=== PATIENT | male | born 1960 | race African-American/Black ===

== ENCOUNTER 2020-01-18 13:18 | Outpatient (CLI) | payer OTHER, SELFPAY ==
--- NOTE | ~2020-01-18 | XR_ITS ---
EXAMINATION: XR chest 2V DATE: 01/18/2020 14:34 INDICATION: Back pain. TECHNIQUE: Frontal and lateral views of the chest were obtained. COMPARISON: Chest 2 views 06/24/2018 FINDINGS: The lungs are hyperexpanded, consistent with emphysema. No pleural effusion or pneumothorax . The heart size is normal. IMPRESSION: 1. Emphysema. Reviewed, dictated and finalized at location A. IMPRESSION: 1. Emphysema.
--- NOTE | ~2020-01-18 | XR_ITS ---
EXAMINATION: XR hip BI 2V w AP pelvis EXAM DATE: 01/18/2020 14:34 INDICATION: No known recent injury provided at this time. Pain of the hips. TECHNIQUE: Each hip imaged independently (separate right and also left hip) 'frog leg' and frontal p rojections for interpretation. Frontal projection pelvis. There is no prior study for comparison. FINDINGS: There is moderate symmetric bilateral hip primary osteoarthritis. No evidence of hip avascu lar necrosis. There are no acute hip or pelvic fractures or dislocations identified. There is no sub cutaneous gas. The soft tissue is unremarkable. There are no radiopaque foreign bodies. IMPRESSION: Moderate bilateral hip osteoarthritis. Reviewed, dictated and finalized at location A.
--- NOTE | ~2020-01-18 | XR_ITS ---
EXAMINATION: XR thoracic spine 3V EXAM DATE: 01/18/2020 14:33 INDICATION: Back pain. TECHNIQUE: Frontal and lateral projections of the thoracic spine as well as lateral swimmers projecti on of the upper thoracic spine for interpretation. Comparison is made to prior examination from 2018. FINDINGS: Mild to moderate lower thoracic disc disease with some moderate sized bridging endplate os teophytes. No endplate erosive change. The vertebral bodies are aligned in the AP dimension. Paraspin al soft tissue is unremarkable. IMPRESSION: 1. Mild to moderate lower thoracic spondylosis. Reviewed, dictated and finalized at location A.
--- NOTE | ~2020-01-18 | XR_ITS ---
EXAMINATION: XR lumbar spine 2-3V EXAM DATE: 01/18/2020 14:34 INDICATION: Low back pain and numbness. TECHNIQUE: Lumber spine frontal, lateral, lateral L5-S1 projections for interpretation. Comparison is made to prior examination from 06/24/2018. FINDINGS: There is moderate disc disease at L4-5 and L5-S1 with 3 mm retrolisthesis at these 2 level s. Mild disc disease at the other lumbar levels. Small bridging endplate osteophytes. There is mild t o moderate lumbar facet arthropathy. No endplate erosive change. Sacrum, sacroiliac joints, sacral ar nils lines are intact. IMPRESSION: 1. Moderate lower lumbar disc disease. 2. Mild to moderate facet arthropathy. Reviewed, dictated and finalized at location A.
--- NOTE | ~2020-01-18 | XR_ITS ---
EXAMINATION: XR_CERV2-3V_CR EXAM DATE: 01/18/2020 14:33 INDICATION: Neck pain. TECHNIQUE: Cervical frontal, lateral, open-mouth odontoid projections. There is no prior study for comparison. FINDINGS: There is moderate disc disease at C5-6 and 6-7, mild at the other cervical levels. Probabl y moderate uncovertebral joint arthropathy at C5-6 and C6-7. Moderate left-sided facet arthropathy at C4-5, otherwise probably mild to moderate cervical facet arthropathy overall. The vertebral bodies a re aligned in the AP dimension. Vertebral body and disc heights are well-maintained. The odontoid pro cess is intact. The lateral masses of C1 line up with C2. Prevertebral soft tissue and pre-dens spac e are within normal limits. Lung apices unremarkable. IMPRESSION: Moderate lower cervical spondylosis. Reviewed, dictated and finalized at location A.
== END 2020-01-18 13:19 ==
DX: M54.9 Dorsalgia, unspecified (principal); M54.5 Low back pain; M25.552 Pain in left hip; M25.551 Pain in right hip; R10.2 Pelvic and perineal pain; M16.0 Bilateral primary osteoarthritis of hip
CPT/HCPCS: 71046; 72040; 72072; 72100; 73521

== ENCOUNTER 2022-06-01 06:49 | Emergency (ER) | payer OTHER, SELFPAY ==
--- NOTE | ~2022-06-01 | XR_ITS ---
XR lumbar spine 2-3V 06/01/2022 08:18 Indication: Low back pain Procedure: 3 views lumbar spine Comparison: 01/18/2020 Findings: There is disc narrowing at all lumbar levels. Disc narrowing most severe at L4-5 and L5-S1. There are facet hypertrophic changes at L4-5 and L5-S1. No acute fracture or traumatic malalignment. No evidence for spondylolisthesis. There is atherosclerosis. Pedicles intact. Impression: 1: Stable moderate lumbar spondylosis most advanced at L4-5 and L5-S1. Reviewed, dictated and finalized at location B. RACT TECHNICIAN Impression: 1: Stable moderate lumbar spondylosis most advanced at L4-5 and L5-S1.
[2022-06-01 06:55] VITALS: BP 142/99; PULSE 92; RESP 17; TEMP 36.3; O2SAT 95
--- NOTE | 2022-06-01 08:08 | ED.LOWEXIN ---
HPI - Extremity Injury (Lower) General Chief Complaint: Extremity Injury, Lower Stated Complaint: leg pain Time Seen by Provider: 06/01/22 08:03 History of Present Illness HPI Narrative: Patient is a 61-year-old male who presents ER with low back pain. 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 He did not think much of it went home and pain mildly increased. When he woke up this morning he had pain that was worse with going from sitting to standing. It was on both sides of his low back in the buttock region and would radiate down the back of his legs. No numbness or tingling. No difficulty with urination/defecation. Related Data Allergies Allergy/AdvReac Type Severity Reaction Status Date / Time No Known Allergies Allergy Mild Unverified 05/29/11 10:49 Review of Systems Constitutional: Constitutional: Denies chills and Denies fever(s) Musculoskeletal: Musculoskeletal: Reports back pain, Denies arthralgias and Denies joint swelling Neurologic: Denies focal weakness and Denies numbness PMFSH Past Medical History Medical History (Updated 06/01/22 @ 08:38 by Jose Fitzgerald MD) Hypercholesterolemia Hypertension Surgical History Surgical History (Updated 06/01/22 @ 08:36 by Jose Fitzgerald MD) No pertinent past surgical history Exam Narrative: GENERAL: Well-appearing, well-nourished, and in no acute distress. HEAD: Normocephalic, atraumatic. Back: No midline tenderness to T/L-spine. No reproducible paraspinal muscular tenderness. There is discomfort in the SI region bilaterally over the buttock. EXTREMITIES: Normal range of motion. No edema. Able to go from sitting to standing with only mild discomfort and no assistance. SKIN: Warm, dry, no rash. NEURO: Alert and oriented x3. PSYCH: Normal mood and affect. Course Course Emergency Course: Discussed diagnosis and treatment plan. Discussed x-ray results. Patient verbalized understanding. Discharge home. Vital Signs Vital signs: Vital Signs Temperature 97.3 F L 06/01/22 06:55 Pulse Rate 92 06/01/22 06:55 Respiratory Rate 17 06/01/22 06:55 Blood Pressure 142/99 H 02/24/23 06:55 Pulse Oximetry 95 02/24/23 06:55 Temperature 97.3 F L 06/01/22 06:55 Pulse Rate 92 06/01/22 06:55 Respiratory Rate 17 06/01/22 06:55 Blood Pressure 142/99 H 06/01/22 06:55 Pulse Oximetry 95 06/01/22 06:55 MDM - Extremity Injury (Lower) Imaging Data Radiologist's impression: ITS Impressions Lumbar Spine X-Ray 06/01/22 08:21 Impression: 1: Stable moderate lumbar spondylosis most advanced at L4-5 and L5-S1. Discharge Plan Discharge Clinical Impression: Bilateral sciatica Patient Disposition: Home, Self-Care Condition: Stable Instructions: Sciatica (ED) Additional Instructions: Return to the ER if you have increased pain in your back, you develop lower extremity weakness/numbness/paralysis, you have numbness or tingling in your private parts, or you are unable to control your ability to urinate/stool. Prescriptions: New cyclobenzaprine 10 mg tablet 10 mg PO TID PRN (Reason: muscle spasm) Qty: 20 0RF naproxen 500 mg tablet 500 mg PO BID Qty: 14 0RF Follow-up/Referrals: UNKNOWN,DOCTOR [Non-Staff] - 1 Week Stand Alone Forms: Work/School Release IP
[2022-06-01 09:01] VITALS: BP 143/104; PULSE 87; RESP 16; O2SAT 96
== END 2022-06-01 09:02 | disposition home or self-care (01) ==
PROVIDERS: Emergency Provider Emergency Medicine; PCP Internal Medicine
DX: M54.42 Lumbago with sciatica, left side (principal); M54.41 Lumbago with sciatica, right side; E78.00 Pure hypercholesterolemia, unspecified; I10 Essential (primary) hypertension; M47.816 Spondylosis without myelopathy or radiculopathy, lumbar region
CPT/HCPCS: 72100; 99283

== ENCOUNTER 2022-06-03 09:34 | Emergency (ER) | payer OTHER, SELFPAY ==
--- NOTE | ~2022-06-03 | CT_ITS ---
EXAMINATION: CT lumbar spine wo con DATE: 06/03/2022 14:44 INDICATION: lower back pain, feet numbness . TECHNIQUE: Computed tomography (CT) of the lumbar spine was performed without intravenous contrast. A utomated exposure control and iterative reconstruction technique were employed. The dose-length produ ct was 799.06 mGy-cm. COMPARISON: X-ray L-spine 06/01/2022 and 01/18/2020. FINDINGS: Left adrenal adenoma. Atherosclerotic calcifications. 5 nonrib-bearing lumbar-type vertebra l bodies. Pedicles intact. Minimal 2 mm retrolistheses at L4-L5 and L5-S1, remaining vertebral bodies are aligned. Stable mild anterior wedge deformity at T12-L3. Multilevel disc space narrowing and mar ginal osteophytosis with large bridging anterior osteophytes in the lower lumbar spine and vacuum dis c phenomenon at L4-5 and L5-S1. No large focal protrusion or extrusion detected. Severe left neural f oraminal narrowing at L5-S1. No severe central canal stenosis. Multilevel moderate facet sclerosis an d hypertrophy. IMPRESSION: No acute fracture or traumatic malalignment in the lumbar spine. Severe left neural foraminal narrowi ng at L5-S1. Multilevel degenerative disc disease, severe at L4-L5 and L5-S1. Multilevel facet hypert rophy. Reviewed, dictated and finalized at location K. PART ROUNDER IMPRESSION: No acute fracture or traumatic malalignment in the lumbar spine. Severe left ne ural foraminal narrowing at L5-S1. Multilevel degenerative disc disease, severe at L4-L5 and L5-S1. Multilevel facet hypertrophy.
[2022-06-03 09:37] VITALS: BP 147/94; PULSE 96; RESP 16; TEMP 36.6; O2SAT 96
[2022-06-03 12:42] VITALS: BP 132/80; PULSE 89; TEMP 37; O2SAT 97
[2022-06-03 13:17] VITALS: BP 159/96; PULSE 92; RESP 18; O2SAT 98
[2022-06-03] MEDS: methylPREDNISolone SOD SUCC 125 MG VIAL IV PUSH (13:41)
[2022-06-03] MEDS: KETOROLAC 30 MG/ML VIAL (*BKC) IV PUSH (13:41)
[2022-06-03] MEDS: HYDROmorphone HCL INJ (*CRX) 1 MG/ML SYR 0.5 MG IV PUSH ×2 (13:42→16:42)
[2022-06-03 13:53] LABS: Basophils Absolute Auto 0.1 K/mm3 (0.0-0.1); Basophils Percent Auto 0.8 % (0.2-1.2); Eosinophils Absolute Auto 0.1 K/mm3 (0-0.3); Eosinophils Percent Auto 0.9 % (0-4.4); Hematocrit 45.9 % (42.0-52.0); Hemoglobin 16.2 g/dL (14.0-18.0); Immature Granulocyte Absolute 0.01 K/mm3 (0.00-0.031); Immature Granulocyte Percent A 0.2 % (0-0.5); Lymphocytes Absolute Auto 1.85 K/mm3 (0.9-3.2); Lymphocytes Percent Auto 28.1 % (18.3-44.2); Mean Corpuscular HGB Conc 35.3 g/dl (32-36); Mean Corpuscular Hemoglobin 30.9 pg (26-34); Mean Corpuscular Volume 87.4 fl (80-100); Monocytes Absolute Auto 0.7 K/mm3 (0.1-0.6); Monocytes Percent Auto 10.3 % (2.6-8.5); Neutrophils Absolute Auto 3.9 K/mm3 (1.3-6.7); Neutrophils Percent Auto 59.7 % (45.5-73.1); Platelet Count Result 259 k/mm3 (150-375); Red Blood Count 5.25 M/mm3 (4.6-6.20); Red Cell Distribution Width 13.2 % (11.5-14.5); White Blood Count 6.6 K/mm3 (4.5-10.0)
[2022-06-03 13:58] LABS: Appearance Urine Clear (Clear); Bilirubin Urine Negative (Negative); Blood Urine Negative (Negative); Color Urine Yellow (Yellow); Glucose Urine UA Negative (Negative); Ketones Urine Trace mg/dL (Negative); Leukocyte Esterase Ur Negative LEU/UL (Negative); Nitrate Urine Negative (Negative); Protein Urine Negative (Negative); Specific Grav Ur 1.027 (1.001-1.035); pH Urine 5.5 (5.0-9.0)
--- NOTE | 2022-06-03 14:05 | ED.BACK ---
HPI - Back Pain/Injury General Chief Complaint: Extremity Problem,Nontraumatic Stated Complaint: back and leg pain - no fall Time Seen by Provider: 06/03/22 13:12 Source: patient, RN notes reviewed and old records reviewed Mode of arrival: wheelchair Limitations: no limitations History of Present Illness HPI Narrative: This is a 61 year old male who presents for evaluation of lower back pain. He developed back pain 10 days ago . He reports constant pain that radiates down both legs. He reports his pain is worsening, and he has numbness to top of his feet. He has no pain with sitting but he has pain with standing. HE reports he is unable to walk due to pain. He reports that he is having some difficulty urinating. He denies saddle anesthesia Related Data Allergies Allergy/AdvReac Type Severity Reaction Status Date / Time No Known Allergies Allergy Mild Verified 06/03/22 10:24 Review of Systems Constitutional: Constitutional: Denies weakness Cardiovascular: Cardiovascular: Denies syncope, Denies rapid heart rate, Denies irregular heart rhythm, Denies leg edema and Denies dyspnea Respiratory: Respiratory: Denies chest congestion, Denies hemoptysis, Denies excessive phlegm production and Denies dyspnea Gastrointestinal: Gastrointestinal: Denies abdominal pain, Denies hematochezia, Denies diarrhea and Denies vomiting Genitourinary: Genitourinary: Denies hematuria, Reports oliguria, Denies dysuria, Denies penile discharge and Denies testicular pain Musculoskeletal: Musculoskeletal: Reports back pain, Denies joint swelling, Denies loss of height and Denies muscle weakness Neurologic: Denies syncope, Denies focal weakness, Reports numbness and Reports weakness PMFSH Past Medical History Medical History (Updated 06/03/22 @ 17:22 by Katelyn Medrano MD) Hypercholesterolemia Hypertension Surgical History Surgical History (Updated 06/01/22 @ 08:36 by Jose Fitzgerald MD) No pertinent past surgical history Social History Social History (Updated 06/03/22 @ 21:36 by Katelyn Medrano MD) Smoking packs per day: 0.5 Smoking cigarettes per day: 10.0 Smoking status: Current every day smoker Exam Const: General: no acute distress and alert Nutritional Appearance: well nourished Orientation/consciousness: patient oriented x3 HENMT: Head: normal to inspection Throat: posterior oropharynx normal Eyes: EOM: EOMs intact bilaterally Neck: Neck: normal visual inspection Chest: Chest palpation & inspection: normal inspection of the chest Resp: Effort & Inspection: normal respiratory effort Auscultation: clear to auscultation bilaterally Cardio: Rate: regular rate Rhythm: regular rhythm Heart sounds: no murmurs GI: GI Palp: Yes Soft to palpation, No Tenderness to palpation present (GI), No Guarding due to palpation present (GI) and No Rigid due to palpation Auscultation: normal bowel sounds Rectal Exam: normal sphincter tone Back/Spine/Pelvis: Back: no CVA tenderness Thoracic/Lumbar Spine: No paraspinal muscle tenderness, No lumbar spinal tenderness and No straight leg raise positive Skin: General skin exam: normal color Rashes: no rashes Neuro: General: patient oriented x3, moves all extremities, no meningeal signs, no focal motor deficits and CN's II-XI intact bilaterally Cranial nerves: Yes CN's II-XII intact bilaterally Speech: normal speech Motor exam (neuro): Other motor observations present (strength 4/5 on left leg) Sensory Exam: normal sensation Extrem: General: normal to inspection Psych: Mental Status: mental status grossly normal Affect: normal affect Attitude: cooperative Course Reevaluation(s) Reevaluation #1: Patient states he is still having patient. I discussed that NSGY recommended that he get MRI today. We do not have MRI available at this time so He will need to transfer. He is agreeable to transfer . Date: 06/03/22 Time: 17:00 Consultations Consultation #1: I spoke with
[2022-06-03 14:06] LABS: CRP 0.6 mg/dL (<1.0)
[2022-06-03 14:28] LABS: Bacteria Urine None Seen /hpf; Non Pathogenic Casts 0-2; RBC Urine 0-2 /hpf (0-2); Squamous Epithelial Cell Urine None seen /hpf (Few); WBC Urine 0-5 /hpf
[2022-06-03 14:29] LABS: Alanine Aminotransferase 28 U/L (6-50); Albumin Level 4.8 g/dL (3.5-5.1); Alkaline Phosphatase 61 U/L (38-126); Anion Gap 7 mmol/L (8-16); Aspartate Amino Transferase 32 U/L (17-59); Bilirubin,Total 0.5 mg/dL (0.2-1.3); Blood Urea Nitrogen 14 mg/dL (9-20); Calcium 9.2 mg/dL (8.4-10.2); Carbon Dioxide 28 mmol/L (22-30); Chloride 101 mmol/L (98-107); Estimated CRCL calculation 90 ml/min; Estimated Glomerular Filt Rate > 60; Glucose 107 mg/dL (65-110); Potassium 3.8 mmol/L (3.4-5.0); Sodium 136 mmol/L (137-145)
[2022-06-03 14:30] LABS: Add Urine Microscopic? YES
[2022-06-03 15:11] VITALS: BP 156/95; PULSE 82; RESP 18; O2SAT 96
[2022-06-03 17:30] VITALS: BP 154/92; PULSE 86; RESP 18; O2SAT 98
== END 2022-06-03 18:39 | disposition short-term general hospital (02) ==
PROVIDERS: Emergency Provider General Practice; PCP Internal Medicine
DX: M51.16 Intervertebral disc disorders with radiculopathy, lumbar region (principal); M51.17 Intervertebral disc disorders with radiculopathy, lumbosacral region; E78.00 Pure hypercholesterolemia, unspecified; I10 Essential (primary) hypertension; F17.210 Nicotine dependence, cigarettes, uncomplicated
CPT/HCPCS: 36415; 72131; 80053; 81001; 85025; 86140; 96374; 96375; 96376; 99285; J1170; J1885; J2930

== ENCOUNTER 2022-10-05 09:36 | Outpatient (CLI) | payer OTHER, SELFPAY ==
--- NOTE | ~2022-10-05 | XR_ITS ---
EXAMINATION: XR lg joint inject/asp w image DATE: 10/05/2022 11:15 INDICATION: Right shoulder pain and limited range of motion TECHNIQUE: A time-out was performed to verify the patient's name, date of , and procedure to b e performed. The procedure including the risks, benefits, and alternatives was discussed with the pat ient. Risks discussed included bleeding and infection. The patient understood the risks and agreed to proceed. The skin overlying the rotator cuff interval of the right glenohumeral joint was prepped a nd draped in usual sterile fashion. Anesthetic was administered with 1% lidocaine subcutaneously. A 22 G needle was advanced under fluoroscopic guidance into the joint. Injection of 1 mL of Omnipaque 240 confirmed intra-articular position of the needle. Subsequently, injectate consisting of 4 mL of a 3:1 mixture of 1% lidocaine: 80 mg/mL Depo-Medrol for a total dose of 80 mg Depo-Medrol was instil led. Washout of contrast was seen confirming intra-articular administration. The needle was removed a nd the entry site was cleaned and dressed. There were no immediate complications. Fluoroscopy exposu re time was 0.1 minutes. The total number of images was 1. FINDINGS: Real-time fluoroscopy demonstrates the needle in the right glenohumeral joint. Patient's pa in prior to procedure:11/15. Patient's pain following the procedure: 07/16. IMPRESSION: 1. Successful right glenohumeral joint injection of local anesthetic and steroid with decrease in the patient's presenting pain. Reviewed, dictated and finalized at location A. IMPRESSION: 1. Successful right glenohumeral joint injection of local anesthetic and steroi d with decrease in the patient's presenting pain.
--- NOTE | ~2022-10-05 | MR_ITS ---
MRI of the left shoulder Technique: Axial proton-density fat-sat images, coronal proton density fat-sat and T2 fat-sat images, and sagittal T1-weighted and T2 fat-sat images were acquired. Clinical History: Pain Findings: There is advanced AC joint degenerative change, large subcarinal spur present. Coracoclavic ular, coracoacromial, and coracohumeral ligaments are intact. Supraspinatus and infraspinatus tendons are intact, without partial or full-thickness tear. Subscapul lissette tendon is intact. Tendon of the long head of the biceps is intact. No definite labral tear identified. No degenerative change or effusion of the glenohumeral joint. Inferior glenohumeral ligament is intac t. No fluid distention of the subacromial/subdeltoid bursa. No muscle atrophy or edema. Impression: Advanced degenerative change of the AC joint. No other significant findings. Reviewed, dictated and finalized at [facility]. Impression: Advanced degenerative change of the AC joint. No other significant findings.
== END 2022-10-05 09:37 | disposition home or self-care (01) ==
PROVIDERS: PCP Internal Medicine; Visit Provider Orthopaedic Surgery
DX: M25.512 Pain in left shoulder (principal)
CPT/HCPCS: 20610; 73221; 77002; J1040; Q9966

== ENCOUNTER 2023-01-22 13:33 | Emergency (ER) | payer OTHER, SELFPAY ==
--- NOTE | ~2023-01-22 | XR_ITS ---
XR chest 2V DATE: 01/22/2023 14:15 INDICATION: Cough TECHNIQUE: PA and lateral views COMPARISON: 01/18/2020 2 view chest FINDINGS: Lungs are hyperinflated suggesting obstructive airways disease. There is mild discoid atele ctasis or scarring in the right lower lobe. No pulmonary infiltrate or consolidation is detected. Heart size is within normal range. The central pulmonary arteries appear prominent with relative tape ring peripherally, suggesting possible pulmonary hypertension. There is thoracic aortic ectasia and u nfolding. No hilar or mediastinal enlargement is detected. No pleural effusion or pulmonary vascular congestion or pneumothorax. There is degenerative spurring of the thoracic spine. Pedicle screws and rods are noted in the lumbar spine. IMPRESSION: COPD and possible pulmonary hypertension Reviewed, dictated and finalized at location A.
[2023-01-22 13:35] VITALS: BP 156/87; PULSE 87; RESP 18; TEMP 36.3; O2SAT 97
--- NOTE | 2023-01-22 13:42 | ED.GENADULT ---
HPI - General Adult General Chief complaint: Upper Respiratory Infection Stated complaint: flu like sx x 2 days Time Seen by Provider: 01/22/23 14:24 History of Present Illness HPI narrative: Reji Freire is a 62 y/o male with PMHx of COPD/ HTN/ HLD who presents with 2-3 days of increased cough intermittently productive, reports feeling overall unwell, no known fevers/chills/nausea/vomiting/ abdominal pain Related Data Allergies Allergy/AdvReac Type Severity Reaction Status Date / Time No Known Allergies Allergy Mild Verified 01/22/23 13:33 Review of Systems Review of Systems: CONSTITUTIONAL: Denies fever, chills, or sweats. EYES: Denies visual changes, redness, or discharge. ENT: Denies rhinorrhea, congestion, sore throat, or otalgia. CARDIOVASCULAR: Denies chest pain, palpitations, or edema. RESPIRATORY: Reports cough for 2-3 days denies dyspnea. GASTROINTESTINAL: Denies abdominal pain, nausea, vomiting, or diarrhea. GENITOURINARY: Denies dysuria or hematuria. SKIN: Denies rash or itching. MUSCULOSKELETAL: Denies back pain, joint pain, or myalgia. NEUROLOGIC: Denies headache, numbness, dizziness, or weakness. PSYCHIATRIC: Denies anxiety or depression. PMFSH Past Medical History Medical History (Updated 01/22/23 @ 15:08 by Daphne Magallon APRN) Hypercholesterolemia Hypertension Surgical History Surgical History (Updated 06/01/22 @ 08:36 by Jose Fitzgerald MD) No pertinent past surgical history Social History Social History (Updated 06/03/22 @ 21:36 by Katelyn Medrano MD) Smoking packs per day: 0.5 Smoking cigarettes per day: 10.0 Smoking status: Current every day smoker Exam Narrative: GENERAL: Well-appearing, well-nourished, and in no acute distress. HEAD: Normocephalic, atraumatic. EYES: PERRLA and EOMI. ENT: Nares clear, no rhinorrhea or epistaxis. Mucous membranes moist. Oropharynx without tonsillar hypertrophy exudate or other lesions. Bilateral TMs pearly rivers nonbulging NECK: Supple. No adenopathy or masses. No carotid bruits or JVD CHEST: Clear to auscultation. No respiratory distress. No wheezes rales or rhonchi HEART: Regular rate and rhythm. No murmur heard. Normal peripheral pulses. ABDOMEN: Soft, nontender, nondistended, normal active bowel sounds. EXTREMITIES: Normal range of motion. No edema. SKIN: Warm, dry, no rash. NEURO: No focal deficits. Alert and oriented x3. PSYCH: Normal mood and affect. Course Vital Signs Vital signs: Vital Signs Temperature 36.3 C L 01/22/23 13:35 Pulse Rate 87 01/22/23 13:35 Respiratory Rate 18 01/22/23 13:35 Blood Pressure 156/87 H 01/22/23 13:35 Pulse Oximetry 97 01/22/23 13:35 Oxygen Delivery Room Air 01/22/23 13:35 Temperature 36.3 C L 01/22/23 13:35 Pulse Rate 89 01/22/23 13:55 Respiratory Rate 18 01/22/23 13:55 Blood Pressure 156/87 H 01/22/23 13:35 Pulse Oximetry 97 01/22/23 13:35 Oxygen Delivery Room Air 01/22/23 14:00 Medical Decision Making [facility] Narrative Medical decision making narrative: Patient presents with PMhx of COPD with increased cough off and on productive feeling generalized unwell that started 2- 3 days ago. He states he has been taking OTC cold medications with some relief Denies any Shortness of breath/ denies chest pain/ no peripheral edema noted. Lung sounds diminished throughout with slight wheeze in the base of the right Labs are stable X ray is negative for pneumonia Patient re-evaluated and states he feels better after the breathing treatment Plan to d/c home with a dose of azithromycin and steroid taper Encouraged pt to continue the OTC cold medications as tolerated , stay hydrated, get plenty rest Close follow up with PCP in 1 week. Strict return precautions provided. Patient denies any further questions or concerns. Differential Diagnosis Differential Diagnosis: URI/ Anemia/ pneumonia/ Bronchitis/ COPD exacerbation. Medical Records Medi
[2023-01-22 13:55] VITALS: PULSE 89; RESP 18
[2023-01-22] MEDS: IPRATROPIUM BR 0.02% INH SOLN 0.5 MG/2.5 ML VIAL INHALATION (13:55)
[2023-01-22] MEDS: ALBUTEROL SULFATE NEB 2.5 MG/3 ML INH INHALATION (13:55)
[2023-01-22] MEDS: predniSONE 20 MG TABLET 60 MG PO (14:00)
[2023-01-22 14:16] LABS: Basophils Absolute Auto 0.1 K/mm3 (0.0-0.1); Basophils Percent Auto 0.9 % (0.2-1.2); Eosinophils Absolute Auto 0.2 K/mm3 (0-0.3); Eosinophils Percent Auto 3.3 % (0-4.4); Hemoglobin 16.2 g/dL (14.0-18.0); Immature Granulocyte Absolute 0.01 K/mm3 (0.00-0.031); Immature Granulocyte Percent A 0.2 % (0-0.5); Lymphocytes Absolute Auto 1.86 K/mm3 (0.9-3.2); Lymphocytes Percent Auto 34.3 % (18.3-44.2); Mean Corpuscular HGB Conc 35.2 g/dl (32-36); Mean Corpuscular Hemoglobin 31.2 pg (26-34); Mean Corpuscular Volume 88.5 fl (80-100); Mean Platelet Volume 10.2 fl (7.4-10.4); Monocytes Absolute Auto 0.6 K/mm3 (0.1-0.6); Monocytes Percent Auto 10.9 % (2.6-8.5); Neutrophils Absolute Auto 2.7 K/mm3 (1.3-6.7); Neutrophils Percent Auto 50.4 % (45.5-73.1); Platelet Count Result 227 k/mm3 (150-375); Red Cell Distribution Width 12.4 % (11.5-14.5); White Blood Count 5.4 K/mm3 (4.5-10.0)
[2023-01-22 14:30] LABS: Alanine Aminotransferase 25 U/L (6-50); Albumin Level 4.5 g/dL (3.5-5.1); Alkaline Phosphatase 62 U/L (38-126); Anion Gap 8 mmol/L (8-16); Aspartate Amino Transferase 29 U/L (17-59); Bilirubin,Total 0.6 mg/dL (0.2-1.3); Blood Urea Nitrogen 12 mg/dL (9-20); Calcium 8.8 mg/dL (8.4-10.2); Carbon Dioxide 25 mmol/L (22-30); Chloride 104 mmol/L (98-107); Estimated Glomerular Filt Rate > 60; Glucose 134 mg/dL (65-110); Potassium 3.8 mmol/L (3.4-5.0); Sodium 137 mmol/L (137-145)
[2023-01-22 14:56] LABS: Influenza A QL RT-PCR Negative (Negative); Influenza B QL RT-PCR Negative (Negative); RSV RNA, RT-PCR Negative (Negative); SARS-CoV-2 RNA PCR Negative (Negative)
[2023-01-22] MEDS: AZITHROMYCIN 250 MG TABLET 500 MG PO (15:08)
== END 2023-01-22 15:13 | disposition home or self-care (01) ==
PROVIDERS: Emergency Provider Nurse Practitioner Family; PCP Internal Medicine
DX: J06.9 Acute upper respiratory infection, unspecified (principal); Z20.822 Contact with and (suspected) exposure to COVID-19; J44.9 Chronic obstructive pulmonary disease, unspecified; I10 Essential (primary) hypertension; E78.00 Pure hypercholesterolemia, unspecified; F17.210 Nicotine dependence, cigarettes, uncomplicated; R91.8 Other nonspecific abnormal finding of lung field
CPT/HCPCS: 36415; 71046; 80053; 85025; 87637; 94640; 99283; A9270; J7512

== ENCOUNTER 2023-03-25 05:29 | Emergency (ER) | payer OTHER, SELFPAY ==
--- NOTE | ~2023-03-25 | CT_ITS ---
CT of the Abdomen and Pelvis: Indication: Abdominal Technique: 2.5 mm axial scans were obtained through the abdomen and pelvis following intravenous adm inistration of 100 cc of Omnipaque 350. Dose reduction technique was used on this scan by utilizing a utomated exposure control and iterative reconstruction technique. The dose-length product (DLP) was 4 05.43 mGy-cm. Findings: Scans through the lung bases are unremarkable. The liver, spleen, pancreas, gallbladder, right adrenal and, and kidneys are within normal limits. Pr obable 1.2 cm left adrenal nodule, indeterminate. No evidence of aortic aneurysm. No lymphadenopathy . There is mixed wall thickening of the ascending colon and cecum with mild pericolonic inflammatory st randing. No abscess or free air. No bowel obstruction. Images through the pelvis were performed. Urinary bladder unremarkable. Prostate gland and seminal ve sicles are unremarkable. Impression: Presumed infectious/inflammatory colitis of the cecum and ascending colon with pericolonic inflammato ry change. No abscess or free air. No bowel obstruction. Indeterminate 1.2 cm left adrenal nodule. Consider follow-up MR to assess for adenoma. Reviewed, dictated and finalized at [facility]. [employer] Impression: Presumed infectious/inflammatory colitis of the cecum and ascending colon with pericolonic inflammatory change. No abscess or free air. No bowel obstruction. Indeterminate 1.2 cm left adrenal nodule. Consider follow-up MR to assess for a denoma.
[2023-03-25 05:29] VITALS: BP 150/99; PULSE 98; RESP 20; TEMP 36.4; O2SAT 95
--- NOTE | 2023-03-25 07:10 | PC.NURSE ---
Report given to JOE Cat at this time.
[2023-03-25 07:11] VITALS: BP 157/95; PULSE 87; RESP 18; TEMP 36.6; O2SAT 97
[2023-03-25] MEDS: ONDANSETRON INJ 4 MG/2 ML VIAL IV PUSH (07:22)
[2023-03-25 07:24] LABS: Basophils Absolute Auto 0.1 K/mm3 (0.0-0.1); Basophils Percent Auto 0.7 % (0.2-1.2); Eosinophils Absolute Auto 0.1 K/mm3 (0-0.3); Eosinophils Percent Auto 0.9 % (0-4.4); Hemoglobin 16.5 g/dL (14.0-18.0); Immature Granulocyte Absolute 0.02 K/mm3 (0.00-0.031); Immature Granulocyte Percent A 0.2 % (0-0.5); Lymphocytes Absolute Auto 2.38 K/mm3 (0.9-3.2); Lymphocytes Percent Auto 27.2 % (18.3-44.2); Mean Corpuscular HGB Conc 35.9 g/dl (32-36); Mean Corpuscular Hemoglobin 30.7 pg (26-34); Mean Corpuscular Volume 85.5 fl (80-100); Mean Platelet Volume 11.1 fl (7.4-10.4); Monocytes Absolute Auto 1.1 K/mm3 (0.1-0.6); Monocytes Percent Auto 12.4 % (2.6-8.5); Neutrophils Absolute Auto 5.1 K/mm3 (1.3-6.7); Neutrophils Percent Auto 58.6 % (45.5-73.1); Platelet Count Result 245 k/mm3 (150-375); Red Blood Count 5.38 M/mm3 (4.6-6.20); Red Cell Distribution Width 13.2 % (11.5-14.5); White Blood Count 8.7 K/mm3 (4.5-10.0)
[2023-03-25 07:25] LABS: Appearance Urine Clear (Clear); Bilirubin Urine Negative (Negative); Blood Urine Negative (Negative); Color Urine Yellow (Yellow); Glucose Urine UA Negative (Negative); Ketones Urine Negative (Negative); Leukocyte Esterase Ur Negative LEU/UL (Negative); Nitrate Urine Negative (Negative); Protein Urine Negative (Negative); Specific Grav Ur 1.007 (1.001-1.035); Urobilinogen Urine 0.2 mg/dL (<2.0); pH Urine 6.5 (5.0-9.0)
[2023-03-25 07:33] LABS: Add Urine Microscopic? NO; Alanine Aminotransferase 22 U/L (6-50); Albumin Level 4.6 g/dL (3.5-5.1); Alkaline Phosphatase 70 U/L (38-126); Anion Gap 10 mmol/L (8-16); Aspartate Amino Transferase 29 U/L (17-59); Bilirubin,Total 0.9 mg/dL (0.2-1.3); Blood Urea Nitrogen 10 mg/dL (9-20); Calcium 9.6 mg/dL (8.4-10.2); Carbon Dioxide 25 mmol/L (22-30); Chloride 100 mmol/L (98-107); Estimated CRCL calculation 80 ml/min; Estimated Glomerular Filt Rate > 60; Glucose 166 mg/dL (65-110); Lipase 71 U/L (23-300); Potassium 3.7 mmol/L (3.4-5.0); Sodium 135 mmol/L (137-145)
--- NOTE | 2023-03-25 08:26 | ED.ABDPAIN ---
HPI - Abdominal Pain General Chief Complaint: Abdominal Pain Stated Complaint: abd pain Time Seen by Provider: 03/25/23 06:58 History of Present Illness HPI narrative: patient is a 62-year-old male who presents ER with abdominal pain. Going on since yesterday. Sharp and cramping. Lower and right-sided. No diarrhea. No urinary frequency or urgency or dysuria. It is associated with dry heaving. No known sick contacts. He does still have an appendix. No history of kidney stone. Has not had similar pain. Related Data Allergies Allergy/AdvReac Type Severity Reaction Status Date / Time No Known Allergies Allergy Mild Verified 03/25/23 05:45 Review of Systems Review of Systems: All systems reviewed & are unremarkable except as noted in HPI and below Constitutional: Constitutional: Reports no additional constitutional complaints ENT: Reports system reviewed and no additional complaints, except as documented Cardiovascular: Cardiovascular: Reports no additional cardiovascular complaints Respiratory: Respiratory: Reports no additional respiratory complaints Gastrointestinal: Gastrointestinal: Reports abdominal pain, Denies diarrhea, Reports nausea and Denies vomiting Genitourinary: Genitourinary: Reports no additional male genitourinary complaints [facility] Past Medical History Medical History (Updated 03/25/23 @ 08:56 by Jose Fitzgerald MD) Hypercholesterolemia Hypertension Surgical History Surgical History (Updated 06/01/22 @ 08:36 by Jose Fitzgerald MD) No pertinent past surgical history Social History Social History (Updated 06/03/22 @ 21:36 by Katelyn Medrano MD) Smoking packs per day: 0.5 Smoking cigarettes per day: 10.0 Smoking status: Current every day smoker Exam Narrative: GENERAL: Well-appearing, well-nourished, and in no acute distress. HEAD: Normocephalic, atraumatic. ENT: Mucous membranes moist. CHEST: Clear to auscultation. No respiratory distress. HEART: Regular rate and rhythm. Normal peripheral pulses. ABDOMEN: Soft, mild tenderness the right lower quadrant without guarding, nondistended. EXTREMITIES: Normal range of motion. No edema. SKIN: Warm, dry, no rash. NEURO: Alert and oriented x3. PSYCH: Normal mood and affect. Course Course Emergency Course: Patient resting comfortably. Educated on diagnosis and treatment plan. Discharged home. Vital Signs Vital signs: Vital Signs Temperature 97.5 F L 03/25/23 05:29 Pulse Rate 98 03/25/23 05:29 Respiratory Rate 20 03/25/23 05:29 Blood Pressure 150/99 H 03/25/23 05:29 Pulse Oximetry 95 03/25/23 05:29 Oxygen Delivery Room Air 03/25/23 05:29 Temperature 97.9 F 03/25/23 07:11 Pulse Rate 78 03/25/23 09:17 Respiratory Rate 16 03/25/23 09:17 Blood Pressure 148/89 H 03/25/23 09:17 Pulse Oximetry 98 03/25/23 09:17 Oxygen Delivery Room Air 03/25/23 05:29 MDM - Abdominal Pain Lab Data 03/25/23 07:14 03/25/23 07:14 Labs: Lab Results 03/25/23 Range/Units 07:14 WBC 8.7 (4.5-10.0) K/mm3 RBC 5.38 (4.6-6.20) M/mm3 Hgb 16.5 (14.0-18.0) g/dL Hct 46.0 (42.0-52.0) % MCV 85.5 (80-100) fl MCH 30.7 (26-34) pg MCHC 35.9 (32-36) g/dl RDW 13.2 (11.5-14.5) % Plt Count 245 (150-375) k/mm3 MPV 11.1 H (7.4-10.4) fl Immature Gran % (Auto) 0.2 (0-0.5) % Neut % (Auto) 58.6 (45.5-73.1) % Lymph % (Auto) 27.2 (18.3-44.2) % Mccone % (Auto) 12.4 H (2.6-8.5) % Eos % (Auto) 0.9 (0-4.4) % Baso % (Auto) 0.7 (0.2-1.2) % Lymph # (Auto) 2.38 (0.9-3.2) K/mm3 Mccone # (Auto) 1.1 H (0.1-0.6) K/mm3 Eos # (Auto) 0.1 (0-0.3) K/mm3 Baso # (Auto) 0.1 (0.0-0.1) K/mm3 Abs Immat Gran (auto) 0.02 (0.00-0.031) K/mm3 Absolute Neuts (auto) 5.1 (1.3-6.7) K/mm3 Absolute Nucleated RBC 0.0 (0.0-0.012) K/mm3 Nucleated RBC % 0.0 (0.0-0.2) % Sodium 135 L (137-145) mmol/L Potassium 3.7 (3.4-5.0) mmol/L
[2023-03-25 09:17] VITALS: BP 148/89; PULSE 78; RESP 16; O2SAT 98
== END 2023-03-25 09:17 | disposition home or self-care (01) ==
PROVIDERS: Emergency Provider Emergency Medicine; PCP Internal Medicine
DX: K52.9 Noninfective gastroenteritis and colitis, unspecified (principal); E78.00 Pure hypercholesterolemia, unspecified; I10 Essential (primary) hypertension; F17.210 Nicotine dependence, cigarettes, uncomplicated
CPT/HCPCS: 36415; 74177; 80053; 81003; 83690; 85025; 96374; 99284; J2405; Q9967

== ENCOUNTER 2023-05-10 07:50 | Emergency (ER) | payer OTHER, SELFPAY ==
--- NOTE | ~2023-05-10 | XR_ITS ---
XR chest 2V DATE: 05/10/2023 08:22 INDICATION: Cough, shortness of breath, fever TECHNIQUE: PA and lateral views COMPARISON: 01/22/2023 PA and lateral chest FINDINGS: Normal heart size. Mild aortic unfolding. No hilar or mediastinal enlargement. Moderate bilateral hyperinflation. No pulmonary infiltrate or consolidation, pleural effusion or pulm onary vascular congestion or pneumothorax is detected. Degenerative spurring of the thoracic spine. Pedicle screws and rods are noted in the lumbar area beginning superiorly at L1. IMPRESSION: Moderate hyperinflation; no active cardiopulmonary disease Reviewed, dictated and finalized at location [facility] [employer]
[2023-05-10 07:51] VITALS: BP 169/94; PULSE 110; RESP 24; TEMP 37.8; O2SAT 96
[2023-05-10 08:14] VITALS: O2SAT 100
[2023-05-10 08:51] LABS: Influenza A QL RT-PCR Positive (Negative); Influenza B QL RT-PCR Negative (Negative); RSV RNA, RT-PCR Negative (Negative); SARS-CoV-2 RNA PCR Negative (Negative)
--- NOTE | 2023-05-10 09:50 | ED.URI ---
HPI - URI/Sore Throat General Chief Complaint: Upper Respiratory Infection Stated Complaint: flu like symptoms Time Seen by Provider: 05/10/23 09:04 Source: patient Mode of arrival: ambulatory Limitations: no limitations History of Present Illness HPI Narrative: Patient is a 62-year-old male who presents the ED with report of URI symptoms. Patient reports he began feeling ill on Saturday afternoon after speaking to a co-worker who was sick with similar symptoms. He complains of cough, sore throat, fevers, chills, sweats, myalgias, headache, fatigue, weakness. He has been taking [place] Plus and drinking tea with honey for his symptoms. denies chest pain, shortness breath. Denies nausea, vomiting abdominal pain. Patient did not receive his flu shot this year. Related Data Allergies Allergy/AdvReac Type Severity Reaction Status Date / Time No Known Allergies Allergy Mild Verified 05/10/23 07:53 Review of Systems Review of Systems: CONSTITUTIONAL: See HPI. ENT: See HPI. CARDIOVASCULAR: Denies chest pain, palpitations, or edema. RESPIRATORY: See HPI. GASTROINTESTINAL: Denies abdominal pain, nausea, vomiting. MUSCULOSKELETAL: Reports myalgia. NEUROLOGIC: see HPI. All systems reviewed & are unremarkable except as noted in HPI and below PMFSH Past Medical History Medical History Hypercholesterolemia Hypertension Surgical History Surgical History No pertinent past surgical history Social History Social History Smoking packs per day: 0.5 Smoking cigarettes per day: 10.0 Smoking status: Current every day smoker Exam Narrative: GENERAL: Mildly ill appearing, well-nourished, non-toxic, in no acute distress. HEAD: Normocephalic, atraumatic. RESPIRATORY: Airway patent, respirations nonlabored. Clear to auscultation bilaterally, no rales, rhonchi, wheezing. focal lung sounds. Frequent coughing on exam. CARDIOVASCULAR: borderline tachycardic with regular rhythm without murmurs, rubs, or gallops. MUSCULOSKELETAL: Moves all extremities. No gross deformities. SKIN: Warm, dry, normal color. NEURO: A&O X3. Speech clear. Cranial nerves II-XII grossly intact. Steady gait. No ataxic movements. No focal deficits. PSYCHIATRIC: Appropriate mood and affect. Normal interaction. Course Vital Signs Vital signs: Vital Signs Temperature 100.0 F H 05/10/23 07:51 Pulse Rate 110 H 05/10/23 07:51 Respiratory Rate 24 H 05/10/23 07:51 Blood Pressure 169/94 H 05/10/23 07:51 Pulse Oximetry 96 05/10/23 07:51 Oxygen Delivery Room Air 05/10/23 07:51 Temperature 100.0 F H 05/10/23 07:51 Pulse Rate 110 H 05/10/23 07:51 Respiratory Rate 24 H 05/10/23 07:51 Blood Pressure 169/94 H 05/10/23 07:51 Pulse Oximetry 100 05/10/23 08:14 Oxygen Delivery Room Air 05/10/23 08:14 MDM - URI/Sore Throat MDM Narrative Medical decision making narrative: Patient presented to ED with 1.5 day history of URI symptoms. patient tachycardic, tachypneic, febrile upon arrival. Oxygen stable on room air. Influenza A positive in the ED. This does fit with patient's clinical picture. Chest x-ray clear. Patient denying shortness of breath, chest pain, nausea, vomiting to suggest need for further labs or imaging at this time. Will give patient fluids in the ED, start on Tamiflu given sx's onset < 48 hours ago. Discussed supportive therapy, strict return precautions. Advised follow-up with PCP upon resolution of symptoms. Patient and agree with plan. Discharged in stable condition. VSS improved and stable at time of d/c. Medical Records Attestation: I reviewed the patient's medical records. Lab Data Attestation: I reviewed the patient's lab results. Labs: Lab Results 05/10/23 Range/Units 08:06
[2023-05-10] MEDS: IBUPROFEN 600 MG TABLET PO (09:53)
[2023-05-10] MEDS: OSELTAMIVIR PHOSPHATE 75 MG CAPSULE PO (09:53)
[2023-05-10] MEDS: SODIUM CHLORIDE 0.9% IV 1,000 ML 999 ML IV CONT (09:54)
== END 2023-05-10 10:57 | disposition home or self-care (01) ==
PROVIDERS: Emergency Medicine; Emergency Provider Physician Assistant; PCP Internal Medicine
DX: J10.1 Influenza due to other identified influenza virus with other respiratory manifestations (principal); Z20.822 Contact with and (suspected) exposure to COVID-19; E78.00 Pure hypercholesterolemia, unspecified; I10 Essential (primary) hypertension; F17.210 Nicotine dependence, cigarettes, uncomplicated
CPT/HCPCS: 71046; 87637; 96360; 99283; A9270; J7030

== ENCOUNTER 2023-08-26 06:53 | Emergency (ER) | payer OTHER, SELFPAY ==
--- NOTE | ~2023-08-26 | XR_ITS ---
Portable chest x-ray Comparison: 05/10/2023 Clinical History: Cough Findings: Lungs are clear, without focal consolidation or pleural effusion. Cardiomediastinal silho uette is stable. Bones and soft tissues are unremarkable. Impression: Normal chest. Reviewed, dictated and finalized at [facility]. Impression: Normal chest.
[2023-08-26 06:58] VITALS: BP 158/102; PULSE 90; RESP 19; TEMP 36.9; O2SAT 94
[2023-08-26 07:58] LABS: Influenza A QL RT-PCR Negative (Negative); Influenza B QL RT-PCR Negative (Negative); RSV RNA, RT-PCR Negative (Negative); SARS-CoV-2 RNA PCR Negative (Negative)
[2023-08-26 08:10] VITALS: PULSE 82; RESP 18
[2023-08-26] MEDS: ALBUTEROL SULFATE NEB 2.5 MG/3 ML INH 15 MG INHALATION (08:10)
[2023-08-26] MEDS: IPRATROPIUM BR 0.02% INH SOLN 0.5 MG/2.5 ML VIAL 1 MG INHALATION (08:10)
[2023-08-26] MEDS: predniSONE 20 MG TABLET 40 MG PO (08:49)
[2023-08-26] MEDS: AZITHROMYCIN 250 MG TABLET 500 MG PO (08:49)
[2023-08-26 08:52] VITALS: BP 163/105; PULSE 80; PULSE 86; RESP 16; RESP 18; O2SAT 100
[2023-08-26 08:59] VITALS: BP 144/102; PULSE 101; RESP 21; O2SAT 100
--- NOTE | 2023-08-26 11:04 | ED.URI ---
HPI - URI/Sore Throat General Chief Complaint: Upper Respiratory Infection Stated Complaint: coughing and spitting up x 4 days Time Seen by Provider: 08/26/23 07:00 History of Present Illness HPI Narrative: patient has been having a cough on and off for the last 2 weeks, with some sputum. He stopped smoking about 5 days ago. No chest pain. Related Data Allergies Allergy/AdvReac Type Severity Reaction Status Date / Time No Known Allergies Allergy Mild Verified 05/10/23 07:53 Review of Systems Review of Systems: All systems reviewed & are unremarkable except as noted in HPI and below [facility] Past Medical History Medical History Hypercholesterolemia Hypertension Surgical History Surgical History No pertinent past surgical history Social History Social History Smoking packs per day: 0.5 Smoking cigarettes per day: 10.0 Smoking status: Current every day smoker Exam Narrative: EXAMINATION OF ORGAN SYSTEMS/BODY AREAS: Constitutional: Vital signs per nursing GENERAL:[No acute distress, non-toxic appearing.] HEAD: Normal with no signs of head trauma. EYES: EOMI, conjunctiva normal ENT: Hearing grossly intact LUNGS: Nonlabored breathing. Wheezing bilaterally HEART: [Regular rate and rhythm] ABD: Soft, nontender palpation EXT: Normal range of motion SKIN: [No rashes or lesions.] NEURO: [Alert and oriented x 3. No gross focal sensory or strength deficits.] PSYCH: Normal affect Course Vital Signs Vital signs: Vital Signs Temperature 98.4 F 08/26/23 06:58 Pulse Rate 90 08/26/23 06:58 Respiratory Rate 19 08/26/23 06:58 Blood Pressure 158/102 H 08/26/23 06:58 Pulse Oximetry 94 08/26/23 06:58 Oxygen Delivery Room Air 08/26/23 06:58 Temperature 98.4 F 08/26/23 06:58 Pulse Rate 101 H 08/26/23 08:59 Respiratory Rate 21 H 08/26/23 08:59 Blood Pressure 144/102 H 08/26/23 08:59 Pulse Oximetry 100 08/26/23 08:59 Oxygen Delivery Room Air 08/26/23 08:29 MDM - URI/Sore Throat MDM Narrative Medical decision making narrative: ED COURSE AND MEDICAL DECISION MAKIN-year-old male with cough and wheezing likely due to COPD exacerbation or acute bronchitis based on history and exam. Patient is hemodynamically stable. Nebulizer treatments are started and steroids given orally. Chest x-ray on my independent interpretation no obvious consolidations or pneumothorax Patient monitored in the ED for a couple of hours and on reevaluation is feeling significantly better. No respiratory distress or accessory muscle use. Good air movement bilateral lungs. Prescriptions for [albuterol and steroid course] provided. Patient is given strict return precautions and patient is discharged in stable/improved condition. Lab Data Labs: Lab Results 08/26/23 Range/Units 07:11 Influenza A (RT-PCR) Negative (Negative) Influenza B (RT-PCR) Negative (Negative) RSV (RT-PCR) Negative (Negative) SARS-CoV-2 RNA (RT-PCR) Negative (Negative) Discharge Plan Discharge Clinical Impression: Acute bronchitis Patient Disposition: Home, Self-Care Condition: Stable Instructions: Antibiotic Form, Acute Bronchitis (ED) Additional Instructions: Please follow up with your PCP; use the meds as prescribed and come back if you feel worse. Prescriptions: New prednisone 20 mg tablet 40 mg PO DAILY 4 Days Qty: 8 0RF albuterol sulfate 90 mcg/actuation HFA aerosol inhaler 2 puff inhalation QID PRN (Reason: shortness of breath or wheezing) Qty: 8.5 0RF azithromycin 250 mg tablet 250 mg PO DAILY 4 Days Qty: 4 0RF Rx Instructions: start on day 2 of therapy No Action azithromycin 250 mg tablet 250 mg PO DAILY 4 Days Qty: 4 0RF Rx Instructions: Sta
== END 2023-08-26 09:01 | disposition home or self-care (01) ==
PROVIDERS: Emergency Provider Emergency Medicine; PCP Internal Medicine
DX: J20.9 Acute bronchitis, unspecified (principal); Z20.822 Contact with and (suspected) exposure to COVID-19; E78.00 Pure hypercholesterolemia, unspecified; I10 Essential (primary) hypertension; F17.210 Nicotine dependence, cigarettes, uncomplicated
CPT/HCPCS: 71045; 87637; 94640; 99283; A9270; J7512

== ENCOUNTER 2023-11-12 10:04 | Emergency (ER) | payer OTHER, SELFPAY ==
[2023-11-12 10:18] VITALS: BP 140/90; PULSE 105; RESP 16; TEMP 36.4; O2SAT 97
[2023-11-12] MEDS: dexAMETHasone SOD PHOS INJ 10 MG/ML 1 ML VIAL IM (12:27)
[2023-11-12] MEDS: HYDROcodone/acetaminophen (*CRX) 5-325 MG TABLET 1 TAB PO (12:27)
[2023-11-12] MEDS: diazePAM (*CRX) 5 MG TABLET PO (12:27)
[2023-11-12] MEDS: KETOROLAC 30 MG/ML VIAL (*BKC) IM (12:27)
--- NOTE | 2023-11-12 12:45 | ED.GENADULT ---
HPI - General Adult General Chief complaint: Extremity Injury, Lower Stated complaint: sciatica Time Seen by Provider: 11/12/23 11:45 History of Present Illness HPI narrative: Reji Freire is a 62 y/o male who presents today with reports of starting to have pain like previous sciatica to his right buttock radiating down the anterior right leg. He denies any falls/ trauma/ injury No spinal pain No loss of bowel or bladder No numbness /tingling Denies urinary changes / dysuria No abdominal pain / no fevers/ chills Pain started yesterday evening he has tried Ibuprofen without relief at home Sitting up resting makes his pain better Ambulating makes his pain worse. Related Data Allergies Allergy/AdvReac Type Severity Reaction Status Date / Time No Known Allergies Allergy Mild Verified 11/12/23 11:26 Review of Systems Review of Systems: All systems reviewed & are unremarkable except as noted in HPI and below PMFSH Past Medical History Medical History Hypercholesterolemia Hypertension Surgical History Surgical History No pertinent past surgical history Social History Social History Smoking packs per day: 0.5 Smoking cigarettes per day: 10.0 Smoking status: Current every day smoker Exam Narrative: GENERAL: Well-appearing, well-nourished, and in no acute distress. HEAD: Normocephalic, atraumatic. EYES: PERRLA and EOMI. ENT: Nares clear, no rhinorrhea or epistaxis. Mucous membranes moist. Oropharynx without tonsillar hypertrophy exudate or other lesions. NECK: Supple. No adenopathy or masses. No carotid bruits or JVD CHEST: Clear to auscultation. No respiratory distress. No wheezes rales or rhonchi HEART: Regular rate and rhythm. No murmur heard. Normal peripheral pulses. ABDOMEN: Soft, nontender, nondistended, normal active bowel sounds. EXTREMITIES: Normal range of motion. No edema. SKIN: Warm, dry, no rash. NEURO: No focal deficits. Alert and oriented x3. PSYCH: Normal mood and affect. Course Vital Signs Vital signs: Vital Signs Temperature 36.4 C 11/12/23 10:18 Pulse Rate 105 H 11/12/23 10:18 Respiratory Rate 16 11/12/23 10:18 Blood Pressure 140/90 11/12/23 10:18 Pulse Oximetry 97 11/12/23 10:18 Oxygen Delivery Room Air 11/12/23 10:18 Temperature 36.4 C 11/12/23 10:18 Pulse Rate 105 H 11/12/23 10:18 Respiratory Rate 16 11/12/23 10:18 Blood Pressure 140/90 11/12/23 10:18 Pulse Oximetry 97 11/12/23 10:18 Oxygen Delivery Room Air 11/12/23 10:18 Medical Decision Making MDM Narrative Medical decision making narrative: 62 y/o male with reported sciatica pain to right buttock radiating down the front of his right leg No cervical / thoracic/ lumbar spinal tenderness with palpation No abdominal pain No saddle paraesthesia, No loss of bowel or bladder Denies any urinary changes no fevers/ no chills Concern for : sciatica / muscle spasm / Muscle strain Plan to check UA / and treat his pain while here to ensure he improves prior to d/c UA - unremarkable Re-evaluatd and he states he is feeling much better - pain is improved and able to ambulate much easier He is comfortable with d/c plan Strict return precautions provided Medical Records Medical records reviewed: Yes I reviewed the external patient's medical records. Vital Signs Vital Signs: Vital Signs Temperature 36.4 C 11/12/23 10:18 Pulse Rate 105 H 11/12/23 10:18 Respiratory Rate 16 11/12/23 10:18 Blood Pressure 140/90 11/12/23 10:18 Pulse Oximetry 97 11/12/23 10:18 Oxygen Delivery Room Air 11/12/23 10:18 Temperature 36.4 C 11/12/23 10:18 Pulse Rate 105 H 11/12/23 10:18 Respiratory Rate 16 11/12/23 10:18 Blood Pressure 140/90 11/12/23 10:18 Pulse Oximetry 97 11/12/23 10:
[2023-11-12 13:49] LABS: Add Urine Microscopic? NO; Appearance Urine Clear (Clear); Bilirubin Urine Negative (Negative); Blood Urine Negative (Negative); Color Urine Yellow (Yellow); Glucose Urine UA Negative (Negative); Ketones Urine Trace mg/dL (Negative); Leukocyte Esterase Ur Negative LEU/UL (Negative); Nitrate Urine Negative (Negative); Protein Urine Negative (Negative); pH Urine 6.5 (5.0-9.0)
[2023-11-12 14:46] VITALS: BP 135/85; PULSE 100; RESP 18; O2SAT 98
== END 2023-11-12 14:47 | disposition home or self-care (01) ==
PROVIDERS: Emergency Provider Nurse Practitioner Family; PCP Internal Medicine
DX: M54.31 Sciatica, right side (principal); I10 Essential (primary) hypertension; F17.210 Nicotine dependence, cigarettes, uncomplicated
CPT/HCPCS: 81003; 96372; 99284; A9270; J1100; J1885

== ENCOUNTER 2023-11-30 10:09 | Emergency (ER) | payer OTHER, SELFPAY ==
[2023-11-30 11:32] VITALS: BP 147/90; PULSE 88; RESP 14; TEMP 36.7; O2SAT 99
--- NOTE | 2023-11-30 12:14 | ED.SKABFB ---
HPI - Skin/Abscess/Foreign Bdy General Chief complaint: Skin/Abscess/Foreign Body Stated complaint: rash Time Seen by Provider: 11/30/23 11:36 History of Present Illness HPI narrative: Patient is a 62-year-old male who presents ER with rash. It is been developing over his arms and legs over last 2 days. Intensely itchy. Occasionally red. That will show up and then go away. Originally thought he had bedbugs and threw away all the bedding and then put his mattress and pillows and plastic bags. No fevers or chills or sweats. No new medications. He has not been exposed to poison lew or other plants. No new laundry detergents or fabric softeners. No one else with similar rash around him. No alleviating factors. Related Data Allergies Allergy/AdvReac Type Severity Reaction Status Date / Time No Known Allergies Allergy Mild Verified 11/12/23 11:26 Review of Systems Constitutional: Constitutional: Reports no additional constitutional complaints ENT: Reports system reviewed and no additional complaints, except as documented Cardiovascular: Cardiovascular: Reports no additional cardiovascular complaints Integumentary/Breasts: Skin/Breast: Reports pruritus, Denies erythema, Reports rash and Denies skin ulcer Allergic/Immunologic: Allergic/Immunologic: Denies lip swelling, Denies throat swelling and Denies tongue swelling PMFSH Past Medical History Medical History Hypercholesterolemia Hypertension Surgical History Surgical History No pertinent past surgical history Social History Social History Smoking packs per day: 0.5 Smoking cigarettes per day: 10.0 Smoking status: Current every day smoker Exam Narrative: GENERAL: Well-appearing, well-nourished, and in no acute distress. HEAD: Normocephalic, atraumatic. ENT: Mucous membranes moist. CHEST: Clear to auscultation. No respiratory distress. HEART: Regular rate and rhythm. Normal peripheral pulses. EXTREMITIES: Normal range of motion. No edema. SKIN: Warm, dry . Small areas of urticaria no larger than 1.5 cm in diameter to multiple areas of the arms bilaterally. Patient is itching his foot that I do not see any rash there. No bite fox. NEURO: Alert and oriented x3. PSYCH: Normal mood and affect. Course Course Emergency Course: Patient be started on prednisone. Unsure of the etiology of his rash. Discussed he can use [id number] topical cortisone or oral Benadryl to help with itching in addition to the prednisone that will be prescribed. Vital Signs Vital signs: Vital Signs Temperature 98.1 F 11/30/23 11:32 Pulse Rate 88 11/30/23 11:32 Respiratory Rate 14 11/30/23 11:32 Blood Pressure 147/90 H 11/30/23 11:32 Pulse Oximetry 99 11/30/23 11:32 Temperature 98.1 F 11/30/23 11:32 Pulse Rate 88 11/30/23 11:32 Respiratory Rate 14 11/30/23 11:32 Blood Pressure 147/90 H 11/30/23 11:32 Pulse Oximetry 99 11/30/23 11:32 Discharge Plan Discharge Clinical Impression: Urticaria Patient Disposition: Home, Self-Care Condition: Stable Instructions: Urticaria (ED) Additional Instructions: return ER if you have swelling of your lips or tongue, you found breathe, you cannot keep down food/water/ medication, you have additional concerns. Prescriptions: New prednisone 50 mg tablet 50 mg PO DAILY Qty: 7 0RF No Action azithromycin 250 mg tablet 250 mg PO DAILY 4 Days Qty: 4 0RF Rx Instructions: Start 01/23 prednisone 50 mg tablet 50 mg PO DAILY Qty: 5 0RF dicyclomine 20 mg tablet 20 mg PO QID Qty: 20 0RF ondansetron 4 mg tablet,disintegrating 4 mg PO Q6H PRN (Reason: nausea and vomiting) Qty: 10 0RF amoxicillin-pot clavulanate 875-125 mg tablet 1 tablet PO Q12H Qty: 14 0RF prednisone 20 mg
== END 2023-11-30 12:48 | disposition home or self-care (01) ==
PROVIDERS: Emergency Provider Emergency Medicine; PCP Internal Medicine
DX: L50.9 Urticaria, unspecified (principal); I10 Essential (primary) hypertension; E78.00 Pure hypercholesterolemia, unspecified; F17.210 Nicotine dependence, cigarettes, uncomplicated
CPT/HCPCS: 99283

== ENCOUNTER 2023-12-10 08:37 | Emergency (ER) | payer OTHER, SELFPAY ==
[2023-12-10 08:45] VITALS: BP 138/83; PULSE 112; RESP 20; TEMP 36.6; O2SAT 97
[2023-12-10 08:56] VITALS: O2SAT 98
--- NOTE | 2023-12-10 08:57 | PC.NURSE ---
COVID/Flu swab collected and sent to lab
--- NOTE | 2023-12-10 08:58 | PC.NURSE ---
Pt presents with hives to x4 extremities & trunk. Reports started 1 week ago. Pt states he started taking supplements couple weeks ago
--- NOTE | 2023-12-10 09:08 | ED.URI ---
HPI - URI/Sore Throat General Chief Complaint: Upper Respiratory Infection Stated Complaint: URI and skin rash Time Seen by Provider: 12/10/23 08:42 History of Present Illness HPI Narrative: Patient presents with 1 day of URI symptoms with cough, runny nose, he has also noticed an itchy rash for the last week, has already seen his primary care doctor for this who put him on prednisone and Benadryl however it will still come and go. He does not think there are any new medications that he has been taking other than some supplements which he has stopped, no new detergents or soaps. Related Data Allergies Allergy/AdvReac Type Severity Reaction Status Date / Time No Known Allergies Allergy Mild Verified 12/10/23 08:38 Review of Systems Review of Systems: All systems reviewed & are unremarkable except as noted in HPI and below PMFSH Past Medical History Medical History Hypercholesterolemia Hypertension Surgical History Surgical History No pertinent past surgical history Social History Social History Smoking packs per day: 0.5 Smoking cigarettes per day: 10.0 Smoking status: Current every day smoker Exam Narrative: EXAMINATION OF ORGAN SYSTEMS/BODY AREAS: Constitutional: Vital signs per nursing GENERAL:[No acute distress, non-toxic appearing.] HEAD: Normal with no signs of head trauma. EYES: EOMI, conjunctiva normal ENT: clear normal voice LUNGS: Nonlabored breathing. Clear to auscultation bilaterally HEART: Slightly tachycardic ABD: [Soft], [nontender to palpation] EXT: Normal range of motion SKIN: urticaria in multiple areas including right abdominal wall, bilateral arms NEURO: [Alert and oriented x 3. No gross focal sensory or strength deficits.] PSYCH: Normal affect Course Vital Signs Vital signs: Vital Signs Temperature 97.9 F 12/10/23 08:45 Pulse Rate 112 H 12/10/23 08:45 Respiratory Rate 20 12/10/23 08:45 Blood Pressure 138/83 12/10/23 08:45 Pulse Oximetry 97 12/10/23 08:45 Oxygen Delivery Room Air 12/10/23 08:45 Temperature 97.9 F 12/10/23 08:45 Pulse Rate 112 H 12/10/23 08:45 Respiratory Rate 20 12/10/23 08:45 Blood Pressure 138/83 12/10/23 08:45 Pulse Oximetry 98 12/10/23 08:56 Oxygen Delivery Room Air 12/10/23 08:56 MDM - URI/Sore Throat MDM Narrative Medical decision making narrative: 52-year-old male presenting with URI symptoms, he is very well-appearing here no distress, no shortness of breath or chest pain, he does have urticaria on exam, initially was slightly tachycardic but on re-evaluation now has normal heart rate 95, 98% O2 on room air. did also consider possible PE however he has no chest pain, shortness of breath, or DVT symptoms so this seems much less likely. swabs sent negative for COVID, flu, RSV. He is given Claritin and hydrocortisone cream, I have asked him to try to identify what triggered him, and follow-up with his primary care doctor. Return precautions provided. Lab Data Labs: Lab Results 12/10/23 Range/Units 08:53 Influenza A (RT-PCR) Negative (Negative) Influenza B (RT-PCR) Negative (Negative) RSV (RT-PCR) Negative (Negative) SARS-CoV-2 RNA (RT-PCR) Negative (Negative) Discharge Plan Discharge Clinical Impression: Upper respiratory infection, Urticaria Patient Disposition: Home, Self-Care Condition: Stable Instructions: Antibiotic Form, Urticaria (ED), Cold Symptoms (ED) Additional Instructions: Please follow-up with primary care doctor, you can always come back to the emergency room for any further issues. Prescriptions: New loratadine 10 mg tablet 10 mg PO DAILY Qty: 30 0RF hydrocortisone 1 % cream 1 applic topical TID PRN (Reason: itching) Qty: 28.4 0RF No Action azithrom
[2023-12-10] MEDS: HYDROCORTISONE 1% 30 GM CREAM 1 APPLIC TOPICAL (09:31)
[2023-12-10] MEDS: LORATADINE 10 MG TABLET PO (09:31)
[2023-12-10 09:35] LABS: Influenza A QL RT-PCR Negative (Negative); Influenza B QL RT-PCR Negative (Negative); RSV RNA, RT-PCR Negative (Negative); SARS-CoV-2 RNA PCR Negative (Negative)
[2023-12-10 09:56] VITALS: BP 129/90; PULSE 88; RESP 20; TEMP 36.8; O2SAT 96
== END 2023-12-10 09:58 | disposition home or self-care (01) ==
PROVIDERS: Emergency Provider Emergency Medicine; PCP Internal Medicine
DX: J06.9 Acute upper respiratory infection, unspecified (principal); L50.9 Urticaria, unspecified; I10 Essential (primary) hypertension; E78.00 Pure hypercholesterolemia, unspecified; F17.210 Nicotine dependence, cigarettes, uncomplicated; Z20.822 Contact with and (suspected) exposure to COVID-19
CPT/HCPCS: 87637; 95863; 99283; A9270

== ENCOUNTER 2024-06-11 10:16 | Outpatient (CLI) | payer MEDICARE, MEDICAID, SELFPAY ==
--- OUTSIDE RECORDS SUMMARY | 2024-06-11 11:43 | XMS_ITS | Data Portability ---
Author Organization [place] [facility] [employer], Main Office Address [address] [place] [address] Care Team Providers Care Risk Control Specialist Name Role Phone ZARIA RUBIO Primary Care Provider [phone] ZARIA RUBIO Referring Provider Assessment Encounter Date Assessment Date Assessment LastModified by Organization Details LastModified Time 09/07/2022 09/07/2022 Impression: Radiographically patient has minimal degenerative change in the right shoulder mild glenohumeral joint degenerative change manifested by spurring around the glenoid in the left shoulder. Clinically patient has pronounced loss of range of motion right shoulder. He has an adhesive capsulitis like clinical presentation on the right shoulder. This may be his primary diagnosis but it is possible that he has component of degenerative arthritis more significant in the x-rays suggest which could cause an acute inflammatory response and stiffness. He has no rotator cuff deficiency on strength testing. I have offered him a cortisone shot in the right shoulder under fluoroscopic guidance to trying quite down inflammation and address the severe pain at ends of range of motion and I would recommend we follow this up with a course of physical therapy frozen shoulder protocol. He may benefit from anti-inflammatory medication. I would recommend that he call his spine surgeon Dr. Saucedo and specifically ask worry whether he is allowed to take NSAIDs for example Naprosyn. He is at higher risk for having poor bone healing with his back fusion because of his chronic smoking and he continues to smoke and Dr. Saucedo may not want him to take nonsteroidal anti-inflammatory medications because of potential adverse effects on the bone fusion and I would recommend that he be cleared by Dr. Saucedo 1st. This would also apply the ibuprofen that he takes on a daily basis. With respect to his left shoulder, his presentation is unusual. From his oral description of his symptoms it seemed that he had acute radicular episodes but clinically, reproduction of these episodes seems to be related to contraction of the subscapularis and may be indicative of subscapularis tendinopathy or tearing for possibly subtle subluxation of the glenohumeral joint with entrapment of degenerated labrum. His marginal osteophyte around the glenoid is likely associated with significant labral degeneration as well. Instability is another consideration but I could not reproduce symptoms of instability today. I recommended obtaining an MRI scan of his left shoulder to understand the diagnosis better. It is possible that he has much more significant glenohumeral arthritis with perhaps significant subchondral bone marrow edema that is being loaded when he does these certain maneuvers causing his aching pain and numbness . His neurologic examination was unremarkable and cervical spine provocative maneuvers failed to reproduce his symptoms are cause any radicular pain or dysesthesias today. I have prescribed a Medrol Dosepak form today which will hopefully give him some anti-inflammatory effect and he will find out about whether he can start nonsteroidal anti-inflammatory medication again. I will see him back after the MRI scan of the left shoulder. 45 minutes were spent total care this patient more than half the time spent in [id number] care. Not available 09/07/2022 11:42:55 11/02/2022 11/02/2022 Low-fat diet regular walking blood work will be ordered avoidance of tobacco follow-up 4 months [email or web address] Not available 11/03/2022 12:54:27 11/16/2022 11/16/2022 Impression: Patient has an unusual constellation of complaints relative to his left shoulder. 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 Literature suggest various etiologies including vascular compression of the circumflex artery a rounds with the axillary nerve in this location or compression of the nerve from fibrous bands. Diagnosis is difficult. My reading suggests that the usual provocative maneuver is abduction elevation external rotation and his provocative maneuvers the exact opposite. I could see how full internal rotation beyond the back would apply some tension to the axillary nerve however.. Angiogram compression of the artery in the provocative position might suggest confirmation of this diagnosis but has a false-positive rate up to 80%.. The classic finding On diagnostic studies would be a lesion seen on MRI scan, a mass occupying lesion adjacent to the quadrilateral space and I do not see that on MRI. In more chronic cases, atrophy of the teres minor with or without fatty infiltration would be suggestive and he does not have that either. His teres minor looks perfect. His muscularity is surprisingly robust on the MRI scan. Again his rotator cuff looks perfect there is no effusion the joint no ganglion cyst noted. his MRI is very normal except the AC joint arthritis which is an incidental finding. Initial treatment would be course of physical therapy for stretching exercises. The only time he notices this problem with his left shoulder is when he is reaching behind his back to thread his belt through the belt loops on his pants. We will try physical therapy and also a course of naproxen 500 mg twice daily scheduled. I have given instruction she described the possible side effects of anti-inflammatory medication use. He has no history of peptic ulcer disease liver or kidney problems. Risk of side effects were reviewed. 40 minutes were spent in total care this patient with more than half the time spent in [id number] care. Not available 11/18/2022 17:31:49 12/14/2022 12/14/2022 patient returns. He has been taking the Naprosyn 500 mg twice daily. He has been going to physical therapy and doing the stretching exercises at home. He feels that the physical therapy just makes his right shoulder more shortness so were. He has been doing therapy in left shoulder as well. Since the last visit 1 month ago, he had 1 episode where the entire left arm went numb when he bent over to pickling grader a screw including all 5 fingertips felt numb. That was at work. Last week he was simply leaning leaning to the left with his head resting on his left hand and his left elbow supported and he felt a sudden spasm of twitching in his left biceps that was extremely intense. He notes that the twitching left his biceps sore and it is still a little bit sore 1 week later. Today he demonstrated how he simply bent over to pickling grader a screw reaching to the floor with his left hand and in demonstrating this he felt numbness and tingling in all 5 digits radiating from his shoulder. I asked him about his neck and he states that yesterday he was sitting leaning forward looking down in his neck did start to hurt. He has not noticed neck pain for a long time however. He has a history of some severe neck pain in the past. I have changed x-rays of his cervical spine today which demonstrate moderately severe degenerative disc disease at C5-6 7 and disc space decrease at C3-4. There is a posterior osteophyte at the disc level at C6-7 likely encroaches into the cervical spinal canal. Impression: I am suspicious that the patient may have severe cervical spinal stenosis causing symptoms into the left upper extremity. 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 The anterior deltoid C5 typically. Biceps muscle is C5 and C6. His most recent episode of severe twitching and spasm was in his left biceps from simply leaning over forward and reaching to the ground pickling grader screw. Today he notes tingling in all 5 digits of his left hand when he bends over to simulate picking a screw up off the floor. [place] tingling in all 5 fingers of his left hand with this maneuver. This makes me more suspicious that he has high-grade cervical spinal stenosis and I would recommend obtaining an MRI scan of his cervical spine for further evaluation. Differential diagnosis would also include a brachial plexus lesion. With his significant cervical spine degenerative changes I would recommend evaluating the cervical spine 1st with MRI scan and see if there is pathology that would correlate with his symptoms. I will see him back after the test. 30 minutes were spent in total care this patient more than half the time spent in [id number] care. Not available 12/15/2022 21:48:29 02/21/2023 02/21/2023 Will continue current therapy will follow-up in 4 Not available 02/25/2023 22:15:26 Plan of Treatment Reminders Order Date Submit Date Provider Last Modified By Organization Details Last Modified Time Details Appointments None recorded. Lab CBC w/ auto diff 2022 023 [facility] (Lab), [address] [place], [address], 15:06:11 CMP, serum or plasma 2022 023 [facility] (Lab), [address] [place], [address], 3 15:29:20 lipid panel, serum 2022 023 [facility] (Lab), [address] [place], [address], 3 15:29:23 Referral None recorded. Procedures None recorded. Surgeries None recorded. Imaging XR, cervical spine, 2 or 3 view 2022 023 [email or web address] [facility] [place], [address], [place], [address], 3 11:17:31 MRI, cervical spine, w/o contrast 2022 023 [email or web address] Not available 3 15:08:20 XR, shoulder 2022 023 [facility] [place], [address], [place], [address], 3 13:58:11 Medication Orders Naprosyn 500 mg tablet 2022 023 [id number], [address], [place], [id number], 3 08:21:45 Medrol (Geo) 4 mg tablets in a dose pack 2022 023 [email or web address] 45 [id number], [address], [place], [id number], 3 12:18:19 Patient TargetsNo targets recorded. Patient InstructionsNo instructions recorded. Reason for Referral None Reported. Results Created Date Observation Date Name Description Value Unit Range Abnormal Flag Note LastModifiedBy Organization Detail LastModifiedTime 11/03/19 23 11/02/2022 CBC/C OMPLE TE BLD COUNT W/DIF F white blood cells 5.4 x10'3 /uL 4.2-10 .8 Not Available [facility] (Lab) [address] [place], [address], 11/02/2022 15:06:11 11/03/19 23 11/02/2022 CBC/C OMPLE TE BLD COUNT W/DIF F red blood cells 5.10 x10'6 /uL 4.10-5 .80 Not Available [facility] (Lab) [address] [place], [address], 11/02/2022 15:06:11 11/03/19 23 11/02/2022 CBC/C OMPLE TE BLD COUNT W/DIF F hemoglobin 15.3 g/dL 13.2-1 7.0 Not Available [facility] (Lab) [address] [place], [address], 11/02/2022 15:06:11 11/03/19 23 11/02/2022 CBC/C OMPLE TE BLD COUNT W/DIF F hematocrit 43.7 % 39.3-5 0.0 Not Available [facility] (Lab) [address] [place], [address], 11/02/2022 15:06:11 11/03/19 23 11/02/2022 CBC/C OMPLE TE BLD COUNT W/DIF F mean red cell volume 85.7 fL 80.0-9 7.0 Not Available [facility] (Lab) [address] [place], [address], 11/02/2022 15:06:11 11/03/19 23 11/02/2022 CBC/C OMPLE TE BLD COUNT W/DIF F mean red cell hemoglobin 30.0 pg 27.0-3 3.0 Not Available [facility] (Lab) [address] [place], [address], 11/02/2022 15:06:11 11/03/19 23 11/02/2022 CBC/C OMPLE TE BLD COUNT W/DIF F mean RBC HGB concentratio n 35.0 g/dL 31.0-3 6.0 Not Available [facility] (Lab) [address] [place], [address], 11/02/2022 15:06:11 11/03/19 23 11/02/2022 CBC/C OMPLE TE BLD COUNT W/DIF F red cell distribution width 13.9 % 11.8-1 5.5 Not Available [facility] (Lab) [address] [place], [address], 11/02/2022 15:06:11 11/03/19 23 11/02/2022 CBC/C OMPLE TE BLD COUNT W/DIF F platelets 248 x10'3 /uL 150-40 0 Not Available [facility] (Lab) [address] [place], [address], 11/02/2022 15:06:11 11/03/19 23 11/02/2022 CBC/C OMPLE TE BLD COUNT W/DIF F mean platelet volume 10.9 fL 9.0-12 .4 Not Available [facility] (Lab) [address] [place], [address], 11/02/2022 15:06:11 11/03/19 23 11/02/2022 CBC/C OMPLE TE BLD COUNT W/DIF F neutrophils 46.2 % 39.0-7 2.0 Not Available [facility] (Lab) [address] [place], [address], 11/02/2022 15:06:11 11/03/19 23 11/02/2022 CBC/C OMPLE TE BLD COUNT W/DIF F lymphocytes 39.4 % 16.0-4 7.0 Not Available [facility] (Lab) [address] [place], [address], 11/02/2022 15:06:11 11/03/19 23 11/02/2022 CBC/C OMPLE TE BLD COUNT W/DIF F monocytes 12.0 % 5.0-12 .0 Not Available [facility] (Lab) [address] [place], [address], 11/02/2022 15:06:11 11/03/19 23 11/02/2022 CBC/C OMPLE TE BLD COUNT W/DIF F eosinophils 1.3 % 1.0-7. 0 Not Available [facility] (Lab) [address] [place], [address], 11/02/2022 15:06:11 11/03/19 23 11/02/2022 CBC/C OMPLE TE BLD COUNT W/DIF F basophils 0.7 % 0.0-2. 0 Not Available [facility] (Lab) [address] [place], [address], 11/02/2022 15:06:11 11/03/19 23 11/02/2022 CBC/C OMPLE TE BLD COUNT W/DIF F immature granulocytes 0.4 % 0.00-0 .50 Not Available [facility] (Lab) [address] [place], [address], 11/02/2022 15:06:11 11/03/19 23 11/02/2022 CBC/C OMPLE TE BLD COUNT W/DIF F neutrophils, absolute count 2.50 x10'3 /uL 1.5-8. 0 Not Available [facility] (Lab) [address] [place], [address], 11/02/2022 15:06:11 11/03/19 23 11/02/2022 CBC/C OMPLE TE BLD COUNT W/DIF F lymphocytes, absolute count 2.13 x10'3 /uL 1.07-3 .43 Not Available [facility] (Lab) [address] [place], [address], 11/02/2022 15:06:11 11/03/19 23 11/02/2022 CBC/C OMPLE TE BLD COUNT W/DIF F monocytes, absolute count 0.65 x10'3 /uL 0.29-0 .99 Not Available [facility] (Lab) [address] [place], [address], 11/02/2022 15:06:11 11/03/19 23 11/02/2022 CBC/C OMPLE TE BLD COUNT W/DIF F eosinophils, absolute count 0.07 x10'3 /uL 0.02-0 .53 Not Available [facility] (Lab) [address] [place], [address], 11/02/2022 15:06:11 11/03/19 23 11/02/2022 CBC/C OMPLE TE BLD COUNT W/DIF F basophils, absolute count 0.04 x10'3 /uL 0.01-0 .08 Not Available [facility] (Lab) [address] [place], [address], 11/02/2022 15:06:11 11/03/19 23 11/02/2022 CBC/C OMPLE TE BLD COUNT W/DIF F immature granulocytes ,absolute 0.02 x10'3 /uL 0.00-0 .05 Not Available [facility] (Lab) [address] [place], [address], 11/02/2022 15:06:11 11/03/19 23 11/02/2022 CBC/C OMPLE TE BLD COUNT W/DIF F nucleated red blood cells 0.0 % -0 Not Available [facility] (Lab) [address] [place], [address], 11/02/2022 15:06:11 11/03/19 23 11/02/2022 CBC/C OMPLE TE BLD COUNT W/DIF F NRBC# 0.00 x10'3 /uL Not Available [facility] (Lab) [address] [place], [address], 11/02/2022 15:06:11 11/03/19 23 11/02/2022 COMPR EHENS BRYAN METAB OLIC PANEL sodium 138 mmol/ L 137-14 5 Not Available [facility] (Lab) [address] [place], [address], 11/02/2022 15:29:20 11/03/19 23 11/02/2022 COMPR EHENS BRYAN METAB OLIC PANEL potassium 4.7 mmol/ L 3.5-5. 1 Not Available [facility] (Lab) [address] [place], [address], 11/02/2022 15:29:20 11/03/19 23 11/02/2022 COMPR EHENS BRYAN METAB OLIC PANEL chloride 101 mmol/ L 98-107 Not Available [facility] (Lab) [address] [place], [address], 11/02/2022 15:29:20 11/03/19 23 11/02/2022 COMPR EHENS BRYAN METAB OLIC PANEL carbon dioxide 26 mmol/ L 22-30 Not Available [facility] (Lab) [address] [place], [address], 11/02/2022 15:29:20 11/03/19 23 11/02/2022 COMPR EHENS BRYAN METAB OLIC PANEL anion gap 15.7 mmol/ L 14-22 Not Available [facility] (Lab) [address] [place], [address], 11/02/2022 15:29:20 11/03/19 23 11/02/2022 COMPR EHENS BRYAN METAB OLIC PANEL glucose 89 mg/dL 70-99 Not Available [facility] (Lab) [address] [place], [address], 11/02/2022 15:29:20 11/03/19 23 11/02/2022 COMPR EHENS BRYAN METAB OLIC PANEL BUN 10 mg/dL 8-19 Not Available [facility] (Lab) [address] [place], [address], 11/02/2022 15:29:20 11/03/19 23 11/02/2022 COMPR EHENS BRYAN METAB OLIC PANEL creatinine 0.84 mg/dL 0.66-1 .25 Not Available [facility] (Lab) [address], [place], [address], 11/02/2022 15:29:20 11/03/19 23 11/02/2022 COMPR EHENS BRYAN METAB OLIC PANEL GFR >60 Refer ence Range : [place] ge GFR Healt hy Adult : >60 mL/mi n/1.7 3 m2 Chron ic Kidne y Disea se: 15-60 mL/mi n/1.7 3 m2 Kidne y Failu re: <15/m L/min /1.73 m2 www.n iddk. nih.g ov The MDRD study equat ion has not been valid ated in child emily <18 years of age; pregn ant women ; the elder ly >85 years of age; or in some racia l or ethni c subgr oups, such as [facility] nics. Outsi de the valid ated brandan eters , estim ated GFR is less accur ate, requi ring clini tiana judgm ent on a case- by-ca se basis . Clini tiana inter preta tion for other races and ages must be made by the clini mike. The MDRD study equat ion has not been valid ated for the evalu ation of serum creat inine relat ed to nutri leno l statu s or medic ation usage . For perso ns <18 years of age, a pedia tric GFR calcu lator is avail able on the F websi te: https ://deonte w.sinai alvaresy.o rg/pr ofess ional s/kdo qi/gf r_cal culat or Not Available [facility] (Lab) [address] [place], [address], 11/02/2022 15:29:20 11/03/19 23 11/02/2022 COMPR EHENS BRYAN METAB OLIC PANEL alkaline phosphatase 60 U/L 38-126 Not Available [facility] (Lab) [address] [facility] [place], [address], 11/02/2022 15:29:20 11/03/19 23 11/02/2022 COMPR EHENS BRYAN METAB OLIC PANEL alanine aminotransfe rase 27 U/L 0-50 Not Available [facility] (Lab) [address] [place], [address], 11/02/2022 15:29:20 11/03/19 23 11/02/2022 COMPR EHENS BRYAN METAB OLIC PANEL aspartate aminotransfe rase 37 U/L 15-46 Not Available [facility] (Lab) [address] [place], [address], 11/02/2022 15:29:20 11/03/19 23 11/02/2022 COMPR EHENS BRYAN METAB OLIC PANEL bilirubin, total 0.70 mg/dL 0.20-1 .30 Not Available [facility] (Lab) [address] [place], [address], 11/02/2022 15:29:20 11/03/19 23 11/02/2022 COMPR EHENS BRYAN METAB OLIC PANEL calcium 9.6 mg/dL 8.4-10 .2 Not Available [facility] (Lab) [address] [place], [address], 11/02/2022 15:29:20 11/03/19 23 11/02/2022 COMPR EHENS BRYAN METAB OLIC PANEL total protein 7.7 g/dL 6.3-8. 2 Not Available [facility] (Lab) [address] [place], [address], 11/02/2022 15:29:20 11/03/19 23 11/02/2022 COMPR EHENS BRYAN METAB OLIC PANEL albumin 4.8 g/dL 3.0-4. 4 high Not Available [facility] (Lab) [address] [place], [address], 11/02/2022 15:29:20 11/03/19 23 11/02/2022 COMPR EHENS BRYAN METAB OLIC PANEL globulin 2.9 g/dL 2.6-4. 2 Not Available [facility] (Lab) [address] [place], [address], 11/02/2022 15:29:20 11/03/19 23 11/02/2022 COMPR EHENS BRYAN METAB OLIC PANEL A/G ratio 1.7 ratio 1.0-2. 0 Not Available [facility] (Lab) [address] [place], [address], 11/02/2022 15:29:20 11/03/19 23 11/02/2022 LIPID PANEL cholesterol 238 mg/dL 140-19 9 high NIH RENETTA NSUS RECOM MENDA TION FOR ADA STERO L: ADULT CHILD LOW RISK: <200 <170 BORDE RLINE : <200- 239 ----- HIGH RISK: >240 >200 Not Available [facility] (Lab) [address] [place], [address], 11/02/2022 15:29:23 11/03/19 23 11/02/2022 LIPID PANEL triglyceride s 269 mg/dL 0-150 high NIH RENETTA NSUS REPOR T RECOM MENDA TION FOR TRIGL YCERI RAMY: ADULT CHILD LOW RISK: <150 ----- BODER LINE: 150-1 99 ----- HIGH RISK: >200 ----- Not Available [facility] (Lab) [address] [place], [address], 11/02/2022 15:29:23 11/03/19 23 11/02/2022 LIPID PANEL HDL cholesterol 70 mg/dL 40- Not Available [facility] (Lab) [address] [place], [address], 11/02/2022 15:29:23 11/03/19 23 11/02/2022 LIPID PANEL LDL cholesterol, calculated 114 mg/dL 0-130 NIH RENETTA NSUS REPOR T RECOM MENDA TIONS FOR LDL: ADULT CHILD LOW RISK <130 <110 (OPTI MAL LDL) <100 ----- BORDE RLINE : 130-1 59 ----- HIGH RISK: >160 >130 A TRIGL YCERI DE RESUL T >400 INVAL IDATE S THE CALCU LATIO N FOR LDL FRACT IONAT ION - THE LDL RESUL T WILL NOT BE REPOR TAISHA. Not Available [facility] (Lab) [address] [place], [address], 11/02/2022 15:29:23 09/08/19 23 XR, shoul jorge No observ ation record ed. [facility] [place] [address], [place], [address], 09/07/2022 11:37:42 10/06/19 23 10/05/2022 MRI, shoul jorge, w/o contr ast No observ ation record ed. [email or web address] [place] [address] [address], [place], [address], 10/08/2022 09:05:18 10/06/19 23 10/05/2022 MRI, shoul jorge, w/o contr ast No observ ation record ed. [email or web address] [address], [place], [address], 11/07/2022 10:23:44 10/06/19 23 10/05/2022 joint aspir ation (PROC ) No observ ation record ed. [email or web address] [place] [address] [address], [place], [address], 10/08/2022 09:01:03 10/06/19 23 10/05/2022 XR, lower extre mity No observ ation record ed. [email or web address], [place], [address], 11/07/2022 10:25:37 12/15/19 XR, cervi tiana spine , 2 or 3 view No observ ation record ed. [email or web address] [facility] [place] [address], [place], [address], 12/14/2022 10:11:50 01/23/20 23 01/22/2023 XR, chest , 2 view No observ ation record ed. [email or web address], [place], [address], 02/27/2023 13:11:10 03/25/20 23 03/25/2023 CT, abdom en + pelvi s, w/ contr ast No observ ation record ed. [email or web address] [address], [place], [address], 04/12/2023 21:52:12 05/10/19 24 05/10/2023 XR, chest No observ ation record ed. [email or web address] [place] [address] [address], [place], [address], 05/28/2023 12:29:57 Result Notes None recorded. Problems Name Problem SNOMED Code Status Onset Date Resolution Date Notes Provider Name and Address Organization Details Recorded Time Chronic obstructiv e pulmonary disease 95201669 Active 2020 [facility] 3 08:37[facility]05 CT of chest abnormal 6899090057417 9102 Active 2021 Not Available [facility] 3 08:37:05 MRI scan abnormal 218085091 Active 2021 Not Available [facility] 3 08:37:05 Spasm of back muscles 574279531 Active 2020 Not Available [facility] 3 08:37:05 Hypertensi ve disorder 78021773 Active 2020 Not Available [facility] 3 08:37:05 Screening for malignant neoplasm of prostate Active 2021 Not Available [facility] 3 08:37:05 Pain of right knee joint 7770794071998 00 Active 2021 Not Available [facility] 3 08:37:05 Pain of left knee joint 3142746668977 07 Active 2021 Not Available [facility] 3 08:37:05 Cough 07726970 Active 2021 Not Available [facility] 3 08:37:05 Hyperlipid emia 14623595 Active 2020 Not Available [facility] 3 08:37:05 Varicose veins of lower extremity 83835502 Active 2021 Not Available [facility] 3 08:37:05 Smoker 63381384 Active 2020 Not Available [facility] 3 08:37:05 Neck pain 42526902 Active 2021 Not Available [facility] 3 08:37:05 Pain of right shoulder joint 7115726444319 9100 Active 2022 Not Available [facility] 3 08:37:05 Pain of left shoulder joint 8861591466801 9109 Active 2022 ESTHER Rodriguez, [employer] 3 10:34:01 Cervical radiculopa thy 67450595 Active 2022 CAROL Bartholomew, [facility] 3 10:59:31 Notes:Some problems listed i n Documents: #[id number], #[id number] could not be added to this patient's chart. Please review these documents and add these problems to the patient's chart manually as needed. Problem Notes None recorded. Procedures Surgical History Date Name Laterality Status Provider Name and Address Organization Details Recorded Time 3 Transitional_ Care_Manageme nt completed ESTHER Funk [employer] 07/03/2022 11:59:56 Back completed ESTHER Funk [facility] - [facility] 07/03/2022 12:03:45 excision of ganglion cyst completed Not Available [facility] 06/06/2022 02:41:01 tonsilectomy/ adenoids completed Not Available [facility] 06/06/2022 02:41:01 release of trigger finger completed Not Available [facility] 06/06/2022 02:41:01 Hernia Repair completed Not Available [facility] 06/06/2022 02:41:01 Imaging Results Imaging Date Name Status LastModified by [facility] Details LastModified Time 09/07/2022 XR, shoulder completed [facility] [place] [address], [place], [address], 09/07/2022 11:37:42 10/05/2022 MRI, shoulder, w/o contrast completed [address] [place] [address], [address], 10/08/2022 09:05:18 10/05/2022 MRI, shoulder, w/o contrast completed [address], [address], 11/07/2022 10:23:44 10/05/2022 joint aspiration (PROC) completed [address], [address], 10/08/2022 09:01:03 10/05/2022 XR, lower extremity completed [address], [address], 11/07/2022 10:25:37 12/14/2022 XR, cervical spine, 2 or 3 view completed [email or web address] [facility] [place] [address] [facility] [address], [place], [address], 12/14/2022 10:11:50 01/22/2023 XR, chest, 2 view completed [email or web address] [place] [address], [place], [address], 02/27/2023 13:11:10 03/25/2023 CT, abdomen + pelvis, w/ contrast completed [address], [place], [address], 04/12/2023 21:52:12 05/10/2023 XR, chest completed [email or web address] [place] [address], [place], [address], 05/28/2023 12:29:57 Procedure Notes None recorded. Medical Equipment None Reported. Allergies No known drug allergies Medications Name Sig Start Date Stop Date Status Note LastModified by Organization Details LastModified Time cyclobenzap rine 10 mg tablet TAKE 1 TABLET BY MOUTH THREE TIMES DAILY NEEDED FOR MUSCLE SPASMS 09/07 completed Not Available Not Available Not Available atorvastati n 40 mg tablet TAKE 1 TABLET BY MOUTH EVERY DAY 2023 active Not Available Not Available Not Avai lable acetaminoph en 325 mg tablet TAKE 2 TABLETS BY MOUTH EVERY 6 HOURS NEEDED 05/22 completed Not Available Not Available Not Available clindamycin HCl 300 mg capsule TAKE 1 CAPSULE BY MOUTH EVERY 6 HOURS FOR 10 DAYS 09/21 completed Not Available Not Available Not Available azithromyci n 250 mg tablet TAKE 1 TABLET BY MOUTH DAILY FOR 4 DAYS. START 01/23 completed Not Available Not Available Not Available Vitamin B-1 50 mg tablet TK 2 TS PO QD active Not Available Not Available No t Available ibuprofen 800 mg tablet TAKE 1 TABLET BY MOUTH EVERY 6 HOURS NEEDED 04/16 completed Not Available Not Available Not Available metoprolol succinate ER 50 mg tablet,exte nded release 24 hr TAKE 1 TABLET BY MOUTH DAILY active Not Available Not Available No t Available hydrocodone 5 mg-acetamin ophen 325 mg tablet TAKE 1 TABLET BY MOUTH EVERY 6 HOURS NEEDED 11/02 completed Not Available Not Available Not Available meloxicam 15 mg tablet TAKE 1 TABLET BY MOUTH EVERY DAY 06/02 /2023 completed Not Available Not Available Not Available lovastatin 40 mg tablet TAKE 1 TABLET BY MOUTH EVERY DAY active Not Available Not Available No t Available metronidazo le 500 mg tablet TAKE 4 TABLETS BY MOUTH IMMEDIATE LY 04/16 completed Not Available Not Available Not Available ciprofloxac in 500 mg tablet Take 1 tablet every 12 hours by oral route for 10 days. 09/15 completed Not Available Not Available Not Available tramadol 50 mg tablet Take 1 tablet 3 times a day by oral route as needed. active Not Available Not Available No t Available amoxicillin 875 mg tablet TAKE 1 TABLET BY MOUTH EVERY 12 HOURS 12/19 completed Not Available Not Available Not Available dicyclomine 20 mg tablet TAKE 1 TABLET BY MOUTH FOUR TIMES DAILY active Not Available Not Available No t Available baclofen 10 mg tablet TAKE 1 TABLET BY MOUTH TWICE A DAY NEEDED FOR BACK PAIN active Not Available Not Available No t Available nortriptyli ne 10 mg capsule active Not Available Not Available Not Available prednisone 50 mg tablet TAKE 1 TABLET BY MOUTH DAILY 02/21 completed Not Available Not Available Not Available lovastatin 20 mg tablet TAKE 1 TABLET BY MOUTH EVERY DAY IN THE EVENING active Not Available Not Available No t Available methylpredn isolone 4 mg tablets in a dose pack FOLLOW PACKAGE DIRECTION S 11/02 completed Not Available Not Available Not Available albuterol sulfate HFA 90 mcg/actuati on aerosol inhaler INHALE 2 PUFFS BY MOUTH EVERY 4 HOURS NEEDED active Not Available Not Available No t Available ondansetron 4 mg disintegrat ing tablet DISSOLVE 1 TABLET ON THE TONGUE EVERY 6 HOURS NEEDED FOR NAUSEA OR VOMITING active Not Available Not Available No t Available naproxen 500 mg tablet TAKE 1 TABLET BY MOUTH TWICE DAILY WITH FOOD active Not Available Not Available No t Available amoxicillin 875 mg-potassiu m clavulanate 125 mg tablet TAKE 1 TABLET BY MOUTH EVERY 12 HOURS active Not Available Not Available No t Available Spiriva Respimat 2.5 mcg/actuati on solution for inhalation INHALE 2 PUFFS BY MOUTH ONCE DAILY active Not Available Not Available No t Available Vitals Date Recorded Body height Provider Name an d Address Organization Details Last Updated DateTime 09/07/2022 175.26 cm ESTHER Rodriguez - [facility] [employer] [facility] 09/07/2022 09:47:27 Date Recorded Body height Body mass index (BMI) Body weight Body temperature Heart rate Systolic blood pressure Diastolic blood pressure Provider Name and Address Organization Details Last Updated DateTime 3 175.26 cm 29.4 kg/m2 66852.8 8 g 97.4 [degF] 102 /min 118 mm[Hg] 80 mm[Hg] ArleneESTHER Lynch Smappo [facility] [employer] [facility] 3 12:20:04 Date Recorded Body height Body mass index (BMI) Body weight Provider Name and Address Organization Details Last Updated DateTime 11/16/2022 177.8 cm 28.3 kg/m2 29363.7 g Geovanna Hutson [facility] [employer] [facility] [employer] [facility] 11/16/2022 11:09:33 Date Recorded Body height Provider Name an d Address Organization Details Last Updated DateTime 12/14/2022 177.8 cm Geovanna Hutson [facility] [employer] [facility] [employer] [facility] 12/14/2022 09:45:06 Date Recorded Body height Body mass index (BMI) Body weight Body temperature Heart rate Systolic blood pressure Diastolic blood pressure Provider Name and Address Organization Details Last Updated DateTime 3 177.8 cm 28 kg/m2 82668.5 1 g 99.1 [degF] 92 /min 136 mm[Hg] 90 mm[Hg] Arlene Rahman Laura S[facility] [employer] [facility] 3 15:46:41 Social History Question Answer Notes LastModified by Organization Details LastModified Time Tobacco Smoking Status Current Every Day Smoker Not Available [facility] 06/06/2022 02:29:51 Do You Have An Advance Directive? No MIGRATION.0301 [id number] Information not available 06/06/2022 What Is Your Level Of Alcohol Consumption? Occasional MIGRATION.0301 [id number] Information not available 06/06/2022 Do You Wear A Helmet When Biking? No MIGRATION.0301 [id number] Information not available 06/06/2022 What Is Your Level Of Caffeine Consumption? Occasional MIGRATION.0301 [id number] Information not available 06/06/2022 How Much Tobacco Do You Chew? None MIGRATION.0301 [id number] Information not available 06/06/2022 In The 14 Days Before Symptom Onset, Have You Had Close Contact With A Laboratory-confi rmed COVID-19 While That Case Was Ill? No MIGRATION.0301 351239 Information not available 06/06/2022 In The 14 Days Before Symptom Onset, Have You Had Close Contact With A Person Who Is Under Investigation For COVID-19 While That Person Was Ill? No MIGRATION.0301 [id number] Information not available 06/06/2022 What Type Of Diet Are You Following? REGULAR MIGRATION.0301 [id number] Information not available 06/06/2022 Which Illicit Or Recreational Drugs Have You Used? None MIGRATION.0301 657903 Information not available 06/06/2022 Do You Or Have You Ever Used E-cigarettes Or Vape? Never Used Electronic Cigarettes MIGRATION.030 230641 Information not available 06/06/2022 What Is The Highest Grade Or Level Of School You Have Completed Or The Highest Degree You Have Received? [id number] MIGRATION.0301 [id number] Information not available 06/06/2022 What Is Your Occupation? Unemployed MIGRATION.030 411169 Information not available 06/06/2022 Have There Been Any Changes To Your Family Or Social Situation? No MIGRATION.0301 312242 Information not available 06/06/2022 Are There Any Guns Present In Your Home? No MIGRATION.0301 [id number] Information not available 06/06/2022 Do You Use Insect Repellent Routinely? No MIGRATION.0301 167978 Information not available 06/06/2022 Where Do You Live? [place]LevelHouse MIGRATION.0301 656397 Information not available 06/06/2022 Do You Have A Medical Power Of Director Of Dementia Operations? No MIGRATION.0301 616807 Information not available 06/06/2022 What Was The Date Of Your Most Recent Tobacco Screening? 02/21/2023 [email or web address] Information not available 02/21/2023 Do You Have Any Pets? No MIGRATION.0301 039063 Information not available 06/06/2022 What Is Your Relationship Status? MIGRATION.0301 163765 Information not available 06/06/2022 Do You Use Your Seat Belt Or Car Seat Routinely? Yes MIGRATION.0301 [id number] Information not available 06/06/2022 Do You Have Smoke And Carbon Monoxide Detectors In Your Home? Yes MIGRATION.0301 918393 Information not available 06/06/2022 At What Age Did You Start Smoking Tobacco? 12 MIGRATION.0301 962364 Information not available 06/06/2022 Are You Passively Exposed To Smoke? No MIGRATION.0301 485146 Information not available 06/06/2022 Do You Or Have You Ever Used Smokeless Tobacco? Never Used Smokeless Tobacco MIGRATION.0301 247687 Information not available 06/06/2022 Are There Any Smokers In Your House? No MIGRATION.0301 903871 Information not available 06/06/2022 How Much Tobacco Do You Smoke? 1 PPW 1 Every Other Day [email or web address] Information not available 02/21/2023 Do You Feel Stressed (tense, Restless, Nervous, Or Anxious, Or Unable To Sleep At Night)? [id number] MIGRATION.0301 180998 Information not available 06/06/2022 Do You Use Any Illicit Or Recreational Drugs? No MIGRATION.0301 393184 Information not available 06/06/2022 Do You Use Sunscreen Routinely? No MIGRATION.0301 190740 Information not available 06/06/2022 Have You Recently Traveled Abroad? No MIGRATION.0301 851539 Information not available 06/06/2022 Do You Have Any Dietary Restrictions? No MIGRATION.0301 646377 Information not available 06/06/2022 Do You Or Have You Ever Used Any Other Forms Of Tobacco Or Nicotine? No MIGRATION.0301 874862 Information not available 06/06/2022 Sex: Unknown Functional Status Question Answer Note LastModified by Organizat ion Details LastModified Time What is your exercise level? Occasional [id number] Information not available 06/06/2022 Mental Status None recorded. Family History Relationship Description Onset Age of this Age Resolved Age Notes LastModified by Organization Details LastModified Time Brother Family history of malignant neoplasm MIGRATION.648 [id number] Not available 06/06/2022 02:41:03 Brother Myocardial infarction MIGRATION.248 [id number] Not available 06/06/2022 02:41:03 Brother Cirrhosis of liver 64 MIGRATION.055 [id number] Not available 06/06/2022 02:41:03 Mother Hypertensive disorder MIGRATION.423 [id number] Not available 06/06/2022 02:41:03 Mother Diabetes mellitus MIGRATION.829 [id number] Not available 06/06/2022 02:41:03 Mother Glaucoma MIGRATION.586 [id number] Not available 06/06/2022 02:41:03 Mother Kidney disease on dialys is MIGRATION.161 [id number] Not available 06/06/2022 02:41:03 Medical History Condition Response NERVE DISEASE N BLINDNESS N RHEUMATIC FEVER N KIDNEY STONES N BLADDER PROBLEMS N MRSA N OTHER # 1 N POLIO N LUNG DISEASE/DISORDER N HISTORY OF DRUG ABUSE Y RADIATION / CHEMOTHERAPY N COPD Y Other # 2 N BLOOD DISEASES N SURGERY N EAR OR HEARING PROBLEMS N MUMPS N SHINGLES N DEPRESSION (INCLUDING POST ) N BOWEL PROBLEMS N STROKE/TIA N ULCERS N BENIGN PROSTATIC HYPERPLASIA N MEASLES N HYPOTENSION N MYOCARDIAL INFARCTION N OBESITY N GERD/NAUSEA N ANEURYSM N URINARY/BLADDER/KIDNEY PROBLEMS N INPATIENT PSYCH CARE N CORONARY ARTERY DISEASE (CAD) N ADDICTION CONCERNS N Impotence N ENDOMETRIOSIS N USE OF BLOOD THINNERS N SKIN PROBLEMS N GASTROINTESTINAL DISORDER N PERIPHERAL VASCULAR DISEASE N MUSCLE,JOINT OR BONE PROBLEMS N GASTROINTESTINAL BLEEDING N BLOOD CLOTS N ASTHMA N CATARACTS N ERECTILE DYSFUNCTION N VARICOSITIES N GI PROBLEMS N Low Testosterone N INFERTILITY N AIDS/HIV N CHEMOTHERAPY / RADIATION N LIVER DISEASE N MALE HYPOGONADISM N HYPERTENSION Y Deficiency N TOURETTE'S N ANXIETY DISORDER N BLOOD TRANSFUSION N ANEMIA/BLOOD DISORDER N CHRONIC EAR INFECTIONS N BRONCHITIS N TUBERCULOSIS N GLAUCOMA N FOOT PROBLEM N DIVERTICULITIS N SLEEP APNEA N CHICKENPOX N INFECTIOUS DISEASE N PROSTATE N HEART ARRHYTHMIA N INSOMNIA N HIGH CHOLESTEROL / HYPERLIPIDEMIA Y HYPERTHYROIDISM N EYE PROBLEMS N NEUROLOGICAL PROBLEMS N EDEMA N CHRONIC PAIN SYNDROME N HYPOTHYROIDISM N CONSTIPATION N CAROTID BLOCKAGE N BACK / NECK PROBLEMS Y HAVE YOU BEEN HOSPITALIZED OR SEEN IN [facility] ER IN THE PAST YEAR ? N ATHEROSCLEROSIS N BREAST PROBLEMS N DIALYSIS N ECZEMA N OSTEOPOROSIS N ARTHRITIS N APPENDICITIS N DIABETES, TYPE N BAD TEETH N ENT N HEARTBURN / REFLUX N AUTISM SPECTRUM DISORDER (ASD) N HEPATITIS / LIVER DISEASE N PULMONARY DISEASE N GOUT N SLEEP DISORDER N ALZHEIMER'S DISEASE N Brain Problems N HERPES N DEMENTIA N SEIZURES/EPILEPSY N HEADACHES/MIGRAINES N VASCULAR DISEASE N PACEMAKER N Blood Disorder N DIZZINESS N KIDNEY DISEASE N HEART DISEASE/HEART PROBLEMS N MULTIPLE SCLEROSIS N CARDIAC ARRHYTHMIA N CANCER: SPECIFY N ANESTHESIA COMPLICATIONS N Gall Stones N ATRIAL FIBRILLATION N PULMONARY EMBOLISM N AUTOIMMUNE DISEASE N Past Encounters Encounter ID Performer Location Encounter Start Date Encounter Closed Date Diagnosis/Indication Diagnosis SNOMED-CT Code Diagnosis ICD10 Code Diagnosis Note [id number] [facility] [place] [address] [facility], [place] [address] [place] [address] 07/01/2020 00:00:00 07/01/2020 16:19:34 [id number] [facility] [address] [facility] 15 [place] [address] 09/26/2020 00:00:00 09/26/2020 21:24:40 [id number] [facility] [address] [address] 01/23/2021 00:00:00 01/23/2021 23:12:10 [id number] [facility] [address] [place], [place] [address]., [facility] 15 [place] [address] 05/22/2021 00:00:00 06/04/2021 10:38:44 [id number] [facility] [address] [facility] 15 [place] [address] 09/15/2021 00:00:00 10/17/2021 20:42:40 [id number] [facility] [place] [address] [place] [address] 09/21/2021 00:00:00 09/21/2021 16:07:38 [id number] [facility] [address] [place], [place] [address]., [address] [address] 12/21/2021 00:00:00 01/28/2022 21:04:56 [id number] [facility] [place] [address] , [place] [address] 03/22/2022 00:00:00 03/22/2022 23:09:40 [id number] [facility] [place] [address] [place] [address] 04/16/2022 00:00:00 04/16/2022 17:35:28 [id number] [facility] [address] [place], [place] [address] [address] [address] 05/21/2022 00:00:00 05/27/2022 17:40:27 [id number] Zaria Rubio MD [facility] Internal Med [facility] [address] [facility] [place] [address] 07/03/2022 11:20:47 07/03/2022 12:25:50 Transition of care 9041453106 105 Z75.8 Hyperlipidemia 64173552 E78.5 Chronic ob structive pulmonary disease 58801537 J44.9 Hypertensive disorder 38 941684 I10 [id number] Anderson Pickett MD [facility] [place] [address] [place] [address] 09/07/2022 09:36:57 09/07/2022 11:48:40 Pain of right shoulder joint 0230456134 0801455 M25.511 M25.512 [id number] Zaria Rubio MD [facility] Internal Med [place] [address] [facility] 15 [place] [address] 11/02/2022 11:29:26 11/02/2022 13:02:32 Hypertensive disorder 25817205 I10 Chronic ob structive pulmonary disease 91904305 J44.9 Hyperlipidemia 60689108 E78.5 [id number] Anderson Pickett MD [facility] [place] [address] [place] [address] 11/16/2022 10:17:38 11/19/2022 10:20:11 Pain of left shoulder joint 3087611092 3937272 M25.125 [id number] Anderson Pickett MD [facility] [place] [address] [place] [address] 12/14/2022 09:43:31 12/17/2022 11:17:30 Pain of left shoulder joint 5658473335 8123652 M25.512 Cervical radiculopathy 87211793 M54.12 [id number] Zaria Rubio MD [facility] Internal Med [place] [address] [facility] [address] [place] [address] 02/21/2023 15:17:37 02/21/2023 16:43:40 Chronic obstructive pulmonary disease 18488819 J44.9 Hyperlipidemia 72785421 E78.5 Hypertensive disorder 38 757871 I10 Health Concerns Section Related Observation LastModified by Organization Detai ls LastModified Time None Recorded Concern Status LastModified by Organization Details LastModified Time None Recorded Advance Directives Directive N: Payers Encounter Date Sequence Insurance Name Policy Number Policy Barraza Covered Member ID Barraza Member ID Guarantor Name 09/07/2022 1 [facility] ON OR AFTER 10/06/20 (MEDICAID REPLACEMENT - HMO) Reji Freire [id number] Reji Freire 11/02/2022 1 [facility] ON OR AFTER 10/06/20 (MEDICAID REPLACEMENT - HMO) Reji Freire [id number] Reji Freire 11/16/2022 1 [facility] ON OR AFTER 10/06/20 (MEDICAID REPLACEMENT - HMO) Reji Freire [id number] Reji Freire 12/14/2022 1 [facility] ON OR AFTER 10/06/20 (MEDICAID REPLACEMENT - HMO) Reji Freire [id number] Reji Freire 02/21/2023 1 [facility] ON OR AFTER 10/06/20 (MEDICAID REPLACEMENT - HMO) Reji Freire [id number] Reji Freire Notes Date Note Type Note Provider Name and Address Organization Details Recorded Time 09/07/2022 text/html patient is a 61-year-old gentleman referred by Dr. Rubio for evaluation of both shoulders. He started having symptoms spontaneously approximately 4 months ago or 5 months ago. There is no specific event. His symptoms are quite different between the 2 shoulders. On the right side he complains of pain lateral deltoid area with any reaching such as reaching overhead or putting on his shirt or raising his arm. He has no numbness or tingling in the right. His left shoulder he complains that if he moves a certain way such as while timing issues he gets a severe numbness tingling twitching weakness feeling such that he loses control of his left arm. He will have to stop tiny issues and he sits up and shakes ER minute seems to go away. I had him do this and a elen issues when he reaches his left arm lateral to the left knee to reach down he had this feeling and he he shakes his arm and after about 10 or 15 seconds the severe pain goes away. On further interrogation it did not really notice any tingling but a severe discomfort that he has a difficult time describing. He specifically denied any numbness or tingling in his fingers or hand. The feeling of numbness was the most prevalent word that he used to describe the discomfort and it was diffuse around the left shoulder and intense discomfort. Patient underwent back surgery in June by Dr. Saucedo at [facility]. He showed me a photograph of his fresh incision which is a 6 in posterior midline incision knee showed be another photograph his x-ray which demonstrated posterior rods and pedicle screws spanning what I believe is L1-2 disc space. That was from a work comp injury. Patient had a cervical spine MRI scan on April 10, 2022 which showed rather severe degenerative disc disease at C5-6 and C6-7 with mild retrolisthesis at C6-7 and severe bilateral neuroforaminal stenosis at C6-7. Spinal canal measured 9 mm without mass effect on the cervical cord at C6-7. At C5-6 spinal canal measured 9.5 mm and there is very slight indentation of the anterior spinal cord margin to the right of midline at that level and moderate to severe bilateral neuroforaminal stenosis at that level. Moderate to severe neural foraminal stenosis at C4-5 with bilateral facet and left uncinate process hypertrophy moderate bilateral neural foraminal stenosis at C3-4. No evidence of myelopathy. Patient does smoke cigarettes 1/2 pack of cigarettes per day and has smoked for 40 years. He had taken naproxen and more recently meloxicam in the past he. He was not sure when he stopped these but he thinks it is reasonable to assume he stop these around the time of his back surgery and has not resumed them. Most recently is used Ultram for pain. He does take [id number]-hqu-oqmttxr ibuprofen sometimes several times a day but he takes it on an as-needed basis. Anderson Pickett MD [address], [place], [address], [facility] [employer] 09/07/2022 11:43:10 11/02/2022 text/html Being seen for C OPD hyperlipidemia hypertension hypertension no headache. Hyperlipidemia he could do better with regards to his diet. Breathing has been fine Zaria Rubio MD [address], [place], [address], [employer] 11/03/2022 12:55:34 11/16/2022 text/html patient returns after MRI scan of his left shoulder. This was done on 10/05/2022. We last saw him on September 07. Also on 10/05/2022 he had fluoroscopic guided cortisone injection into the right shoulder for frozen shoulder and he is going to physical therapy to regain range of motion. The MRI scan of his left shoulder is reviewed. It showed hypertrophic enlargement of the acromioclavicular joint and was otherwise within normal limits. MRI was reviewed with patient. Is she complaint is that when he reaches around behind his back his whole arm gets numb feels paralyzed and then he genitals is arm in a relaxed same position and the sensation goes away. He feels twitching in the anterior shoulder with this. He states that he can not find the words to describe how it feels. He does not feel a pins and needles tingling sensation. He feels a little bit of pain with this but is very minimal 1 to 2/10 he states. Anderson Pickett MD [address], [place], [address], [employer] 11/18/2022 17:32:26 02/21/2023 text/html COPD doing fine dyslipidemia your atorvastatin try to watch red meat hypertension doing fine Zaria Rubio MD [address], [place], [address], [employer] 02/25/2023 22:15:46
--- OUTSIDE RECORDS SUMMARY | 2024-06-11 11:43 | XMS_ITS | Referral Summary ---
Author Organization [facility] Address [address] [place] [address] Care Team Providers Care Android Ui Developer Name Role Phone Phuc Rubio MD Primary Care Provider [phone] [facility],non-owned Affiliates and Associated Physician Practices is amultiple site organization consisting of ambulatory clinics and hospital sitesin [place], [place], [place] and [place]. This disclosure is being madepursuant to the Care Everywhere program and may not contain all information available regarding this patient. Last updated 17.[facility] Allergies No known active allergies Medications * Be aware that medications may not be up to date on this document. Alwaysverify current medications with the patient. Medication Sig Dispensed Refills Start Date End Date Status traMADol (Ultram) 50 MG tablet 03/22/2022 Active metoprolol succinate XL 24hr (Toprol XL) 50 MG tablet Take 1 (one) tablet by mouth once daily Active Meloxicam 15 MG TBDP Acti ve albuterol HFA (Proventil; Ventolin; Proair) 108 (90 Base) MCG/ACT inhaler Inhale 2 (two) puffs by mouth every 6 hours as needed Active HYDROcodone-acetamino phen (Pipestem) 5-325 MG tabletIndications:Lum bar spondylosis,Spinal cord mass (HCC) Take 1 (one) tablet by mouth every 6 hours as needed 56 tablet 06/10/2022 Active cyclobenzaprine (Flexeril) 10 MG tablet Take 1 (one) tablet by mouth 3 times daily as needed for Muscle Spasms 42 tablet 06/10/2022 Active lovastatin (Mevacor) 40 MG tablet Take 1 (one) tablet by mouth once daily 05/21/2022 Active naproxen (Naprosyn) 500 MG tablet Take 1 (one) tablet by mouth 2 times daily 06/01/2022 Active HYDROcodone-acetamino phen (Pipestem) 5-325 MG tabletIndications:S/P lumbar spinal fusion Take 1 (one) tablet by mouth every 8 hours as needed for Pain 45 tablet 09/05/2022 Active Active Problems Problem Noted Date Diagnosed Date Mass of spine 06/04/2022 Acute midline low back pain with bilateral sciat ica 06/04/2022 Numbness and tingling in left arm 06/04/2022 Chronic obstructive pulmonary disease, unspecifi ed 01/03/2022 Chronic venous hypertension (idiopathic) with inflammation of unspecified lower extremity 01/03/2022 Hypertension 01/03/2022 Personal history of nicotine dependence 01/04/20 22 Cervical spondylosis without myelopathy 08/06/19 19 Cigarette smoker 08/05/2018 Lumbar spondylosis 08/05/2018 Social History Tobacco Use Types Packs/Day Years Used Date Smoking Tobacco: Every Day Cigarettes Smokeless Tobacco: Never Tobacco Cessation:Ready to Q uit: No; Counseling Given: No Alcohol Use Standard Drinks/Week Comments Yes 2 (1 standard drink = 0.6 oz pur e alcohol) AUDIT-C Answer Date Recorded Q1: How often do you have a drink containing alc ohol? 2-4 times a month 06/05/2022 Q2: How many drinks containi ng alcohol do you have on a typical day when you are drinking? 3 or 4 06/05/2022 Q3: How often do you have si x or more drinks on one occasion? Less than monthly 06/05/2022 Overall Financial Resource Strain (CARDIA) Answe r Date Recorded How hard is it for you to pa y for the very basics like food, housing, medical care, and heating? Not hard at all 06/04/2022 [facility] - Occupational Stress Questionnaire Answer Date Recorded Do you feel stress - tense, restless, nervous, or anxious, or unable to sleep at night because your mind is troubled all the time - these days? Not at all 06/04/2022 Hunger Vital Sign Answer Date Recorded Within the past 12 months, y ou worried that your food would run out before you got the money to buy more. Never true 06/04/19 23 Within the past 12 months, t he food you bought just didn't last and you didn't have money to get more. Never true 06/04/2022 PRAPARE - Transportation Answer Date Re corded In the past 12 months, has l ack of transportation kept you from medical appointments or from getting medications? No 05/10 In the past 12 months, has l ack of transportation kept you from meetings, work, or from getting things needed for daily living? No 06/04/2022 Housing Stability Vital Sign Answer Petey e Recorded In the last 12 months, was t here a time when you were not able to pay the mortgage or rent on time? No 06/04/2022 In the last 12 months, how many places have you lived? 1 06/04/2022 In the last 12 months, was t here a time when you did not have a steady place to sleep or slept in a jail (including now)? No 06/04/2022 Sex and Gender Information Value Date Recorded Sex Assigned at Not on file Gender Identity Not on file Sexual Orientation Not on file Last Filed Vital Signs Vital Sign Reading Time Taken Comments Blood Pressure 128/84 04/10/2023 9:42 AM [facility]AL [facility] Pulse 109 04/10/2023 9:42 AM [facility] Temperature 36.8 C (98.3 F) 04/10/2023 9:42 AM [facility] Respiratory Rate 18 04/10/2023 9:42 AM [facility] Oxygen Saturation 96% 04/10/2023 9:42 AM [facility] Inhaled Oxygen Concentration - - Weight 87 kg (191 lb 12.8 oz) 04/10/2023 9:42 AM [facility]AL DR[facility] Height 182.9 cm (6') 04/10/2023 9:42 AM [facility] Body Mass Index 26.01 04/10/2023 9:42 AM [facility] DR[facility] Functional Status Functional Status Response Date of Assess ment Is person deaf or have serious hearing difficult y? No 06/04/2022 Is person blind or have serious difficulty seein g? No 06/04/2022 Does person have serious dif ficulty walking/climbing stairs? No 06/04/2022 Does person have difficulty dressing/bathing? No 06/04/2022 Does person have difficulty doing errands alone? No 06/04/2022 Cognitive Status Response Date of Assessm ent Does person have difficulty concentrating/remembering/making decisions? No 06/04/2022 Plan of Treatment Not on file Medical Devices Implanted Type Area Medical Biller Coder Device Identifier Shelf Expiration Date Model / Serial / Lot Screw Set Ti Spnl Brk Off Cd Hzn Nonster Implanted:Qty: 4 on 06/07/2022 by Emmett Lozano MD at [facility] [employer] [id number] / / Screw 5.5mm 45mm Ma Spne Solera Cd Hzn Implanted:Qty: 4 on 06/07/2022 by Emmett Lozano MD at [facility] [employer] [id number] / / Cong Bone Void 10ml Dbm Grftn Algrf Ptty - [id number] Implanted:Qty: 1 on 06/07/2022 by Emmett Lozano MD at [facility] [employer] [id number] / [id number] / Donovan Spnl 45mm 5.5mm Cd Hzn Crv [place]o Implanted:Qty: 2 on 06/07/2022 by Emmett Lozano MD at [facility] [employer] [id number] / / Procedures Procedure Name Priority Date/Time Associated Diagnosis Comments BASIC METABOLIC PANEL (CALCIUM TOTAL) AM Draw 06/13/2022 12:31 AM [facility] from Last 3 Months or Most Recently Relevant to Health Maintenance Results * (ABNORMAL) BASIC METABOLIC PANEL (CALCIUM TOTAL) (06/13/2022 12:31 AM [facility]ERAL DRIVER) BUN 15 7 - 26 mg/dL 06/13/2022 2:47 AM [facility] Creatinine 0.89 0.71 - 1.16 mg/dL 06/13/2022 2:47 AM [facility] Sodium 137 136 - 145 mmol/L 06/13/2022 2:47 AM [facility] Potassium 3.7 3.5 - 4.5 mmol/L 06/13/2022 2:47 AM [facility] Chloride 96(L) 98 - 107 mmol/L 06/13/2022 2:47 AM [facility] CO2 29 22 - 29 mmol/L 06/13/2022 2:[address] [facility] Glucose 100 70 - 115 mg/dL 06/13/2022 2:[address] [facility] Calcium 9.5 8.4 - 10.2 mg/dL 06/13/2022 2:[address] [facility] Anion Gap 16 8 - 18 06/13/2022 2:[address] [facility] BUN/Creatinine Ratio 17 7 - 23 06/13/2022 2:[address] [facility] Osmolality Calculated 285 270 - 300 mOsm/kg 06/13/2022 2:[address] [facility] eGFR by CKD-EPI >90 >=90 mL/min/1.7 3 m2 06/13/2022 2:[address] [facility] Blood BLOOD SPECIMEN / Unknown Lab Venipuncture / Unknown 06/13/2022 12:31 AM [facility] 06/13/2022 2:18 AM [facility] Emmett Lozano MD LAB - CHEMISTRY SITA DOOLEY [facility] Organization Address City/State/ZIP Co de Phone Number [facility] [address] [place] [address], [facility] [phone] from Last 3 Months or Most Recently Relevant to Health Maintenance Advance Directives * Full Code (Latest Code Status on File) Date Activated Date Inactivated Comments 06/04/2022 8:50 AM 06/18/2022 3:14 PM Care Teams Android Ui Developer Relationship Specialty Start Date End Date Phuc Rubio MD PCP - General Internal Medicine 04/10/23
--- OUTSIDE RECORDS SUMMARY | 2024-06-11 11:43 | XMS_ITS | Patient Health Summary ---
Author Organization [facility] Address [address] [place] [address] Care Team Providers Care [employer] Sales Representative Name Role Phone Phuc Rubio MD Primary Care Provider [phone] Note from [facility],non-owned Affiliates and Associated Physician Practices is amultiple site organization consisting of ambulatory clinics and hospital sitesin [place], [place] and [place]. This disclosure is being madepursuant to the Care Everywhere program and may not contain all information available regarding this patient. Last updated 17.[facility] Allergies No known active allergies Medications * Be aware that medications may not be up to date on this document. Alwaysverify current medications with the patient. * traMADol (Ultram) 50 MG tablet(Started 03/22/2022) * metoprolol succinate XL 24hr (Toprol XL) 50 MG tablet Take 1 (one) tablet by mouth once daily * Meloxicam 15 MG TBDP * albuterol HFA (Proventil; Ventolin; Proair) 108 (90 Base) MCG/ACT inhaler Inhale 2 (two) puffs by mouth every 6 hours as needed * HYDROcodone-acetaminophen (Cloudcroft) 5-325 MG tablet(Started 06/10/2022) Take 1 (one) tablet by mouth every 6 hours as needed * cyclobenzaprine (Flexeril) 10 MG tablet(Started 06/10/2022) Take 1 (one) tablet by mouth 3 times daily as needed for Muscle Spasms * lovastatin (Mevacor) 40 MG tablet(Started 05/21/2022) Take 1 (one) tablet by mouth once daily * naproxen (Naprosyn) 500 MG tablet(Started 06/01/2022) Take 1 (one) tablet by mouth 2 times daily * HYDROcodone-acetaminophen (Cloudcroft) 5-325 MG tablet(Started 09/05/2022) Take 1 (one) tablet by mouth every 8 hours as needed for Pain Active Problems Problem Noted Date Diagnosed Date [...] and heating? Not hard at all 06/04/2022 [facility] [place] [facility] - Occupational Stress [...] place to sleep or slept in a senior living (including now)? No 06/04/2022 Sex and Gender Information Value Date Recorded Sex Assigned at Not on file Gender Identity Not on file Sexual Orientation Not on file Last Filed Vital Signs Vital Sign Reading Time Taken Comments Blood Pressure 128/84 04/10/2023 9:42 AM MEDICARE CONTACT SPECIALIST Pulse 109 04/10/2023 9:42 AM MEDICARE CONTACT SPECIALIST Temperature 36.8 C (98.3 F) 04/10/2023 9:42 AM MEDICARE CONTACT SPECIALIST Respiratory Rate 18 04/10/2023 9:42 AM MEDICARE CONTACT SPECIALIST Oxygen Saturation 96% 04/10/2023 9:42 AM MEDICARE CONTACT SPECIALIST Inhaled Oxygen Concentration - - Weight 87 kg (191 lb 12.8 oz) 04/10/2023 9:42 AM MEDICARE CONTACT SPECIALIST Height 182.9 cm (6') 04/10/2023 9:42 AM MEDICARE CONTACT SPECIALIST Body Mass Index 26.01 04/10/2023 9:42 AM MEDICARE CONTACT SPECIALIST Medical Devices Implanted Type Area Form Setter Device Identifier Shelf Expiration Date Model / Serial / Lot Screw Set Ti Spnl Brk Off Cd Hzn Nonster Implanted:Qty: 4 on 06/07/2022 by Emmett Lozano MD at [facility] [employer] [id number] / / Screw 5.5mm 45mm Ma Spne Solera Cd Hzn Implanted:Qty: 4 on 06/07/2022 by Emmett Lozano MD at [facility] [employer] [id number] / / Cong Bone Void 10ml Dbm Grftn Algrf Ptty - [id number] Implanted:Qty: 1 on 06/07/2022 by Emmett Lozano MD at [facility] [employer] [id number] / [id number] / Donovan Spnl 45mm 5.5mm Cd Hzn Crv [place] Implanted:Qty: 2 on 06/07/2022 by Emmett Lozano MD at [facility] [employer] [id number] / / Procedures * XR CERVICAL SPINE 4 OR 5VW(Performed 04/10/2023) Performed for Neck pain * MRI CERVICAL SPINE WO CONTRAST(Performed 02/13/2023) Performed for Cervical myelopathy (HCC) * XR CERVICAL SPINE 4 OR 5VW(Performed 01/09/2023) Performed for Cervical myelopathy (HCC) * XR LUMBAR SPINE 4VW OR MORE(Performed 01/09/2023) Performed for S/P lumbar fusion * XR SKULL TO ANKLE STEVEN(Performed 01/09/2023) Performed for S/P lumbar fusion * XR LUMBAR SPINE 2 OR 3VW(Performed 09/05/2022) Performed for S/P lumbar spinal fusion * CARDIAC EKG ORDER(Performed 06/27/2022) * PTT [facility](Performed 06/18/2022) * PTT [facility](Performed 06/17/2022) * PTT [facility](Performed 06/16/2022) * PTT [facility](Performed 06/15/2022) * PTT [facility](Performed 06/14/2022) * PTT [facility](Performed 06/13/2022) * BASIC METABOLIC PANEL (CALCIUM TOTAL)(Performed 06/13/2022) * CBC W AUTO DIFFERENTIAL(Performed 06/13/2022) * PTT [facility](Performed 06/12/2022) * BASIC METABOLIC PANEL (CALCIUM TOTAL)(Performed 06/12/2022) * CBC W AUTO DIFFERENTIAL(Performed 06/12/2022) * DIFFERENTIAL MANUAL(Performed 06/11/2022) * PTT [facility](Performed 06/11/2022) * BASIC METABOLIC PANEL (CALCIUM TOTAL)(Performed 06/11/2022) * CBC W AUTO DIFFERENTIAL(Performed 06/11/2022) * DIFFERENTIAL MANUAL(Performed 06/10/2022) * PTT [facility](Performed 06/10/2022) * BASIC METABOLIC PANEL (CALCIUM TOTAL)(Performed 06/10/2022) * CBC W AUTO DIFFERENTIAL(Performed 06/10/2022) * DIFFERENTIAL MANUAL(Performed 06/09/2022) * PTT [facility](Performed 06/09/2022) * BASIC METABOLIC PANEL (CALCIUM TOTAL)(Performed 06/09/2022) * CBC W AUTO DIFFERENTIAL(Performed 06/09/2022) * XR ABDOMEN KUB PORTABLE(Performed 06/08/2022) Performed for Lumbar spondylosis * XR LUMBAR SPINE 2 OR 3VW(Performed 06/08/2022) Performed for Lumbar spondylosis, Spinal cord mass (HCC) * PREPARE RBC LEUKOREDUCED UNIT(Performed 06/08/2022) Performed for Mass of spine * PTT [facility](Performed 06/08/2022) * BASIC METABOLIC PANEL (CALCIUM TOTAL)(Performed 06/08/2022) * CBC W AUTO DIFFERENTIAL(Performed 06/08/2022) * FL OARM SURGERY(Performed 06/07/2022) Performed for Lumbar spondylosis * FL JERO SURGERY(Performed 06/07/2022) Performed for Lumbar spondylosis * PATHOLOGY TISSUE(Performed 06/07/2022) Performed for Spinal cord mass (HCC) * ENDOTRACHEAL TUBE NOTE(Performed 06/07/2022) * ARTERIAL LINE NOTE(Performed 06/07/2022) * FUSION TRANSFORAMINAL LUMBAR INTERBODY (TLIF)(Performed 06/07/2022) Performed for Spinal cord mass (HCC) * PTT [facility](Performed 06/07/2022) * BASIC METABOLIC PANEL (CALCIUM TOTAL)(Performed 06/07/2022) * CBC W AUTO DIFFERENTIAL(Performed 06/07/2022) * EKG 12-LEAD(Performed 06/05/2022) Performed for Mass of spine * XR CHEST 1VW PORTABLE(Performed 06/05/2022) Performed for Mass of spine * BLOOD TYPE VERIFICATION(Performed 06/04/2022) * TYPE + SCREEN PANEL(Performed 06/04/2022) * PT-INR [facility](Performed 06/04/2022) * COMPREHENSIVE METABOLIC PANEL(Performed 06/04/2022) * CBC W AUTO DIFFERENTIAL(Performed 06/04/2022) Results * XR CERVICAL SPINE 4 OR 5VW (04/10/2023 10:52 AM MEDICARE CONTACT SPECIALIST) Only the most recent of2 resultswithin the time period is included. Anatomical Region Laterality Modality Spine Radiographic Ludy ging 04/10/2023 1:46 PM MEDICARE CONTACT SPECIALIST Impressions 04/10/2023 4:05 PM MEDICARE CONTACT SPECIALIST IMPRESSION: Normal cervical spine with flexion-extension views. Degenerative changes as described above. Report dictated by Georgina Torres Dr, MD (vice president business development). I, Tariq Alexander DO have personally reviewed and interpreted this examination/study. > Interpreting Provider: Tariq Alexander DO on 04/10/2023 4:05 PM Narrative 04/10/2023 4:05 PM MEDICARE CONTACT SPECIALIST PROCEDURE: XR CERVICAL SPINE 4 OR 5VW, DATE/TIME OF EXAM: 04/10/2023 10:52 AM, LOCATION [facility] INDICATION: M54.2: Neck pain ADDITIONAL CLINICAL INFORMATION: Ordering Provider Reason For Exam: Technologist Note: Additional: COMPARISON: MRI cervical spine dated 02/13/2023. FINDINGS: The C7 vertebral body is partially visualized on lateral views. The atlanto-dens interval is normal measuring under 2 mm on all views. No occipito-atlantal subluxation, craniocervical osseous anomaly or atlanto-axial instability is seen. There is no prevertebral soft tissue swelling. There is intervertebral disc height loss with as defined complex formation at C3-C7. Uncovertebral joint hypertrophy is present. No splaying of the posterior elements is present. Procedure Note Tariq Alexander DO - 04/10/2023 PROCEDURE: XR CERVICAL SPINE 4 OR 5VW, DATE/TIME OF EXAM: 0:52 AM, LOCATION [facility] INDICATION: M54.2: Neck pain ADDITIONAL CLINICAL INFORMATION: Ordering Provider Reason For Exam: Technologist Note: Additional: COMPARISON: MRI cervical spine dated 02/13/2023. FINDINGS: The C7 vertebral body is partially visualized on lateral views. The atlanto-dens interval is normal measuring under 2 mm on all views.No occipito-atlantal subluxation, craniocervical osseous anomaly or atlanto-axial instability is seen. There is no prevertebral soft tissue swelling. There is intervertebral disc height loss with as defined complexformation at C3-C7. Uncovertebral joint hypertrophy is present. No splaying of the posterior elements is present. IMPRESSION: Normal cervical spine with flexion-extension views. Degenerative changes as described above. Report dictated by Georgina Torres Dr, MD (vice president business development). Tariq Bolden DO have personally reviewed and interpreted this examination/study. > Interpreting Provider: Tariq Alexander DO on 04/10/2023 4:05 PM Emmett Lozano MD DIAGNOSTIC IMAGING O RDERABLES * MRI CERVICAL SPINE WO CONTRAST (02/13/2023 5:20 PM MEDICARE CONTACT SPECIALIST) Anatomical Region Laterality Modality Pelvis Magnetic Resonan ce 02/18/2023 2:26 PM MEDICARE CONTACT SPECIALIST Impressions 02/18/2023 4:47 PM MEDICARE CONTACT SPECIALIST IMPRESSION: 1.Mild to moderate multilevel degenerative disc and joint disease, most prominent at the levels of C5-C6 and C6-C7 as described above. Minimal T2/STIR hyperintensity in the cord at the level of C6-C7 could be artifactual versus sequela of myelomalacia. The report is dictated by Rossana Zamudio MD (vice president business development) Madeline Bolden MD have personally reviewed and interpreted this examination/study. > Interpreting Provider: Madeline Dinh MD on 02/18/2023 4:47 PM Narrative 02/18/2023 4:47 PM MEDICARE CONTACT SPECIALIST PROCEDURE: MRI CERVICAL SPINE WO CONTRAST, DATE/TIME OF EXAM: 02/13/2023 5:20 PM, LOCATION [facility] INDICATION: G95.9: Cervical myelopathy (CMS/HCC) EXAMINATION: Magnetic resonance imaging (MRI) of the cervical spine without contrast TECHNIQUE: MRI of the cervical spine was performed without intravenous contrast according to standard protocol. COMPARISON: Cervical spine radiographs dated 01/09/2023 FINDINGS: The study is mildly degraded by motion artifact. Normal cervical lordosis. Trace retrolisthesis of C6 on C7. Vertebral bodies are normal in height without evidence of compression fractures. Other than mild degenerative endplate changes at C5-C6 and C6-C7 levels, the bone marrow signal is normal. Other than middle atlantoaxial joint osteoarthritis, the craniocervical junction appears normal. Artifact limits the evaluation of spinal cord signal. Possible minimal cord signal abnormality at the level of C6-C7 could be artifactual versus sequela of myelomalacia. There is mild to moderate disc height loss at multiple levels. No soft tissue abnormality is identified. Normal flow voids are identified in the vertebral arteries. Dominant right vertebral artery. Mild opacification of the right mastoid air cells. C2-3: There is no disc bulge. There is no central canal stenosis. There is mild to moderate bilateral facet osteoarthritis. There is mild to moderate right uncovertebral joint osteoarthritis. There is mild to moderate right, left neural foraminal stenosis. C3-4: There is no disc bulge. There is no central canal stenosis. There is moderate to severe bilateral facet osteoarthritis. There is mild bilateral uncovertebral joint osteoarthritis. There is moderate to severe right, moderate left neural foraminal stenosis. C4-5: There is no disc bulge. There is no central canal stenosis. There is moderate right and severe left facet osteoarthritis. There is mild right, moderate left uncovertebral joint osteoarthritis. There is moderate to severe left, mild right neural foraminal stenosis. C5-6: Posterior disc osteophyte complex predominantly along the right paracentral aspect, resulting in mild effacement of the right ventral CSF space and slight mass effect on the right lateral aspect of the cord. There is mild central canal stenosis. There is mild to moderate bilateral facet osteoarthritis. There is moderate to severe bilateral uncovertebral joint osteoarthritis. There is severe left, moderate to severe right neural foraminal stenosis. C6-7: There is posterior disc bulge. There is mild to moderate central canal stenosis, mild ligamentum flavum hypertrophy. There is mild to moderate bilateral facet osteoarthritis. There is severe bilateral uncovertebral joint osteoarthritis. There is severe bilateral neural foraminal stenosis. C7-T1: There is no disc bulge. There is no central canal stenosis. There is moderate to severe right, moderate left facet osteoarthritis. There is no uncovertebral joint osteoarthritis. There is moderate right neural foraminal stenosis. Procedure Note Madeline Dinh MD - 02/18/2023 PROCEDURE: MRI CERVICAL SPINE WO CONTRAST, DATE/TIME OF EXAM:02/13/2023 5:20 PM, LOCATION [facility] INDICATION: G95.9: Cervical myelopathy (CMS/HCC) EXAMINATION: Magnetic resonance imaging (MRI) of the cervical spinewithout contrast TECHNIQUE: MRI of the cervical spine was performed without intravenous contrast according to standard protocol. COMPARISON: Cervical spine radiographs dated 01/09/2023 FINDINGS: The study is mildly degraded by motion artifact. Normal cervical lordosis. Trace retrolisthesis of C6 on C7. Vertebral bodies are normal in height without evidence of compression fractures. Other than mild degenerative endplate changes at C5-C6 and C6-C7 levels, the bone marrow signal is normal. Other than middle atlantoaxial joint osteoarthritis, the craniocervical junction appears normal. Artifactlimits the evaluation of spinal cord signal. Possible minimal cord signal abnormality at the level of C6-C7 could be artifactual versus sequela of myelomalacia. There is mild to moderate disc height loss at multiple levels. No soft tissue abnormality is identified. Normal flow voids are identified in the vertebral arteries. Dominant right vertebral artery.Mild opacification of the right mastoid air cells. C2-3: There is no disc bulge. There is no central canal stenosis. Thereis mild to moderate bilateral facet osteoarthritis. There is mild tomoderate right uncovertebral joint osteoarthritis. There is mild to moderateright, left neural foraminal stenosis. C3-4: There is no disc bulge. There is no central canal stenosis. Thereis moderate to severe bilateral facet osteoarthritis. There is mildbilateral uncovertebral joint osteoarthritis. There is moderate to severe right, moderate left neural foraminal stenosis. C4-5: There is no disc bulge. There is no central canal stenosis. Thereis moderate right and severe left facet osteoarthritis. There is mildright, moderate left uncovertebral joint osteoarthritis. There is moderate to severe left, mild right neural foraminal stenosis. C5-6: Posterior disc osteophyte complex predominantly along the right paracentral aspect, resulting in mild effacement of the right ventralCSF space and slight mass effect on the right lateral aspect of the cord.There is mild central canal stenosis. There is mild to moderate bilateralfacet osteoarthritis. There is moderate to severe bilateral uncovertebraljoint osteoarthritis. There is severe left, moderate to severe right neural foraminal stenosis. C6-7: There is posterior disc bulge. There is mild to moderate central canal stenosis, mild ligamentum flavum hypertrophy. There is mild to moderate bilateral facet osteoarthritis. There is severe bilateral uncovertebral joint osteoarthritis. There is severe bilateral neural foraminal stenosis. C7-T1: There is no disc bulge. There is no central canal stenosis. Thereis moderate to severe right, moderate left facet osteoarthritis. There isno uncovertebral joint osteoarthritis. There is moderate right neural foraminal stenosis. IMPRESSION: 1.Mild to moderate multilevel degenerative disc and joint disease, most prominent at the levels of C5-C6 and C6-C7 as described above. Minimal T2/STIR hyperintensity in the cord at the level of C6-C7 could be artifactual versus sequela of myelomalacia. The report is dictated by Rossana Zamudio MD (vice president business development) Madeline Bolden MD have personally reviewed and interpreted this examination/study. > Interpreting Provider: Madeline Dinh MD on 02/18/2023 4:47 PM Emmett Lozano MD MR ORDERABLES * XR SKULL TO ANKLE STEVEN (01/09/2023 9:39 AM CDT) Anatomical Region Laterality Modality Radiographic Ludy ging 01/09/2023 10:0 5 AM CDT Impressions 01/09/2023 10:41 AM CDT IMPRESSION: 1. Posterior instrumented spinal fusion at L1-L2. Hardware appears intact. 2. 1.9 cm irregular sclerotic bone lesion in the right distal femur. Recommend right femur x-rays for further evaluation. Report dictated by Horacio Morris MD, MD (vice president business development). Ronan Bolden MD have personally reviewed and interpreted this examination/study. > Interpreting Provider: Ronan Chinchilla MD on 01/09/2023 10:41 AM Narrative 01/09/2023 10:41 AM CDT PROCEDURE: XR SKULL TO ANKLE STEVEN DATE/TIME OF EXAM: 01/09/2023 9:39 AM CLINICAL INFORMATION: None relevant/not provided if blank. Indication: Z98.1: S/P lumbar fusion Additional History: COMPARISON: Lumbar spine x-rays dated 09/05/2022. TECHNIQUE: X-ray of the skull to ankle 2 view FINDINGS: Postsurgical changes of instrumented fusion of L1-L2 with posterior rods and screws. Hardware appears intact. Laminectomy is present in the region. Normal lordosis of the cervical spine and lumbar spine. Mildly exaggerated kyphosis of the upper thoracic spine. Sagittal balance is +5.7 cm. The coronal balance appears normal. Mild thoracolumbar dextrocurvature of less than 10 degrees. There is mild to moderate spinal degenerative change, greatest in the lower lumbar spine. The visualized skull is normal. Mild left AC joint osteoarthritis. The visualized lower extremities are notable for smfq-fr-wfnkhtas hip osteoarthritis, left greater than right, a bipartite right patella, and a 1.9 cm irregular sclerotic bone lesion in the posterior aspect of the right distal femoral shaft. Procedure Note Ronan Chinchilla MD - 01/09/2023 PROCEDURE: XR SKULL TO ANKLE STEVEN DATE/TIME OF EXAM: 01/09/2023 9:39 AM CLINICAL INFORMATION: None relevant/not provided if blank. Indication: Z98.1: S/P lumbar fusion Additional History: COMPARISON: Lumbar spine x-rays dated 09/05/2022. TECHNIQUE: X-ray of the skull to ankle 2 view FINDINGS: Postsurgical changes of instrumented fusion of L1-L2 with posterior rods and screws. Hardware appears intact. Laminectomy is present in theregion. Normal lordosis of the cervical spine and lumbar spine. Mildlyexaggerated kyphosis of the upper thoracic spine. Sagittal balance is +5.7 cm. The coronal balance appears normal. Mild thoracolumbar dextrocurvature ofless than 10 degrees. There is mild to moderate spinal degenerative change, greatest in the lower lumbar spine. The visualized skull is normal. Mild left AC joint osteoarthritis. The visualized lower extremities are notable for mnbt-kv-orofqfus hip osteoarthritis, left greater than right, a bipartite right patella, liset 1.9 cm irregular sclerotic bone lesion in the posterior aspect of theright distal femoral shaft. IMPRESSION: 1. Posterior instrumented spinal fusion at L1-L2. Hardware appearsintact. 2. 1.9 cm irregular sclerotic bone lesion in the right distal femur. Recommend right femur x-rays for further evaluation. Report dictated by Horacio Morris MD, MD (vice president business development). I, Ronan Chinchilla MD have personally reviewed and interpreted this examination/study. > Interpreting Provider: Ronan Chinchilla MD on 01/09/2023 10:41 AM Emmett Lozano MD DIAGNOSTIC IMAGING O RDERABLES * XR LUMBAR SPINE 4VW OR MORE (01/09/2023 9:39 AM CDT) Anatomical Region Laterality Modality Spine Radiographic Ludy ging 01/09/2023 11:2 5 AM CDT Impressions 01/09/2023 11:27 AM CDT IMPRESSION: 1.Stable postoperative changes from posterior instrumented spinal fusion at L1-L2. 2.No dynamic instability. 3.No acute fracture or compression deformity. 4.Questioned neuroforaminal stenosis at L5-S1. Findings could be further characterized with CT/MRI lumbar spine if clinically indicated. > Interpreting Provider: JENNIFER KIMBALL MD on 01/09/2023 11:27 AM Narrative 01/09/2023 11:27 AM CDT EXAMINATION: XR LUMBAR SPINE 4VW OR MORE HISTORY: Z98.1: S/P lumbar fusion COMPARISON: Multiple priors, most recent lumbar spine radiograph dated 09/05/2022 FINDINGS: Stable postoperative changes from posterior instrumented spinal fusion at L1-L2. Surgical instrumentation is intact and unchanged in alignment. There are 5 xkw-clh-vzyonub lumbar type vertebral bodies. There is a straightening of the normal lumbar lordosis. No subluxations or dynamic instability is noted. No acute fracture or compression deformity is identified. Mild intervertebral disc height loss is noted inferiorly at L4-5 and L5-S1. Anterior apophyseal osteophytes and mild facet arthropathy are additionally noted at the same levels. Question of L5-S1 neural foraminal stenosis. Atherosclerosis of the aorta is noted. Procedure Note Jennifer Kimball MD - 01/09/2023 EXAMINATION: XR LUMBAR SPINE 4VW OR MORE HISTORY: Z98.1: S/P lumbar fusion COMPARISON: Multiple priors, most recent lumbar spine radiograph dated 09/05/2022 FINDINGS: Stable postoperative changes from posterior instrumented spinal fusionat L1-L2. Surgical instrumentation is intact and unchanged in alignment. There are 5 nsg-qbu-gjebkox lumbar type vertebral bodies. There is a straightening of the normal lumbar lordosis. No subluxations or dynamic instability is noted. No acute fracture or compression deformity is identified. Mild intervertebral disc height loss is noted inferiorly at L4-5 and L5-S1. Anterior apophyseal osteophytes and mild facetarthropathy are additionally noted at the same levels. Question of L5-S1 neural foraminal stenosis. Atherosclerosis of the aorta is noted. IMPRESSION: 1.Stable postoperative changes from posterior instrumented spinal fusionat L1-L2. 2.No dynamic instability. 3.No acute fracture or compression deformity. 4.Questioned neuroforaminal stenosis at L5-S1. Findings could be further characterized with CT/MRI lumbar spine if clinically indicated. > Interpreting Provider: JENNIFER KIMBALL MD on 01/09/2023 11:27 AM Emmett Lozano MD DIAGNOSTIC IMAGING O RDERABLES * XR LUMBAR SPINE 2 OR 3VW (09/05/2022 9:34 AM CDT) Only the most recent of2 resultswithin the time period is included. Anatomical Region Laterality Modality Spine Radiographic Ludy ging 09/05/2022 11:0 3 AM CDT Impressions 09/05/2022 10:30 PM CDT IMPRESSION: Redemonstrated is posterior spinal fusion of L1-L2, unchanged in alignment. The hardware is intact. Report dictated by Chicho Rock MD (vice president business development). I, Derrell Duran MD have personally reviewed and interpreted this examination/study. > Interpreting Provider: Derrell Duran MD on 09/05/2022 10:30 PM Narrative 09/05/2022 10:30 PM CDT PROCEDURE: XR LUMBAR SPINE 2 OR 3VW, DATE/TIME OF EXAM: 09/05/2022 9:34 AM, LOCATION [facility] INDICATION: Z98.1: S/P lumbar spinal fusion ADDITIONAL CLINICAL INFORMATION: Ordering Provider Reason For Exam: s/p lumbr fusion COMPARISON: Lumbar spine x-ray dated 06/25/2022. FINDINGS: Redemonstrated posterior spinal fusion and laminectomies of L1-L2. There are moderate degenerative changes throughout the lumbar spine, most prominent at L4-L5 and L5-S1 Procedure Note Derrell Duran MD - 09/05/2022 PROCEDURE: XR LUMBAR SPINE 2 OR 3VW, DATE/TIME OF EXAM: 09/05/2022 9:34 AM, LOCATION [facility] INDICATION: Z98.1: S/P lumbar spinal fusion ADDITIONAL CLINICAL INFORMATION: Ordering Provider Reason For Exam: s/p lumbr fusion COMPARISON: Lumbar spine x-ray dated 06/25/2022. FINDINGS: Redemonstrated posterior spinal fusion and laminectomies of L1-L2. There are moderate degenerative changes throughout the lumbar spine, most prominent at L4-L5 and L5-S1 IMPRESSION: Redemonstrated is posterior spinal fusion of L1-L2, unchanged inalignment. The hardware is intact. Report dictated by Chicho Rock MD (vice president business development). I, Derrell Duran MD have personally reviewed and interpreted this examination/study. > Interpreting Provider: Derrell Duran MD on 09/05/2022 10:30 PM Laverne Aranda APRN-HOUSE PARENT DIAGNOSTIC IMAGING O RDERABLES * CARDIAC EKG ORDER (06/27/2022 2:02 PM CDT) Narrative 06/27/2022 2:02 PM CDT Ordered by an unspecified provider. Scanned Document CARDIAC SERVICES ORD ERABLES * PTT [facility] (06/18/2022 6:13 AM CDT) Only the most recent of12 resultswithin the time period is included. APTT 30.4 23.0 - 38.4 Seconds 06/18/2022 7:42 AM CDT [facility] Comment:Suggested therapeuti c range for full dose I.V. unfractionated heparin therapy for venous thromboembolism is 71 to 109 seconds. Blood BLOOD SPECIMEN / Unknown Lab Venipuncture / Unknown 06/18/2022 6:13 AM CDT 06/18/2022 7:19 AM CDT Emmett Lozano MD LAB - COAGULATION OR DERABLES [facility] [address] [place] [address], [facility] [phone] * (ABNORMAL) CBC W AUTO DIFFERENTIAL (06/13/2022 12:31 AM MEDICARE CONTACT SPECIALIST) Only the most recent of8 resultswithin the time period is included. WBC 10.9(H) 3.5 - 10.5 10 3/uL 06/13/2022 2:23 AM [facility] RBC 4.00(L) 4.30 - 5.70 10 6/uL 06/13/2022 2:23 AM [facility] Hemoglobin 12.1 12.0 - 17.6 g/dL 06/13/2022 2:23 AM [facility] Hematocrit 34.6(L) 35.2 - 51.7 % 06/13/2022 2:23 AM [facility] MCV 86.5 80.7 - 98.3 fL 06/13/2022 2:23 AM [facility] MCH 30.3 26.7 - 34.0 pg 06/13/2022 2:23 AM [facility] MCHC 35.0 30.8 - 35.9 g/dL 06/13/2022 2:23 AM [facility] RDW-SD 37.2 36.0 - 50.0 fL 06/13/2022 2:23 AM [facility] RDW-CV 11.7 11.2 - 14.8 % 06/13/2022 2:23 AM [facility] Platelet Count 256 150 - 400 10 3/uL 06/13/2022 2:23 AM [facility] MPV 10.7 9.4 - 12.9 fL 06/13/2022 2:23 AM [facility] nRBC Absolute 0.00 0 10 3/uL 06/13/2022 2:23 AM [facility] nRBC Auto 0.0 0 /100 WBC 06/13/2022 2:23 AM [facility] Neutrophils % 60.3 35.0 - 70.0 % 06/13/2022 2:23 AM [facility] Lymphocytes % 22.5 20.0 - 43.0 % 06/13/2022 2:23 AM [facility] Monocytes % 14.6(H) 5.0 - 13.0 % 06/13/2022 2:23 AM [facility] Eosinophils % 1.0 0.0 - 6.0 % 06/13/2022 2:23 AM [facility] Basophil % 0.6 0.0 - 2.0 % 06/13/2022 2:23 AM [facility] Neutrophils Absolute 6.55 1.60 - 7.00 10 3/uL 06/13/2022 2:23 AM [facility] Lymphocyte Absolute 2.45 1.10 - 3.90 10 3/uL 06/13/2022 2:23 AM [facility] Monocytes Absolute 1.59(H) 0.26 - 1.07 10 3/uL 06/13/2022 2:23 AM [facility] Eosinophils Absolute 0.11 0.00 - 0.47 10 3/uL 06/13/2022 2:23 AM [facility] Basophils Absolute 0.06 0.00 - 0.08 10 3/uL 06/13/2022 2:23 AM [facility] Immature Granulocytes % 1.0 0.0 - 1.0 % 06/13/2022 2:23 AM [facility] Immature Granulocytes Absolute 0.11 06/13/2022 2:23 AM [facility] Blood BLOOD SPECIMEN / Unknown Lab Venipuncture / Unknown 06/13/2022 12:31 AM MEDICARE CONTACT SPECIALIST 06/13/2022 2:18 AM MEDICARE CONTACT SPECIALIST Emmett Lozano MD LAB - HEMATOLOGY ORD ERABLES [facility] [address] [place] [phone], [facility] [phone] * (ABNORMAL) BASIC METABOLIC PANEL (CALCIUM TOTAL) (06/13/2022 12:31 AM MEDICARE CONTACT SPECIALIST) Only the most recent of7 resultswithin the time period is included. BUN 15 7 - 26 mg/dL 06/13/2022 2:47 AM [facility] Creatinine 0.89 0.71 - 1.16 mg/dL 06/13/2022 2:47 AM [facility] Sodium 137 136 - 145 mmol/L 06/13/2022 2:47 AM [facility] Potassium 3.7 3.5 - 4.5 mmol/L 06/13/2022 2:47 AM [facility] Chloride 96(L) 98 - 107 mmol/L 06/13/2022 2:47 AM [facility] CO2 29 22 - 29 mmol/L 06/13/2022 2:47 AM [facility] Glucose 100 70 - 115 mg/dL 06/13/2022 2:47 AM [facility] Calcium 9.5 8.4 - 10.2 mg/dL 06/13/2022 2:47 AM [facility] Anion Gap 16 8 - 18 06/13/2022 2:47 AM [facility] BUN/Creatinine Ratio 17 7 - 23 06/13/2022 2:47 AM [facility] Osmolality Calculated 285 270 - 300 mOsm/kg 06/13/2022 2:47 AM [facility] eGFR by CKD-EPI >90 >=90 mL/min/1.7 3 m2 06/13/2022 2:47 AM [facility] Blood BLOOD SPECIMEN / Unknown Lab Venipuncture / Unknown 06/13/2022 12:31 AM MEDICARE CONTACT SPECIALIST 06/13/2022 2:18 AM [facility] Emmett Lozano MD LAB - CHEMISTRY SITA DOOLEY [facility] Organization Address City/State/ZIP Co de Phone Number [facility] [address] [place] [address], [facility] [phone] * (ABNORMAL) DIFFERENTIAL MANUAL (06/11/2022 1:26 AM [facility]) Only the most recent of3 resultswithin the time period is included. WBC (corrected for NRBC) 12.4 10 3/uL 06/11/2022 4:49 AM [facility] Total Cell Count 100 06/11/2022 4:49 AM [facility] Neutrophils Absolute Manual 7.94(H) 1.60 - 7.00 10 3/uL 06/11/2022 4:49 AM [facility] Comment:(BANDS+SEGS) x WBC = NEUT # (ANC) Lymphocyte Absolute Manual 1.98 1.10 - 3.90 10 3/uL 06/11/2022 4:49 AM [facility] Monocytes Absolute Manual 2.23(H) 0.26 - 1.07 10 3/uL 06/11/2022 4:49 AM [facility] Eosinophils Absolute Manual 0.25 0.00 - 0.47 10 3/uL 06/11/2022 4:49 AM [facility] Band % Manual 2 0 - 10 % 06/11/2022 4:49 AM [facility] Neutrophil % Manual 62 35 - 70 % 06/11/2022 4:49 AM [facility] Lymphocyte % Manual 16(L) 20 - 43 % 06/11/2022 4:49 AM [facility] Monocytes % Manual 18(H) 5 - 13 % 06/11/2022 4:49 AM [facility] Eosinophils % Manual 2 0 - 6 % 06/11/2022 4:49 AM [facility] Platelet Estimate Adequate Adequate 06/11/2022 4:49 AM [facility] Target Cells 1+(A) None 06/11/2022 4:49 AM [facility] Blood BLOOD SPECIMEN / Unknown Lab Venipuncture / Unknown 06/11/2022 1:26 AM MEDICARE CONTACT SPECIALIST 06/11/2022 2:23 AM MEDICARE CONTACT SPECIALIST Emmett Lozano MD LAB - HEMATOLOGY ORD ERABLES [facility] [address] [place] [address], [facility] [phone] * XR ABDOMEN KUB PORTABLE (06/08/2022 9:47 PM MEDICARE CONTACT SPECIALIST) Anatomical Region Laterality Modality Abdomen Radiographic Ludy ging 06/09/2022 6:21 PM MEDICARE CONTACT SPECIALIST Impressions 06/10/2022 7:05 AM MEDICARE CONTACT SPECIALIST IMPRESSION: Gaseous distention of the stomach I, Ashok Mary MD have personally reviewed and interpreted this examination/study. > Interpreting Provider: Ashok Mary MD on 06/10/2022 7:05 AM Narrative 06/10/2022 7:05 AM MEDICARE CONTACT SPECIALIST PROCEDURE: XR ABDOMEN KUB PORTABLE, DATE/TIME OF EXAM: 06/08/2022 9:47 PM, LOCATION [facility] INDICATION: M47.816: Lumbar spondylosis ADDITIONAL CLINICAL INFORMATION: Ordering Provider Reason For Exam: abdominal distension COMPARISON: None. FINDINGS: Single view of the abdomen demonstrates a nonspecific bowel gas pattern with no evidence of obstruction. Gaseous distention of the stomach. No mass effect or pathologic calcifications. No acute osseous abnormalities. Surgical kristie are seen in the midline and spinal fusion hardware is noted in the upper lumbar spine L1-L2. Procedure Note Ashok Mary MD - 06/10/2022 PROCEDURE: XR ABDOMEN KUB PORTABLE, DATE/TIME OF EXAM: 06/08/2022 9:47PM, LOCATION [facility] INDICATION: M47.816: Lumbar spondylosis ADDITIONAL CLINICAL INFORMATION: Ordering Provider Reason For Exam: abdominal distension COMPARISON: None. FINDINGS: Single view of the abdomen demonstrates a nonspecific bowel gas pattern with no evidence of obstruction. Gaseous distention of the stomach. Nomass effect or pathologic calcifications. No acute osseous abnormalities. Surgical kristie are seen in the midline and spinal fusion hardware is noted in the upper lumbar spine L1-L2. IMPRESSION: Gaseous distention of the stomach I, Ashok Mary MD have personally reviewed and interpreted this examination/study. > Interpreting Provider: Ashok Mary MD on 06/10/2022 7:05 AM Emmett Lozano MD DIAGNOSTIC IMAGING O RDERABLES * PREPARE (CROSSMATCH) RBC UNIT(S), 2 Units (06/08/2022 1:17 AM MEDICARE CONTACT SPECIALIST) Unit Description AS1 LR PRBC [facility] Unit ABO B [facility] Unit Rh POS [facility] Product Number R02 [facility] B LOOD [facility] Unit Donor # [id number] [facility] Unit Status released [facility] BLOO D BANK LAB Product Code [id number] [facility] Blood Type Barcode 7300 [facility] Expiration Date S BLOOD BANK LAB Unit Description AS1 LR PRBC [facility] Unit ABO B [facility] Unit Rh POS [facility] Product Number R43 [facility] B LOOD [facility] Unit Donor # [id number] [facility] Unit Status released [facility] BLOO D [facility] Product Code [id number] [facility] Blood Type Barcode 7300 [facility] Expiration Date S BLOOD BANK LAB Blood Bank BLOOD SPECIMEN / Unknown 06/04/2022 3:05 AM MEDICARE CONTACT SPECIALIST Holly Anila Burrowsmitzysilviano LAB - BLOOD BANK O RDERABLES Performing Organization Address City/[facility]/ZIP Co de Phone Number [facility] [address] [place] [address], [facility] [phone] * [place] OARM SURGERY (06/07/2022 6:45 PM MEDICARE CONTACT SPECIALIST) Narrative [facility] RADIOLOGY - 06/07/2022 7:52 PM MEDICARE CONTACT SPECIALIST Fluoroscopy was used for this exam in the OR. Please see the Operative report. Emmett Lozano MD FLUOROSCOPY ORDERABL ES Performing Organization Address [facility] Co de Phone Number [facility] RAD[facility] * [place] JERO SURGERY (06/07/2022 6:45 PM MEDICARE CONTACT SPECIALIST) Narrative [facility] RAD[facility] - 06/07/2022 6:54 PM MEDICARE CONTACT SPECIALIST Fluoroscopy was used for this exam in the OR. Please see the Operative report. Emmett Lozano MD FLUOROSCOPY ORDERABL ES Performing Organization Address [facility] Co de Phone Number [facility] RAD[facility] * PATHOLOGY TISSUE (06/07/2022 6:08 PM MEDICARE CONTACT SPECIALIST) Case Report Surgical Pathology Report Case: [id number] Authorizing Provider: Emmett Lozano MD Collected: 06/07/2022 06:08 PM Ordering Location: [address] Received: 06/08/2022 07:38 AM Pathologist: Bravo Webber MD Specimens: A) - Disc Tissue, extra dural mass B) - Disc Tissue, extra dural mass 9:12 AM CDT [facility] Final Diagnosis Spine, extradural mass, excision (A): - Consistent with disc material. Spine, extradural mass, excision (B): - Consistent with disc material. 9:12 AM CDT [facility] Microscopic Description and Comment The frozen section diagnosis is confirmed. The microscopic description substantiates the final diagnosis. 3 9:12 AM [facility] PATHOLOGY LAB Clinical History 07/10/19 2 3 9:12 AM [facility] PATHOLOGY LAB Intraoperative Consultation A. Extra dural mass are multiple fragments of red soft tissue measuring in aggregate 0.9 x 0.6 x 0.2 cm. Touch preparations are made and a traveling sales representative portion is submitted for frozen section as FS A1. Intraoperative diagnosis: FS A1, extradural mass: -Disc material by Clara Daly MD 3 9:12 AM [facility] PATHOLOGY LAB Gross Description The requisition and specimen(s) are identified with the patient's name, Reji Freire. Received in formalin, specimen A , is tissue as described in the intraoperative consultation. The specimen is entirely submitted as follows: A1 remnant of FS A1, A2 remaining tissue. Received in formalin, specimen B is a 2.5 x 2.0 x 0.5 cm aggregate of peters-brown soft tissue and blood clot. Sectioning of the larger fragments that shows rivers-white firm cut surfaces. The specimen is entirely submitted in cassette B1. 3 9:12 AM [facility] PATHOLOGY LAB Disclaimer The performance characteristics of all immunohistochemical and indirect immunofluorescence stains (if any) cited in this report were determined by the Histopathology Laboratory of [facility]. Some of these tests were developed by our own laboratory and have not been cleared or approved by the US Food and Drug Administration. The FDA does not require this test to go through premarket FDA review. These tests are used for clinical purposes. They should not be regarded as investigational or for research. This laboratory is certified under the Clinical Laboratory Improvement Amendments (CLIA) as qualified to perform high complexity clinical laboratory testing. This case has been personally reviewed and interpreted by the attending (teaching) pathologist. 3 9:12 AM [facility] PATH[facility] LAB Embedded Images 3 9:12 AM [facility] PATH[facility] LAB Biopsy, Excision SPECIMEN FROM INTERVERTEBRAL DISC / Unknown 06/07/2022 6:08 PM MEDICARE CONTACT SPECIALIST 06/08/2022 7:38 AM MEDICARE CONTACT SPECIALIST Comment:Pre-op diagnosis: spinal mass Biopsy, Excision SPECIMEN FROM INTERVERTEBRAL DISC / Unknown 06/07/2022 6:12 PM MEDICARE CONTACT SPECIALIST 06/08/2022 7:38 AM MEDICARE CONTACT SPECIALIST Comment:Pre-op diagnosis: spinal mass Emmett Lozano MD LAB - PATHOLOGY/CYTO LOGY ORDERABLES [facility] [address] [place] [address], [facility] [phone] * ETT LINE PERFORMABLE (06/07/2022 4:51 PM MEDICARE CONTACT SPECIALIST) Narrative Karlos Santoyo Anes Asst - 06/07/2022 4:51 PM MEDICARE CONTACT SPECIALIST Karlos Santoyo Anes Asst 06/07/2022 4:55 PM Endotracheal Tube Placement: Patient Location: OR. Intubation Event Date/Time: 06/07/2022 4:11 PM Procedure: intubation ([id number]). Procedure Section: Sedation: under general anesthesia. Indications for Airway Management: anesthesia Induction: standard IV Patient Position: sniffing and supine Mask Ventilation: easy. Blade Type: Dillan Blade Size: 4 Laryngoscopy View: grade 2 (partial cords) Intubation Adjuncts: cricoid pressure Tube: endotracheal tube (no stylet) Placement: oral Tube type: cuff - inflated Tube Size (MM): 7 Depth of Insertion (CM): 23 Measured From: lips Cuff Inflated With: air Number of Attempts: 1. Placement Verified By: direct visualization, bilateral breath sounds, chest auscultation and CO2 monitor Tube secured with: adhesive tape and ETT lopez. Dentition unchanged? Yes Difficult Airway? No. Procedure Start Time: 06/07/2022 4:11 PM. Procedure End Time: 06/07/2022 4:12 PM. Procedure Total Time: 1 minutes. Staff Section Anesthesia Provider: Karlos Santoyo Anes Asst, Performed the procedure Gary Suarez MD GENERAL ANESTHESIA O RDERABLES * ARTERIAL LINE PERFORMABLE (06/07/2022 4:50 PM MEDICARE CONTACT SPECIALIST) Gary Waterman MD - 06/07/2022 4:50 PM MEDICARE CONTACT SPECIALIST Gary Suarez MD 06/07/2022 4:52 PM Arterial Line Placement Procedure Note Patient Location: OR. Procedure: Arterial Line ([id number]). Procedure Section Indications: continuous blood pressure monitoring and blood sampling needed. Consent: informed consent was obtained for the procedure. Alternatives Discussed: alternative treatment, delayed treatment and no treatment Skin Prep: Chloraprep. Orientation: Left. Site: radial. Site Identification: palpation. Sterile Technique: cap and mask. Gauge: 20. Seldinger Technique Used? Yes Number of Attempts: 1. Line Secured with: tape and Tegaderm. Procedure Tolerance: performed while patient under general anesthesia. Events: none. Procedure Start Time: 06/07/2022 4:10 PM. AN Patient sedated: GA. Staff Section Anesthesia Provider: Gary Suarez MD, Performed the procedure Gary Suarez MD GENERAL ANESTHESIA O RDERABLES * EKG 12-LEAD (06/05/2022 11:13 AM MEDICARE CONTACT SPECIALIST) Pathologist [facility] Ventricular Rate 83 BPM [facility] Atrial Rate 83 BPM [facility] P-R Interval 182 ms [facility] QRS Duration ms 88 ms [facility] Q-T Interval ms 346 ms [facility] QTC Calculation (Bezet) 406 ms [facility] Calculated P Carson 90 degrees [facility] Calculated R Carson 37 degrees [facility] Calculated T Carson 84 degrees [facility] Interpretation EKG NORMAL SINUS RHYTHM NONSPECIFIC T WAVE ABNORMALITY ABNORMAL ECG NO PREVIOUS ECGS AVAILABLE Confirmed by Issa MOORE, Aleksandra ([id number]) on 06/07/2022 12:15:23 AM [facility] MUSE 06/05/2022 11:1 3 AM MEDICARE CONTACT SPECIALIST 06/07/2022 12:15 AM MEDICARE CONTACT SPECIALIST Ellen Adames MORTGAGE LOAN ASSISTANT-HOUSE PARENT ECG ORDERABLES [facility] MUSE * XR CHEST 1VW PORTABLE (06/05/2022 11:05 AM MEDICARE CONTACT SPECIALIST) Anatomical Region Laterality Modality Chest Radiographic Ludy ging 06/05/2022 11:2 7 AM MEDICARE CONTACT SPECIALIST Impressions 06/05/2022 3:14 PM MEDICARE CONTACT SPECIALIST IMPRESSION: Mild right basilar atelectasis. Report dictated by Brennen Palm MD (vice president business development). I, Ronan Chinchilla MD have personally reviewed and interpreted this examination/study. > Interpreting Provider: Ronan Chinchilla MD on 06/05/2022 3:14 PM Narrative 06/05/2022 3:14 PM MEDICARE CONTACT SPECIALIST PROCEDURE: XR CHEST 1VW PORTABLE, DATE/TIME OF EXAM: 06/05/2022 11:05 AM, LOCATION [facility] INDICATION: M89.8X8: Mass of spine ADDITIONAL CLINICAL INFORMATION: Ordering Provider Reason For Exam: preop eval Technologist Note: Additional: COMPARISON: None. FINDINGS: Mild right basilar linear atelectasis. There is no pulmonary consolidation, pleural effusion, or pneumothorax. The heart size is normal. Procedure Note Ronan Chinchilla MD - 06/05/2022 PROCEDURE: XR CHEST 1VW PORTABLE, DATE/TIME OF EXAM: 06/05/2022 11:05AM, LOCATION [facility] INDICATION: M89.8X8: Mass of spine ADDITIONAL CLINICAL INFORMATION: Ordering Provider Reason For Exam: preop eval Technologist Note: Additional: COMPARISON: None. FINDINGS: Mild right basilar linear atelectasis. There is no pulmonaryconsolidation, pleural effusion, or pneumothorax. The heart size is normal. IMPRESSION: Mild right basilar atelectasis. Report dictated by Brennen Palm MD (vice president business development). I, Ronan Chinchilla MD have personally reviewed and interpreted this examination/study. > Interpreting Provider: Ronan Chinchilla MD on 06/05/2022 3:14 PM Ellen Adames APRN-HOUSE PARENT DIAGNOSTIC IMAGING O RDERABLES * BLOOD TYPE VERIFICATION (06/04/2022 7:37 PM MEDICARE CONTACT SPECIALIST) ABO Rh B POS 06/04/2022 8:0 6 PM MEDICARE CONTACT SPECIALIST [facility] Blood Bank BLOOD SPECIMEN / Unknown Venipuncture / Unknown 06/04/2022 7:37 PM MEDICARE CONTACT SPECIALIST 06/04/2022 7:43 PM MEDICARE CONTACT SPECIALIST Lala Blake MD LAB - BLOOD BANK ORD ERABLES [facility] [address] [place] [address], [place] [phone] * PT-INR [facility] (06/04/2022 3:00 AM MEDICARE CONTACT SPECIALIST) [facility] PT 12.7 12.1 - 14.8 Seconds 06/04/2022 4:48 AM [facility] INR 1.0 See Comment 06/04/2022 4:48 AM [facility] Comment:The suggested therap eutic range for standard coumadin (warfarin) therapy is an INR of 2.0-3.0. For high-risk patients (Mechanical Mitral Valve Prosthesis, etc.), the suggested prophylactic therapeutic range is an INR of 2.5-3.5. Blood BLOOD SPECIMEN / Unknown Venipuncture / Unknown 06/04/2022 3:00 AM MEDICARE CONTACT SPECIALIST 06/04/2022 3:03 AM MEDICARE CONTACT SPECIALIST Reji Bee MD LAB - COAGULATI ON ORDERABLES Performing Organization Address [facility]/ZIP Co de Phone Number [address] [address], [facility] [phone] * TYPE + SCREEN PANEL (06/04/2022 3:00 AM MEDICARE CONTACT SPECIALIST) [facility] Antibody Screen NEG 3:41 AM [facility] ABO Rh B POS 06/04/2022 3:41 AM [facility] Blood Bank BLOOD SPECIMEN / Unknown Venipuncture / Unknown 06/04/2022 3:00 AM MEDICARE CONTACT SPECIALIST 06/04/2022 3:05 AM MEDICARE CONTACT SPECIALIST Reji Bee MD LAB - BLOOD BAN K ORDERABLES Performing Organization Address City/[facility]/ZIP Co de Phone Number [facility] [address] [place] [address], [place] [phone] * (ABNORMAL) COMPREHENSIVE METABOLIC PANEL (06/04/2022 3:00 AM [facility]) [facility] BUN 15 7 - 26 mg/dL 06/04/2022 3:30 AM [facility] Creatinine 0.76 0.71 - 1.16 mg/dL 06/04/2022 3:30 AM [facility] Sodium 139 136 - 145 mmol/L 06/04/2022 3:30 AM [facility] Potassium 4.2 3.5 - 4.5 mmol/L 06/04/2022 3:30 AM [facility] Chloride 105 98 - 107 mmol/L 06/04/2022 3:30 AM [facility] CO2 22 22 - 29 mmol/L 06/04/2022 3:30 AM [facility] Glucose 124(H) 70 - 115 mg/dL 06/04/2022 3:30 AM [facility] Calcium 9.6 8.4 - 10.2 mg/dL 06/04/2022 3:30 AM [facility] Protein Total 7.0 6.0 - 8.3 g/dL 06/04/2022 3:30 AM [facility] Albumin 3.9 3.4 - 5.0 g/dL 06/04/2022 3:30 AM [facility] Bilirubin Total 0.4 0.2 - 1.2 mg/dL 06/04/2022 3:30 AM [facility] Alkaline Phosphatase 43 40 - 150 U/L 06/04/2022 3:30 AM [facility] ALT 20 5 - 55 U/L 06/04/2022 3:30 AM [facility] AST 20 5 - 34 U/L 06/04/2022 3:30 AM [facility] Anion Gap 16 8 - 18 06/04/2022 3:30 AM [facility] BUN/Creatinine Ratio 20 7 - 23 06/04/2022 3:30 AM [facility] Osmolality Calculated 290 270 - 300 mOsm/kg 06/04/2022 3:30 AM [facility] Albumin/Globulin Ratio 1.3 1.1 - 2.3 06/04/2022 3:30 AM [facility] eGFR by CKD-EPI >90 >=90 mL/min/1.7 3 m2 06/04/2022 3:30 AM [facility] Blood BLOOD SPECIMEN / Unknown Venipuncture / Unknown 06/04/2022 3:00 AM MEDICARE CONTACT SPECIALIST 06/04/2022 3:04 AM [facility] Reji Bee MD LAB - CHEMISTRY ORDERABLES [facility] [address] [place] [address], [facility] [phone] Care Teams [employer] Sales Representative Relationship Specialty Start Date End Date Phuc Rubio MD PCP - General Internal Medicine 04/10/23
--- OUTSIDE RECORDS SUMMARY | 2024-06-11 11:43 | XMS_ITS | Clinical Summary ---
Author Organization [facility] Address [address] [place] [address] Care Team Providers Care Cable Operator Name Role Phone Phuc Rubio MD Primary Care Provider [phone] Source Comments [facility],non-owned Affiliates and Associated Physician Practices is amultiple site organization consisting of ambulatory clinics and hospital sitesin [place], [place], [place] and [place]. This disclosure is being madepursuant to the Care Everywhere program and may not contain all information available regarding this patient. Last updated 17.[facility] Allergies No known active allergies Medications * [...] 6 hours as needed Active HYDROcodone-acetamino phen ([place]) 5-325 MG tabletIndications:Lum bar spondylosis,Spinal cord mass [...] 2 times daily 06/01/2022 Active HYDROcodone-acetamino phen ([place]) 5-325 MG tabletIndications:S/P lumbar spinal fusion Take [...] and heating? Not hard at all 06/04/2022 [facility] [place] [facility] Occupat ional Health - Occupational Stress [...] place to sleep or slept in a residential (including now)? No 06/04/2022 Sex and Gender Information Value Date Recorded Sex Assigned at Not on file Gender Identity Not on file Sexual Orientation Not on file Last Filed Vital Signs Vital Sign Reading Time Taken Comments Blood Pressure 128/84 04/10/2023 9:42 AM REAL ESTATE INSTRUCTOR Pulse 109 04/10/2023 9:42 AM REAL ESTATE INSTRUCTOR Temperature 36.8 C (98.3 F) 04/10/2023 9:42 AM REAL ESTATE INSTRUCTOR Respiratory Rate 18 04/10/2023 9:42 AM REAL ESTATE INSTRUCTOR Oxygen Saturation 96% 04/10/2023 9:42 AM REAL ESTATE INSTRUCTOR Inhaled Oxygen Concentration - - Weight 87 kg (191 lb 12.8 oz) 04/10/2023 9:42 AM REAL ESTATE INSTRUCTOR Height 182.9 cm (6') 04/10/2023 9:42 AM REAL ESTATE INSTRUCTOR Body Mass Index 26.01 04/10/2023 9:42 AM REAL ESTATE INSTRUCTOR Plan of Treatment Health Maintenance Due Date Last Done Comments COLOGUARD (AGES 45-75) - COLON CA SCREENING 1960 COLON MONITORING 1958 COLONOSCOPY - COLON CA SCREENING 1958 CT COLONOGRAPHY - COLON CA SCREENING 1960 Colorectal Cancer Screening 1960 FIT - COLON CA SCREENING 1958 FLEX SIG - COLON CA SCREENING 1958 HIV SCREENING 1973 HEPATITIS C SCREENING 12/05/1976 DTAP/TDAP/TD VACCINES (1 - Tdap) 1977 PNEUMOCOCCAL VACCINE 50+ (1 of 2 - PCV) 1977 ZOSTER VACCINE (1 of 2) 2008 Respiratory Syncytial Virus (RSV) Vaccine Pt: or over 60 yrs (1 - Risk 60-74 years 1-dose series) 2018 COVID-19 VACCINE (1 - season) 2023 INFLUENZA VACCINE (#1) 2023 AAA SCREENING 12/11/2023 DEPRESSION SCREENING 04/08/2024 SCREENING FOR DIABETES 06/13/2025 , 06/12/2022, 06/11/2022, Additional history exists HEPATITIS B VACCINE Aged Out No longe r eligible based on patient's age to complete this topic HIB VACCINE Aged Out No longer eligi ble based on patient's age to complete this topic HPV VACCINE Aged Out No longer eligi ble based on patient's age to complete this topic MENINGOCOCCAL (Group B) VACCINE Aged Out No longer eligible based on patient's age to complete this topic MENINGOCOCCAL VACCINE Aged Out No kate patience eligible based on patient's age to complete this topic Medical Devices Implanted Type Area Sequins Slinger Device Identifier Shelf Expiration Date Model / Serial / Lot Screw Set Ti Spnl Brk Off Cd Hzn Nonster Implanted:Qty: 4 on 06/07/2022 by Emmett Lozano MD at [facility] [employer] [id number] / / Screw 5.5mm 45mm Ma Spne Solera Cd Hzn Implanted:Qty: 4 on 06/07/2022 by Emmett Lozano MD at [facility] [employer] [id number] / / Cong Bone Void 10ml Dbm Grftn Algrf Ptty - [id number] Implanted:Qty: 1 on 06/07/2022 by Emmett Lozano MD at [facility] [employer] [id number] / [id number] / Donovan Spnl 45mm 5.5mm Cd Hzn Crv [place] Implanted:Qty: 2 on 06/07/2022 by Emmett Lozano MD at [facility] [employer] [id number] / / Procedures Procedure Name Priority Date/Time Associated Diagnosis Comments BASIC METABOLIC PANEL (CALCIUM TOTAL) AM Draw 06/13/2022 12:31 AM REAL ESTATE INSTRUCTOR from Last 3 Months or Most Recently Relevant to Health Maintenance Results * (ABNORMAL) BASIC METABOLIC PANEL (CALCIUM TOTAL) (06/13/2022 12:31 AM REAL ESTATE INSTRUCTOR) BUN 15 7 - 26 mg/dL 06/13/2022 2:47 AM [facility] Creatinine 0.89 0.71 - 1.16 mg/dL 06/13/2022 2:47 AM [facility] Sodium 137 136 - 145 mmol/L 06/13/2022 2:47 AM [facility] Potassium 3.7 3.5 - 4.5 mmol/L 06/13/2022 2:47 AM [facility] Chloride 96(L) 98 - 107 mmol/L 06/13/2022 2:47 AM [facility] CO2 29 22 - 29 mmol/L 06/13/2022 2:47 AM [facility] Glucose 100 70 - 115 mg/dL 06/13/2022 2:47 AM [facility] Calcium 9.5 8.4 - 10.2 mg/dL 06/13/2022 2:47 AM [facility] Anion Gap 16 8 - 18 06/13/2022 2:47 AM [facility] BUN/Creatinine Ratio 17 7 - 23 06/13/2022 2:47 AM [facility] Osmolality Calculated 285 270 - 300 mOsm/kg 06/13/2022 2:47 AM [facility] eGFR by CKD-EPI >90 >=90 mL/min/1.7 3 m2 06/13/2022 2:47 AM [facility] Blood BLOOD SPECIMEN / Unknown Lab Venipuncture / Unknown 06/13/2022 12:31 AM REAL ESTATE INSTRUCTOR 06/13/2022 2:18 AM REAL ESTATE INSTRUCTOR Emmett Lozano MD LAB - CHEMISTRY SITA DOO[facility] Organization Address City/State/ZIP Co de Phone Number [facility] [address] [place] [phone], [facility] [phone] from Last 3 Months or Most Recently Relevant to Health Maintenance Advance Directives * Full Code (Latest Code Status on File) Date Activated Date Inactivated Comments 06/04/2022 8:50 AM 06/18/2022 3:14 PM Care Teams Cable Operator Relationship Specialty Start Date End Date Phuc Rubio MD PCP - General Internal Medicine 04/10/23
--- OUTSIDE RECORDS SUMMARY | 2024-06-11 11:43 | XMS_ITS | Clinical Summary ---
Author Organization [facility] Address [facility] [place] [address] Care Team Providers Care Solar Pool Heating Installer Name Role Phone Phuc Rubio MD Primary Care Provider [phone] Medications traMADol (ULTRAM) 50 MG tablet 03/22/2022 Active Social History Tobacco Use Types Packs/Day Years Used Date Smoking Tobacco: Never Assessed Sex and Gender Information Value Date Recorded Sex Assigned at Not on file Legal Sex Male 7:08 PM [employer]LE [employer] Gender Identity Not on file Sexual Orientation Not on file Last Filed Vital Signs Vital Sign Reading Time Taken Comments Blood Pressure 168/97 06/03/2022 11:20 PM MANGLE TENDER [employer]OTH Pulse 82 06/03/2022 11:20 PM MANGLE TENDER CLOTH Temperature 37 C (98.6 F) 06/03/2022 7:23 PM MANGLE TENDER [employer]OTH Respiratory Rate 16 06/03/2022 11:20 PM MANGLE TENDER CLOTH Oxygen Saturation 93% 06/03/2022 11:20 PM MANGLE TENDER CLOTH Inhaled Oxygen Concentration - - Weight 97.1 kg (214 lb) 06/03/2022 7:34 PM MANGLE TENDER CLOTH Height 182.9 cm (6') 06/03/2022 7:34 PM MANGLE TENDER [employer]OTH Body Mass Index 29.02 06/03/2022 7:34 PM MANGLE TENDER CLOTH Plan of Treatment Health Maintenance Due Date Last Done Comments Colorectal Cancer Screening Colonoscopy (10 Years) 1958 Hepatitis C 1976 DTaP, Tdap and Td Vaccines ( 1 - Tdap) 1977 Zoster Vaccines (1 of 2) 2008 COVID-19 Vaccine (2023-2 5 season) 2023 Pneumococcal Vaccine: 65+ Ye ars (1 of 1 - PCV) 12/11/2023 Influenza Adult (#1) 2024 RSV Immunization or 60+ Years (1 - 1-dose 75+ series) 2033 Meningococcal B Vaccine Aged Out No l onger eligible based on patient's age to complete this topic Meningococcal Vaccine Aged Out No kate patience eligible based on patient's age to complete this topic Pneumococcal Vaccine: Pediat rics (0 to 5 Years) and At-Risk Patients (6 to 64 Years) Aged Out No longer eligible b ased on patient's age to complete this topic RSV Immunizations Under 20 Months Aged Out No longer eligible based on patient's age to complete this topic Insurance Care Teams Solar Pool Heating Installer Relationship Specialty Start Date End Date Phuc Rubio MD [address] [place] [address] PCP - General INTERNAL MEDICINE 06/03/22
--- OUTSIDE RECORDS SUMMARY | 2024-06-11 11:43 | XMS_ITS | Data Portability ---
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 ([facility]) [address] [facility], [place], [address], 06/03/2024 08:27:09 06/02/19 25 06/03/2024 COMP. METAB OLIC PANEL (14) bilirubin, total 0.4 mg/dL 0.0-1. 2 Not Available [facility] ([facility]) [address] [facility], [place], [address], 06/03/2024 08:27:09 06/02/1906/03/2024 COMP. METAB OLIC PANEL (14) alkaline phosphatase 68 IU/L 44-121 Not Available [facility] ([facility]) [address] [facility], [place], [address], 06/03/2024 08:27:09 06/02/19 25 06/03/2024 COMP. METAB OLIC PANEL (14) AST (SGOT) 21 IU/L 0-40 Not Available [facility] ([facility]) [address] [facility], [place], [address], 06/03/2024 08:27:09 06/02/1906/03/2024 COMP. METAB OLIC PANEL (14) ALT (SGPT) 20 IU/L 0-44 Not Available [facility] ([facility]) [address] [facility], [place], [address], 06/03/2024 08:27:09 06/02/1906/03/2024 CBC WITH DIFFE RENTI AL/PL ATELE T WBC 5.2 x10e3 /uL 3.4-10 .8 Not Available [facility] ([facility]) [address] [facility], [place], [address], 06/03/2024 08:27:11 06/02/1906/03/2024 CBC WITH DIFFE RENTI AL/PL ATELE T RBC 5.26 x10e6 /uL 4.14-5 .80 Not Available [facility] ([facility]) [address] [place], [address], 06/03/2024 08:27:11 06/02/1906/03/2024 CBC WITH DIFFE RENTI AL/PL ATELE T hemoglobin 16.1 g/dL 13.0-1 7.7 Not Available [facility] ([facility]) [address] [facility], [place], [address], 06/03/2024 08:27:11 06/02/1906/03/2024 CBC WITH DIFFE RENTI AL/PL ATELE T hematocrit 47.3 % 37.5-5 1.0 Not Available [facility] ([facility]) [address] [place], [address], 06/03/2024 08:27:11 06/02/1906/03/2024 CBC WITH DIFFE RENTI AL/PL ATELE T MCV 90 fL 79-97 Not Available [facility] ([facility]) [address] [place], [address], 06/03/2024 08:27:11 06/02/1906/03/2024 CBC WITH DIFFE RENTI AL/PL ATELE T MCH 30.6 pg 26.6-3 3.0 Not Available [facility] ([facility]) [address] [facility], [place], [address], 06/03/2024 08:27:11 06/02/19 25 06/03/2024 CBC WITH DIFFE RENTI AL/PL ATELE T MCHC 34.0 g/dL 31.5-3 5.7 Not Available [facility] ([facility]) [address] [facility], [place], [address], 06/03/2024 08:27:11 06/02/19 25 06/03/2024 CBC WITH DIFFE RENTI AL/PL ATELE T RDW 13.0 % 11.6-1 5.4 Not Available [facility] ([facility]) [address] [facility], [place], [address], 06/03/2024 08:27:11 06/02/19 25 06/03/2024 CBC WITH DIFFE RENTI AL/PL ATELE T platelets 240 x10e3 /uL 150-45 0 Not Available [facility] ([facility]) [address] [facility], [place], [address], 06/03/2024 08:27:11 06/02/19 25 06/03/2024 CBC WITH DIFFE RENTI AL/PL ATELE T neutrophils 43 % notest ab. Not Available [facility] ([facility]) [address] [facility], [place], [address], 06/03/2024 08:27:11 06/02/19 25 06/03/2024 CBC WITH DIFFE RENTI AL/PL ATELE T lymphs 43 % notest ab. Not Available [facility] ([facility]) [address] [facility], [place], [address], 06/03/2024 08:27:11 06/02/19 25 06/03/2024 CBC WITH DIFFE RENTI AL/PL ATELE T monocytes 11 % notest ab. Not Available [facility] ([facility]) [address] [facility], [place], [address], 06/03/2024 08:27:11 06/02/19 25 06/03/2024 CBC WITH DIFFE RENTI AL/PL ATELE T eos 2 % notest ab. Not Available [facility] ([facility]) [address] [facility], [place], [address], 06/03/2024 08:27:11 06/02/19 25 06/03/2024 CBC WITH DIFFE RENTI AL/PL ATELE T basos 1 % notest ab. Not Available [facility] ([facility]) [address] [facility], [place], [address], 06/03/2024 08:27:11 06/02/1906/03/2024 CBC WITH DIFFE RENTI AL/PL ATELE T neutrophils (absolute) 2.3 x10e3 /uL 1.4-7. 0 Not Available [facility] ([facility]) [address] [facility], [place], [address], 06/03/2024 08:27:11 06/02/1906/03/2024 CBC WITH DIFFE RENTI AL/PL ATELE T lymphs (absolute) 2.3 x10e3 /uL 0.7-3. 1 Not Available [facility] ([facility]) [address] [place], [address], 06/03/2024 08:27:11 06/02/19 25 06/03/2024 CBC WITH DIFFE RENTI AL/PL ATELE T monocytes(ab solute) 0.6 x10e3 /uL 0.1-0. 9 Not Available [facility] ([facility]) [address] [facility], [place], [address], 06/03/2024 08:27:11 06/02/19 25 06/03/2024 CBC WITH DIFFE RENTI AL/PL ATELE T eos (absolute) 0.1 x10e3 /uL 0.0-0. 4 Not Available [facility] ([facility]) [address] [facility], [place], [address], 06/03/2024 08:27:11 06/02/19 25 06/03/2024 CBC WITH DIFFE RENTI AL/PL ATELE T baso (absolute) 0.1 x10e3 /uL 0.0-0. 2 Not Available [facility] ([facility]) [address] [facility], [place], [address], 06/03/2024 08:27:11 06/02/1906/03/2024 CBC WITH DIFFE RENTI AL/PL ATELE T immature granulocytes 0 % notest ab. Not Available [facility] ([facility]) [address] [facility], [place], [address], 06/03/2024 08:27:11 06/02/1906/03/2024 CBC WITH DIFFE RENTI AL/PL ATELE T immature grans (abs) 0.0 x10e3 /uL 0.0-0. 1 Not Available [facility] ([facility]) [address] [facility], [place], [address], 06/03/2024 08:27:11 08/26/19 24 08/26/2023 XR, chest No observ ation record ed. [facility] [address], [place], [address], 08/26/2023 13:31:08 Result Notes None recorded. Problems Name Problem SNOMED Code Status Onset Date Resolution Date Notes Provider Name and Address Organization Details Recorded Time Essential hypertension 67635481 Active 2024 RAVEN Pérez [place] - [place] 12:24:56 Chronic obstructive pulmonary disease 70901421 Active 2024 RAVEN Pérez [place] - [place] 12:24:56 Hyperlipidemia 24191113 Active 2024 Alesia Benjamin MA null, [place] - [place] 5 09:57:32 Tetanus vaccination declined by patient 956472834 Active 2024 Zaria Rubio MD Attn: Burt angella,[address] [facility], [place], [address], [facility] - [place] 5 14:37:54 Pneumococcal vaccination declined 089058146 Active 2024 Zaria Rubio MD Attn: Burt angella,[address] [facility], [place], [address], [facility] - [place] 5 14:37:55 Influenza vaccination declined 260871952 Active 2024 Zaria Rubio MD Attn: Burt angella,[address] [facility], [place], [address], [facility] - SI 14:37:56 Problem Notes None recorded. Procedures Surgical History Date Name Laterality Status Provider Name and Address Organization Details Recorded Time Back Surgery completed Victoria Basilio MA [facility] 06/21/2023 10:32:10 Hernia Repair completed Victoria Basilio MA [facility] 06/21/2023 10:32:20 Carpal tunnel surgery completed Victoria Basilio MA [facility] 06/21/2023 10:32:54 Imaging Results Imaging Date Name Status LastModified by [facility] Details LastModified Time 08/26/2023 XR, chest [email or web address] [address] [facility] [address], [place], [address], 08/26/2023 13:31:08 Procedure Notes None recorded. Medical Equipment None Reported. Allergies No known drug allergies Medications Name Sig Start Date Stop Date Status Note LastModified by Organization Details LastModified Time cyclobenz aprine 10 mg tablet TAKE 1 TABLET BY MOUTH TWICE DAILY NEEDED FOR MUSCLE SPASMS active Not Available Not Available No t Available atorvasta tin 40 mg tablet TAKE 1 TABLET BY MOUTH EVERY DAY active Not Available Not Available No t Available atorvasta tin 20 mg tablet TAKE 1 TABLET BY MOUTH EVERY DAY 12/16 completed changed to 40mg daily see lab for update. Not Available Not Available Not Available azithromy richard 250 mg tablet TAKE 1 TABLET BY MOUTH DAILY FOR 4 DAYS. START ON DAY 2 OF THERAPY 12/12 completed Not Available Not Available Not Available metoprolo l succinate ER 50 mg tablet,ex tended release 24 hr TAKE 1 TABLET BY MOUTH DAILY active Not Available Not Available No t Available hydrocodo ne 5 mg-acetam inophen 325 mg tablet TAKE 1 TABLET BY MOUTH EVERY 8 HOURS NEEDED FOR PAIN 06/20 completed Not Available Not Available Not Available prednison e 20 mg tablet TAKE 2 TABLETS BY MOUTH DAILY FOR 4 DAYS 12/12 completed Not Available Not Available Not Available lovastati n 40 mg tablet TAKE 1 TABLET BY MOUTH EVERY DAY 06/[address] Rubio. Not Available Not Available Not Available dicyclomi ne 20 mg tablet TAKE 1 TABLET BY MOUTH FOUR TIMES DAILY 06/20 completed Not Available Not Available Not Available oseltamiv ir 75 mg capsule TAKE 1 CAPSULE BY MOUTH EVERY 12 HOURS FOR 5 DAYS 06/20 completed Not Available Not Available Not Available prednison e 50 mg tablet TAKE 1 TABLET BY MOUTH DAILY 06/02 completed Not Available Not Available Not Available ibuprofen 600 mg tablet TAKE 1 TABLET BY MOUTH EVERY 6 HOURS NEEDED FOR PAIN active Not Available Not Available No t Available methylpre dnisolone 4 mg tablets in a dose pack FOLLOW PACKAGE DIRECTIO NS 06/02 completed Not Available Not Available Not Available albuterol sulfate HFA 90 mcg/actua tion aerosol inhaler Inhale 2 puffs every 4 hours by inhalati on route. 2024 active Not Available Not Available Not Avai lable ondansetr on 4 mg disintegr ating tablet DISSOLVE 1 TABLET ON THE TONGUE EVERY 6 HOURS NEEDED FOR NAUSEA OR VOMITING 06/20 completed Not Available Not Available Not Available loratadin e 10 mg tablet TAKE 1 TABLET BY MOUTH DAILY active Not Available Not Available No t Available naproxen 500 mg tablet TAKE 1 TABLET BY MOUTH TWICE DAILY WITH FOOD 06/20 completed Not Available Not Available Not Available amoxicill in 875 mg-potass ium clavulana te 125 mg tablet TAKE 1 TABLET BY MOUTH EVERY 12 HOURS 06/20 completed Not Available Not Available Not Available Zetia 10 mg tablet Take 1 tablet every day by oral route. 2024 active Not Available Not Available Not Avai lable Vitals Date Recorded Body weight Body mass index (BMI) Body height Heart rate Oxygen saturation Oxygen saturation in Arterial blood by Pulse oximetry Systolic blood pressure Diastolic blood pressure Provider Name and Address Organization Details Last Updated DateTime 4 40426.7 4 g 26 kg/m2 182.88 cm 93 /min 97 % 97 % 142 mm[Hg] 80 mm[Hg] Victoria Basilio MA [facility] 4 10:39:46 Date Recorded Body height Body mass index (BMI) Body weight Heart rate Oxygen saturation Oxygen saturation in Arterial blood by Pulse oximetry Systolic blood pressure Diastolic blood pressure Provider Name and Address Organization Details Last Updated DateTime 4 182.88 cm 25.1 kg/m2 59239.5 9 g 94 /min 96 % 96 % 144 mm[Hg] 88 mm[Hg] Rissa Mohan MA [facility] 4 10:44:59 Date Recorded Body height Provider Name an d Address Organization Details Last Updated DateTime 06/02/2024 182.88 cm Liza Carolina MA [facility] 06/02/2024 11:53:53 Date Recorded Body mass index (BMI) Body weight Heart rate Oxygen saturation Oxygen saturation in Arterial blood by Pulse oximetry Systolic blood pressure Diastolic blood pressure Provider Name and Address Organization Details Last Updated DateTime 5 27.2 kg/m2 80711.5 5 g 86 /min 91 % 91 % 130 mm[Hg] 88 mm[Hg] Victoria Basilio MA [facility] 5 12:05:43 Social History Question Answer Notes LastModified by Organizat ion Details LastModified Time Tobacco Smoking Status Current Every Day Smoker Victoria Basilio MA null, [facility] 06/21/2023 10:33:52 What Is Your Level Of Alcohol Consumption? Occasional Weekends Information not available 06/21/2023 Are You Blind Or Do You Have Difficulty Seeing? No Information not available 06/21/2023 What Is Your Level Of Caffeine Consumption? Moderate Information not available 06/21/2023 In The 14 Days Before Symptom Onset, Have You Had Close Contact With A Laboratory-confir med COVID-19 While That Case Was Ill? No Information not available 06/02/2024 In The 14 Days Before Symptom Onset, Have You Had Close Contact With A Person Who Is Under Investigation For COVID-19 While That Person Was Ill? No Information not available 06/02/2024 Have You Been To An Area Known To Be High Risk For COVID-19? No Information not available 06/02/2024 Are You Deaf Or Do You Have Serious Difficulty Hearing? No Information not available 06/21/2023 What Type Of Diet Are You Following? REGULAR Information not available 06/21/2023 Are There Any Guns Present In Your Home? No Information not available 06/21/2023 What Was The Date Of Your Most Recent Tobacco Screening? 06/02/2024 Information not available 06/02/2024 What Is Your Current Pack Years? [email or web address] ars Information not available 06/21/2023 What Is Your Relationship Status? Information not available 06/21/2023 Do You Use Your Seat Belt Or Car Seat Routinely? Yes Information not available 06/21/2023 Do You Have Smoke And Carbon Monoxide Detectors In Your Home? Yes Information not available 06/21/2023 How Much Tobacco Do You Smoke? 3+ PPD Information not available 06/21/2023 Do You Feel Stressed (tense, Restless, Nervous, Or Anxious, Or Unable To Sleep At Night)? [id number] Information not available 06/21/2023 Do You Use Any Illicit Or Recreational Drugs? No Information not available 06/21/2023 Do You Use Sunscreen Routinely? No Information not available 06/21/2023 Has Tobacco Cessation Counseling Been Provided? Yes Information not available 06/21/2023 On What Date Was Tobacco Cessation Counseling Provided? 06/02/2024 Information not available 06/02/2024 How Many Years Have You Smoked Tobacco? 20 Information not available 06/21/2023 Do You Or Have You Ever Used Any Other Forms Of Tobacco Or Nicotine? No Information not available 06/21/2023 Sex: Male Functional Status Question Answer Note LastModified by Organizat ion Details LastModified Time Are you able to care for yourself? Yes Information not available 06/21/2023 What is your exercise level? Occasional Information not available 06/21/2023 Mental Status None recorded. Family History Relationship Description Onset Age of this Age Resolved Age Notes LastModified by Organization Details LastModified Time Father Alcohol abuse [email or web address] Not available 06/06 10:34:43 Mother Cerebrovascu lar accident [email or web address] Not available 0 06/21/2023 10:35:01 Mother Diabetes mellitus [email or web address] Not available 06/06 10:35:09 Mother Heart disease bandersonma Not available 06/06 10:35:16 Mother Hypertensive disorder bandersonma Not available 06/06 10:35:23 Mother Kidney disease bandersonma Not available 06/06 10:35:33 Medical History Condition Response Coronary Artery Disease N Other N High Blood Pressure N Atrial Fibrillation N Kidney or Bladder Problems Y Thyroid Problems N GI Problems N Depression N COPD Y Blood Clots N Skin Problems Y Anemia N Heart Attack (ME) N Anxiety Disorder N Diabetes N Muscle, Joint, or Bone Problems Y Seizures/Epilepsy N Acid Reflux (GERD) N Cancer N Stroke N Asthma N Allergies N High Cholesterol Y Hepatitis N Liver Disease N Headaches N Heart Failure N Osteoporosis N Past Encounters Encounter ID Performer Location Encounter Start Date Encounter Closed Date Diagnosis/Indication Diagnosis SNOMED-CT Code Diagnosis ICD10 Code Diagnosis Note [id number] [facility] [address] [place] [address] 06/21/2023 10:06:01 06/21/2023 11:22:18 Essential hypertension 85752907 I10 Screening for malignant neoplasm of prostate 876003886 Z12.5 Chronic ob structive pulmonary disease 99845384 J44.9 Hyperlipidemia 51007740 E78.5 [id number] MD Shashi Hernandez (Adult Med) [address] [place] [phone] 12/13/2023 10:21:59 12/13/2023 11:48:01 Generalized rash 866828449 R21 Hyperlipidemia 18778800 E78.5 Fatigue 57724364 R53.83 Essential hypertension 21618878 I10 [id number] Zaria Rubio MD [facility] (Adult Med) [address] [place] [address] 06/02/2024 11:47:51 06/02/2024 12:31:41 Overweight 268575113 E66.3 Essential hypertension 19815150 I10 Chronic ob structive pulmonary disease 59395826 J44.9 Lipoma 39453459 D17.9 Hyperlipidemia 00112571 E78.5 Influenza vaccination declined 708947144 Z28.21 Pneumococc al vaccination declined 530995478 Z28.21 Tetanus va ccination declined by patient 929700710 Z28.21 Health Concerns Section Related Observation LastModified by Organization Detai ls LastModified Time None Recorded Concern Status LastModified by Organization Details LastModified Time None Recorded Advance Directives Directive None Recorded Payers Encounter Date Sequence Insurance Name Policy Number Policy Barraza Covered Member ID Barraza Member ID Guarantor Name 06/21/2023 1 [employer] (MEDICARE REPLACEMENT/AD VANTAGE - HMO) Reji Freire [id number] Reji Freire 12/13/2023 1 [employer] - DOS ON OR AFTER 20 (MEDICAID REPLACEMENT - HMO) Reji Freire [id number] Reji Freire 06/02/2024 1 [place] Reji Freire [id number] Reji Freire 06/02/2024 2 [place] WHEN MEDICARE OR MEDICARE REPLACEMENT PRIMARY) Reji Freire [id number] Reji Freire Notes Date Note Type Note Provider Name and Address Organization Details Recorded Time 06/21/2023 text/html Hypertension no headache or dizziness no palpitations COPD continues to smoke denies any shortness of breath or hemoptysis hyperlipidemia does try to follow a low-fat diet Zaria Rubio MD Attn: Accounting,[address] [facility], [place], [address], [facility] - [facility]IF 06/21/2023 22:51:05 12/13/2023 text/html he has had some nonspecific fatigue hypertension no headache or dizziness dyslipidemia needs his lipid panel done but tries to follow a low-fat that was in the ER for some hives was given some Claritin hydrocortisone cream and a Z-Geo and he is better Zaria Rubio MD Attn: Accounting[address] [facility], [place], [address], [facility] 12/15/2023 23:25:02 06/02/2024 text/html 1. Hypertension no headache no dizziness. 2. COPD denies cough or wheezing or shortness of breath. 3. Dyslipidemia he has been taking the lovastatin and atorvastatin 4. He is going to skin lesion Zaria Rubio MD Attn: Accounting[address] [facility], [place], [address], [facility] 06/06/2024 14:38:46
--- OUTSIDE RECORDS SUMMARY | 2024-06-11 11:43 | XMS_ITS | Referral Summary ---
Author Organization [facility] Address [address] [place] [address] Care Team Providers Care Security Officer Name Role Phone Phuc Rubio MD Primary Care Provider [phone] Allergies No known active allergies Medications ibuprofen (ADVIL,MOTRIN) 600 mg tablet Take 1 tablet (600 mg total) by mouth every 6 (six) hours as needed for pain 20 tablet 12/25/2023 Active cyclobenzaprine (FLEXERIL) 10 mg tablet Take 1 tablet (10 mg total) by mouth 2 (two) times a day as needed for muscle spasms 20 tablet 12/25/2023 Active Active Problems Problem Noted Date Diagnosed Date Numbness and tingling in left arm Social History Tobacco Use Types Packs/Day Years Used Date Smoking Tobacco: Never Assessed Personal Safety Answer Date Recorded Have you ever been in or are you currently in a harmful physical or emotional relationship or is someone making you feel afraid or unsafe? 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 Gender Identity Not on file Sexual Orientation Not on file Last Filed Vital Signs Vital Sign Reading Time Taken Comments Blood Pressure 146/97 12/25/2023 11:30 AM CDT Pulse 85 12/25/2023 11:30 AM CDT Temperature 36.7 C (98.1 F) 12/25/2023 6:29 AM CDT Respiratory Rate 18 12/25/2023 11:30 AM CDT Oxygen Saturation 92% 12/25/2023 11:30 AM CDT Inhaled Oxygen Concentration - - Weight 84.8 kg (187 lb) 12/25/2023 6:29 AM CDT Height 182.9 cm (6') 12/25/2023 6:29 AM CDT Body Mass Index 25.36 12/25/2023 6:29 AM CDT Plan of Treatment Not on file Insurance MEDICAID GENERIC OTHER [facility] Care Teams Security Officer Relationship Specialty Start Date End Date Phuc Rubio MD PCP - General Internal Medicine 12/23/21
--- NOTE | 2024-06-12 14:35 | WPDPFTINT ---
PFT Procedure Performed PFT Procedure Performed Plethysmography (Lung Vol) Diffusing Cap (DLCO) Flow Vol Loop Spirometry w/o Bronchodil PFT Interpretation Lung volumes were measured with the body plethysmography method. The elevated RV could be due to air trapping. The remaining lung volumes are unremarkable. Spirometry showed diminished expiratory flow rates and a diminished FEV1 to FVC ratio of 40%, indicative of obstructive airway disease. No post bronchodilator study was conducted. The lung diffusion capacity is moderately reduced at 58% predicted. This diminished lung diffusion capacity coupled with a low alveolar volume and a normal DLCO/VA ratio indicates loss of alveolar capillary structure with loss of lung volume as seen in emphysema or interstitial lung disease. The flow-volume loop is consistent with emphysema. Impression: Severe obstructive airway disease with evidence of air trapping. Moderately reduced lung diffusion capacity.
== END 2024-06-11 10:17 | disposition home or self-care (01) ==
LOC: ANHPFT 10:18
PROVIDERS: PCP Internal Medicine; Visit Provider Internal Medicine
DX: J44.9 Chronic obstructive pulmonary disease, unspecified (principal)
CPT/HCPCS: 94375; 94726; 94729

== ENCOUNTER 2024-06-19 07:56 | Emergency (ER) | payer MEDICARE, MEDICAID, SELFPAY ==
[2024-06-19] VITALS (9 sets, daily range): BP systolic 132–168; BP diastolic 73–102; PULSE 96–115; RESP 15–23; TEMP 36.6; O2SAT 92–95
--- NOTE | ~2024-06-19 | XR_ITS ---
EXAMINATION: XR chest 2V DATE: 06/19/2024 09:04 INDICATION: Chest pain. Epigastric abdominal pain. TECHNIQUE: Frontal and lateral views of the chest were obtained. COMPARISON: Chest single view 08/26/2023, CT abdomen and pelvis 03/25/2023 FINDINGS: There is no pneumonia, pleural effusion, or pneumothorax. The heart size is normal. There a re changes of posterior fusion procedure in lumbar spine. IMPRESSION: 1. No acute cardiopulmonary disease. Reviewed, dictated and finalized at location L.
--- NOTE | 2024-06-19 07:57 | ECG_ITS ---
Test Date: 2024-06-19 08:09:02 Measurements Intervals [place] Rate: 117 P: 75 IA: 188 QRS: 21 QRSD: 96 T: 89 QT: 331 QTc: 463 Interpretive Statements SINUS TACHYCARDIA POSSIBLE INFERIOR MYOCARDIAL INFARCTION , AGE INDETERMINATE Electronically Signed On 06-20-2024 11:36:16 CDT by Rony Reyes D.O
--- OUTSIDE RECORDS SUMMARY | 2024-06-19 08:04 | XMS_ITS | Clinical Summary ---
Author Organization [facility] Address [address] [place] [address] Care Team Providers Care Systems Administrator Name Role Phone Phuc Rubio MD Primary Care Provider [phone] Allergies No known active allergies Medications ibuprofen [...] Date Numbness and tingling in left arm Medical History Medical History Date Comments Hypertension Hypercholesteremia Social History Tobacco Use Types Packs/Day Years Used Date Smoking Tobacco: Never Assessed Personal Safety Answer Date Recorded Have you ever been in or are you currently in a harmful physical or emotional relationship or is someone making you feel afraid or unsafe? 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 Gender Identity Not on file Sexual Orientation Not on file Obstetrics History Last Filed Vital Signs Vital Sign Reading [...] 12/25/2023 6:29 AM CDT Plan of Treatment Health Maintenance Due Date Last Done Comments Colon Cancer Screening-Colonoscopy 1958 Depression Screening 1958 Fall Risk Assessment 1958 Hepatitis C Screening 1958 Prostate Cancer Screening-PSA 1958 DTaP/Tdap/Td Vaccine (1 - Tdap) 1969 Hepatitis B Screening 1976 Pneumococcal vaccine 65+ (1 of 1 - PCV) 2008 Zoster Vaccine (1 of 2) 2008 Influenza Vaccine (#1) 2023 Abdominal Aortic Aneurysm (AAA) Screen 12/11/2023 Well Visit 65+ 12/11/2023 Insurance MEDICAID GENERIC OTHER [facility] Care Teams Systems Administrator Relationship Specialty Start Date End Date Phuc Rubio MD PCP - General Internal Medicine 12/23/21
--- OUTSIDE RECORDS SUMMARY | 2024-06-19 08:04 | XMS_ITS | Clinical Summary ---
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 Gender Identity Not on file Sexual Orientation Not on file Last Filed Vital Signs Vital Sign Reading Time Taken Comments Blood Pressure 168/97 06/03/2022 11:20 PM CLOUD SUBJECT MATTER EXPERT Pulse 82 06/03/2022 11:20 PM CLOUD SUBJECT MATTER EXPERT Temperature 37 C (98.6 F) 06/03/2022 7:23 PM CLOUD SUBJECT MATTER EXPERT Respiratory Rate 16 06/03/2022 11:20 PM CLOUD SUBJECT MATTER EXPERT Oxygen Saturation 93% 06/03/2022 11:20 PM CLOUD SUBJECT MATTER EXPERT Inhaled Oxygen Concentration - - Weight 97.1 kg (214 lb) 06/03/2022 7:34 PM CLOUD SUBJECT MATTER EXPERT Height 182.9 cm (6') 06/03/2022 7:34 PM CLOUD SUBJECT MATTER EXPERT Body Mass Index 29.02 06/03/2022 7:34 PM CLOUD SUBJECT MATTER EXPERT Plan of Treatment Health Maintenance Due Date [...] to complete this topic Insurance Care Teams Appeals And Generalist Clerk Relationship Specialty Start Date End Date Phuc Rubio MD [address] [place] [address] PCP - General INTERNAL MEDICINE 06/03/22
--- OUTSIDE RECORDS SUMMARY | 2024-06-19 08:04 | XMS_ITS | Referral Summary ---
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
--- OUTSIDE RECORDS SUMMARY | 2024-06-19 08:04 | XMS_ITS | CONTINUITY OF CARE DOCUMENT ---
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 Name Role Phone Oscar MOORE, Stoney Unavailable [phone] ZARIA BEE MD Unavailable ZARIA BEE MD Unavailable [phone] PROBLEMS Condition Status Date Provider Notes C O P D active Stoneyming Moore MD Hypertension active Stoney Moore MD Venous hypertension - unspecified active Thurman ndeivelisse Moore MD Tobacco abuse- hx of active Stoneyrodrigo Moore MD ENCOUNTERS Date Type Provider Location Encounter Diag nosis - In-person encounter Office Visit Stoney Moore MD [facility] - In-person encounter Office Visit Stoney Moore MD [facility] C O P DHypertensionV enous hypertension - unspecifiedTobacco abuse- hx of VITAL SIGNS Date Observation Value Provider Body Mass Index (Ratio) 27.94 kg/m2 Oscar MOORE blood pressure, cuff size large Ke rri Thomas blood pressure, diastolic 104 mm[Hg] Ke rri Thomas blood pressure, systolic 151 mm[Hg] Maninder Guzman oxygen saturation, oximetry 92 % Chrissy Guzman respiratory rate E&M 16 /min Chrissy hopkins pulse rate 116 /min Chrissy mcqueener weight E&M 206 [lb_av] Chrissy Kohler lder height E&M 72 [in_i] Chrissy Kohler er Body Mass Index (Ratio) 27.12 kg/m2 Sund eep Oscar MOORE blood pressure, diastolic 90 mm[Hg] Li nkLogic blood pressure, systolic 146 mm[Hg] Rossana kLogic blood pressure, cuff size large Ke rri Thomas blood pressure, diastolic 90 mm[Hg] Ke rri Thomas blood pressure, systolic 146 mm[Hg] Maninder Guzman oxygen saturation, oximetry 94 % Chrissy Guzman respiratory rate E&M 16 /min Chrsisy hopkins pulse rate 95 /min Chrissy Kohler er weight E&M 200 [lb_av] Chrissy Kohler er height E&M 72 [in_i] Chrissy barrera HISTORY OF MEDICATION USE Medication Status Instructions Dates Provider Indications Com ments tramadol 50 mg tablet active TAKE 1-2 TABLET BY MOUTH EVERY 6 HOURS NEEDED FOR PAIN Chrissy Guzman meloxicam 15 mg tablet active TAKE 1 TABLET BY MOUTH EVERY DAY Chrissy Guzman albuterol sulfate 90 mcg/actuation HFA aerosol inhaler active INHALE 2 PUFFS BY MOUTH EVERY 4 HOURS NEEDED Chrissy Guzman lovastatin 40 mg tablet active TAKE 1 TABLET BY MOUTH EVERY DAY Chrissy Guzman metoprolol succinate 50 mg tablet extended release 24 hr active TAKE 1 TABLET BY MOUTH DAILY Chrissy Guzman SOCIAL HISTORY Date Observation Value Provider number of years as a smoker 40 a Chrissy Guzman smoking history, tot al pack/day 4-5 cigs a day Chrissy Kolbnarcisotaryn cigarette use yes Chrissy carlos smoking status Current every day smoker Tanisha Guzman social history E&M Patient manuel chung smokes every day. A lcohol Use - yes o ccassionally Smoking History: Rodrigo jean baptiste currently smokes every day. Stoney Moore MD number of years as a smoker 40 a Chrissy Thomas smoking history, tot al pack/day 4-5 cigs a day Chrissy Gloverakil cigarette use yes Chrissy carlos smoking status Current every day smoker Tanisha Guzman INSURANCE PROVIDERS Payer name Policy type / Coverage type [place] [employer] party ID [employer] MEDICA[employer] (2) Medicaid [id number] ADVANCE DIRECTIVES Name Date DISCUSSED - NO DECISION MADE TREATMENT PLAN Date Name Performer [id number],C, H is updated medication list for this problem includes: Metoprolol Succinate 50 Mg Tablet Extended Release 24 Hr (Metoprolol succinate) ..... Take 1 tablet by mouth daily BP today: 151/104 P rior BP: 146/90 (01/03/2022) Stoney Moore MD [id number],S, Stoney Moore MD [id number],C,H e has L GSV venous insufficiency w e will recommend compression stockings 20-30mmhg w ill see back after 6 -8 weeks and possibly do venaseal. 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 He has never worn compression stockigns and has nevere had a dvt. No sores, discoloration or ulcers. Venis are large and bulky and located distal medial thigh, medil upper leg and upper part of calf. Stoneyming Moore MD [id number],C, H is updated medication list for this problem includes: Metoprolol Succinate 50 Mg Tablet Extended Release 24 Hr (Metoprolol succinate) ..... Take 1 tablet by mouth daily BP today: 146/90 Stoneyrodrigo Moore MD [id number],C,urged to quit Stoney Oscar MOORE [id number],C,urged to quit Stoney Oscar MOORE Cardiology: H is updated medication list for this problem includes: Metoprolol Succinate 50 Mg Tablet Extended Release 24 Hr (Metoprolol succinate) ..... Take 1 tablet by mouth daily BP today: 151/104 P rior BP: 146/90 (01/03/2022) Stoneyrodrigo Moore MD Cardiology Stoney Oscar MOORE Cardiology:He has L GSV venous insufficiency w e will recommend compression stockings 20-30mmhg w ill see back after 6 -8 weeks and possibly do venaseal. 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 He has never worn compression stockigns and has nevere had a dvt. No sores, discoloration or ulcers. Venis are large and bulky and located distal medial thigh, medil upper leg and upper part of calf. Stoneyrodrigo Moore MD Cardiology: H is updated medication list for this problem includes: Metoprolol Succinate 50 Mg Tablet Extended Release 24 Hr (Metoprolol succinate) ..... Take 1 tablet by mouth daily BP today: 146/90 Stoneyming Moore MD Cardiology:urged to quit Stoneyrodrigo Moore MD Cardiology:urged to quit Stoney Moore MD Date Name Venous Doppler Bilat eral LE - Reflux HISTORY OF PROCEDURES Procedure Date Procedure Name Provider Procedure Notes S tatus EKG Oscar MOORE completed EKG Stoney Moore MD completed
--- OUTSIDE RECORDS SUMMARY | 2024-06-19 08:04 | XMS_ITS | Data Portability ---
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 [facility] [address] [facility] [address] [place] [address] 09/26/2020 00:00:00 09/26/2020 21:24:40 [id number] [facility] Internal [facility] [address] [address] 01/23/2021 00:00:00 01/23/2021 23:12:10 [id number] [facility] Internal Med [facility] [address] [place], [place] [address]., [facility] [address] [place] [address] 05/22/2021 00:00:00 06/04/2021 10:38:44 [id number] [facility] [address] [facility] 15 [place] [address] 09/15/2021 00:00:00 10/17/2021 20:42:40 [id number] [facility] [place] [address] [place] [address] 09/21/2021 00:00:00 09/21/2021 16:07:38 [id number] [facility] Internal [facility] [address] [place], [place] [address] [address] [address] 12/21/2021 00:00:00 01/28/2022 21:04:56 [id number] [facility] [place] [address] , [place] [address] 03/22/2022 00:00:00 03/22/2022 23:09:40 [id number] [facility] [place] [address] [place] [address] 04/16/2022 00:00:00 04/16/2022 17:35:28 [id number] [facility] Internal Med [facility] [address] [place], [place] [address] [address] [address] 05/21/2022 00:00:00 05/27/2022 17:40:27 [id number] Zaria Rubio MD [facility] Internal Med [facility] [address] [facility] [place] [address] 07/03/2022 11:20:47 07/03/2022 12:25:50 Transition of care 5414112131 105 Z75.8 Hyperlipidemia 87851148 E78.5 Chronic ob structive pulmonary disease 29064113 J44.9 Hypertensive disorder 38 526761 I10 [id number] Anderson Pickett MD [facility] [place] [address] [place] [address] 09/07/2022 09:36:57 09/07/2022 11:48:40 Pain of right shoulder joint 1795352775 9147729 M25.511 M25.512 [id number] Zaria Rubio MD [facility] Internal Med [place] [address] [facility] [address] [place] [address] 11/02/2022 11:29:26 11/02/2022 13:02:32 Hypertensive disorder 40244135 I10 Chronic ob structive pulmonary disease 05161353 J44.9 Hyperlipidemia 99544031 E78.5 [id number] Anderson Pickett MD [facility] [place] [address] [place] [address] 11/16/2022 10:17:38 11/19/2022 10:20:11 Pain of left shoulder joint 5148796255 9390483 M25.783 [id number] Anderson Pickett MD [facility] [place] [address] [place] [address] 12/14/2022 09:43:31 12/17/2022 11:17:30 Pain of left shoulder joint 3401603447 1100835 M25.512 Cervical radiculopathy 32023770 M54.12 [id number] Zaria Rubio MD [facility] Internal Med [place] [address] [facility] [address] [place] [address] 02/21/2023 15:17:37 02/21/2023 16:43:40 Chronic obstructive pulmonary disease 57764523 J44.9 Hyperlipidemia 77467436 E78.5 Hypertensive disorder 38 704332 I10 Health Concerns Section Related Observation LastModified by Organization Detai ls LastModified Time None Recorded Concern Status LastModified by Organization Details LastModified Time None Recorded Advance Directives Directive N: Payers Encounter Date Sequence Insurance Name Policy Number Policy Barraza Covered Member ID Barraza Member ID Guarantor Name 09/07/2022 1 [facility] ON OR AFTER 10/06/20 (MEDICAID REPLACEMENT - HMO) Reji Freire [id number] Reji Freire 11/02/2022 1 [facility] ON OR AFTER 10/06/20 (MEDICAID REPLACEMENT - HMO) Reji Freire [id number] Reji Freire 11/16/2022 1 [facility] ON OR AFTER 10/06/20 (MEDICAID REPLACEMENT - HMO) Reji Freire [id number] Reji Freire 12/14/2022 1 [facility] ON OR AFTER 10/06/20 (MEDICAID REPLACEMENT - HMO) Reji Freire [id number] Reji Freire 02/21/2023 1 [facility] ON OR AFTER 10/06/20 (MEDICAID REPLACEMENT - HMO) Reji Freire [id number] Reji Freire Notes Date Note Type Note [...] surgery in June by Dr. Saucedo at [facility]. He showed me a photograph of his [...] used Ultram for pain. He does take [id number] ibuprofen sometimes several times a day but he takes it on an as-needed basis. Anderson Pickett MD [address], [place], [address], [facility] [employer] 09/07/2022 11:43:10 11/02/2022 text/html Being seen for C OPD hyperlipidemia hypertension hypertension no headache. Hyperlipidemia he could do better with regards to his diet. Breathing has been fine Zaria Rubio MD [address], [place], [address], [employer] 11/03/2022 12:55:34 11/16/2022 text/html patient returns after [...] Pickett MD [address], [place], [address], [employer] 11/18/2022 17:32:26 02/21/2023 text/html COPD doing fine dyslipidemia your atorvastatin try to watch red meat hypertension doing fine Zaria Rubio MD [address], [place], [address], [employer] 02/25/2023 22:15:46
--- OUTSIDE RECORDS SUMMARY | 2024-06-19 08:04 | XMS_ITS | Data Portability ---
Author Organization [facility] [address] [place] [address] Care Team Providers Care Nut Processing Supervisor Name Role Phone ZARIA RUBIO Primary Care Provider Unavailabl e Assessment Encounter Date Assessment Date Assessment LastModified by Organization Details LastModified Time 06/21/2023 06/21/2023 Low-fat diet ordered ill effects of tobacco which were included but not limited to increased tumors areo digestive tract increased incidence of heart attack stroke and cancer likely to sudden or chronic medical illness. Refuses immunizations follow-up old records [email or web address] Not available 06/21/2023 22:50:46 12/13/2023 12/13/2023 he can continue to use the Claritin we will check blood work diagnosis have been discussed he will follow up me in 4 states in his COVID test was negative at urgent care [email or web address] Not available 12/15/2023 23:24:47 06/02/2024 06/02/2024 surgical [...] the imaging etc. he says by his legal support specialist [email or web address] Not available 06/06/2024 14:38:28 Plan of Treatment Reminders Order Date Submit Date Provider Last Modified By Organization Details Last Modified Time Details Appointments ANY 15 2024 10:15A Starla Rubio MD Not available Not available Not available Lab lipid panel, serum 2024 025 ALPHONSO [facility], [address], [place], [address], 06/03/2024 08:27:08 CMP, serum or plasma 2024 025 ALPHONSO [facility], [address], [place], [address], 06/03/2024 08:27:09 CBC w/ auto diff 2024 025 ALPHONSO [facility], [address], [place], [address], 06/03/2024 08:27:11 CBC w/ auto diff 2023 024 ALPHONSO [facility], [address], [place], [address], 12/14/2023 06:18:17 CMP, serum or plasma 2023 024 ALPHONSO [facility], [address], [place], [address], 12/14/2023 06:18:16 lipid panel, serum 2023 024 ALPHONSO [facility], [address], [place], [address], 12/14/2023 06:18:15 TSH, ultra-sen sitive, serum 2023 024 ALPHONSO [facility], [address], [place], [address], 12/14/2023 06:18:21 T3, free, serum or plasma 2023 024 AL[facility]SO [facility], [address], [place], [address], 12/14/2023 06:18:22 unlisted lab - T4, free 2023 024 ALPHONSO [facility], [address], [place], [address], 12/14/2023 06:18:21 HIV 1 + 2, meaningfu l use set 2023 024 [facility], [address], [place], [address], 12/14/2023 06:18:22 PSA, total, serum or plasma 2023 024 [facility], [address], [place], [address], 06/22/2023 09:23:11 CMP, serum or plasma 2023 024 [facility], [address], [place], [address], 06/22/2023 09:23:10 lipid panel, serum 2023 024 [facility], [address], [place], [address], 06/22/2023 09:23:09 CBC w/ auto diff 2023 024 [facility], [address], [place], [address], 06/22/2023 09:23:10 Referral general surgeon referral 2024 025 [email or web address] [facility], [address] [facility], [facility] [address], [place], [address], 06/02/2024 13:43:40 Procedures None recorded. Surgeries None recorded. Imaging PFT, complete 2024 025 [facility] [address], [place], [address], 06/12/2024 16:09:42 Medication Orders albuterol sulfate HFA 90 mcg/actua tion aerosol inhaler 2024 025 [email or web address] [id number] [address] [facility] [place], [place], [place], [id number], 06/02/2024 13:43:40 Patient TargetsNo targets recorded. Patient Instructions Encounter Date Encounter Id Patient Instructions Last Modified By Organization Details Last Modified Time 06/02/2024 [id number] A healthy lifestyle: care instructions [email or web address] Not available 06/02/2024 13:43:40 Reason for Referral General Surgeon Referral for Lipoma Referring Physician: Zaria Rubio, Internal Medicine, Encounter Date: 06/02/2024 Results Created Date Observation Date Name Description Value Unit Range Abnormal Flag Note LastModifiedBy Organization Detail LastModifiedTime 06/21/19 24 06/22/2023 LIPID PANEL cholesterol, total 230 mg/dL 100-19 9 above high normal Not Available [facility] ([facility]) [address] [place], [address], 06/22/2023 09:23:09 06/21/19 24 06/22/2023 LIPID PANEL triglyceride s 95 mg/dL 0-149 Not Available [facility] ([facility]) [address] [place], [address], 06/22/2023 09:23:09 06/21/19 24 06/22/2023 LIPID PANEL HDL cholesterol 69 mg/dL >39 Not Available [facility] ([facility]) [address] [place], [address], 06/22/2023 09:23:09 06/21/19 24 06/22/2023 LIPID PANEL VLDL cholesterol tiana 17 mg/dL 5-40 Not Available [facility] ([facility]) [address] [place], [address], 06/22/2023 09:23:09 06/21/19 24 06/22/2023 LIPID PANEL LDL chol calc ([facility]) 144 mg/dL 0-99 above high normal Not Available [facility] ([facility]) [address] [facility], [place], [address], 06/22/2023 09:23:09 06/21/19 24 06/22/2023 COMP. METAB OLIC PANEL (14) glucose 90 mg/dL 70-99 Not Available [facility] ([facility]) [address] [facility] [place], [address], 06/22/2023 09:23:09 06/21/19 24 06/22/2023 COMP. METAB OLIC PANEL (14) BUN 11 mg/dL 8-27 Not Available [facility] ([facility]) [address] [facility] [place], [address], 06/22/2023 09:23:09 06/21/19 24 06/22/2023 COMP. METAB OLIC PANEL (14) creatinine 0.96 mg/dL 0.76-1 .27 Not Available [facility] ([facility]) [address] [facility], [place], [address], 06/22/2023 09:23:09 06/21/19 24 06/22/2023 COMP. METAB OLIC PANEL (14) eGFR 88 mL/mi n/1.7 3 >59 Not Available [facility] ([facility]) [address] [facility] [place], [address], 06/22/2023 09:23:09 06/21/19 24 06/22/2023 COMP. METAB OLIC PANEL (14) BUN/creatini ne ratio 11 10-24 Not Available [facility] ([facility]) [address] [facility] [place], [address], 06/22/2023 09:23:09 06/21/19 24 06/22/2023 COMP. METAB OLIC PANEL (14) sodium 141 mmol/ L 134-14 4 Not Available [facility] ([facility]) [address] [facility] [place], [address], 06/22/2023 09:23:09 06/21/19 24 06/22/2023 COMP. METAB OLIC PANEL (14) potassium 5.1 mmol/ L 3.5-5. 2 Not Available [facility] ([facility]) [address] [facility] [place], [address], 06/22/2023 09:23:09 06/21/19 24 06/22/2023 COMP. METAB OLIC PANEL (14) chloride 102 mmol/ L 96-106 Not Available [facility] ([facility]) [address] [facility], [place], [address], 06/22/2023 09:23:09 06/21/19 24 06/22/2023 COMP. METAB OLIC PANEL (14) carbon dioxide, total 25 mmol/ L 20-29 Not Available [facility] ([facility]) [address] [facility], [place], [address], 06/22/2023 09:23:09 06/21/19 24 06/22/2023 COMP. METAB OLIC PANEL (14) calcium 9.8 mg/dL 8.6-10 .2 Not Available [facility] ([facility]) [address] [facility], [place], [address], 06/22/2023 09:23:09 06/21/19 24 06/22/2023 COMP. METAB OLIC PANEL (14) protein, total 7.1 g/dL 6.0-8. 5 Not Available [facility] ([facility]) [address] [facility] [place], [address], 06/22/2023 09:23:09 06/21/19 24 06/22/2023 COMP. METAB OLIC PANEL (14) albumin 4.6 g/dL 3.9-4. 9 Not Available [facility] ([facility]) [address] [facility], [place], [address], 06/22/2023 09:23:09 06/21/19 24 06/22/2023 COMP. METAB OLIC PANEL (14) globulin, total 2.5 g/dL 1.5-4. 5 Not Available [facility] ([facility]) [address] [place], [address], 06/22/2023 09:23:09 06/21/19 24 06/22/2023 COMP. METAB OLIC PANEL (14) A/G ratio 1.8 1.2-2. 2 Not Available [facility] ([facility]) [address] [place], [address], 06/22/2023 09:23:09 06/21/19 24 06/22/2023 COMP. METAB OLIC PANEL (14) bilirubin, total 0.5 mg/dL 0.0-1. 2 Not Available [facility] ([facility]) [address] [place], [address], 06/22/2023 09:23:09 06/21/19 24 06/22/2023 COMP. METAB OLIC PANEL (14) alkaline phosphatase 68 IU/L 44-121 Not Available [facility] ([facility]) [address] [place], [address], 06/22/2023 09:23:09 06/21/19 24 06/22/2023 COMP. METAB OLIC PANEL (14) AST (SGOT) 24 IU/L 0-40 Not Available [facility] ([facility]) [address] [place], [address], 06/22/2023 09:23:09 06/21/19 24 06/22/2023 COMP. METAB OLIC PANEL (14) ALT (SGPT) 21 IU/L 0-44 Not Available [facility] ([facility]) [address] [place], [address], 06/22/2023 09:23:09 06/21/19 24 06/22/2023 CBC WITH DIFFE RENTI AL/PL ATELE T WBC 5.8 x10e3 /uL 3.4-10 .8 Not Available [facility] ([facility]) [address] [facility], [place], [address], 06/22/2023 09:23:10 06/21/19 24 06/22/2023 CBC WITH DIFFE RENTI AL/PL ATELE T RBC 5.26 x10e6 /uL 4.14-5 .80 Not Available [facility] ([facility]) [address] [facility], [place], [address], 06/22/2023 09:23:10 06/21/19 24 06/22/2023 CBC WITH DIFFE RENTI AL/PL ATELE T hemoglobin 16.2 g/dL 13.0-1 7.7 Not Available [facility] ([facility]) [address] [facility], [place], [address], 06/22/2023 09:23:10 06/21/19 24 06/22/2023 CBC WITH DIFFE RENTI AL/PL ATELE T hematocrit 46.9 % 37.5-5 1.0 Not Available [facility] ([facility]) [address] [facility], [place], [address], 06/22/2023 09:23:10 06/21/19 24 06/22/2023 CBC WITH DIFFE RENTI AL/PL ATELE T MCV 89 fL 79-97 Not Available [facility] ([facility]) [address] [place], [address], 06/22/2023 09:23:10 06/21/19 24 06/22/2023 CBC WITH DIFFE RENTI AL/PL ATELE T MCH 30.8 pg 26.6-3 3.0 Not Available [facility] ([facility]) [address] [facility], [place], [address], 06/22/2023 09:23:10 06/21/19 24 06/22/2023 CBC WITH DIFFE RENTI AL/PL ATELE T MCHC 34.5 g/dL 31.5-3 5.7 Not Available [facility] ([facility]) [address] [facility], [place], [address], 06/22/2023 09:23:10 06/21/19 24 06/22/2023 CBC WITH DIFFE RENTI AL/PL ATELE T RDW 13.7 % 11.6-1 5.4 Not Available [facility] ([facility]) [address] [facility], [place], [address], 06/22/2023 09:23:10 06/21/19 24 06/22/2023 CBC WITH DIFFE RENTI AL/PL ATELE T platelets 269 x10e3 /uL 150-45 0 Not Available [facility] ([facility]) [address] [facility], [place], [address], 06/22/2023 09:23:10 06/21/19 24 06/22/2023 CBC WITH DIFFE RENTI AL/PL ATELE T neutrophils 44 % notest ab. Not Available [facility] ([facility]) [address] [facility], [place], [address], 06/22/2023 09:23:10 06/21/19 24 06/22/2023 CBC WITH DIFFE RENTI AL/PL ATELE T lymphs 38 % notest ab. Not Available [facility] ([facility]) [address] [facility], [place], [address], 06/22/2023 09:23:10 06/21/19 24 06/22/2023 CBC WITH DIFFE RENTI AL/PL ATELE T monocytes 13 % notest ab. Not Available [facility] ([facility]) [address] [place], [address], 06/22/2023 09:23:10 06/21/19 24 06/22/2023 CBC WITH DIFFE RENTI AL/PL ATELE T eos 3 % notest ab. Not Available [facility] ([facility]) [address] [facility] [place], [address], 06/22/2023 09:23:10 06/21/19 24 06/22/2023 CBC WITH DIFFE RENTI AL/PL ATELE T basos 1 % notest ab. Not Available [facility] ([facility]) [address] [facility], [place], [address], 06/22/2023 09:23:10 06/21/19 24 06/22/2023 CBC WITH DIFFE RENTI AL/PL ATELE T neutrophils (absolute) 2.6 x10e3 /uL 1.4-7. 0 Not Available [facility] ([facility]) [address] [facility], [place], [address], 06/22/2023 09:23:10 06/21/19 24 06/22/2023 CBC WITH DIFFE RENTI AL/PL ATELE T lymphs (absolute) 2.2 x10e3 /uL 0.7-3. 1 Not Available [facility] ([facility]) [address] [facility], [place], [address], 06/22/2023 09:23:10 06/21/19 24 06/22/2023 CBC WITH DIFFE RENTI AL/PL ATELE T monocytes(ab solute) 0.8 x10e3 /uL 0.1-0. 9 Not Available [facility] ([facility]) [address] [facility], [place], [address], 06/22/2023 09:23:10 06/21/19 24 06/22/2023 CBC WITH DIFFE RENTI AL/PL ATELE T eos (absolute) 0.2 x10e3 /uL 0.0-0. 4 Not Available [facility] ([facility]) [address] [facility], [place], [address], 06/22/2023 09:23:10 06/21/19 24 06/22/2023 CBC WITH DIFFE RENTI AL/PL ATELE T baso (absolute) 0.1 x10e3 /uL 0.0-0. 2 Not Available [facility] ([facility]) [address] [facility], [place], [address], 06/22/2023 09:23:10 06/21/19 24 06/22/2023 CBC WITH DIFFE RENTI AL/PL ATELE T immature granulocytes 1 % notest ab. Not Available [facility] ([facility]) [address] [facility], [place], [address], 06/22/2023 09:23:10 06/21/19 24 06/22/2023 CBC WITH DIFFE RENTI AL/PL ATELE T immature grans (abs) 0.0 x10e3 /uL 0.0-0. 1 Not Available [facility] ([facility]) [address] [facility], [place], [address], 06/22/2023 09:23:10 06/21/19 24 06/22/2023 PROST ATE-S [...] t be inter prete d as absol [place] evide nce of the prese nce or absen ce of lorie saini se. Not Available [facility] ([facility]) [address] [facility], [place], [address], 06/22/2023 09:23:11 12/13/19 24 12/13/2023 LIPID PANEL cholesterol, total 234 mg/dL 100-19 9 above high normal Not Available [facility] Department [address] [place], [address], 12/14/2023 06:18:15 12/13/19 24 12/13/2023 LIPID PANEL triglyceride s 331 mg/dL 0-149 above high normal Not Available [facility] [address] [place] [address], [address], 12/14/2023 06:18:15 12/13/19 24 12/13/2023 LIPID PANEL HDL cholesterol 66 mg/dL 40-[address] [facility] Department [address] [place], [address], 12/14/2023 06:18:15 12/13/19 24 12/13/2023 LIPID PANEL VLDL cholesterol tiana 66 mg/dL 5-40 above high normal Not Available [facility] [address] [place] [address], [address], 12/14/2023 06:18:15 12/13/19 24 12/13/2023 LIPID PANEL LDL chol calc (nih) 150 mg/dL 0-99 above high normal Not Available [facility] [address] [place] [address], [address], 12/14/2023 06:18:15 12/13/19 24 12/13/2023 COMP. METAB OLIC PANEL (14) glucose 63 mg/dL 70-99 below low normal Not Available [facility] [address] [place], [address], 12/14/2023 06:18:16 12/13/19 24 12/13/2023 COMP. METAB OLIC PANEL (14) BUN 10 mg/dL 8-27 Not Available [facility] [address] [place], [address], 12/14/2023 06:18:16 12/13/19 24 12/13/2023 COMP. METAB OLIC PANEL (14) creatinine 0.94 mg/dL 0.76-1 .27 Not Available [facility] [address] [place] [address], [address], 12/14/2023 06:18:16 12/13/19 24 12/13/2023 COMP. METAB OLIC PANEL (14) eGFR 90 >=60 Units for eGFR value s are mL/mi n/1.7 3 The eGFR Calcu latio n has not been valid ated for patie nts under the age of 18. If test resul ts are displ ayed for a patie nt under the age of 18, disre dean that value . Not Available [facility] [address] [place] [address], [address], 12/14/2023 06:18:16 12/13/19 24 12/13/2023 COMP. METAB OLIC PANEL (14) BUN/creatini ne ratio 10 10-24 Not Available [facility] Department [address] [place] [address], [address], 12/14/2023 06:18:16 12/13/19 24 12/13/2023 COMP. METAB OLIC PANEL (14) sodium 141 mmol/ L 134-14 4 Not Available [facility] [address] [place] [address], [address], 12/14/2023 06:18:16 12/13/19 24 12/13/2023 COMP. METAB OLIC PANEL (14) potassium 4.8 mmol/ L 3.5-5. 2 Not Available [facility] [address] [place] [address], [address], 12/14/2023 06:18:16 12/13/19 24 12/13/2023 COMP. METAB OLIC PANEL (14) chloride 101 mmol/ L 96-106 Not Available [facility] [address] [place] [address], [address], 12/14/2023 06:18:16 12/13/19 24 12/13/2023 COMP. METAB OLIC PANEL (14) carbon dioxide, total 28 mmol/ L 20-29 Not Available [facility] [address] [place], [address], 12/14/2023 06:18:16 12/13/19 24 12/13/2023 COMP. METAB OLIC PANEL (14) calcium 9.9 mg/dL 8.6-10 .2 Not Available [facility] Department [address] [place], [address], 12/14/2023 06:18:16 12/13/19 24 12/13/2023 COMP. METAB OLIC PANEL (14) protein, total 7.0 g/dL 6.0-8. 5 Not Available [facility] Department [address] [place], [address], 12/14/2023 06:18:16 12/13/19 24 12/13/2023 COMP. METAB OLIC PANEL (14) albumin 4.4 g/dL 3.9-4. 9 Not Available [facility] Department [address] [place], [address], 12/14/2023 06:18:16 12/13/19 24 12/13/2023 COMP. METAB OLIC PANEL (14) globulin, total 2.6 g/dL 1.5-4. 5 Not Available [facility] Department [address] [place], [address], 12/14/2023 06:18:16 12/13/19 24 12/13/2023 COMP. METAB OLIC PANEL (14) A/G ratio 1.7 1.2-2. 2 Not Available [facility] Department [address] [place], [address], 12/14/2023 06:18:16 12/13/19 24 12/13/2023 COMP. METAB OLIC PANEL (14) bilirubin, total 0.4 mg/dL 0.0-1. 2 Not Available [facility] Department [address] [place], [address], 12/14/2023 06:18:16 12/13/19 24 12/13/2023 COMP. METAB OLIC PANEL (14) alkaline phosphatase 80 IU/L 44-[address] [facility] Department [address] [place], [address], 12/14/2023 06:18:16 12/13/19 24 12/13/2023 COMP. METAB OLIC PANEL (14) AST (SGOT) 28 IU/L 0-40 Not Available [facility] Department [address] [place], [address], 12/14/2023 06:18:16 12/13/19 24 12/13/2023 COMP. METAB OLIC PANEL (14) ALT (SGPT) 30 IU/L 0-44 Not Available [facility] Department [address] [place], [address], 12/14/2023 06:18:16 12/13/19 24 12/13/2023 CBC WITH DIFFE RENTI AL/PL ATELE T WBC 9.1 x10e3 /uL 3.4-10 .8 Not Available [facility] Department [address] [place], [address], 12/14/2023 06:18:17 12/13/19 24 12/13/2023 CBC WITH DIFFE RENTI AL/PL ATELE T RBC 5.07 x10e6 /uL 4.14-5 .80 Not Available [facility] Department [address] [place], [address], 12/14/2023 06:18:17 12/13/19 24 12/13/2023 CBC WITH DIFFE RENTI AL/PL ATELE T hemoglobin 15.6 g/dL 13.0-1 7.7 Not Available [facility] Department [address] [place], [address], 12/14/2023 06:18:17 12/13/19 24 12/13/2023 CBC WITH DIFFE RENTI AL/PL ATELE T hematocrit 45.3 % 37.5-5 1.0 Not Available [facility] Department [address] [place], [address], 12/14/2023 06:18:17 12/13/1912/13/2023 CBC WITH DIFFE RENTI AL/PL ATELE T MCV 89 fL 79-97 Not Available [facility] Department [address] [place], [address], 12/14/2023 06:18:17 12/13/19 24 12/13/2023 CBC WITH DIFFE RENTI AL/PL ATELE T MCH 30.8 pg 26.6-3 3.0 Not Available [facility] Department [address] [place] [address], [address], 12/14/2023 06:18:17 12/13/19 24 12/13/2023 CBC WITH DIFFE RENTI AL/PL ATELE T MCHC 34.4 g/dL 31.5-3 5.7 Not Available [facility] Department [address] [place], [address], 12/14/2023 06:18:17 12/13/19 24 12/13/2023 CBC WITH DIFFE RENTI AL/PL ATELE T RDW 13.2 % 11.5-1 4.5 Not Available [facility] Department [address] [place], [address], 12/14/2023 06:18:17 12/13/19 24 12/13/2023 CBC WITH DIFFE RENTI AL/PL ATELE T platelets 238 x10e3 /uL 150-45 0 Not Available [facility] Department [address] [place], [address], 12/14/2023 06:18:17 12/13/19 24 12/13/2023 CBC WITH DIFFE RENTI AL/PL ATELE T neutrophils 64 % notest b. Not Available [facility] Department [address] [place], [address], 12/14/2023 06:18:17 12/13/1912/13/2023 CBC WITH DIFFE RENTI AL/PL ATELE T lymphs 20 % notest b. Not Available [facility] Department [address] [place], [address], 12/14/2023 06:18:17 12/13/1912/13/2023 CBC WITH DIFFE RENTI AL/PL ATELE T monocytes 12 % notest b. Not Available [facility] Department [address] [place], [address], 12/14/2023 06:18:17 12/13/19 24 12/13/2023 CBC WITH DIFFE RENTI AL/PL ATELE T eos 3 % notest b. Not Available [facility] Department [address] [place], [address], 12/14/2023 06:18:17 12/13/1912/13/2023 CBC WITH DIFFE RENTI AL/PL ATELE T basos 1 % notest b. Not Available [facility] Department [address] [place], [address], 12/14/2023 06:18:17 12/13/1912/13/2023 CBC WITH DIFFE RENTI AL/PL ATELE T neutrophils (absolute) 5.8 x10e3 /uL 1.4-7. 0 Not Available [facility] Department [address] [place], [address], 12/14/2023 06:18:17 12/13/1912/13/2023 CBC WITH DIFFE RENTI AL/PL ATELE T lymphs (absolute) 1.8 x10e3 /uL 0.7-3. 1 Not Available [facility] Department [address] [place], [address], 12/14/2023 06:18:17 12/13/19 24 12/13/2023 CBC WITH DIFFE RENTI AL/PL ATELE T monocytes(ab solute) 1.1 x10e3 /uL 0.1-0. 9 above high normal Not Available [facility] Department [address] [place], [address], 12/14/2023 06:18:17 12/13/19 24 12/13/2023 CBC WITH DIFFE RENTI AL/PL ATELE T eos (absolute) 0.3 x10e3 /uL 0.0-0. 4 Not Available [facility] Department [address] [place], [address], 12/14/2023 06:18:17 12/13/1912/13/2023 CBC WITH DIFFE RENTI AL/PL ATELE T baso (absolute) 0.1 x10e3 /uL 0.0-0. 2 Not Available [facility] Department [address] [place], [address], 12/14/2023 06:18:17 12/13/1912/13/2023 CBC WITH DIFFE RENTI AL/PL ATELE T immature granulocytes 0.5 % notest b. Not Available [facility] Department [address] [place], [address], 12/14/2023 06:18:17 12/13/19 24 12/13/2023 CBC WITH DIFFE RENTI AL/PL ATELE T immature grans (abs) 0.1 x10e3 /uL 0.0-0. 1 Not Available [facility] Department [address] [place], [address], 12/14/2023 06:18:17 12/13/1912/13/2023 CBC WITH DIFFE RENTI AL/PL ATELE T NRBC 0 % 0-0 Not Available [facility] Department [address] [place], [address], 12/14/2023 06:18:17 12/13/1912/14/2023 T4, FREE T4,free(dire ct) 1.30 NG/dL 0.82-1 .77 Not Available [facility] ([facility]) [address] [place], [address], 12/14/2023 06:18:21 12/13/19 24 12/14/2023 TSH TSH 0.527 uIU/m L 0.450- 4.500 Not Available [facility] ([facility]) [address] [place], [place], [address], 12/14/2023 06:18:21 12/13/19 24 12/14/2023 TRIIO DOTHY HAKAN E (T3), FREE triiodothyro nine (T3), free 3.2 pg/mL 2.0-4. 4 Not Available [facility] ([facility]) [address] [place], [address], 12/14/2023 06:18:22 12/13/1912/14/2023 HIV AB/P2 4 AG WITH REFLE X HIV Ab/P24 Ag screen NON REACTI VE nonrea ctive HIV-1 /HIV- 2 antib odies and HIV-1 p24 antig en were NOT detec aisha. There is no labor atory evide nce of HIV infec tion. HIV Negat jimmie Not Available [facility] ([facility]) [address] [place], [address], 12/14/2023 06:18:22 06/02/1906/03/2024 LIPID PANEL cholesterol, total 258 mg/dL 100-19 9 above high normal Not Available [facility] ([facility]) [address] [place], [address], 06/03/2024 08:27:08 06/02/19 25 06/03/2024 LIPID PANEL triglyceride s 261 mg/dL 0-149 above high normal Not Available [facility] ([facility]) [address] [place], [address], 06/03/2024 08:27:08 06/02/19 25 06/03/2024 LIPID PANEL HDL cholesterol 58 mg/dL >39 Not Available [facility] ([facility]) [address] [place], [address], 06/03/2024 08:27:08 06/02/19 25 06/03/2024 LIPID PANEL VLDL cholesterol tiana 48 mg/dL 5-40 above high normal Not Available [facility] ([facility]) [address] [place], [address], 06/03/2024 08:27:08 06/02/19 25 06/03/2024 LIPID PANEL LDL chol calc ([facility]) 152 mg/dL 0-99 above high normal Not Available [facility] ([facility]) [address] [place], [address], 06/03/2024 08:27:08 06/02/19 25 06/03/2024 COMP. METAB OLIC PANEL (14) glucose 92 mg/dL 70-99 Not Available [facility] ([facility]) [address] [place], [address], 06/03/2024 08:27:09 06/02/19 25 06/03/2024 COMP. METAB OLIC PANEL (14) BUN 12 mg/dL 8-27 Not Available [facility] ([facility]) [address] [place], [address], 06/03/2024 08:27:09 06/02/19 25 06/03/2024 COMP. METAB OLIC PANEL (14) creatinine 1.05 mg/dL 0.76-1 .27 Not Available [facility] ([facility]) [address] [place], [address], 06/03/2024 08:27:09 06/02/19 25 06/03/2024 COMP. METAB OLIC PANEL (14) eGFR 79 mL/mi n/1.7 3 >59 Not Available [facility] ([facility]) [address] [facility], [place], [address], 06/03/2024 08:27:09 06/02/19 25 06/03/2024 COMP. METAB OLIC PANEL (14) BUN/creatini ne ratio 11 10-24 Not Available [facility] ([facility]) [address] [facility] [place], [address], 06/03/2024 08:27:09 06/02/19 25 06/03/2024 COMP. METAB OLIC PANEL (14) sodium 140 mmol/ L 134-14 4 Not Available [facility] ([facility]) [address] [facility], [place], [address], 06/03/2024 08:27:09 06/02/19 25 06/03/2024 COMP. METAB OLIC PANEL (14) potassium 4.7 mmol/ L 3.5-5. 2 Not Available [facility] ([facility]) [address] [facility], [place], [address], 06/03/2024 08:27:09 06/02/19 25 06/03/2024 COMP. METAB OLIC PANEL (14) chloride 101 mmol/ L 96-106 Not Available [facility] ([facility]) [address] [facility] [place], [address], 06/03/2024 08:27:09 06/02/19 25 06/03/2024 COMP. METAB OLIC PANEL (14) carbon dioxide, total 27 mmol/ L 20-29 Not Available [facility] ([facility]) [address] [facility] [place], [address], 06/03/2024 08:27:09 06/02/19 25 06/03/2024 COMP. METAB OLIC PANEL (14) calcium 9.9 mg/dL 8.6-10 .2 Not Available [facility] ([facility]) [address] [facility] [place], [address], 06/03/2024 08:27:09 06/02/19 25 06/03/2024 COMP. METAB OLIC PANEL (14) protein, total 7.1 g/dL 6.0-8. 5 Not Available [facility] ([facility]) [address] [facility], [place], [address], 06/03/2024 08:27:09 06/02/19 25 06/03/2024 COMP. METAB OLIC PANEL (14) albumin 4.6 g/dL 3.9-4. 9 Not Available [facility] ([facility]) [address] [facility], [place], [address], 06/03/2024 08:27:09 06/02/19 25 06/03/2024 COMP. METAB OLIC PANEL (14) globulin, total 2.5 g/dL 1.5-4. 5 Not Available [facility] ([facility]) [address] [facility], [place], [address], 06/03/2024 08:27:09 06/02/19 25 06/03/2024 COMP. METAB OLIC PANEL (14) bilirubin, total 0.4 mg/dL 0.0-1. 2 Not Available [facility] ([facility]) [address] [facility], [place], [address], 06/03/2024 08:27:09 06/02/19 25 06/03/2024 COMP. METAB OLIC PANEL (14) alkaline phosphatase 68 IU/L 44-121 Not Available [facility] ([facility]) [address] [facility], [place], [address], 06/03/2024 08:27:09 06/02/19 25 06/03/2024 COMP. METAB OLIC PANEL (14) AST (SGOT) 21 IU/L 0-40 Not Available [facility] ([facility]) [address] [facility], [place], [address], 06/03/2024 08:27:09 06/02/1906/03/2024 COMP. METAB OLIC PANEL (14) ALT (SGPT) 20 IU/L 0-44 Not Available [facility] ([facility]) [address] [facility], [place], [address], 06/03/2024 08:27:09 06/02/1906/03/2024 CBC WITH DIFFE RENTI AL/PL ATELE T WBC 5.2 x10e3 /uL 3.4-10 .8 Not Available [facility] ([facility]) [address] [facility], [place], [address], 06/03/2024 08:27:11 06/02/1906/03/2024 CBC WITH DIFFE RENTI AL/PL ATELE T RBC 5.26 x10e6 /uL 4.14-5 .80 Not Available [facility] ([facility]) [address] [facility], [place], [address], 06/03/2024 08:27:11 06/02/1906/03/2024 CBC WITH DIFFE RENTI AL/PL ATELE T hemoglobin 16.1 g/dL 13.0-1 7.7 Not Available [facility] ([facility]) [address] [facility], [place], [address], 06/03/2024 08:27:11 06/02/1906/03/2024 CBC WITH DIFFE RENTI AL/PL ATELE T hematocrit 47.3 % 37.5-5 1.0 Not Available [facility] ([facility]) [address] [facility], [place], [address], 06/03/2024 08:27:11 06/02/1906/03/2024 CBC WITH DIFFE RENTI AL/PL ATELE T MCV 90 fL 79-97 Not Available [facility] ([facility]) [address] [facility], [place], [address], 06/03/2024 08:27:11 06/02/192025 CBC WITH DIFFE RENTI AL/PL ATELE T MCH 30.6 pg 26.6-3 3.0 Not Available [facility] ([facility]) [address] [facility], [place], [address], 06/03/2024 08:27:11 06/02/19 25 06/03/2024 CBC WITH DIFFE RENTI AL/PL ATELE T MCHC 34.0 g/dL 31.5-3 5.7 Not Available [facility] ([facility]) [address] [facility], [place], [address], 06/03/2024 08:27:11 06/02/1906/03/2024 CBC WITH DIFFE RENTI AL/PL ATELE T RDW 13.0 % 11.6-1 5.4 Not Available [facility] ([facility]) [address] [facility], [place], [address], 06/03/2024 08:27:11 06/02/19 25 06/03/2024 CBC WITH DIFFE RENTI AL/PL ATELE T platelets 240 x10e3 /uL 150-45 0 Not Available [facility] ([facility]) [address] [facility], [place], [address], 06/03/2024 08:27:11 06/02/19 25 06/03/2024 CBC WITH DIFFE RENTI AL/PL ATELE T neutrophils 43 % notest ab. Not Available [facility] ([facility]) [address] [place], [address], 06/03/2024 08:27:11 06/02/19 25 06/03/2024 CBC WITH DIFFE RENTI AL/PL ATELE T lymphs 43 % notest ab. Not Available [facility] ([facility]) [address] [place], [address], 06/03/2024 08:27:11 06/02/19 25 06/03/2024 CBC WITH DIFFE RENTI AL/PL ATELE T monocytes 11 % notest ab. Not Available [facility] ([facility]) [address] [facility], [place], [address], 06/03/2024 08:27:11 06/02/19 25 06/03/2024 CBC WITH DIFFE RENTI AL/PL ATELE T eos 2 % notest ab. Not Available [facility] ([facility]) [address] [facility], [place], [address], 06/03/2024 08:27:11 06/02/19 25 06/03/2024 CBC WITH DIFFE RENTI AL/PL ATELE T basos 1 % notest ab. Not Available [facility] ([facility]) [address] [facility], [place], [address], 06/03/2024 08:27:11 06/02/1906/03/2024 CBC WITH DIFFE RENTI AL/PL ATELE T neutrophils (absolute) 2.3 x10e3 /uL 1.4-7. 0 Not Available [facility] ([facility]) [address] [place], [address], 06/03/2024 08:27:11 06/02/19 25 06/03/2024 CBC WITH DIFFE RENTI AL/PL ATELE T lymphs (absolute) 2.3 x10e3 /uL 0.7-3. 1 Not Available [facility] ([facility]) [address] [place], [address], 06/03/2024 08:27:11 06/02/19 25 06/03/2024 CBC WITH DIFFE RENTI AL/PL ATELE T monocytes(ab solute) 0.6 x10e3 /uL 0.1-0. 9 Not Available [facility] ([facility]) [address] [facility], [place], [address], 06/03/2024 08:27:11 06/02/19 25 06/03/2024 CBC WITH DIFFE RENTI AL/PL ATELE T eos (absolute) 0.1 x10e3 /uL 0.0-0. 4 Not Available [facility] ([facility]) [address] [place], [address], 06/03/2024 08:27:11 06/02/19 25 06/03/2024 CBC WITH DIFFE RENTI AL/PL ATELE T baso (absolute) 0.1 x10e3 /uL 0.0-0. 2 Not Available [facility] ([facility]) [address] [facility], [place], [address], 06/03/2024 08:27:11 06/02/1906/03/2024 CBC WITH DIFFE RENTI AL/PL ATELE T immature granulocytes 0 % notest ab. Not Available [facility] ([facility]) [address] [place], [address], 06/03/2024 08:27:11 06/02/19 25 06/03/2024 CBC WITH DIFFE RENTI AL/PL ATELE T immature grans (abs) 0.0 x10e3 /uL 0.0-0. 1 Not Available [facility] ([facility]) [address] [place], [address], 06/03/2024 08:27:11 08/26/19 24 08/26/2023 XR, chest No observ ation record ed. [email or web address], [address], 08/26/2023 13:31:08 06/13/19 25 06/11/2024 PFT, compl ete No observ ation record ed. [address], [address], 06/17/2024 17:24:00 Result Notes None recorded. Problems Name Problem SNOMED Code Status Onset Date Resolution Date Notes Provider Name and Address Organization Details Recorded Time Essential hypertension 15494637 Active 2024 Alesia Benjamin MA null, [place] - [facility] 5 12:24:56 Chronic obstructive pulmonary disease 39604344 Active 2024 Alesia Benjamin [place], [place] [facility] 5 12:24:56 Hyperlipidemia 54593527 Active 2024 Alesia Benjamin [place], [place] [facility] 5 09:57:32 Tetanus vaccination declined by patient 715389394 Active 2024 Zaria Rubio MD Attn: Burt g,[address] [place], [address], [place] - [facility] 5 14:37:54 Pneumococcal vaccination declined 946223107 Active 2024 Zaria Rubio MD Attn: Burt g,[address] [place], [address], [place] [facility] 5 14:37:55 Influenza vaccination declined 159663588 Active 2024 Zaria Rubio MD Attn: Burt g[address] [place], [address], [place] [facility] 5 14:37:56 Problem Notes None recorded. Procedures Surgical History Date Name Laterality Status Provider Name and Address Organization Details Recorded Time Back Surgery completed Victoria Basilio MA [place] [facility] 06/21/2023 10:32:10 Hernia Repair completed Victoria Basilio [place] [facility] 06/21/2023 10:32:20 Carpal tunnel surgery completed Victoria Basilio MA [place] [facility] 06/21/2023 10:32:54 Imaging Results Imaging Date Name Status LastModified by [facility] Details LastModified Time 08/26/2023 XR, chest completed [email or web address] [address] [facility] [address] [place] [address], [address], 08/26/2023 13:31:08 06/11/2024 PFT, complete completed [facility] [address] [facility] [address], [place], [address], 06/17/2024 17:24:00 Procedure Notes None recorded. Medical Equipment None [...] sulfate HFA 90 mcg/actua tion aerosol inhaler INHALE 2 PUFFS BY MOUTH EVERY 4 HOURS active Not Available Not Available No t Available ondansetr on 4 mg disintegr ating tablet DISSOLVE 1 TABLET ON THE TONGUE EVERY 6 HOURS NEEDED FOR NAUSEA OR VOMITING 03/15 /2024 completed Not Available Not Available Not Available [...] completed Not Available Not Available Not Available ezetimibe 10 mg tablet TAKE 1 TABLET BY MOUTH EVERY DAY active Not Available Not Available No t Available Vitals Date Recorded Body weight Body mass index (BMI) Body height Heart rate Oxygen saturation Oxygen saturation in Arterial blood by Pulse oximetry Systolic blood pressure Diastolic blood pressure Provider Name and Address Organization Details Last Updated DateTime 4 [address].7 4 g 26 kg/m2 182.88 cm 93 /min 97 % 97 % 142 mm[Hg] 80 mm[Hg] Victoria Basilio MA [facility] 4 10:39:46 Date Recorded Body height Body mass index (BMI) Body weight Heart rate Oxygen saturation Oxygen saturation in Arterial blood by Pulse oximetry Systolic blood pressure Diastolic blood pressure Provider Name and Address Organization Details Last Updated DateTime 4 182.88 cm 25.1 kg/m2 85074.5 9 g 94 /min 96 % 96 % 144 mm[Hg] 88 mm[Hg] Rissa Mohan MA [facility] 4 10:44:59 Date Recorded Body height Provider Name an d Address Organization Details Last Updated DateTime 06/02/2024 182.88 cm Liza Carolina MA [facility] 06/02/2024 11:53:53 Date Recorded Body mass index (BMI) Body weight Heart rate Oxygen saturation Oxygen saturation in Arterial blood by Pulse oximetry Systolic blood pressure Diastolic blood pressure Provider Name and Address Organization Details Last Updated DateTime 5 27.2 kg/m2 59631.5 5 g 86 /min 91 % 91 % 130 mm[Hg] 88 mm[Hg] Victoria Basilio MA [facility] 5 12:05:43 Social History Question Answer Notes LastModified by Organizat ion Details LastModified Time Tobacco Smoking Status Current Every Day Smoker Victoria Basilio MA null, [facility] 06/21/2023 10:33:52 What Is Your Level Of [...] Anxious, Or Unable To Sleep At Night)? [id number] Information not available 06/21/2023 Do You Use [...] Skin Problems Y Anemia N Heart Attack ([place]) N Anxiety Disorder N Diabetes N Muscle, Joint, or Bone Problems Y Seizures/Epilepsy N Acid Reflux (GERD) N Cancer N Stroke N Asthma N Allergies N High Cholesterol Y Hepatitis N Liver Disease N Headaches N Heart Failure N Osteoporosis N Past Encounters Encounter ID Performer Location Encounter Start Date Encounter Closed Date Diagnosis/Indication Diagnosis SNOMED-CT Code Diagnosis ICD10 Code Diagnosis Note [id number] MD Shashi Hernandez (Adult Med) [address] [place] [phone] 06/21/2023 10:06:01 06/21/2023 11:22:18 Essential hypertension 79855300 I10 Screening for malignant neoplasm of prostate 762849412 Z12.5 Chronic ob structive pulmonary disease 98425066 J44.9 Hyperlipidemia 08203207 E78.5 [id number] MD Shashi Hernandez (Adult Med) [address] [place] [phone] 12/13/2023 10:21:59 12/13/2023 11:48:01 Generalized rash 113968393 R21 Hyperlipidemia 96411528 E78.5 Fatigue 75208881 R53.83 Essential hypertension 29373895 I10 [id number] MD Shashi Hernandez (Adult Med) [address] [place] [phone] 06/02/2024 11:47:51 06/02/2024 12:31:41 Overweight 470021521 E66.3 Essential hypertension 12721310 I10 Chronic ob structive pulmonary disease 29667085 J44.9 Lipoma 23266515 D17.9 Hyperlipidemia 97517328 E78.5 Influenza vaccination declined 441782992 Z28.21 Pneumococc al vaccination declined 332813264 Z28.21 Tetanus va ccination declined by patient 314460280 Z28.21 Health Concerns Section Related Observation LastModified by Organization Detai ls LastModified Time None Recorded Concern Status LastModified by Organization Details LastModified Time None Recorded Advance Directives Directive None Recorded Payers Encounter Date Sequence Insurance Name Policy Number Policy Barraza Covered Member ID Barraza Member ID Guarantor Name 06/21/2023 1 [employer] (MEDICARE REPLACEMENT/AD VANTAGE - HMO) Reji Freire [id number] Reji Freire 12/13/2023 1 [employer] - DOS ON OR AFTER 20 (MEDICAID REPLACEMENT - HMO) Reji Freier [id number] Reji Freire 06/02/2024 1 [place] Reji Freire [id number] Reji Freire 06/02/2024 2 [place] WHEN MEDICARE OR MEDICARE REPLACEMENT PRIMARY) Reji Freire [id number] Reji Freire Notes Date Note Type Note Provider Name and Address Organization Details Recorded Time 06/21/2023 text/html Hypertension no headache or dizziness no palpitations COPD continues to smoke denies any shortness of breath or hemoptysis hyperlipidemia does try to follow a low-fat diet Zaria Rubio MD Attn: Accounting,[address], [place], [address], [facility] 06/21/2023 22:51:05 12/13/2023 text/html he has had some nonspecific fatigue hypertension no headache or dizziness dyslipidemia needs his lipid panel done but tries to follow a low-fat that was in the ER for some hives was given some Claritin hydrocortisone cream and a Z-Geo and he is better Zaria Rubio MD Attn: Accounting,[address], [place], [address], [facility] 12/15/2023 23:25:02 06/02/2024 text/html 1. Hypertension no headache no dizziness. 2. COPD denies cough or wheezing or shortness of breath. 3. Dyslipidemia he has been taking the lovastatin and atorvastatin 4. He is going to skin lesion Zaria Rubio MD Attn: Accounting,[address] , [place], [address], [facility] 06/06/2024 14:38:46
--- OUTSIDE RECORDS SUMMARY | 2024-06-19 08:05 | XMS_ITS | Patient Health Summary ---
Author Organization [facility] Address [address] [place] [address] Care Team Providers Care Automobile Service Station Manager Name Role Phone Phuc Rubio MD Primary Care Provider [phone] Note from [facility],non-owned Affiliates and Associated Physician Practices is amultiple site organization consisting of ambulatory clinics and hospital sitesin [place], [place], [place] and [place]. This disclosure is being madepursuant to the Care Everywhere program and may not contain all information available regarding this patient. Last updated 17.[facility] Allergies No known active allergies Medications * [...] every 6 hours as needed * HYDROcodone-acetaminophen (Linden) 5-325 MG tablet(Started 06/10/2022) Take 1 (one) [...] by mouth 2 times daily * HYDROcodone-acetaminophen (Linden) 5-325 MG tablet(Started 09/05/2022) Take 1 (one) [...] and heating? Not hard at all 06/04/2022 [facility] of Occupat ional Health - Occupational Stress [...] place to sleep or slept in a chcf (including now)? No 06/04/2022 Sex and Gender Information Value Date Recorded Sex Assigned at Not on file Gender Identity Not on file Sexual Orientation Not on file Last Filed Vital Signs Vital Sign Reading Time Taken Comments Blood Pressure 128/84 04/10/2023 9:42 AM VICE ADMIRAL Pulse 109 04/10/2023 9:42 AM VICE ADMIRAL Temperature 36.8 C (98.3 F) 04/10/2023 9:42 AM VICE ADMIRAL Respiratory Rate 18 04/10/2023 9:42 AM VICE ADMIRAL Oxygen Saturation 96% 04/10/2023 9:42 AM VICE ADMIRAL Inhaled Oxygen Concentration - - Weight 87 kg (191 lb 12.8 oz) 04/10/2023 9:42 AM VICE ADMIRAL Height 182.9 cm (6') 04/10/2023 9:42 AM VICE ADMIRAL Body Mass Index 26.01 04/10/2023 9:42 AM VICE ADMIRAL Medical Devices Implanted Type Area Regional Telecommunications Specialist Device Identifier Shelf Expiration Date Model / Serial / Lot Screw Set Ti Spnl Brk Off Cd Hzn Nonster Implanted:Qty: 4 on 06/07/2022 by Emmett Lozano MD at [facility] [employer] [id number] / / Screw 5.5mm 45mm Ma Spne Solera Cd Hzn Implanted:Qty: 4 on 06/07/2022 by Emmett Lozano MD at [facility] [employer] [id number] / / Cong Bone Void 10ml Dbm Grftn Algrf Ptty - [id number] Implanted:Qty: 1 on 06/07/2022 by Emmett Lozano MD at [facility] [employer] [id number] / [id number] / Donovan Spnl 45mm 5.5mm Cd Hzn Crv Cocrmo Implanted:Qty: 2 on 06/07/2022 by Emmett Lozano MD at [facility] [employer] [id number] / / Procedures * XR CERVICAL SPINE [...] SPINE 4 OR 5VW (04/10/2023 10:52 AM VICE ADMIRAL) Only the most recent of2 resultswithin the time period is included. Anatomical Region Laterality Modality Spine Radiographic Ludy ging 04/10/2023 1:46 PM VICE ADMIRAL Impressions 04/10/2023 4:05 PM VICE ADMIRAL IMPRESSION: Normal cervical spine with flexion-extension views. Degenerative changes as described above. Report dictated by Georgina Torres Dr, MD (vice president consulting services). I, Tariq Alexander DO have personally reviewed and interpreted this examination/study. > Interpreting Provider: Tariq Alexander DO on 04/10/2023 4:05 PM Narrative 04/10/2023 4:05 PM VICE ADMIRAL PROCEDURE: XR CERVICAL SPINE 4 OR 5VW, DATE/TIME OF EXAM: 04/10/2023 10:52 AM, LOCATION [facility] INDICATION: M54.2: Neck pain ADDITIONAL CLINICAL [...] 5VW, DATE/TIME OF EXAM: 0:52 AM, LOCATION [facility] INDICATION: M54.2: Neck pain ADDITIONAL CLINICAL [...] by Georgina Torres Dr, MD (vice president consulting services). Tariq Bolden DO have personally reviewed and interpreted this examination/study. > Interpreting Provider: Tariq Alexander DO on 04/10/2023 4:05 PM Emmett Lozano MD DIAGNOSTIC IMAGING O RDERABLES * MRI CERVICAL SPINE WO CONTRAST (02/13/2023 5:20 PM VICE ADMIRAL) Anatomical Region Laterality Modality Pelvis Magnetic Resonan ce 02/18/2023 2:26 PM VICE ADMIRAL Impressions 02/18/2023 4:47 PM VICE ADMIRAL IMPRESSION: 1.Mild to moderate multilevel degenerative disc and joint disease, most prominent at the levels of C5-C6 and C6-C7 as described above. Minimal T2/STIR hyperintensity in the cord at the level of C6-C7 could be artifactual versus sequela of myelomalacia. The report is dictated by Rossana Zamudio MD (vice president consulting services) Madeline Bolden MD have personally reviewed and interpreted this examination/study. > Interpreting Provider: Madeline Dinh MD on 02/18/2023 4:47 PM Narrative 02/18/2023 4:47 PM VICE ADMIRAL PROCEDURE: MRI CERVICAL SPINE WO CONTRAST, DATE/TIME OF EXAM: 02/13/2023 5:20 PM, LOCATION [facility] INDICATION: G95.9: Cervical myelopathy (CMS/HCC) EXAMINATION: [...] CONTRAST, DATE/TIME OF EXAM:02/13/2023 5:20 PM, LOCATION [facility] INDICATION: G95.9: Cervical myelopathy (CMS/HCC) EXAMINATION: [...] dictated by Rossana Zamudio MD (vice president consulting services) Madeline Bolden MD have personally reviewed and [...] by Horacio Morris MD, MD (vice president consulting services). Ronan Bolden MD have personally reviewed and [...] The visualized lower extremities are notable for rehs-bb-oazwjblh hip osteoarthritis, left greater than right, a [...] The visualized lower extremities are notable for xodj-vj-zppqlfxk hip osteoarthritis, left greater than right, a [...] by Horacio Morris MD, MD (vice president consulting services). I, Ronan Chinchilla MD have personally reviewed [...] and unchanged in alignment. There are 5 wqo-cnw-vcfszkz lumbar type vertebral bodies. There is a [...] and unchanged in alignment. There are 5 slm-urc-mxkihap lumbar type vertebral bodies. There is a [...] dictated by Chicho Rock MD (vice president consulting services). I, Derrell Duran MD have personally reviewed and interpreted this examination/study. > Interpreting Provider: Derrell Duran MD on 09/05/2022 10:30 PM Narrative 09/05/2022 10:30 PM CDT PROCEDURE: XR LUMBAR SPINE 2 OR 3VW, DATE/TIME OF EXAM: 09/05/2022 9:34 AM, LOCATION [facility] INDICATION: Z98.1: S/P lumbar spinal fusion [...] DATE/TIME OF EXAM: 09/05/2022 9:34 AM, LOCATION [facility] INDICATION: Z98.1: S/P lumbar spinal fusion [...] dictated by Chicho Rock MD (vice president consulting services). I, Derrell Duran MD have personally reviewed and interpreted this examination/study. > Interpreting Provider: Derrell Duran MD on 09/05/2022 10:30 PM Laverne Aranda APRN-PLASTIC BATTERY ASSEMBLER DIAGNOSTIC IMAGING O RDERABLES * CARDIAC EKG ORDER (06/27/2022 2:02 PM CDT) Narrative 06/27/2022 2:02 PM CDT Ordered by an unspecified provider. Scanned Document CARDIAC SERVICES ORD ERABLES * PTT [facility] (06/18/2022 6:13 AM CDT) Only the most recent of12 resultswithin the time period is included. APTT 30.4 23.0 - 38.4 Seconds 06/18/2022 7:42 AM CDT [facility] Comment:Suggested therapeuti c range for full dose I.V. unfractionated heparin therapy for venous thromboembolism is 71 to 109 seconds. Blood BLOOD SPECIMEN / Unknown Lab Venipuncture / Unknown 06/18/2022 6:13 AM CDT 06/18/2022 7:19 AM CDT Emmett Lozano MD LAB - COAGULATION OR DERABLES [facility] [address] [place] [address], [facility] [phone] * (ABNORMAL) CBC W AUTO DIFFERENTIAL (06/13/2022 12:31 AM VICE ADMIRAL) Only the most recent of8 resultswithin the time period is included. WBC 10.9(H) 3.5 - 10.5 10 3/uL 06/13/2022 2:23 AM [facility] RBC 4.00(L) 4.30 - 5.70 10 6/uL 06/13/2022 2:23 AM [facility] Hemoglobin 12.1 12.0 - 17.6 g/dL 06/13/2022 2:23 AM [facility] Hematocrit 34.6(L) 35.2 - 51.7 % 06/13/2022 2:23 AM [facility] MCV 86.5 80.7 - 98.3 fL 06/13/2022 2:23 AM [facility] MCH 30.3 26.7 - 34.0 pg 06/13/2022 2:23 AM [facility] MCHC 35.0 30.8 - 35.9 g/dL 06/13/2022 2:23 AM [facility] RDW-SD 37.2 36.0 - 50.0 fL 06/13/2022 2:23 AM [facility] RDW-CV 11.7 11.2 - 14.8 % 06/13/2022 2:23 AM [facility] Platelet Count 256 150 - 400 10 3/uL 06/13/2022 2:23 AM [facility] MPV 10.7 9.4 - 12.9 fL 06/13/2022 2:23 AM [facility] nRBC Absolute 0.00 0 10 3/uL 06/13/2022 2:23 AM [facility] nRBC Auto 0.0 0 /100 WBC 06/13/2022 2:23 AM [facility] Neutrophils % 60.3 35.0 - 70.0 % 06/13/2022 2:23 AM [facility] Lymphocytes % 22.5 20.0 - 43.0 % 06/13/2022 2:23 AM [facility] Monocytes % 14.6(H) 5.0 - 13.0 % 06/13/2022 2:23 AM [facility] Eosinophils % 1.0 0.0 - 6.0 % 06/13/2022 2:23 AM [facility] Basophil % 0.6 0.0 - 2.0 % 06/13/2022 2:23 AM [facility] Neutrophils Absolute 6.55 1.60 - 7.00 10 3/uL 06/13/2022 2:23 AM [facility] Lymphocyte Absolute 2.45 1.10 - 3.90 10 3/uL 06/13/2022 2:23 AM [facility] Monocytes Absolute 1.59(H) 0.26 - 1.07 10 3/uL 06/13/2022 2:23 AM [facility] Eosinophils Absolute 0.11 0.00 - 0.47 10 3/uL 06/13/2022 2:23 AM [facility] Basophils Absolute 0.06 0.00 - 0.08 10 3/uL 06/13/2022 2:23 AM [facility] Immature Granulocytes % 1.0 0.0 - 1.0 % 06/13/2022 2:23 AM [facility] Immature Granulocytes Absolute 0.11 06/13/2022 2:23 AM [facility] Blood BLOOD SPECIMEN / Unknown Lab Venipuncture / Unknown 06/13/2022 12:31 AM VICE ADMIRAL 06/13/2022 2:18 AM VICE ADMIRAL Emmett Lozano MD LAB - HEMATOLOGY ORD ERABLES [facility] [address] [place] [phone], [facility] [phone] * (ABNORMAL) BASIC METABOLIC PANEL (CALCIUM TOTAL) (06/13/2022 12:31 AM VICE ADMIRAL) Only the most recent of7 resultswithin the time period is included. BUN 15 7 - 26 mg/dL 06/13/2022 2:47 AM [facility] Creatinine 0.89 0.71 - 1.16 mg/dL 06/13/2022 2:47 AM [facility] Sodium 137 136 - 145 mmol/L 06/13/2022 2:47 AM [facility] Potassium 3.7 3.5 - 4.5 mmol/L 06/13/2022 2:47 AM [facility] Chloride 96(L) 98 - 107 mmol/L 06/13/2022 2:47 AM [facility] CO2 29 22 - 29 mmol/L 06/13/2022 2:47 AM [facility] Glucose 100 70 - 115 mg/dL 06/13/2022 2:47 AM [facility] Calcium 9.5 8.4 - 10.2 mg/dL 06/13/2022 2:47 AM [facility] Anion Gap 16 8 - 18 06/13/2022 2:47 AM [facility] BUN/Creatinine Ratio 17 7 - 23 06/13/2022 2:47 AM [facility] Osmolality Calculated 285 270 - 300 mOsm/kg 06/13/2022 2:47 AM [facility] eGFR by CKD-EPI >90 >=90 mL/min/1.7 3 m2 06/13/2022 2:47 AM [facility] Blood BLOOD SPECIMEN / Unknown Lab Venipuncture / Unknown 06/13/2022 12:31 AM VICE ADMIRAL 06/13/2022 2:18 AM [facility] Emmett Lozano MD LAB - CHEMISTRY [facility] Organization Address City/State/ZIP Co de Phone Number [facility] [address] [place] [address], [facility] [phone] * (ABNORMAL) DIFFERENTIAL MANUAL (06/11/2022 1:26 AM [facility]) Only the most recent of3 resultswithin the time period is included. WBC (corrected for NRBC) 12.4 10 3/uL 06/11/2022 4:49 AM [facility] Total Cell Count 100 06/11/2022 4:49 AM [facility] Neutrophils Absolute Manual 7.94(H) 1.60 - 7.00 10 3/uL 06/11/2022 4:49 AM [facility] Comment:(BANDS+SEGS) x WBC = NEUT # (ANC) Lymphocyte Absolute Manual 1.98 1.10 - 3.90 10 3/uL 06/11/2022 4:49 AM [facility] Monocytes Absolute Manual 2.23(H) 0.26 - 1.07 10 3/uL 06/11/2022 4:49 AM [facility] Eosinophils Absolute Manual 0.25 0.00 - 0.47 10 3/uL 06/11/2022 4:49 AM [facility] Band % Manual 2 0 - 10 % 06/11/2022 4:49 AM [facility] Neutrophil % Manual 62 35 - 70 % 06/11/2022 4:49 AM [facility] Lymphocyte % Manual 16(L) 20 - 43 % 06/11/2022 4:49 AM [facility] Monocytes % Manual 18(H) 5 - 13 % 06/11/2022 4:49 AM [facility] Eosinophils % Manual 2 0 - 6 % 06/11/2022 4:49 AM [facility] Platelet Estimate Adequate Adequate 06/11/2022 4:49 AM [facility] Target Cells 1+(A) None 06/11/2022 4:49 AM [facility] Blood BLOOD SPECIMEN / Unknown Lab Venipuncture / Unknown 06/11/2022 1:26 AM VICE ADMIRAL 06/11/2022 2:23 AM VICE ADMIRAL Emmett Lozano MD LAB - HEMATOLOGY ORD ERABLES [facility] [address] [place] [address], [facility] [phone] * XR ABDOMEN KUB PORTABLE (06/08/2022 9:47 PM VICE ADMIRAL) Anatomical Region Laterality Modality Abdomen Radiographic Ludy ging 06/09/2022 6:21 PM VICE ADMIRAL Impressions 06/10/2022 7:05 AM VICE ADMIRAL IMPRESSION: Gaseous distention of the stomach I, Ashok Mary MD have personally reviewed and interpreted this examination/study. > Interpreting Provider: Ashok Mary MD on 06/10/2022 7:05 AM Narrative 06/10/2022 7:05 AM VICE ADMIRAL PROCEDURE: XR ABDOMEN KUB PORTABLE, DATE/TIME OF EXAM: 06/08/2022 9:47 PM, LOCATION [facility] INDICATION: M47.816: Lumbar spondylosis ADDITIONAL CLINICAL [...] PORTABLE, DATE/TIME OF EXAM: 06/08/2022 9:47PM, LOCATION [facility] INDICATION: M47.816: Lumbar spondylosis ADDITIONAL CLINICAL [...] RBC UNIT(S), 2 Units (06/08/2022 1:17 AM VICE ADMIRAL) Unit Description AS1 LR PRBC [facility] BLOOD [facility] LAB Unit ABO B [facility] Unit Rh POS [facility] Product Number R02 [facility] B LOOD BANK LAB Unit Donor # [id number] [facility] B[facility] Unit Status released [facility] BLOO D BANK LAB Product Code [id number] [facility] BLO OD BANK LAB Blood Type Barcode 7300 [facility] Expiration Date S BLOOD BANK LAB Unit Description AS1 LR PRBC [facility] BLOOD [facility]ANK LAB Unit ABO B [facility] BLOOD B[facility] LAB Unit Rh POS [facility] BLOOD [facility] LAB Product Number R43 [facility] B LOOD BANK LAB Unit Donor # [id number] [facility] BLOOD BANK LAB Unit Status released [facility] BLOO D BANK LAB Product Code [id number] [facility] BLO OD BANK LAB Blood Type Barcode 7300 [facility] BLOOD [facility] LAB Expiration Date S BLOOD BANK LAB Blood Bank BLOOD SPECIMEN / Unknown 06/04/2022 3:05 AM VICE ADMIRAL Holly Anila Burrowsmitzysilviano LAB - BLOOD BANK O RDERABLES Performing Organization Address City/[facility]/ZIP Co de Phone Number [facility] B[facility] LAB [address] [place] [address], [facility] [phone] * [place] OARM SURGERY (06/07/2022 6:45 PM VICE ADMIRAL) Narrative [facility] RADIOLOGY - 06/07/2022 7:52 PM VICE ADMIRAL Fluoroscopy was used for this exam in the OR. Please see the Operative report. Emmett Lozano MD FLUOROSCOPY ORDERABL ES Performing Organization Address [facility] Co de Phone Number [facility] RADIOLOGY * [place] JERO SURGERY (06/07/2022 6:45 PM VICE ADMIRAL) Narrative [facility] RADIOLOGY - 06/07/2022 6:54 PM VICE ADMIRAL Fluoroscopy was used for this exam in the OR. Please see the Operative report. Emmett Lozano MD FLUOROSCOPY ORDERABL ES Performing Organization Address [facility] Co de Phone Number [facility] RADIOLOGY * PATHOLOGY TISSUE (06/07/2022 6:08 PM VICE ADMIRAL) Case Report Surgical Pathology Report Case: [id number] Authorizing Provider: Emmett Lozano MD Collected: 06/07/2022 06:08 PM Ordering Location: [address] Received: 06/08/2022 07:38 AM Pathologist: Bravo [...] substantiates the final diagnosis. 3 9:12 AM [facility] Clinical History 07/10/19 2 3 9:12 AM [facility] Intraoperative Consultation A. Extra dural mass are multiple fragments of red soft tissue measuring in aggregate 0.9 x 0.6 x 0.2 cm. Touch preparations are made and a retail sales representative portion is submitted for frozen section as FS A1. Intraoperative diagnosis: FS A1, extradural mass: -Disc material by Clara Daly MD 3 9:12 AM [facility] Gross Description The requisition and [...] submitted in cassette B1. 3 9:12 AM [facility] Disclaimer The performance characteristics of all immunohistochemical and indirect immunofluorescence stains (if any) cited in this report were determined by the Histopathology Laboratory of [facility]. Some of these tests were developed [...] the attending (teaching) pathologist. 3 9:12 AM [facility] Embedded Images 3 9:12 AM [facility] Biopsy, Excision SPECIMEN FROM INTERVERTEBRAL DISC / Unknown 06/07/2022 6:08 PM VICE ADMIRAL 06/08/2022 7:38 AM VICE ADMIRAL Comment:Pre-op diagnosis: spinal mass Biopsy, Excision SPECIMEN FROM INTERVERTEBRAL DISC / Unknown 06/07/2022 6:12 PM VICE ADMIRAL 06/08/2022 7:38 AM VICE ADMIRAL Comment:Pre-op diagnosis: spinal mass Emmett Lozano MD LAB - PATHOLOGY/CYTO LOGY ORDERABLES [facility] [address] [place] [address], [facility] [phone] * ETT LINE PERFORMABLE (06/07/2022 4:51 PM VICE ADMIRAL) Narrative Karlos Santoyo Anes Asst - 06/07/2022 4:51 PM VICE ADMIRAL Karlos Santoyo Anes Asst 06/07/2022 4:55 PM Endotracheal Tube Placement: Patient Location: OR. Intubation Event Date/Time: 06/07/2022 4:11 PM Procedure: intubation (75672). Procedure Section: Sedation: under general anesthesia. Indications [...] * ARTERIAL LINE PERFORMABLE (06/07/2022 4:50 PM VICE ADMIRAL) Gary Waterman MD - 06/07/2022 4:50 PM VICE ADMIRAL Gary Suarez MD 06/07/2022 4:52 PM Arterial Line Placement Procedure Note Patient Location: OR. Procedure: Arterial Line (13023). Procedure Section Indications: continuous blood pressure monitoring [...] RDERABLES * EKG 12-LEAD (06/05/2022 11:13 AM VICE ADMIRAL) Pathologist [facility] Ventricular Rate 83 BPM [facility] Atrial Rate 83 BPM [facility] P-R Interval 182 ms [facility] QRS Duration ms 88 ms [facility] Q-T Interval ms 346 ms [facility] QTC Calculation (Bezet) 406 ms [facility] Calculated P [place] 90 degrees [facility] Calculated R [place] 37 degrees [facility] Calculated T [place] 84 degrees [facility] Interpretation EKG NORMAL SINUS RHYTHM NONSPECIFIC T WAVE ABNORMALITY ABNORMAL ECG NO PREVIOUS ECGS AVAILABLE Confirmed by Issa MOORE, Aleksandra ([id number]) on 06/07/2022 12:15:23 AM [facility] MUSE 06/05/2022 11:1 3 AM VICE ADMIRAL 06/07/2022 12:15 AM VICE ADMIRAL Ellen Adames PRESCHOOL SUBSTITUTE TEACHER-PLASTIC BATTERY ASSEMBLER ECG ORDERABLES [facility] MUSE * XR CHEST 1VW PORTABLE (06/05/2022 11:05 AM VICE ADMIRAL) Anatomical Region Laterality Modality Chest Radiographic Ludy ging 06/05/2022 11:2 7 AM VICE ADMIRAL Impressions 06/05/2022 3:14 PM VICE ADMIRAL IMPRESSION: Mild right basilar atelectasis. Report dictated by Brennen Palm MD (vice president consulting services). I, Ronan Chinchilla MD have personally reviewed and interpreted this examination/study. > Interpreting Provider: Ronan Chinchilla MD on 06/05/2022 3:14 PM Narrative 06/05/2022 3:14 PM VICE ADMIRAL PROCEDURE: XR CHEST 1VW PORTABLE, DATE/TIME OF EXAM: 06/05/2022 11:05 AM, LOCATION [facility] INDICATION: M89.8X8: Mass of spine ADDITIONAL CLINICAL INFORMATION: Ordering Provider Reason For Exam: preop eval Technologist Note: Additional: COMPARISON: None. FINDINGS: Mild right basilar linear atelectasis. There is no pulmonary consolidation, pleural effusion, or pneumothorax. The heart size is normal. Procedure Note Ronan Chinchilla MD - 06/05/2022 PROCEDURE: XR CHEST 1VW PORTABLE, DATE/TIME OF EXAM: 06/05/2022 11:05AM, LOCATION [facility] INDICATION: M89.8X8: Mass of spine ADDITIONAL CLINICAL INFORMATION: Ordering Provider Reason For Exam: preop eval Technologist Note: Additional: COMPARISON: None. FINDINGS: Mild right basilar linear atelectasis. There is no pulmonaryconsolidation, pleural effusion, or pneumothorax. The heart size is normal. IMPRESSION: Mild right basilar atelectasis. Report dictated by Brennen Palm MD (vice president consulting services). I, Ronan Chinchilla MD have personally reviewed and interpreted this examination/study. > Interpreting Provider: Ronan Chinchilla MD on 06/05/2022 3:14 PM Ellen Adames APRN-PLASTIC BATTERY ASSEMBLER DIAGNOSTIC IMAGING O RDERABLES * BLOOD TYPE VERIFICATION (06/04/2022 7:37 PM VICE ADMIRAL) ABO Rh B POS 06/04/2022 8:0 6 PM VICE ADMIRAL [facility] BLOOD BANK LAB Blood Bank BLOOD SPECIMEN / Unknown Venipuncture / Unknown 06/04/2022 7:37 PM VICE ADMIRAL 06/04/2022 7:43 PM VICE ADMIRAL Lala Blake MD LAB - BLOOD BANK ORD ERABLES [facility] B[facility] LAB [address] [place] [address], [place] [phone] * PT-INR [facility] (06/04/2022 3:00 AM VICE ADMIRAL) [facility] PT 12.7 12.1 - 14.8 Seconds 06/04/2022 4:48 AM [facility] INR 1.0 See Comment 06/04/2022 4:48 AM [facility] Comment:The suggested therap eutic range for standard coumadin (warfarin) therapy is an INR of 2.0-3.0. For high-risk patients (Mechanical Mitral Valve Prosthesis, etc.), the suggested prophylactic therapeutic range is an INR of 2.5-3.5. Blood BLOOD SPECIMEN / Unknown Venipuncture / Unknown 06/04/2022 3:00 AM VICE ADMIRAL 06/04/2022 3:03 AM VICE ADMIRAL Reji Bee MD LAB - COAGULATI ON ORDERABLES Performing Organization Address [facility]/ZIP Co de Phone Number [address] [address], [facility] [phone] * TYPE + SCREEN PANEL (06/04/2022 3:00 AM VICE ADMIRAL) [facility] Antibody Screen NEG 3:41 AM [facility] BLOOD [facility] LAB ABO Rh B POS 06/04/2022 3:41 AM [facility] BLOOD [facility]ANK LAB Blood Bank BLOOD SPECIMEN / Unknown Venipuncture / Unknown 06/04/2022 3:00 AM VICE ADMIRAL 06/04/2022 3:05 AM VICE ADMIRAL Reji Bee MD LAB - BLOOD BAN K ORDERABLES Performing Organization Address City/[facility]/ZIP Co de Phone Number [facility] B[facility]OD [facility] LAB [address] [place] [address], [place] [phone] * (ABNORMAL) COMPREHENSIVE METABOLIC PANEL (06/04/2022 3:00 AM [facility]) [facility] BUN 15 7 - 26 mg/dL 06/04/2022 3:30 AM [facility] Creatinine 0.76 0.71 - 1.16 mg/dL 06/04/2022 3:30 AM [facility] Sodium 139 136 - 145 mmol/L 06/04/2022 3:30 AM [facility] Potassium 4.2 3.5 - 4.5 mmol/L 06/04/2022 3:30 AM [facility] Chloride 105 98 - 107 mmol/L 06/04/2022 3:30 AM [facility] CO2 22 22 - 29 mmol/L 06/04/2022 3:30 AM [facility] Glucose 124(H) 70 - 115 mg/dL 06/04/2022 3:30 AM [facility] Calcium 9.6 8.4 - 10.2 mg/dL 06/04/2022 3:30 AM [facility] Protein Total 7.0 6.0 - 8.3 g/dL 06/04/2022 3:30 AM [facility] Albumin 3.9 3.4 - 5.0 g/dL 06/04/2022 3:30 AM [facility] Bilirubin Total 0.4 0.2 - 1.2 mg/dL 06/04/2022 3:30 AM [facility] Alkaline Phosphatase 43 40 - 150 U/L 06/04/2022 3:30 AM [facility] ALT 20 5 - 55 U/L 06/04/2022 3:30 AM [facility] AST 20 5 - 34 U/L 06/04/2022 3:30 AM [facility] Anion Gap 16 8 - 18 06/04/2022 3:30 AM [facility] BUN/Creatinine Ratio 20 7 - 23 06/04/2022 3:30 AM [facility] Osmolality Calculated 290 270 - 300 mOsm/kg 06/04/2022 3:30 AM [facility] Albumin/Globulin Ratio 1.3 1.1 - 2.3 06/04/2022 3:30 AM [facility] eGFR by CKD-EPI >90 >=90 mL/min/1.7 3 m2 06/04/2022 3:30 AM [facility] Blood BLOOD SPECIMEN / Unknown Venipuncture / Unknown 06/04/2022 3:00 AM VICE ADMIRAL 06/04/2022 3:04 AM [facility] Reji Bee MD LAB - CHEMISTRY ORDERABLES [facility] [address] [place] [address], [facility] [phone] Care Teams Automobile Service Station Manager Relationship Specialty Start Date End Date Phuc Rubio MD PCP - General Internal Medicine 04/10/23
--- OUTSIDE RECORDS SUMMARY | 2024-06-19 08:05 | XMS_ITS | Clinical Summary ---
Author Organization [facility] Address [address] [place] [address] Care Team Providers Care Intake Rn Name Role Phone Phuc Rubio MD Primary Care Provider [phone] Source Comments [facility],non-owned Affiliates and Associated Physician Practices is amultiple site organization consisting of ambulatory clinics and hospital sitesin [place], [place], [place] and [place]. This disclosure is being madepursuant to the Care Everywhere program and may not contain all information available regarding this patient. Last updated 17.[facility] Allergies No known active allergies Medications * [...] 6 hours as needed Active HYDROcodone-acetamino phen ([place]) 5-325 MG tabletIndications:Lum bar spondylosis,Spinal cord mass [...] 2 times daily 06/01/2022 Active HYDROcodone-acetamino phen ([place]) 5-325 MG tabletIndications:S/P lumbar spinal fusion Take [...] and heating? Not hard at all 06/04/2022 [facility] [place] of Occupat ional Health - Occupational Stress [...] place to sleep or slept in a intermediate (including now)? No 06/04/2022 Sex and Gender Information Value Date Recorded Sex Assigned at Not on file Gender Identity Not on file Sexual Orientation Not on file Last Filed Vital Signs Vital Sign Reading Time Taken Comments Blood Pressure 128/84 04/10/2023 9:42 AM RAILROAD CAR LETTERER Pulse 109 04/10/2023 9:42 AM RAILROAD CAR LETTERER Temperature 36.8 C (98.3 F) 04/10/2023 9:42 AM RAILROAD CAR LETTERER Respiratory Rate 18 04/10/2023 9:42 AM RAILROAD CAR LETTERER Oxygen Saturation 96% 04/10/2023 9:42 AM RAILROAD CAR LETTERER Inhaled Oxygen Concentration - - Weight 87 kg (191 lb 12.8 oz) 04/10/2023 9:42 AM RAILROAD CAR LETTERER Height 182.9 cm (6') 04/10/2023 9:42 AM RAILROAD CAR LETTERER Body Mass Index 26.01 04/10/2023 9:42 AM RAILROAD CAR LETTERER Plan of Treatment Health Maintenance Due Date [...] complete this topic MENINGOCOCCAL (Group B) VACCINE SHARED DECISION-MAKING Aged Out No longer eligible based on patient's age to complete this topic MENINGOCOCCAL GROUPS A/C/Y/W VACCINE Aged Out No longer eligible based on patient's age to complete this topic Medical Devices Implanted Type Area Drafter Automotive Design Device Identifier Shelf Expiration Date Model / Serial / Lot Screw Set Ti Spnl Brk Off Cd Hzn Nonster Implanted:Qty: 4 on 06/07/2022 by Emmett Lozano MD at [facility] [employer] [id number] / / Screw 5.5mm 45mm Ma Spne Solera Cd Hzn Implanted:Qty: 4 on 06/07/2022 by Emmett Lozano MD at [facility] [employer] [id number] / / Cong Bone Void 10ml Dbm Grftn Algrf Ptty - [id number] Implanted:Qty: 1 on 06/07/2022 by Emmett Lozano MD at [facility] [employer] [id number] / [id number] / Donovan Spnl 45mm 5.5mm Cd Hzn Crv Cocrmo Implanted:Qty: 2 on 06/07/2022 by Emmett Lozano MD at [facility] [employer] [id number] / / Procedures Procedure Name Priority Date/Time Associated Diagnosis Comments BASIC METABOLIC PANEL (CALCIUM TOTAL) AM Draw 06/13/2022 12:31 AM RAILROAD CAR LETTERER from Last 3 Months or Most Recently Relevant to Health Maintenance Results * (ABNORMAL) BASIC METABOLIC PANEL (CALCIUM TOTAL) (06/13/2022 12:31 AM RAILROAD CAR LETTERER) BUN 15 7 - 26 mg/dL 06/13/2022 2:47 AM [facility] Creatinine 0.89 0.71 - 1.16 mg/dL 06/13/2022 2:47 AM [facility] Sodium 137 136 - 145 mmol/L 06/13/2022 2:47 AM [facility] Potassium 3.7 3.5 - 4.5 mmol/L 06/13/2022 2:47 AM [facility] Chloride 96(L) 98 - 107 mmol/L 06/13/2022 2:47 AM [facility] CO2 29 22 - 29 mmol/L 06/13/2022 2:47 AM [facility] Glucose 100 70 - 115 mg/dL 06/13/2022 2:47 AM [facility] Calcium 9.5 8.4 - 10.2 mg/dL 06/13/2022 2:47 AM [facility] Anion Gap 16 8 - 18 06/13/2022 2:47 AM [facility] BUN/Creatinine Ratio 17 7 - 23 06/13/2022 2:47 AM [facility] Osmolality Calculated 285 270 - 300 mOsm/kg 06/13/2022 2:47 AM [facility] eGFR by CKD-EPI >90 >=90 mL/min/1.7 3 m2 06/13/2022 2:47 AM [facility] Blood BLOOD SPECIMEN / Unknown Lab Venipuncture / Unknown 06/13/2022 12:31 AM RAILROAD CAR LETTERER 06/13/2022 2:18 AM RAILROAD CAR LETTERER Emmett Lozano MD LAB - CHEMISTRY SITA DOOLEY [facility] Organization Address City/State/ZIP Co de Phone Number [facility] [address] [place] [address], [facility] [phone] from Last 3 Months or Most Recently Relevant to Health Maintenance Advance Directives * Full Code (Latest Code Status on File) Date Activated Date Inactivated Comments 06/04/2022 8:50 AM 06/18/2022 3:14 PM Care Teams Intake Rn Relationship Specialty Start Date End Date Phuc Rubio MD PCP - General Internal Medicine 04/10/23
--- OUTSIDE RECORDS SUMMARY | 2024-06-19 08:05 | XMS_ITS | Referral Summary ---
Author Organization [facility] Address [address] [place] [address] Care Team Providers Care Senior Software Analyst Name Role Phone Phuc Rubio MD Primary Care Provider [phone] Source Comments [facility],non-owned Affiliates and Associated Physician Practices is amultiple site organization consisting of ambulatory clinics and hospital sitesin [place], [place], [place] and [place]. This disclosure is being madepursuant to the Care Everywhere program and may not contain all information available regarding this patient. Last updated 17.[facility] Allergies No known active allergies Medications * [...] 6 hours as needed Active HYDROcodone-acetamino phen ([place]) 5-325 MG tabletIndications:Lum bar spondylosis,Spinal cord mass [...] 2 times daily 06/01/2022 Active HYDROcodone-acetamino phen ([place]) 5-325 MG tabletIndications:S/P lumbar spinal fusion Take [...] and heating? Not hard at all 06/04/2022 [facility] [place] of Occupat ional Health - Occupational Stress [...] place to sleep or slept in a correction (including now)? No 06/04/2022 Sex and Gender Information Value Date Recorded Sex Assigned at Not on file Gender Identity Not on file Sexual Orientation Not on file Last Filed Vital Signs Vital Sign Reading Time Taken Comments Blood Pressure 128/84 04/10/2023 9:42 AM BOOM CRANE OPERATOR Pulse 109 04/10/2023 9:42 AM BOOM CRANE OPERATOR Temperature 36.8 C (98.3 F) 04/10/2023 9:42 AM BOOM CRANE OPERATOR Respiratory Rate 18 04/10/2023 9:42 AM BOOM CRANE OPERATOR Oxygen Saturation 96% 04/10/2023 9:42 AM BOOM CRANE OPERATOR Inhaled Oxygen Concentration - - Weight 87 kg (191 lb 12.8 oz) 04/10/2023 9:42 AM BOOM CRANE OPERATOR Height 182.9 cm (6') 04/10/2023 9:42 AM BOOM CRANE OPERATOR Body Mass Index 26.01 04/10/2023 9:42 AM BOOM CRANE OPERATOR Functional Status Functional Status Response Date of [...] on file Medical Devices Implanted Type Area Reproduction Machine Loader Device Identifier Shelf Expiration Date Model / Serial / Lot Screw Set Ti Spnl Brk Off Cd Hzn Nonster Implanted:Qty: 4 on 06/07/2022 by Emmett Lozano MD at [facility] [employer] [id number] / / Screw 5.5mm 45mm Ma Spne Solera Cd Hzn Implanted:Qty: 4 on 06/07/2022 by Emmett Lozano MD at [facility] [employer] [id number] / / Cong Bone Void 10ml Dbm Grftn Algrf Ptty - [id number] Implanted:Qty: 1 on 06/07/2022 by Emmett Lozano MD at [facility] [employer] [id number] / [id number] / Donovan Spnl 45mm 5.5mm Cd Hzn Crv Cocrmo Implanted:Qty: 2 on 06/07/2022 by Emmett Lozano MD at [facility] [employer] [id number] / / Procedures Procedure Name Priority Date/Time Associated Diagnosis Comments BASIC METABOLIC PANEL (CALCIUM TOTAL) AM Draw 06/13/2022 12:31 AM BOOM CRANE OPERATOR from Last 3 Months or Most Recently Relevant to Health Maintenance Results * (ABNORMAL) BASIC METABOLIC PANEL (CALCIUM TOTAL) (06/13/2022 12:31 AM BOOM CRANE OPERATOR) BUN 15 7 - 26 mg/dL 06/13/2022 2:47 AM [facility] Creatinine 0.89 0.71 - 1.16 mg/dL 06/13/2022 2:47 AM [facility] Sodium 137 136 - 145 mmol/L 06/13/2022 2:47 AM [facility] Potassium 3.7 3.5 - 4.5 mmol/L 06/13/2022 2:47 AM [facility] Chloride 96(L) 98 - 107 mmol/L 06/13/2022 2:47 AM BOOM CRANE OPERATOR [facility] CO2 29 22 - 29 mmol/L 06/13/2022 2:47 AM [facility] Glucose 100 70 - 115 mg/dL 06/13/2022 2:47 AM [facility] Calcium 9.5 8.4 - 10.2 mg/dL 06/13/2022 2:47 AM [facility] Anion Gap 16 8 - 18 06/13/2022 2:47 AM [facility] BUN/Creatinine Ratio 17 7 - 23 06/13/2022 2:47 AM [facility] Osmolality Calculated 285 270 - 300 mOsm/kg 06/13/2022 2:47 AM [facility] eGFR by CKD-EPI >90 >=90 mL/min/1.7 3 m2 06/13/2022 2:47 AM [facility] Blood BLOOD SPECIMEN / Unknown Lab Venipuncture / Unknown 06/13/2022 12:31 AM BOOM CRANE OPERATOR 06/13/2022 2:18 AM [facility] Emmett Lozano MD LAB - CHEMISTRY SITA DOOLEY [facility] Organization Address City/State/ZIP Co de Phone Number [facility] [address] [place] [address], [facility] [phone] from Last 3 Months or Most Recently Relevant to Health Maintenance Advance Directives * Full Code (Latest Code Status on File) Date Activated Date Inactivated Comments 06/04/2022 8:50 AM 06/18/2022 3:14 PM Care Teams Senior Software Analyst Relationship Specialty Start Date End Date Phuc Rubio MD PCP - General Internal Medicine 04/10/23
[2024-06-19 08:23] LABS: Basophils Percent Auto 0.3 % (0.2-1.2); Hematocrit 46.1 % (42.0-52.0); Hemoglobin 16.4 g/dL (14.0-18.0); Immature Granulocyte Absolute 0.05 K/mm3 (0.00-0.031); Immature Granulocyte Percent A 0.5 % (0-0.5); Lymphocytes Percent Auto 7.4 % (18.3-44.2); Mean Corpuscular HGB Conc 35.6 g/dl (32-36); Mean Corpuscular Hemoglobin 30.7 pg (26-34); Mean Corpuscular Volume 86.3 fl (80-100); Monocytes Absolute Auto 0.8 K/mm3 (0.1-0.6); Monocytes Percent Auto 7.1 % (2.6-8.5); Neutrophils Absolute Auto 9.1 K/mm3 (1.3-6.7); Neutrophils Percent Auto 84.7 % (45.5-73.1); Platelet Count Result 214 k/mm3 (150-375); Red Blood Count 5.34 M/mm3 (4.6-6.20); Red Cell Distribution Width 12.4 % (11.5-14.5); White Blood Count 10.8 K/mm3 (4.5-10.0)
[2024-06-19 08:33] LABS: Alanine Aminotransferase 44 U/L (6-50); Albumin Level 5.3 g/dL (3.5-5.1); Alkaline Phosphatase 71 U/L (38-126); Anion Gap 16 mmol/L (4-12); Aspartate Amino Transferase 43 U/L (17-59); Bilirubin,Total 0.7 mg/dL (0.2-1.3); Blood Urea Nitrogen 21 mg/dL (9-20); Calcium 9.8 mg/dL (8.4-10.2); Carbon Dioxide 22 mmol/L (22-30); Chloride 103 mmol/L (98-107); Estimated CRCL calculation 61 ml/min; Estimated Glomerular Filt Rate > 60; Glucose 100 mg/dL (65-110); Lipase 66 U/L (23-300); Potassium 4.7 mmol/L (3.4-5.0); Sodium 141 mmol/L (137-145)
[2024-06-19 08:45] LABS: Troponin I < 0.012 ng/mL (0.000-0.034)
[2024-06-19 08:56] LABS: INR 0.9; Partial Thromboplastin Time 25.8 Seconds (22.3-36.8)
--- OUTSIDE RECORDS SUMMARY | 2024-06-19 09:15 | XMS_ITS | Referral Summary ---
Author Organization [facility] Address [address] [place] [address] Care Team Providers Care Corrections Specialist Name Role Phone Phuc Rubio MD Primary Care Provider [phone] Allergies No known active allergies Medications ibuprofen [...] on file Legal Sex Male 10:55 AM NEWSPAPER PEDDLER Gender Identity Not on file Sexual Orientation [...] Not on file Insurance MEDICAID GENERIC OTHER [facility] Care Teams Corrections Specialist Relationship Specialty Start Date End Date Phuc Rubio MD PCP - General Internal Medicine 12/23/21
--- OUTSIDE RECORDS SUMMARY | 2024-06-19 09:15 | XMS_ITS | Referral Summary ---
Author Organization [facility] Address [address] [place] [address] Care Team Providers Care Cardiac Exercise Physiologist Name Role Phone Phuc Rubio MD Primary Care Provider [phone] Source Comments [facility],non-owned Affiliates and Associated Physician Practices is amultiple site organization consisting of ambulatory clinics and hospital sitesin [place], [place], [place] and [place]. This disclosure is being madepursuant to the Care Everywhere program and may not contain all information available regarding this patient. Last updated 17.[facility] Allergies No known active allergies Medications * [...] 6 hours as needed Active HYDROcodone-acetamino phen ([place]) 5-325 MG tabletIndications:Lum bar spondylosis,Spinal cord mass [...] 2 times daily 06/01/2022 Active HYDROcodone-acetamino phen ([place]) 5-325 MG tabletIndications:S/P lumbar spinal fusion Take [...] and heating? Not hard at all 06/04/2022 [facility] [place] of Occupat ional Health - Occupational Stress [...] place to sleep or slept in a retirement (including now)? No 06/04/2022 Sex and Gender Information Value Date Recorded Sex Assigned at Not on file Gender Identity Not on file Sexual Orientation Not on file Last Filed Vital Signs Vital Sign Reading Time Taken Comments Blood Pressure 128/84 04/10/2023 9:42 AM SENIOR ORACLE ADF DEVELOPER Pulse 109 04/10/2023 9:42 AM SENIOR ORACLE ADF DEVELOPER Temperature 36.8 C (98.3 F) 04/10/2023 9:42 AM SENIOR ORACLE ADF DEVELOPER Respiratory Rate 18 04/10/2023 9:42 AM SENIOR ORACLE ADF DEVELOPER Oxygen Saturation 96% 04/10/2023 9:42 AM SENIOR ORACLE ADF DEVELOPER Inhaled Oxygen Concentration - - Weight 87 kg (191 lb 12.8 oz) 04/10/2023 9:42 AM SENIOR ORACLE ADF DEVELOPER Height 182.9 cm (6') 04/10/2023 9:42 AM SENIOR ORACLE ADF DEVELOPER Body Mass Index 26.01 04/10/2023 9:42 AM SENIOR ORACLE ADF DEVELOPER Functional Status Functional Status Response Date of [...] on file Medical Devices Implanted Type Area Pupil Personnel Worker Device Identifier Shelf Expiration Date Model / Serial / Lot Screw Set Ti Spnl Brk Off Cd Hzn Nonster Implanted:Qty: 4 on 06/07/2022 by Emmett Lozano MD at [facility] [employer] [id number] / / Screw 5.5mm 45mm Ma Spne Solera Cd Hzn Implanted:Qty: 4 on 06/07/2022 by Emmett Lozano MD at [facility] [employer] [id number] / / Cong Bone Void 10ml Dbm Grftn Algrf Ptty - [id number] Implanted:Qty: 1 on 06/07/2022 by Emmett Lozano MD at [facility] [employer] [id number] / [id number] / Donovan Spnl 45mm 5.5mm Cd Hzn Crv Cocrmo Implanted:Qty: 2 on 06/07/2022 by Emmett Lozano MD at [facility] [employer] [id number] / / Procedures Procedure Name Priority Date/Time Associated Diagnosis Comments BASIC METABOLIC PANEL (CALCIUM TOTAL) AM Draw 06/13/2022 12:31 AM SENIOR ORACLE ADF DEVELOPER from Last 3 Months or Most Recently Relevant to Health Maintenance Results * (ABNORMAL) BASIC METABOLIC PANEL (CALCIUM TOTAL) (06/13/2022 12:31 AM SENIOR ORACLE ADF DEVELOPER) BUN 15 7 - 26 mg/dL 06/13/2022 2:47 AM [facility] Creatinine 0.89 0.71 - 1.16 mg/dL 06/13/2022 2:47 AM [facility] Sodium 137 136 - 145 mmol/L 06/13/2022 2:47 AM [facility] Potassium 3.7 3.5 - 4.5 mmol/L 06/13/2022 2:47 AM [facility] Chloride 96(L) 98 - 107 mmol/L 06/13/2022 2:47 AM SENIOR ORACLE ADF DEVELOPER [facility] CO2 29 22 - 29 mmol/L [...] Lab Venipuncture / Unknown 06/13/2022 12:31 AM SENIOR ORACLE ADF DEVELOPER 06/13/2022 2:18 AM [facility] Emmett Lozano MD LAB - CHEMISTRY SITA DOOLEY [facility] Organization Address City/State/ZIP Co de Phone Number [facility] [address] [place] [address], [facility] [phone] from Last 3 Months or Most Recently Relevant to Health Maintenance Advance Directives * Full Code (Latest Code Status on File) Date Activated Date Inactivated Comments 06/04/2022 8:50 AM 06/18/2022 3:14 PM Care Teams Cardiac Exercise Physiologist Relationship Specialty Start Date End Date Phuc Rubio MD PCP - General Internal Medicine 04/10/23
--- OUTSIDE RECORDS SUMMARY | 2024-06-19 09:15 | XMS_ITS | Clinical Summary ---
Author Organization [facility] Address [address] [place] [address] Care Team Providers Care Job Boss Name Role Phone Phuc Rubio MD Primary Care Provider [phone] Allergies No known active allergies Medications ibuprofen [...] on file Legal Sex Male 10:55 AM SOURCING INTERN Gender Identity Not on file Sexual Orientation [...] Visit 65+ 12/11/2023 Insurance MEDICAID GENERIC OTHER [facility] Care Teams Job Boss Relationship Specialty Start Date End Date Phuc Rubio MD PCP - General Internal Medicine 12/23/21
--- OUTSIDE RECORDS SUMMARY | 2024-06-19 09:15 | XMS_ITS | Clinical Summary ---
Author Organization [facility] Address [address] [place] [address] Care Team Providers Care Photographer Model Name Role Phone Phuc Rubio MD Primary Care Provider [phone] Source Comments [facility],non-owned Affiliates and Associated Physician Practices is amultiple site organization consisting of ambulatory clinics and hospital sitesin [place], [place], [place] and [place]. This disclosure is being madepursuant to the Care Everywhere program and may not contain all information available regarding this patient. Last updated 17.[facility] Allergies No known active allergies Medications * [...] 6 hours as needed Active HYDROcodone-acetamino phen ([place]) 5-325 MG tabletIndications:Lum bar spondylosis,Spinal cord mass [...] 2 times daily 06/01/2022 Active HYDROcodone-acetamino phen ([place]) 5-325 MG tabletIndications:S/P lumbar spinal fusion Take [...] and heating? Not hard at all 06/04/2022 [facility] [place] of Occupat ional Health - Occupational Stress [...] place to sleep or slept in a penitentiary (including now)? No 06/04/2022 Sex and Gender Information Value Date Recorded Sex Assigned at Not on file Gender Identity Not on file Sexual Orientation Not on file Last Filed Vital Signs Vital Sign Reading Time Taken Comments Blood Pressure 128/84 04/10/2023 9:42 AM REVIEW RN Pulse 109 04/10/2023 9:42 AM REVIEW RN Temperature 36.8 C (98.3 F) 04/10/2023 9:42 AM REVIEW RN Respiratory Rate 18 04/10/2023 9:42 AM REVIEW RN Oxygen Saturation 96% 04/10/2023 9:42 AM REVIEW RN Inhaled Oxygen Concentration - - Weight 87 kg (191 lb 12.8 oz) 04/10/2023 9:42 AM REVIEW RN Height 182.9 cm (6') 04/10/2023 9:42 AM REVIEW RN Body Mass Index 26.01 04/10/2023 9:42 AM REVIEW RN Plan of Treatment Health Maintenance Due Date [...] this topic Medical Devices Implanted Type Area Jar Capper Device Identifier Shelf Expiration Date Model / Serial / Lot Screw Set Ti Spnl Brk Off Cd Hzn Nonster Implanted:Qty: 4 on 06/07/2022 by Emmett Lzoano MD at [facility] [employer] [id number] / / Screw 5.5mm 45mm Ma Spne Solera Cd Hzn Implanted:Qty: 4 on 06/07/2022 by Emmett Lozano MD at [facility] [employer] [id number] / / Cong Bone Void 10ml Dbm Grftn Algrf Ptty - [id number] Implanted:Qty: 1 on 06/07/2022 by Emmett Lozano MD at [facility] [employer] [id number] / [id number] / Donovan Spnl 45mm 5.5mm Cd Hzn Crv Cocrmo Implanted:Qty: 2 on 06/07/2022 by Emmett Lozano MD at [facility] [employer] [id number] / / Procedures Procedure Name Priority Date/Time Associated Diagnosis Comments BASIC METABOLIC PANEL (CALCIUM TOTAL) AM Draw 06/13/2022 12:31 AM REVIEW RN from Last 3 Months or Most Recently Relevant to Health Maintenance Results * (ABNORMAL) BASIC METABOLIC PANEL (CALCIUM TOTAL) (06/13/2022 12:31 AM REVIEW RN) BUN 15 7 - 26 mg/dL 06/13/2022 2:47 AM [facility] Creatinine 0.89 0.71 - 1.16 mg/dL 06/13/2022 2:47 AM [facility] Sodium 137 136 - 145 mmol/L 06/13/2022 2:47 AM [facility] Potassium 3.7 3.5 - 4.5 mmol/L 06/13/2022 2:47 AM [facility] Chloride 96(L) 98 - 107 mmol/L 06/13/2022 2:47 AM [facility] CO2 29 22 - 29 mmol/L 06/13/2022 2:47 AM [facility] Glucose 100 70 - 115 mg/dL 06/13/2022 2:47 AM [facility] Calcium 9.5 8.4 - 10.2 mg/dL 06/13/2022 2:47 AM [facility] Anion Gap 16 8 - 18 06/13/2022 2:47 AM [facility] BUN/Creatinine Ratio 17 7 - 23 06/13/2022 2:47 AM [facility] Osmolality Calculated 285 270 - 300 mOsm/kg 06/13/2022 2:47 AM [facility] eGFR by CKD-EPI >90 >=90 mL/min/1.7 3 m2 06/13/2022 2:47 AM [facility] Blood BLOOD SPECIMEN / Unknown Lab Venipuncture / Unknown 06/13/2022 12:31 AM REVIEW RN 06/13/2022 2:18 AM REVIEW RN Emmett Lozano MD LAB - CHEMISTRY SITA ODOLEY [facility] Organization Address City/State/ZIP Co de Phone Number [facility] [address] [place] [address], [facility] [phone] from Last 3 Months or Most Recently Relevant to Health Maintenance Advance Directives * Full Code (Latest Code Status on File) Date Activated Date Inactivated Comments 06/04/2022 8:50 AM 06/18/2022 3:14 PM Care Teams Photographer Model Relationship Specialty Start Date End Date Phuc Rubio MD PCP - General Internal Medicine 04/10/23
--- OUTSIDE RECORDS SUMMARY | 2024-06-19 09:15 | XMS_ITS | CONTINUITY OF CARE DOCUMENT ---
Author Name chelsiekam brandonwalter Address Unknown Organization [facility] Address [address] [address] [facility] [address] [facility] [address] [place] [address] Phone [phone] Care Team Providers Care Manager Golf Name Role Phone Oscar MOORE, Stoney Unavailable [phone] ZARIA BEE MD Unavailable ZARIA BEE MD Unavailable PROBLEMS Condition Status Date Provider Notes Hypertension active Stoney Moore MD Tobacco abuse- hx of active Stoney Moore MD Venous hypertension - unspecified active Thurman ndeivelisse Moore MD C O P D active Stoney Moore MD ENCOUNTERS Date Type Provider Location Encounter Diag nosis - In-person encounter Office Visit Stoney Moore MD [facility] - In-person encounter Office Visit Stoney Moore MD [facility] C [facility] P DHypertensionV enous hypertension - unspecifiedTobacco abuse- hx of VITAL SIGNS Date Observation Value Provider Body Mass Index (Ratio) 27.94 kg/m2 ming Moore MD blood pressure, cuff size large Ke rri [...] E&M 16 /min Chrissy hopkins pulse rate 95 /min Chrissy Kohler [...] 1 TABLET BY MOUTH EVERY DAY Chrissy uGzman albuterol sulfate 90 mcg/actuation HFA aerosol inhaler [...] Payer name Policy type / Coverage type [place] [employer] party ID [employer] (2) Medicaid [id number] ADVANCE DIRECTIVES Name Date DISCUSSED - NO DECISION MADE TREATMENT PLAN Date Name Performer [id number],C, H is updated medication list for this problem includes: Metoprolol Succinate 50 Mg Tablet Extended Release 24 Hr (Metoprolol succinate) ..... Take 1 tablet by mouth daily BP today: 151/104 P rior BP: 146/90 (01/03/2022) Stoney Moore MD [id number],S, Stoney Moore MD [id number],C,H e has L GSV venous insufficiency w e will recommend compression stockings 20-30mmhg w ill see back after 6 -8 weeks and possibly do venaseal. Marisol Lee COMMERCIAL LOAN COORDINATOR [id number],C,P ita comes in for ans initial evaluatin [...] upper part of calf. Stoneyming Moore MD [id number],C, H is updated medication list for this problem includes: Metoprolol Succinate 50 Mg Tablet Extended Release 24 Hr (Metoprolol succinate) ..... Take 1 tablet by mouth daily BP today: 146/90 Stoneyrodrigo Moore MD [id number],C,urged to quit Stoney Oscar MOORE [id number],C,urged to quit Stoney Oscar MOORE Cardiology: H [...] weeks and possibly do venaseal. Marisol Lee COMMERCIAL LOAN COORDINATOR Cardiology:Patient c omes in for ans initial evaluatin for varicose veins in [facility] for years - they are sore to [...]
--- OUTSIDE RECORDS SUMMARY | 2024-06-19 09:15 | XMS_ITS | Clinical Summary ---
Author Organization [facility] Address [facility] [place] [address] Care Team Providers Care Hard Hat Diver Name Role Phone Phuc Rubio MD Primary Care Provider [phone] Medications traMADol (ULTRAM) 50 MG tablet 03/22/2022 Active Social History Tobacco Use Types Packs/Day Years Used Date Smoking Tobacco: Never Assessed Sex and Gender Information Value Date Recorded Sex Assigned at Not on file Legal Sex Male 7:08 PM PATIENT ACCOUNT SPECIALIST Gender Identity Not on file Sexual Orientation Not on file Last Filed Vital Signs Vital Sign Reading Time Taken Comments Blood Pressure 168/97 06/03/2022 11:20 PM PATIENT ACCOUNT SPECIALIST Pulse 82 06/03/2022 11:20 PM PATIENT ACCOUNT SPECIALIST Temperature 37 C (98.6 F) 06/03/2022 7:23 PM PATIENT ACCOUNT SPECIALIST Respiratory Rate 16 06/03/2022 11:20 PM PATIENT ACCOUNT SPECIALIST Oxygen Saturation 93% 06/03/2022 11:20 PM PATIENT ACCOUNT SPECIALIST Inhaled Oxygen Concentration - - Weight 97.1 kg (214 lb) 06/03/2022 7:34 PM PATIENT ACCOUNT SPECIALIST Height 182.9 cm (6') 06/03/2022 7:34 PM PATIENT ACCOUNT SPECIALIST Body Mass Index 29.02 06/03/2022 7:34 PM PATIENT ACCOUNT SPECIALIST Plan of Treatment Health Maintenance Due Date [...] to complete this topic Insurance Care Teams Hard Hat Diver Relationship Specialty Start Date End Date Phuc Rubio MD [address] [place] [address] PCP - General INTERNAL MEDICINE 06/03/22
--- OUTSIDE RECORDS SUMMARY | 2024-06-19 09:16 | XMS_ITS | Patient Health Summary ---
Author Organization [facility] Address [address] [place] [address] Care Team Providers Care Evaporator Repairer Name Role Phone Phuc Rubio MD Primary Care Provider [phone] Note from [facility],non-owned Affiliates and Associated Physician Practices is amultiple site organization consisting of ambulatory clinics and hospital sitesin [place], [place], [place] and [place]. This disclosure is being madepursuant to the Care Everywhere program and may not contain all information available regarding this patient. Last updated 17.[facility] Allergies No known active allergies Medications * [...] every 6 hours as needed * HYDROcodone-acetaminophen (Stover) 5-325 MG tablet(Started 06/10/2022) Take 1 (one) [...] by mouth 2 times daily * HYDROcodone-acetaminophen (Stover) 5-325 MG tablet(Started 09/05/2022) Take 1 (one) [...] and heating? Not hard at all 06/04/2022 [facility] of Occupat ional Health - Occupational Stress [...] Comments Blood Pressure 128/84 04/10/2023 9:42 AM TRACK RIDER Pulse 109 04/10/2023 9:42 AM TRACK RIDER Temperature 36.8 C (98.3 F) 04/10/2023 9:42 AM TRACK RIDER Respiratory Rate 18 04/10/2023 9:42 AM TRACK RIDER Oxygen Saturation 96% 04/10/2023 9:42 AM TRACK RIDER Inhaled Oxygen Concentration - - Weight 87 kg (191 lb 12.8 oz) 04/10/2023 9:42 AM TRACK RIDER Height 182.9 cm (6') 04/10/2023 9:42 AM TRACK RIDER Body Mass Index 26.01 04/10/2023 9:42 AM TRACK RIDER Medical Devices Implanted Type Area Rug Setter [place] Device Identifier Shelf Expiration Date Model / Serial / Lot Screw Set Ti Spnl Brk Off Cd Hzn Nonster Implanted:Qty: 4 on 06/07/2022 by Emmett Lozano MD at [facility] [employer] [id number] / / Screw 5.5mm 45mm Ma Spne Solera Cd Hzn Implanted:Qty: 4 on 06/07/2022 by Emmett Lozano MD at [facility] [employer] [id number] / / Cong Bone Void 10ml Dbm Grftn Algrf Ptty - [id number] Implanted:Qty: 1 on 06/07/2022 by Emmett Lozano MD at [facility] [employer] [id number] / [id number] / Donovan Spnl 45mm 5.5mm Cd Hzn Crv Cocrmo Implanted:Qty: 2 on 06/07/2022 by Emmett Lozano MD at [facility] [employer] [id number] / / Procedures * XR CERVICAL SPINE [...] SPINE 4 OR 5VW (04/10/2023 10:52 AM TRACK RIDER) Only the most recent of2 resultswithin the time period is included. Anatomical Region Laterality Modality Spine Radiographic Ludy ging 04/10/2023 1:46 PM TRACK RIDER Impressions 04/10/2023 4:05 PM TRACK RIDER IMPRESSION: Normal cervical spine with flexion-extension views. Degenerative changes as described above. Report dictated by Georgina Torres Dr, MD (director of radiology). I, Tariq Alexander DO have personally reviewed and interpreted this examination/study. > Interpreting Provider: Tariq Alexander DO on 04/10/2023 4:05 PM Narrative 04/10/2023 4:05 PM TRACK RIDER PROCEDURE: XR CERVICAL SPINE 4 OR 5VW, DATE/TIME OF EXAM: 04/10/2023 10:52 AM, LOCATION [facility] INDICATION: M54.2: Neck pain ADDITIONAL CLINICAL INFORMATION: [...] 5VW, DATE/TIME OF EXAM: 0:52 AM, LOCATION [facility] INDICATION: M54.2: Neck pain ADDITIONAL CLINICAL INFORMATION: [...] Report dictated by Georgina Torres Dr, MD (director of radiology). Tariq Bolden DO have personally reviewed and interpreted this examination/study. > Interpreting Provider: Tariq Alexander DO on 04/10/2023 4:05 PM Emmett Lozano MD DIAGNOSTIC IMAGING O RDERABLES * MRI CERVICAL SPINE WO CONTRAST (02/13/2023 5:20 PM TRACK RIDER) Anatomical Region Laterality Modality Pelvis Magnetic Resonan ce 02/18/2023 2:26 PM TRACK RIDER Impressions 02/18/2023 4:47 PM TRACK RIDER IMPRESSION: 1.Mild to moderate multilevel degenerative disc and joint disease, most prominent at the levels of C5-C6 and C6-C7 as described above. Minimal T2/STIR hyperintensity in the cord at the level of C6-C7 could be artifactual versus sequela of myelomalacia. The report is dictated by Rossana Zamudio MD (director of radiology) Madeline Bolden MD have personally reviewed and interpreted this examination/study. > Interpreting Provider: Madeline Dinh MD on 02/18/2023 4:47 PM Narrative 02/18/2023 4:47 PM TRACK RIDER PROCEDURE: MRI CERVICAL SPINE WO CONTRAST, DATE/TIME OF EXAM: 02/13/2023 5:20 PM, LOCATION [facility] INDICATION: G95.9: Cervical myelopathy (CMS/HCC) EXAMINATION: Magnetic [...] CONTRAST, DATE/TIME OF EXAM:02/13/2023 5:20 PM, LOCATION [facility] INDICATION: G95.9: Cervical myelopathy (CMS/HCC) EXAMINATION: Magnetic [...] report is dictated by Rossana Zamudio MD (director of radiology) Madeline Bolden MD have personally reviewed and [...] Report dictated by Horacio Morris MD, MD (director of radiology). Ronan Bolden MD have personally reviewed and [...] The visualized lower extremities are notable for akid-jo-mzgjbghm hip osteoarthritis, left greater than right, a [...] The visualized lower extremities are notable for wjhm-cf-kwanfwvs hip osteoarthritis, left greater than right, a bipartite right patella, liset 1.9 cm irregular sclerotic bone lesion in the posterior aspect of theright distal femoral shaft. IMPRESSION: 1. Posterior instrumented spinal fusion at L1-L2. Hardware appearsintact. 2. 1.9 cm irregular sclerotic bone lesion in the right distal femur. Recommend right femur x-rays for further evaluation. Report dictated by Horacio Morris MD, MD (director of radiology). I, Ronan Chinchilla MD have personally reviewed [...] and unchanged in alignment. There are 5 ove-byk-pxdajws lumbar type vertebral bodies. There is a [...] and unchanged in alignment. There are 5 ums-eof-qepawrw lumbar type vertebral bodies. There is a [...] intact. Report dictated by Chicho Rock MD (director of radiology). I, Derrell Duran MD have personally reviewed and interpreted this examination/study. > Interpreting Provider: Derrell Duran MD on 09/05/2022 10:30 PM Narrative 09/05/2022 10:30 PM CDT PROCEDURE: XR LUMBAR SPINE 2 OR 3VW, DATE/TIME OF EXAM: 09/05/2022 9:34 AM, LOCATION [facility] INDICATION: Z98.1: S/P lumbar spinal fusion ADDITIONAL [...] DATE/TIME OF EXAM: 09/05/2022 9:34 AM, LOCATION [facility] INDICATION: Z98.1: S/P lumbar spinal fusion ADDITIONAL [...] intact. Report dictated by Chicho Rock MD (director of radiology). I, Derrell Duran MD have personally reviewed and interpreted this examination/study. > Interpreting Provider: Derrell Duran MD on 09/05/2022 10:30 PM Laverne Aranda APRN-[employer] DIAGNOSTIC IMAGING O RDERABLES * CARDIAC EKG ORDER (06/27/2022 2:02 PM CDT) Narrative 06/27/2022 2:02 PM CDT Ordered by an unspecified provider. Scanned Document CARDIAC SERVICES ORD ERABLES * PTT [facility] (06/18/2022 6:13 AM CDT) Only the most recent of12 resultswithin the time period is included. APTT 30.4 23.0 - 38.4 Seconds 06/18/2022 7:42 AM CDT [facility] Comment:Suggested therapeuti c range for full dose I.V. unfractionated heparin therapy for venous thromboembolism is 71 to 109 seconds. Blood BLOOD SPECIMEN / Unknown Lab Venipuncture / Unknown 06/18/2022 6:13 AM CDT 06/18/2022 7:19 AM CDT Emmett Lozano MD LAB - COAGULATION OR DERABLES [facility] [address] [place] [address], [facility] [phone] * (ABNORMAL) CBC W AUTO DIFFERENTIAL (06/13/2022 12:31 AM TRACK RIDER) Only the most recent of8 resultswithin the time period is included. WBC 10.9(H) 3.5 - 10.5 10 3/uL 06/13/2022 2:23 AM [facility] RBC 4.00(L) 4.30 - 5.70 10 6/uL 06/13/2022 2:23 AM [facility] Hemoglobin 12.1 12.0 - 17.6 g/dL 06/13/2022 2:23 AM [facility] Hematocrit 34.6(L) 35.2 - 51.7 % 06/13/2022 2:23 AM [facility] MCV 86.5 80.7 - 98.3 fL 06/13/2022 2:23 AM [facility] MCH 30.3 26.7 - 34.0 pg 06/13/2022 2:23 AM [facility] MCHC 35.0 30.8 - 35.9 g/dL 06/13/2022 2:23 AM [facility] RDW-SD 37.2 36.0 - 50.0 fL 06/13/2022 2:23 AM [facility] RDW-CV 11.7 11.2 - 14.8 % 06/13/2022 2:23 AM [facility] Platelet Count 256 150 - 400 10 3/uL 06/13/2022 2:23 AM [facility] MPV 10.7 9.4 - 12.9 fL 06/13/2022 2:23 AM [facility] nRBC Absolute 0.00 0 10 3/uL 06/13/2022 2:23 AM [facility] nRBC Auto 0.0 0 /100 WBC 06/13/2022 2:23 AM [facility] Neutrophils % 60.3 35.0 - 70.0 % 06/13/2022 2:23 AM [facility] Lymphocytes % 22.5 20.0 - 43.0 % 06/13/2022 2:23 AM [facility] Monocytes % 14.6(H) 5.0 - 13.0 % 06/13/2022 2:23 AM [facility] Eosinophils % 1.0 0.0 - 6.0 % 06/13/2022 2:23 AM [facility] Basophil % 0.6 0.0 - 2.0 % 06/13/2022 2:23 AM [facility] Neutrophils Absolute 6.55 1.60 - 7.00 10 3/uL 06/13/2022 2:23 AM [facility] Lymphocyte Absolute 2.45 1.10 - 3.90 10 3/uL 06/13/2022 2:23 AM [facility] Monocytes Absolute 1.59(H) 0.26 - 1.07 10 3/uL 06/13/2022 2:23 AM [facility] Eosinophils Absolute 0.11 0.00 - 0.47 10 3/uL 06/13/2022 2:23 AM [facility] Basophils Absolute 0.06 0.00 - 0.08 10 3/uL 06/13/2022 2:23 AM [facility] Immature Granulocytes % 1.0 0.0 - 1.0 % 06/13/2022 2:23 AM [facility] Immature Granulocytes Absolute 0.11 06/13/2022 2:23 AM [facility] Blood BLOOD SPECIMEN / Unknown Lab Venipuncture / Unknown 06/13/2022 12:31 AM TRACK RIDER 06/13/2022 2:18 AM TRACK RIDER Emmett Lozano MD LAB - HEMATOLOGY ORD ERABLES [facility] [address] [place] [phone], [facility] [phone] * (ABNORMAL) BASIC METABOLIC PANEL (CALCIUM TOTAL) (06/13/2022 12:31 AM TRACK RIDER) Only the most recent of7 resultswithin the time period is included. BUN 15 7 - 26 mg/dL 06/13/2022 2:47 AM [facility] Creatinine 0.89 0.71 - 1.16 mg/dL 06/13/2022 2:47 AM [facility] Sodium 137 136 - 145 mmol/L 06/13/2022 2:47 AM [facility] Potassium 3.7 3.5 - 4.5 mmol/L 06/13/2022 2:47 AM [facility] Chloride 96(L) 98 - 107 mmol/L 06/13/2022 2:47 AM [facility] CO2 29 22 - 29 mmol/L 06/13/2022 2:47 AM [facility] Glucose 100 70 - 115 mg/dL 06/13/2022 2:47 AM [facility] Calcium 9.5 8.4 - 10.2 mg/dL 06/13/2022 2:47 AM [facility] Anion Gap 16 8 - 18 06/13/2022 2:47 AM [facility] BUN/Creatinine Ratio 17 7 - 23 06/13/2022 2:47 AM [facility] Osmolality Calculated 285 270 - 300 mOsm/kg 06/13/2022 2:47 AM [facility] eGFR by CKD-EPI >90 >=90 mL/min/1.7 3 m2 06/13/2022 2:47 AM [facility] Blood BLOOD SPECIMEN / Unknown Lab Venipuncture / Unknown 06/13/2022 12:31 AM TRACK RIDER 06/13/2022 2:18 AM [facility] Emmett Lozano MD LAB - CHEMISTRY SITA DOOLEY [facility] Organization Address City/State/ZIP Co de Phone Number [facility] [address] [place] [address], [facility] [phone] * (ABNORMAL) DIFFERENTIAL MANUAL (06/11/2022 1:26 AM [facility]) Only the most recent of3 resultswithin the time period is included. WBC (corrected for NRBC) 12.4 10 3/uL 06/11/2022 4:49 AM [facility] Total Cell Count 100 06/11/2022 4:49 AM [facility] Neutrophils Absolute Manual 7.94(H) 1.60 - 7.00 10 3/uL 06/11/2022 4:49 AM [facility] Comment:(BANDS+SEGS) x WBC = NEUT # (ANC) Lymphocyte Absolute Manual 1.98 1.10 - 3.90 10 3/uL 06/11/2022 4:49 AM [facility] Monocytes Absolute Manual 2.23(H) 0.26 - 1.07 10 3/uL 06/11/2022 4:49 AM [facility] Eosinophils Absolute Manual 0.25 0.00 - 0.47 10 3/uL 06/11/2022 4:49 AM [facility] Band % Manual 2 0 - 10 % 06/11/2022 4:49 AM [facility] Neutrophil % Manual 62 35 - 70 % 06/11/2022 4:49 AM [facility] Lymphocyte % Manual 16(L) 20 - 43 % 06/11/2022 4:49 AM [facility] Monocytes % Manual 18(H) 5 - 13 % 06/11/2022 4:49 AM [facility] Eosinophils % Manual 2 0 - 6 % 06/11/2022 4:49 AM [facility] Platelet Estimate Adequate Adequate 06/11/2022 4:49 AM [facility] Target Cells 1+(A) None 06/11/2022 4:49 AM [facility] Blood BLOOD SPECIMEN / Unknown Lab Venipuncture / Unknown 06/11/2022 1:26 AM TRACK RIDER 06/11/2022 2:23 AM TRACK RIDER Emmett Lozano MD LAB - HEMATOLOGY ORD ERABLES [facility] [address] [place] [address], [facility] [phone] * XR ABDOMEN KUB PORTABLE (06/08/2022 9:47 PM TRACK RIDER) Anatomical Region Laterality Modality Abdomen Radiographic Ludy ging 06/09/2022 6:21 PM TRACK RIDER Impressions 06/10/2022 7:05 AM TRACK RIDER IMPRESSION: Gaseous distention of the stomach I, Ashok Mary MD have personally reviewed and interpreted this examination/study. > Interpreting Provider: Ashok Mary MD on 06/10/2022 7:05 AM Narrative 06/10/2022 7:05 AM TRACK RIDER PROCEDURE: XR ABDOMEN KUB PORTABLE, DATE/TIME OF EXAM: 06/08/2022 9:47 PM, LOCATION [facility] INDICATION: M47.816: Lumbar spondylosis ADDITIONAL CLINICAL INFORMATION: [...] PORTABLE, DATE/TIME OF EXAM: 06/08/2022 9:47PM, LOCATION [facility] INDICATION: M47.816: Lumbar spondylosis ADDITIONAL CLINICAL INFORMATION: [...] RBC UNIT(S), 2 Units (06/08/2022 1:17 AM TRACK RIDER) Unit Description AS1 LR PRBC [facility] Unit ABO B [facility] Unit Rh POS [facility] Product Number R02 [facility] Unit Donor # [id number] [facility] Unit Status released [facility] Product Code [id number] [facility] Blood Type Barcode 7300 [facility] Expiration Date S BLOOD BANK LAB Unit Description AS1 LR PRBC [facility] Unit ABO B [facility] Unit Rh POS [facility] Product Number R43 [facility] Unit Donor # [id number] [facility] Unit Status released [facility] Product Code [id number] [facility] Blood Type Barcode 7300 [facility] Expiration Date S BLOOD BANK LAB Blood Bank BLOOD SPECIMEN / Unknown 06/04/2022 3:05 AM TRACK RIDER Holly Anila Burrowsmitzysilviano LAB - BLOOD BANK O RDERABLES Performing Organization Address City/[facility]/ZIP Co de Phone Number [facility] [address] [place] [address], [facility] [phone] * [place] OARM SURGERY (06/07/2022 6:45 PM TRACK RIDER) Narrative [facility] - 06/07/2022 7:52 PM TRACK RIDER Fluoroscopy was used for this exam in the OR. Please see the Operative report. Emmett Lozano MD FLUOROSCOPY ORDERABL ES Performing Organization Address [facility] Co de Phone Number [facility] * FL JERO SURGERY (06/07/2022 6:45 PM TRACK RIDER) Narrative [facility] - 06/07/2022 6:54 PM TRACK RIDER Fluoroscopy was used for this exam in the OR. Please see the Operative report. Emmett Lozano MD FLUOROSCOPY ORDERABL ES Performing Organization Address [facility] Co de Phone Number [facility] * PATHOLOGY TISSUE (06/07/2022 6:08 PM TRACK RIDER) Case Report Surgical Pathology Report Case: [id number] Authorizing Provider: Emmett Lozano MD Collected: 06/07/2022 06:08 PM Ordering Location: [address] Received: 06/08/2022 07:38 AM Pathologist: Bravo [...] substantiates the final diagnosis. 3 9:12 AM [facility] Clinical History 07/10/19 2 3 9:12 AM [facility] Intraoperative Consultation A. Extra dural mass are multiple fragments of red soft tissue measuring in aggregate 0.9 x 0.6 x 0.2 cm. Touch preparations are made and a claims representative portion is submitted for frozen section as FS A1. Intraoperative diagnosis: FS A1, extradural mass: -Disc material by Clara Daly MD 3 9:12 AM [facility] Gross Description The requisition [...] submitted in cassette B1. 3 9:12 AM [facility] Disclaimer The performance characteristics of all immunohistochemical and indirect immunofluorescence stains (if any) cited in this report were determined by the Histopathology Laboratory of [facility]. Some of these tests were developed [...] the attending (teaching) pathologist. 3 9:12 AM [facility] Embedded Images 3 9:12 AM [facility] Biopsy, Excision SPECIMEN FROM INTERVERTEBRAL DISC / Unknown 06/07/2022 6:08 PM TRACK RIDER 06/08/2022 7:38 AM TRACK RIDER Comment:Pre-op diagnosis: spinal mass Biopsy, Excision SPECIMEN FROM INTERVERTEBRAL DISC / Unknown 06/07/2022 6:12 PM TRACK RIDER 06/08/2022 7:38 AM TRACK RIDER Comment:Pre-op diagnosis: spinal mass Emmett Lozano MD LAB - PATHOLOGY/CYTO LOGY ORDERABLES [facility] [address] [place] [address], [facility] [phone] * ETT LINE PERFORMABLE (06/07/2022 4:51 PM TRACK RIDER) Narrative Karlos Santoyo Anes Asst - 06/07/2022 4:51 PM TRACK RIDER Karlos Santoyo Anes Asst 06/07/2022 4:55 PM Endotracheal Tube Placement: Patient Location: OR. Intubation Event Date/Time: 06/07/2022 4:11 PM Procedure: intubation (72110). Procedure Section: Sedation: under general anesthesia. Indications [...] * ARTERIAL LINE PERFORMABLE (06/07/2022 4:50 PM TRACK RIDER) Gary Waterman MD - 06/07/2022 4:50 PM TRACK RIDER Gary Suarez MD 06/07/2022 4:52 PM Arterial Line Placement Procedure Note Patient Location: OR. Procedure: Arterial Line (52572). Procedure Section Indications: continuous blood pressure monitoring [...] RDERABLES * EKG 12-LEAD (06/05/2022 11:13 AM TRACK RIDER) Pathologist [facility] Ventricular Rate 83 BPM [facility] Atrial Rate 83 BPM [facility] P-R Interval 182 ms [facility] QRS Duration ms 88 ms [facility] Q-T Interval ms 346 ms [facility] QTC Calculation (Bezet) 406 ms [facility] Calculated P Circle 90 degrees [facility] Calculated R Circle 37 degrees [facility] Calculated T Circle 84 degrees [facility] Interpretation EKG NORMAL SINUS RHYTHM NONSPECIFIC T WAVE ABNORMALITY ABNORMAL ECG NO PREVIOUS ECGS AVAILABLE Confirmed by Issa MOORE, Aleksandra ([id number]) on 06/07/2022 12:15:23 AM [facility] 06/05/2022 11:1 3 AM TRACK RIDER 06/07/2022 12:15 AM TRACK RIDER Ellen Adames MASTER [place] ECG ORDERABLES [facility] * XR CHEST 1VW PORTABLE (06/05/2022 11:05 AM TRACK RIDER) Anatomical Region Laterality Modality Chest Radiographic Ludy ging 06/05/2022 11:2 7 AM TRACK RIDER Impressions 06/05/2022 3:14 PM TRACK RIDER IMPRESSION: Mild right basilar atelectasis. Report dictated by Brennen Palm MD (director of radiology). I, Ronan Chinchilla MD have personally reviewed and interpreted this examination/study. > Interpreting Provider: Ronan Chinchilla MD on 06/05/2022 3:14 PM Narrative 06/05/2022 3:14 PM TRACK RIDER PROCEDURE: XR CHEST 1VW PORTABLE, DATE/TIME OF EXAM: 06/05/2022 11:05 AM, LOCATION [facility] INDICATION: M89.8X8: Mass of spine ADDITIONAL CLINICAL INFORMATION: Ordering Provider Reason For Exam: preop eval Technologist Note: Additional: COMPARISON: None. FINDINGS: Mild right basilar linear atelectasis. There is no pulmonary consolidation, pleural effusion, or pneumothorax. The heart size is normal. Procedure Note Ronan Chinchilla MD - 06/05/2022 PROCEDURE: XR CHEST 1VW PORTABLE, DATE/TIME OF EXAM: 06/05/2022 11:05AM, LOCATION [facility] INDICATION: M89.8X8: Mass of spine ADDITIONAL CLINICAL INFORMATION: Ordering Provider Reason For Exam: preop eval Technologist Note: Additional: COMPARISON: None. FINDINGS: Mild right basilar linear atelectasis. There is no pulmonaryconsolidation, pleural effusion, or pneumothorax. The heart size is normal. IMPRESSION: Mild right basilar atelectasis. Report dictated by Brennen Palm MD (director of radiology). I, Ronan Chinchilla MD have personally reviewed and interpreted this examination/study. > Interpreting Provider: Ronan Chinchilla MD on 06/05/2022 3:14 PM Ellen Adames APRN-[employer] DIAGNOSTIC IMAGING O RDERABLES * BLOOD TYPE VERIFICATION (06/04/2022 7:37 PM TRACK RIDER) ABO Rh B POS 06/04/2022 8:0 6 PM TRACK RIDER [facility] Blood Bank BLOOD SPECIMEN / Unknown Venipuncture / Unknown 06/04/2022 7:37 PM TRACK RIDER 06/04/2022 7:43 PM TRACK RIDER Lala Blake MD LAB - BLOOD BANK ORD ERABLES [facility] [address] [place] [address], [place] [phone] * PT-INR [facility] (06/04/2022 3:00 AM TRACK RIDER) [facility] PT 12.7 12.1 - 14.8 Seconds 06/04/2022 4:48 AM [facility] INR 1.0 See Comment 06/04/2022 4:48 AM [facility] Comment:The suggested therap eutic range for standard coumadin (warfarin) therapy is an INR of 2.0-3.0. For high-risk patients (Mechanical Mitral Valve Prosthesis, etc.), the suggested prophylactic therapeutic range is an INR of 2.5-3.5. Blood BLOOD SPECIMEN / Unknown Venipuncture / Unknown 06/04/2022 3:00 AM TRACK RIDER 06/04/2022 3:03 AM TRACK RIDER Reji Bee MD LAB - COAGULATI ON ORDERABLES Performing Organization Address [facility]/ZIP Co de Phone Number [address] [address], [facility] [phone] * TYPE + SCREEN PANEL (06/04/2022 3:00 AM TRACK RIDER) [facility] Antibody Screen NEG 3:41 AM [facility] ABO Rh B POS 06/04/2022 3:41 AM [facility] Blood Bank BLOOD SPECIMEN / Unknown Venipuncture / Unknown 06/04/2022 3:00 AM TRACK RIDER 06/04/2022 3:05 AM TRACK RIDER Reji Bee MD LAB - BLOOD BAN K ORDERABLES Performing Organization Address City/[facility]/ZIP Co de Phone Number [facility] [address] [place] [phone], [place] [phone] * (ABNORMAL) COMPREHENSIVE METABOLIC PANEL (06/04/2022 3:00 AM [facility]) [facility] BUN 15 7 - 26 mg/dL 06/04/2022 3:30 AM [facility] Creatinine 0.76 0.71 - 1.16 mg/dL 06/04/2022 3:30 AM [facility] Sodium 139 136 - 145 mmol/L 06/04/2022 3:30 AM [facility] Potassium 4.2 3.5 - 4.5 mmol/L 06/04/2022 3:30 AM [facility] Chloride 105 98 - 107 mmol/L 06/04/2022 3:30 AM [facility] CO2 22 22 - 29 mmol/L 06/04/2022 3:30 AM [facility] Glucose 124(H) 70 - 115 mg/dL 06/04/2022 3:30 AM [facility] Calcium 9.6 8.4 - 10.2 mg/dL 06/04/2022 3:30 AM [facility] Protein Total 7.0 6.0 - 8.3 g/dL 06/04/2022 3:30 AM [facility] [facility] Albumin 3.9 3.4 - 5.0 g/dL 06/04/2022 3:30 AM [facility] Bilirubin Total 0.4 0.2 - 1.2 mg/dL 06/04/2022 3:30 AM [facility] Alkaline Phosphatase 43 40 - 150 U/L 06/04/2022 3:30 AM [facility] ALT 20 5 - 55 U/L 06/04/2022 3:30 AM [facility] AST 20 5 - 34 U/L 06/04/2022 3:30 AM [facility] Anion Gap 16 8 - 18 06/04/2022 3:30 AM [facility] BUN/Creatinine Ratio 20 7 - 23 06/04/2022 3:30 AM [facility] Osmolality Calculated 290 270 - 300 mOsm/kg 06/04/2022 3:30 AM [facility] Albumin/Globulin Ratio 1.3 1.1 - 2.3 06/04/2022 3:30 AM [facility] eGFR by CKD-EPI >90 >=90 mL/min/1.7 3 m2 06/04/2022 3:30 AM [facility] Blood BLOOD SPECIMEN / Unknown Venipuncture / Unknown 06/04/2022 3:00 AM [facility] 06/04/2022 3:04 AM [facility] Reji Bee MD LAB - CHEMISTRY ORDERABLES [facility] [address] [place] [address], [facility] [phone] Care Teams Evaporator Repairer Relationship Specialty Start Date End Date Phuc Rubio MD PCP - General Internal Medicine 04/10/23
--- NOTE | 2024-06-19 11:05 | ECG_ITS ---
Test Date: 2024-06-19 11:27:01 Measurements Intervals Elizabeth Rate: 95 P: 65 WI: 194 QRS: 26 QRSD: 97 T: 86 QT: 373 QTc: 469 Interpretive Statements SINUS RHYTHM POSSIBLE INFERIOR MYOCARDIAL INFARCTION , AGE INDETERMINATE Electronically Signed On 06-21-2024 13:49:05 CDT by Rony Reyes D.O
[2024-06-19 11:44] LABS: Troponin I < 0.012 ng/mL (0.000-0.034)
--- NOTE | 2024-06-19 11:53 | ED.CHESTPAIN ---
HPI - Chest Pain General Chief Complaint: Chest Pain Stated Complaint: chest pain Time Seen by Provider: 06/19/24 08:14 Source: patient Mode of arrival: ambulatory Limitations: no limitations History of Present Illness HPI narrative: 63-year-old with a history of COPD, hypertension here with the complaints of chest pains and abdominal pain /night. Patient states that he had alcohol as well as cocaine last evening and he still continues to have some chest discomfort however he states he is feeling much better. He denies any shortness of breath. No history of nausea or vomiting. MD complaint: chest pain Pertinent past history: other (COPD) Onset (ago): day(s) (1) Timing of current episode: constant Onset: associated with drug use Pain radiation: none Severity: moderate Quality: heaviness Relieving factors: nothing Exacerbating factors: nothing Risk Factors Coronary artery disease risk factors: none Related Data Allergies Allergy/AdvReac Type Severity Reaction Status Date / Time No Known Allergies Allergy Mild Verified 06/19/24 08:14 Review of Systems Review of Systems: All systems reviewed & are unremarkable except as noted in HPI and below Constitutional: Constitutional: Reports no additional constitutional complaints Eyes: Eyes: Reports no additional eye complaints ENT: Reports system reviewed and no additional complaints, except as documented Cardiovascular: Cardiovascular: Reports as per HPI Respiratory: Respiratory: Reports no additional respiratory complaints Gastrointestinal: Gastrointestinal: Reports no additional gastrointestinal complaints Musculoskeletal: Musculoskeletal: Reports no additional musculoskeletal complaints Neurologic: Reports system reviewed and no additional complaints, except as documented Psychiatric: Psychiatric: Reports no additional psychiatric complaints PMFSH Past Medical History Medical History Hypercholesterolemia Hypertension Surgical History Surgical History No pertinent past surgical history Social History Social History Smoking packs per day: 0.5 Smoking cigarettes per day: 10.0 Smoking status: Current every day smoker Exam Narrative: GENERAL: Well-appearing, well-nourished, and in no acute distress. HEAD: Normocephalic, atraumatic. EYES: PERRLA and EOMI. ENT: Nares clear, no rhinorrhea or epistaxis. Mucous membranes moist. NECK: Supple. CHEST: Clear to auscultation. No respiratory distress. HEART: Regular rate and rhythm. No murmur heard. Normal peripheral pulses. ABDOMEN: Soft, nontender, nondistended, normal active bowel sounds. EXTREMITIES: Normal range of motion. No edema. SKIN: Warm, dry, no rash. NEURO: No focal deficits. Alert and oriented x3. PSYCH: Normal mood and affect. Course Course Emergency Course: Patient remains asymptomatic. Did inform him about his lab work, EKG findings. Also advised him to stop abusing cocaine. Follow with his primary doctor Vital Signs Vital signs: Vital Signs Temperature 36.6 C 06/19/24 08:10 Pulse Rate 115 H 06/19/24 08:10 Respiratory Rate 23 H 06/19/24 08:10 Blood Pressure 158/102 H 06/19/24 08:10 Pulse Oximetry 95 06/19/24 08:10 Oxygen Delivery Room Air 06/19/24 08:10 Temperature 36.6 C 06/19/24 08:10 Pulse Rate 104 H 06/19/24 10:31 Respiratory Rate 19 06/19/24 10:31 Blood Pressure 149/97 H 06/19/24 10:31 Pulse Oximetry 93 06/19/24 10:31 Oxygen Delivery Room Air 06/19/24 08:10 MDM - Chest Pain Differential Diagnosis Differential diagnosis: Likely stable angina, unstable angina pectoris, atypical chest pain, st elevation myocardial infarction and chest pain Medical Records Data Attestation: I reviewed the patient's medical records. Lab Data Attestation: I reviewed the patient's lab results. 06/19/24 08:17 06/19/24 08:17 Labs: Lab Results 06/19/24 06/19/24 Range/Units 08:17 11:09 WBC 10.8 H (4.5-10.0) K/mm3 RBC 5.34 (4.6-6.20) M/mm3 Hgb 16.4 (14.0-18.0) g/dL Hct 46.1 (42.0-52.0) % MCV 86.3 (80-100) fl MCH 30.7 (26-34) pg MCHC 35.6 (32-36) g/dl RDW 12.4 (11.5-14.5) % Plt Count 214 (150-375) k/mm3 MPV 10.0 (7.4-10.4) fl Immature Gran % (Auto) 0.5 (0-0.5) % Neut % (Auto) 84.7 H (45.5-73.1) % Lymph % (Auto) 7.4 L (18.3-44.2) % [place] % (Auto) 7.1 (2.6-8.5) % Eos % (Auto) 0.0 (0-4.4) % Baso % (Auto) 0.3 (0.2-1.2) % Lymph # (Auto) 0.80 L (0.9-3.2) K/mm3 [place] # (Auto) 0.8 H (0.1-0.6) K/mm3 Eos # (Auto) 0.0 (0-0.3) K/mm3 Baso # (Auto) 0.0 (0.0-0.1) K/mm3 Abs Immat Gran (auto) 0.05 H (0.00-0.031) K/mm3 Absolute Neuts (auto) 9.1 H (1.3-6.7) K/mm3 Absolute Nucleated RBC 0.000 (0.0-0.012) K/mm3 Nucleated RBC % 0.0 (0.0-0.2) % PT 13.0 (11.1-14.7) Seconds INR 0.9 APTT 25.8 (22.3-36.8) Seconds Sodium 141 (137-145) mmol/L Potassium 4.7 (3.4-5.0) mmol/L Chloride 103 (98-107) mmol/L Carbon Dioxide 22 (22-30) mmol/L Anion Gap 16 H (4-12) mmol/L BUN 21 H D (9-20) mg/dL Creatinine 1.19 (0.7-1.3) mg/dL Estim Creat Clear Calc 61 ml/min Estimated GFR > 60 (59 - ) Glucose 100 (65-110) mg/dL Calcium 9.8 (8.4-10.2) mg/dL Total Bilirubin 0.7 (0.2-1.3) mg/dL AST 43 (17-59) U/L ALT 44 (6-50) U/L Alkaline Phosphatase 71 (38-126) U/L Troponin I < 0.012 < 0.012 (0.000-0.034) ng/mL Total Protein 9.0 H (6.3-8.2) g/dL Albumin 5.3 H (3.5-5.1) g/dL Lipase 66 (23-300) U/L Imaging Data Radiologist's impression: ITS Impressions Chest X-Ray 06/19/24 09:05 IMPRESSION: 1. No acute cardiopulmonary disease. ECG Data EKG #1: ECG completion date: 06/19/24 ECG completion time: 08:09 EKG Interpretation: normal rate, normal QRS, NL axis and no acute changes Discharge Plan Discharge Clinical Impression: Cocaine abuse Chest pain Qualifiers: Chest pain type: unspecified Qualified Code(s): R07.9 - Chest pain, unspecified Patient Disposition: Home, Self-Care Condition: Stable Instructions: Chest Pain (ED) Additional Instructions: Continue home medication consider detox programs . Follow-up with your primary doctor Patient Language: Occitan Prescriptions: No Action azithromycin 250 mg tablet 250 mg PO DAILY 4 Days Qty: 4 0RF Rx Instructions: Start 01/23 prednisone 50 mg tablet 50 mg PO DAILY Qty: 5 0RF dicyclomine 20 mg tablet 20 mg PO QID Qty: 20 0RF ondansetron 4 mg tablet,disintegrating 4 mg PO Q6H PRN (Reason: nausea and vomiting) Qty: 10 0RF amoxicillin-pot clavulanate 875-125 mg tablet 1 tablet PO Q12H Qty: 14 0RF prednisone 20 mg tablet 40 mg PO DAILY 4 Days Qty: 8 0RF albuterol sulfate 90 mcg/actuation HFA aerosol inhaler 2 puff inhalation QID PRN (Reason: shortness of breath or wheezing) Qty: 8.5 0RF azithromycin 250 mg tablet 250 mg PO DAILY 4 Days Qty: 4 0RF Rx Instructions: start on day 2 of therapy methylprednisolone 4 mg tablets,dose pack See Rx Instructions .ROUTE .COMPLEX Qty: 21 0RF Rx Instructions: orally per package directions cyclobenzaprine 10 mg tablet 10 mg PO TID PRN (Reason: muscle spasm) Qty: 20 0RF prednisone 50 mg tablet 50 mg PO DAILY Qty: 7 0RF cyclobenzaprine 10 mg tablet 10 mg PO TID PRN (Reason: muscle spasm) Qty: 20 0RF naproxen 500 mg tablet 500 mg PO BID Qty: 14 0RF benzonatate 200 mg capsule 200 mg PO TID PRN (Reason: cough) Qty: 20 0RF oseltamivir [Tamiflu] 75 mg capsule 75 mg PO Q12H 5 Days Qty: 10 0RF loratadine 10 mg tablet 10 mg PO DAILY Qty: 30 0RF hydrocortisone 1 % cream 1 applic topical TID PRN (Reason: itching) Qty: 28.4 0RF Follow-up/Referrals: Ramiro,MD Phuc [Primary Care Provider] - Time of Disposition: 11:58
== END 2024-06-19 12:20 | disposition home or self-care (01) ==
PROVIDERS: Emergency Provider Family Medicine; PCP Internal Medicine
DX: F14.10 Cocaine abuse, uncomplicated (principal); R07.9 Chest pain, unspecified; F10.90 Alcohol use, unspecified, uncomplicated; I10 Essential (primary) hypertension; E78.00 Pure hypercholesterolemia, unspecified; F17.210 Nicotine dependence, cigarettes, uncomplicated
CPT/HCPCS: 36415; 71046; 80053; 83690; 84484; 85025; 85610; 85730; 93005; 99284

== ENCOUNTER 2024-07-08 11:05 | Emergency (ER) | payer MEDICARE, MEDICAID, SELFPAY ==
--- NOTE | ~2024-07-08 | CT_ITS ---
EXAMINATION: CT lumbar spine wo con DATE: 07/08/2024 12:34 INDICATION: Low back pain TECHNIQUE: Computed tomography (CT) of the lumbar spine was performed without intravenous contrast. A utomated exposure control and iterative reconstruction technique were employed. The dose-length produ ct was 987.49 mGy-cm. COMPARISON: 06/03/2022 FINDINGS: Interval L1 laminectomy including resection of the bilateral inferior articular processes, partial T1 2 and L2 laminectomies and bilateral vertical susan and pedicle screw fixation at L1-L2. No interval ch fransisca in 2 mm retrolisthesis L4 on L5 and L5 on S1. Unchanged mild anterior wedging at T12-L3. No acut e fracture or pars inter articularis defects. Severe disc height loss with degenerative endplate paredes ges at L4-L5 and L5-S1. Mild disc height loss at L2-L3 and L3-L4 and moderate disc height loss at T11 -T12. Paravertebral soft tissues are unremarkable. The following disc levels are specifically discuss ed: T11-T12: There is mild right and moderate left facet joint osteoarthritis. There is mild left neural foraminal stenosis. There is no central canal stenosis. T12-L1: There is moderate bilateral facet joint osteoarthritis. There is no neural foraminal stenosis . There is no central canal stenosis. L1-L2: Disc is bulging. Bilateral vertical susan and pedicle screw fixation. Resection of the bilateral L1 inferior articular processes with mild hypertrophic changes along the superior to the processes o f L2. There is no neural foraminal stenosis. Posterior decompression with L1 laminectomy and no centr al canal stenosis. L2-L3: Disc is bulging. There is moderate bilateral facet joint osteoarthritis. There is mild bilater al neural foraminal stenosis. There is mild central canal stenosis. L3-L4: Disc is bulging. There is severe bilateral facet joint osteoarthritis. There is mild bilateral neural foraminal stenosis. There is mild central canal stenosis. L4-L5: Disc is bulging. There is moderate bilateral facet joint osteoarthritis. There is moderate stu ateral, right greater than left, neural foraminal stenosis. There is mild central canal stenosis. L5-S1: Disc is bulging, eccentric to the left. There is moderate bilateral facet joint osteoarthritis . There is moderate bilateral neural foraminal stenosis. There is minimal central canal stenosis with mild narrowing of the left lateral recess. IMPRESSION: 1. Severe lumbar spondylosis with interval upper lumbar posterior decompression with L1 laminectomy a nd L1-L2 bilateral vertical susan and pedicle screw fixation. Reviewed, dictated and finalized at location A. IMPRESSION: 1. Severe lumbar spondylosis with interval upper lumbar posterior decompression with L1 laminectomy and L1-L2 bilateral vertical susan and pedicle screw fixatio n.
--- NOTE | ~2024-07-08 | XR_ITS ---
EXAMINATION: XR chest 2V 07/08/2024 13:42 INDICATION: COPD. Hypertension. PROCEDURE: 2 view chest COMPARISON: Comparison to multiple prior studies sequentially, with oldest reviewed study dated 01/06. FINDINGS: The lungs are clear. The cardiomediastinal silhouette is within normal limits. There are no pleural effusions. There is no pneumothorax suspected. IMPRESSION: 1: NO ACUTE CARDIOPULMONARY DISEASE. Reviewed, dictated and finalized at location A.
[2024-07-08 11:19] VITALS: BP 142/99; PULSE 82; RESP 16; TEMP 36.6; O2SAT 96
--- NOTE | 2024-07-08 12:21 | ED.BACK ---
HPI - Back Pain/Injury General Chief Complaint: Back Pain/Injury Stated Complaint: back pain Time Seen by Provider: 07/08/24 12:14 Source: patient History of Present Illness HPI Narrative: 63 years old male drove himself to the emergency room complaining of sudden onset of left lower back pain after coughing. Localized, no radiation, patient denies any tingling or numbness or radiation of pain. History of lower back surgery 2 years ago June 2022 at [facility]. Patient denies any fever or chills or nausea or vomiting or abdominal pain. Patient denies bowel dysfunction, bladder dysfunction, altered sensation, focal weakness, or saddle numbness, Related Data Allergies Allergy/AdvReac Type Severity Reaction Status Date / Time No Known Allergies Allergy Mild Verified 07/08/24 11:23 Review of Systems Review of Systems: All systems reviewed & are unremarkable except as noted in HPI and below PMFSH Past Medical History Medical History Hypercholesterolemia Hypertension Surgical History Surgical History No pertinent past surgical history Social History Social History Smoking packs per day: 0.5 Smoking cigarettes per day: 10.0 Smoking status: Current every day smoker Exam Narrative: General appearance: Well-developed, well-nourished Skin: Normal color Head: Normocephalic, nontraumatic Eyes: Clear conjunctiva ENT: Oropharynx normal, ears normal, nose normal Neck: Supple, nontender Chest and respiratory: Airway patent, no respiratory distress, no accessory muscle use Heart: Regular rate/rhythm Abdomen: Soft, nontender, no organomegaly, quiet bowel sounds Vascular: Normal peripheral pulses, normal capillary refill. Musculoskeletal: Diffuse tenderness left paraspinous, lumbar area, no bruises, no swelling. Neurologic: Alert and oriented ?3, [employer] is normal as tested, no gross motor deficit Course Vital Signs Vital signs: Vital Signs Temperature 36.6 C 07/08/24 11:19 Pulse Rate 82 07/08/24 11:19 Respiratory Rate 16 07/08/24 11:19 Blood Pressure 142/99 H 07/08/24 11:19 Pulse Oximetry 96 07/08/24 11:19 Oxygen Delivery Room Air 07/08/24 11:19 Temperature 36.6 C 07/08/24 11:19 Pulse Rate 82 07/08/24 11:19 Respiratory Rate 16 07/08/24 11:19 Blood Pressure 142/99 H 07/08/24 11:19 Pulse Oximetry 96 07/08/24 11:19 Oxygen Delivery Room Air 07/08/24 11:19 MDM - Back Pain/Injury MDM Narrative Medical decision making narrative: PATIENT CAME WITH LOWER BACK PAIN, AFTER COUGHING VITAL SIGNS ARE STABLE PHYSICAL EXAMINATION SHOWING RYAN-WN-SCHOAHCR TENDERNESS LEFT PARASPINOUS MUSCLE AT THE LUMBAR AREA DIFFERENTIAL DIAGNOSIS INCLUDE MUSCULAR STRAIN/SPRAIN, LESS LIKELY BULGING DISC OR HERNIATED DISC. CT LUMBAR SPINE SHOWED NO ACUTE ABNORMALITIES, CHEST X-RAY SHOWED NO ACUTE ABNORMALITY URINALYSIS SHOWED NO EVIDENCE OF INFECTION DIAGNOSIS MUSCULAR STRAIN/SPRAIN DISCHARGED ON FLEXERIL AND DICLOFENAC Differential Diagnosis Differential diagnosis: Likely lumbar radiculopathy, sciatica, strain of lumbar region and other Lab Data Labs: Lab Results 07/08/24 Range/Units 14:20 Urine Color Yellow (Yellow) Urine Appearance Clear (Clear) Urine pH 5.5 (5.0-9.0) Ur Specific [place] 1.009 (1.001-1.035) Urine Protein Negative (Negative) mg/dL Urine Glucose (UA) Negative (Negative) mg/dL Urine Ketones Negative (Negative) mg/dL Ur Blood (Man) Negative (Negative) Urine Nitrate Negative (Negative) Urine Bilirubin Negative (Negative) Urine Urobilinogen 0.2 (<2.0) mg/dL Leukocyte Esterase Rfl Negative (Negative) RADHIKA/UL Imaging Data Radiologist's impression: Impressions Lumbar Spine CT 07/08/24 12:45 IMPRESSION: 1. Severe lumbar spondylosis with interval upper lumbar posterior decompression with L1 laminectomy and L1-L2 bilateral vertical susan and pedicle screw fixation. Chest X-Ray 07/08/24 13:55 IMPRESSION: 1: NO ACUTE CARDIOPULMONARY DISEASE. Critical Care Time Critical Care Time Critical Care Time: No Discharge Plan Discharge Clinical Impression: Lower back pain Patient Disposition: Home, Self-Care Condition: Stable Instructions: Acute Low Back Pain (ED) Additional Instructions: Return if symptoms are worsening , call your orthopedic for appointment, take Tylenol as as needed for aches and pain, continue home medications. Patient Language: Lebanese Prescriptions: New cyclobenzaprine 10 mg tablet 10 mg PO TID PRN (Reason: muscle spasm) Qty: 20 0RF diclofenac sodium 75 mg tablet,delayed release (DR/EC) 75 mg PO BID PRN (Reason: pain) Qty: 14 0RF No Action azithromycin 250 mg tablet 250 mg PO DAILY 4 Days Qty: 4 0RF Rx Instructions: Start 01/23 prednisone 50 mg tablet 50 mg PO DAILY Qty: 5 0RF dicyclomine 20 mg tablet 20 mg PO QID Qty: 20 0RF ondansetron 4 mg tablet,disintegrating 4 mg PO Q6H PRN (Reason: nausea and vomiting) Qty: 10 0RF amoxicillin-pot clavulanate 875-125 mg tablet 1 tablet PO Q12H Qty: 14 0RF prednisone 20 mg tablet 40 mg PO DAILY 4 Days Qty: 8 0RF albuterol sulfate 90 mcg/actuation HFA aerosol inhaler 2 puff inhalation QID PRN (Reason: shortness of breath or wheezing) Qty: 8.5 0RF azithromycin 250 mg tablet 250 mg PO DAILY 4 Days Qty: 4 0RF Rx Instructions: start on day 2 of therapy methylprednisolone 4 mg tablets,dose pack See Rx Instructions .ROUTE .COMPLEX Qty: 21 0RF Rx Instructions: orally per package directions cyclobenzaprine 10 mg tablet 10 mg PO TID PRN (Reason: muscle spasm) Qty: 20 0RF prednisone 50 mg tablet 50 mg PO DAILY Qty: 7 0RF cyclobenzaprine 10 mg tablet 10 mg PO TID PRN (Reason: muscle spasm) Qty: 20 0RF naproxen 500 mg tablet 500 mg PO BID Qty: 14 0RF benzonatate 200 mg capsule 200 mg PO TID PRN (Reason: cough) Qty: 20 0RF oseltamivir [Tamiflu] 75 mg capsule 75 mg PO Q12H 5 Days Qty: 10 0RF loratadine 10 mg tablet 10 mg PO DAILY Qty: 30 0RF hydrocortisone 1 % cream 1 applic topical TID PRN (Reason: itching) Qty: 28.4 0RF Follow-up/Referrals: Ramiro,MD Phuc [Primary Care Provider] -
[2024-07-08] MEDS: ACETAMINOPHEN 500 MG TABLET 1000 MG PO (12:46)
[2024-07-08] MEDS: IBUPROFEN 600 MG TABLET PO (12:46)
--- OUTSIDE RECORDS SUMMARY | 2024-07-08 12:46 | XMS_ITS | Data Portability ---
[facility] [address] [place] [address] Care Team Providers Care Landscape Architect Name Role Phone ZARIA RUBIO Primary Care Provider Unavailabl e Assessment Encounter Date Assessment Date Assessment LastModified by Organization Details LastModified Time 06/21/2023 06/21/2023 Low-fat diet ordered ill effects of tobacco which were included but not limited to increased tumors areo digestive tract increased incidence of heart attack stroke and cancer likely to sudden or chronic medical illness. Refuses immunizations follow-up old records [email or web address] Not available 06/21/2023 22:50:46 12/13/2023 12/13/2023 he can continue to use the Claritin we will check blood work diagnosis have been discussed he will follow up me in 4 [place] in his COVID test was negative at urgent care [email or web address] Not available 12/15/2023 23:24:47 06/02/2024 06/02/2024 surgical [...] imaging etc. 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 [email or web address] Not available 06/06/2024 14:38:28 Plan of Treatment Reminders Order Date Submit Date Provider Last Modified By Organization Details Last Modified Time Details Appointments ANY 15 2024 10:15A Starla Rubio MD Not available Not available Not available Lab lipid panel, serum 2024 025 ALPHONSO [facility], [address], [place], [address], 06/03/2024 08:27:08 CMP, serum or plasma 2024 025 ALPHONSO [facility], [address], [place], [address], 06/03/2024 08:27:09 CBC w/ auto diff 2024 025 [email or web address] [facility], [address], [place], [address], 06/24/2024 22:09:42 CBC w/ auto diff 2023 024 ALPHONSO [facility], [address], [place], [address], 12/14/2023 06:18:17 CMP, serum or plasma 2023 024 ALPHONSO [facility], [address], [place], [address], 12/14/2023 06:18:16 lipid panel, serum 2023 024 ALPHONSO [facility], [address], [place], [address], 12/14/2023 06:18:15 TSH, ultra-sen sitive, serum 2023 024 ALPHONSO [facility], [address], [place], [address], 12/14/2023 06:18:21 T3, free, serum or plasma 2023 024 ALPHONSO [facility], [address], [place], [address], 12/14/2023 06:18:22 unlisted lab - T4, free 2023 024 ALPHONSO [facility], [address], [place], [address], 12/14/2023 06:18:21 HIV 1 + 2, meaningfu l use set 2023 024 [facility], [address], [place], [address], 12/14/2023 06:18:22 PSA, total, serum or plasma 2023 024 [facility], [address], [place], [address], 06/22/2023 09:23:11 CMP, serum or plasma 2023 024 [facility], [address], [place], [address], 06/22/2023 09:23:10 lipid panel, serum 2023 024 [facility], [address], [place], [address], 06/22/2023 09:23:09 CBC w/ auto diff 2023 024 [facility], [address], [place], [address], 06/22/2023 09:23:10 Referral general surgeon referral 2024 025 [email or web address] [facility], [address], [address], [place], [address], 06/23/2024 08:58:20 Procedures None recorded. Surgeries None recorded. Imaging PFT, complete 2024 025 [facility] [address], [place], [address], 06/12/2024 16:09:42 Medication Orders albuterol sulfate HFA 90 mcg/actua tion aerosol inhaler 2024 025 [email or web address] [id number], [address] [facility], [place], [place], [id number], 06/02/2024 13:43:40 Patient TargetsNo targets recorded. Patient Instructions Encounter Date Encounter Id Patient Instructions Last Modified By Organization Details Last Modified Time 06/02/2024 [id number] A healthy lifestyle: care instructions [email or web address] Not available 06/02/2024 13:43:40 Reason for Referral General Surgeon Referral for Lipoma Referring Physician: Zaria Rubio, Internal Medicine, Encounter Date: 06/02/2024 Results Created Date Observation Date Name Description Value Unit Range Abnormal Flag Note LastModifiedBy Organization Detail LastModifiedTime 06/21/19 24 06/22/2023 LIPID PANEL cholesterol, total 230 mg/dL 100-19 9 above high normal Not Available [facility] ([facility]) [address] [place], [address], 06/22/2023 09:23:09 06/21/19 24 06/22/2023 LIPID PANEL triglyceride s 95 mg/dL 0-149 Not Available [facility] ([facility]) [address] [place], [address], 06/22/2023 09:23:09 06/21/19 24 06/22/2023 LIPID PANEL HDL cholesterol 69 mg/dL >39 Not Available [facility] [address] [place], [address], 06/22/2023 09:23:09 06/21/19 24 06/22/2023 LIPID PANEL VLDL cholesterol tiana 17 mg/dL 5-40 Not Available [facility] ([facility]) [address] [place], [address], 06/22/2023 09:23:09 06/21/19 24 06/22/2023 LIPID PANEL LDL chol calc ([facility]) 144 mg/dL 0-99 above high normal Not Available [facility] ([facility]) [address] [facility] [place], [address], 06/22/2023 09:23:09 06/21/19 24 06/22/2023 COMP. METAB OLIC PANEL (14) glucose 90 mg/dL 70-99 Not Available [facility] ([facility]) [address] [facility] [place], [address], 06/22/2023 09:23:09 06/21/19 24 06/22/2023 COMP. METAB OLIC PANEL (14) BUN 11 mg/dL 8-27 Not Available [facility] ([facility]) [address] [facility] [place], [address], 06/22/2023 09:23:09 06/21/19 24 06/22/2023 COMP. METAB OLIC PANEL (14) creatinine 0.96 mg/dL 0.76-1 .27 Not Available [facility] ([facility]) [address] [facility] [place], [address], 06/22/2023 09:23:09 06/21/19 24 06/22/2023 COMP. METAB OLIC PANEL (14) eGFR 88 mL/mi n/1.7 3 >59 Not Available [facility] ([facility]) [address] [facility] [place], [address], 06/22/2023 09:23:09 06/21/19 24 06/22/2023 COMP. METAB OLIC PANEL (14) BUN/creatini ne ratio 11 10-24 Not Available [facility] ([facility]) [address] [facility] [place], [address], 06/22/2023 09:23:09 06/21/19 24 06/22/2023 COMP. METAB OLIC PANEL (14) sodium 141 mmol/ L 134-14 4 Not Available [facility] ([facility]) [address] [facility] [place], [address], 06/22/2023 09:23:09 06/21/19 24 06/22/2023 COMP. METAB OLIC PANEL (14) potassium 5.1 mmol/ L 3.5-5. 2 Not Available [facility] ([facility]) [address] [place], [address], 06/22/2023 09:23:09 06/21/19 24 06/22/2023 COMP. METAB OLIC PANEL (14) chloride 102 mmol/ L 96-106 Not Available [facility] ([facility]) [address] [place], [address], 06/22/2023 09:23:09 06/21/19 24 06/22/2023 COMP. METAB OLIC PANEL (14) carbon dioxide, total 25 mmol/ L 20-29 Not Available [facility] ([facility]) [address] [place], [address], 06/22/2023 09:23:09 06/21/19 24 06/22/2023 COMP. METAB OLIC PANEL (14) calcium 9.8 mg/dL 8.6-10 .2 Not Available [facility] ([facility]) [address] [place] [place], [address], 06/22/2023 09:23:09 06/21/19 24 06/22/2023 COMP. METAB OLIC PANEL (14) protein, total 7.1 g/dL 6.0-8. 5 Not Available [facility] ([facility]) [address] [place] [place], [address], 06/22/2023 09:23:09 06/21/19 24 06/22/2023 COMP. METAB OLIC PANEL (14) albumin 4.6 g/dL 3.9-4. 9 Not Available [facility] ([facility]) [address] [place] [place], [address], 06/22/2023 09:23:09 06/21/19 24 06/22/2023 COMP. METAB OLIC PANEL (14) globulin, total 2.5 g/dL 1.5-4. 5 Not Available [facility] ([facility]) [address] [place], [address], 06/22/2023 09:23:09 06/21/19 24 06/22/2023 COMP. METAB OLIC PANEL (14) A/G ratio 1.8 1.2-2. 2 Not Available [facility] ([facility]) [address] [facility], [place], [address], 06/22/2023 09:23:09 06/21/19 24 06/22/2023 COMP. METAB OLIC PANEL (14) bilirubin, total 0.5 mg/dL 0.0-1. 2 Not Available [facility] ([facility]) [address] [facility], [place], [address], 06/22/2023 09:23:09 06/21/19 24 06/22/2023 COMP. METAB OLIC PANEL (14) alkaline phosphatase 68 IU/L 44-121 Not Available [facility] ([facility]) [address] [place], [address], 06/22/2023 09:23:09 06/21/19 24 06/22/2023 COMP. METAB OLIC PANEL (14) AST (SGOT) 24 IU/L 0-40 Not Available [facility] ([facility]) [address] [place], [address], 06/22/2023 09:23:09 06/21/19 24 06/22/2023 COMP. METAB OLIC PANEL (14) ALT (SGPT) 21 IU/L 0-44 Not Available [facility] ([facility]) [address] [place], [address], 06/22/2023 09:23:09 06/21/19 24 06/22/2023 CBC WITH DIFFE RENTI AL/PL ATELE T WBC 5.8 x10e3 /uL 3.4-10 .8 Not Available [facility] ([facility]) [address] [facility], [place], [address], 06/22/2023 09:23:10 06/21/19 24 06/22/2023 CBC WITH DIFFE RENTI AL/PL ATELE T RBC 5.26 x10e6 /uL 4.14-5 .80 Not Available [facility] ([facility]) [address] [facility], [place], [address], 06/22/2023 09:23:10 06/21/19 24 06/22/2023 CBC WITH DIFFE RENTI AL/PL ATELE T hemoglobin 16.2 g/dL 13.0-1 7.7 Not Available [facility] ([facility]) [address] [facility], [place], [address], 06/22/2023 09:23:10 06/21/19 24 06/22/2023 CBC WITH DIFFE RENTI AL/PL ATELE T hematocrit 46.9 % 37.5-5 1.0 Not Available [facility] ([facility]) [address] [place], [address], 06/22/2023 09:23:10 06/21/19 24 06/22/2023 CBC WITH DIFFE RENTI AL/PL ATELE T MCV 89 fL 79-97 Not Available [facility] ([facility]) [address] [place], [address], 06/22/2023 09:23:10 06/21/19 24 06/22/2023 CBC WITH DIFFE RENTI AL/PL ATELE T MCH 30.8 pg 26.6-3 3.0 Not Available [facility] ([facility]) [address] [place], [address], 06/22/2023 09:23:10 06/21/19 24 06/22/2023 CBC WITH DIFFE RENTI AL/PL ATELE T MCHC 34.5 g/dL 31.5-3 5.7 Not Available [facility] ([facility]) [address] [facility] [place], [address], 06/22/2023 09:23:10 06/21/19 24 06/22/2023 CBC WITH DIFFE RENTI AL/PL ATELE T RDW 13.7 % 11.6-1 5.4 Not Available [facility] ([facility]) [address] [facility], [place], [address], 06/22/2023 09:23:10 06/21/19 24 06/22/2023 CBC WITH DIFFE RENTI AL/PL ATELE T platelets 269 x10e3 /uL 150-45 0 Not Available [facility] ([facility]) [address] [facility], [place], [address], 06/22/2023 09:23:10 06/21/19 24 06/22/2023 CBC WITH DIFFE RENTI AL/PL ATELE T neutrophils 44 % notest ab. Not Available [facility] ([facility]) [address] [facility], [place], [address], 06/22/2023 09:23:10 06/21/19 24 06/22/2023 CBC WITH DIFFE RENTI AL/PL ATELE T lymphs 38 % notest ab. Not Available [facility] ([facility]) [address] [facility], [place], [address], 06/22/2023 09:23:10 06/21/19 24 06/22/2023 CBC WITH DIFFE RENTI AL/PL ATELE T monocytes 13 % notest ab. Not Available [facility] ([facility]) [address] [facility], [place], [address], 06/22/2023 09:23:10 06/21/19 24 06/22/2023 CBC WITH DIFFE RENTI AL/PL ATELE T eos 3 % notest ab. Not Available [facility] ([facility]) [address] [facility], [place], [address], 06/22/2023 09:23:10 06/21/19 24 06/22/2023 CBC WITH DIFFE RENTI AL/PL ATELE T basos 1 % notest ab. Not Available [facility] ([facility]) [address] [facility], [place], [address], 06/22/2023 09:23:10 06/21/19 24 06/22/2023 CBC WITH DIFFE RENTI AL/PL ATELE T neutrophils (absolute) 2.6 x10e3 /uL 1.4-7. 0 Not Available [facility] ([facility]) [address] [facility], [place], [address], 06/22/2023 09:23:10 06/21/19 24 06/22/2023 CBC WITH DIFFE RENTI AL/PL ATELE T lymphs (absolute) 2.2 x10e3 /uL 0.7-3. 1 Not Available [facility] ([facility]) [address] [facility], [place], [address], 06/22/2023 09:23:10 06/21/19 24 06/22/2023 CBC WITH DIFFE RENTI AL/PL ATELE T monocytes(ab solute) 0.8 x10e3 /uL 0.1-0. 9 Not Available [facility] ([facility]) [address] [facility], [place], [address], 06/22/2023 09:23:10 06/21/19 24 06/22/2023 CBC WITH DIFFE RENTI AL/PL ATELE T eos (absolute) 0.2 x10e3 /uL 0.0-0. 4 Not Available [facility] ([facility]) [address] [facility], [place], [address], 06/22/2023 09:23:10 06/21/19 24 06/22/2023 CBC WITH DIFFE RENTI AL/PL ATELE T baso (absolute) 0.1 x10e3 /uL 0.0-0. 2 Not Available [facility] ([facility]) [address] [facility], [place], [address], 06/22/2023 09:23:10 06/21/19 24 06/22/2023 CBC WITH DIFFE RENTI AL/PL ATELE T immature granulocytes 1 % notest ab. Not Available [facility] ([facility]) [address] [facility], [place], [address], 06/22/2023 09:23:10 06/21/19 24 06/22/2023 CBC WITH DIFFE RENTI AL/PL ATELE T immature grans (abs) 0.0 x10e3 /uL 0.0-0. 1 Not Available [facility] ([facility]) [address] [facility], [place], [address], 06/22/2023 09:23:10 06/21/19 24 06/22/2023 PROST ATE-S [...] t be inter prete d as absol king salmon evide nce of the prese nce or absen ce of lorie saini se. Not Available [facility] ([facility]) [address] [facility], [place], [address], 06/22/2023 09:23:11 12/13/19 24 12/13/2023 LIPID PANEL cholesterol, total 234 mg/dL 100-19 9 above high normal Not Available [facility] [address] [place] [address], [address], 12/14/2023 06:18:15 12/13/19 24 12/13/2023 LIPID PANEL triglyceride s 331 mg/dL 0-149 above high normal Not Available [facility] [address] [place] [address], [address], 12/14/2023 06:18:15 12/13/19 24 12/13/2023 LIPID PANEL HDL cholesterol 66 mg/dL 40-999 Not Available [facility] [address] [place] [address], [address], 12/14/2023 06:18:15 12/13/19 24 12/13/2023 LIPID PANEL VLDL cholesterol tiana 66 mg/dL 5-40 above high normal Not Available [facility] [address] [place] [address], [address], 12/14/2023 06:18:15 12/13/19 24 12/13/2023 LIPID PANEL LDL chol calc (nih) 150 mg/dL 0-99 above high normal Not Available [facility] [address] [place] [address], [address], 12/14/2023 06:18:15 12/13/19 24 12/13/2023 COMP. METAB OLIC PANEL (14) glucose 63 mg/dL 70-99 below low normal Not Available [facility] [address] [place], [address], 12/14/2023 06:18:16 12/13/19 24 12/13/2023 COMP. METAB OLIC PANEL (14) BUN 10 mg/dL 8-27 Not Available [facility] [address] [place], [address], 12/14/2023 06:18:16 12/13/19 24 12/13/2023 COMP. METAB OLIC PANEL (14) creatinine 0.94 mg/dL 0.76-1 .27 Not Available [facility] [address] [place] [address], [address], 12/14/2023 06:18:16 12/13/19 24 12/13/2023 COMP. METAB OLIC PANEL (14) eGFR 90 >=60 Units for eGFR value s are mL/mi n/1.7 3 The eGFR Calcu latio n has not been valid ated for patie nts under the age of 18. If test resul ts are displ ayed for a patie nt under the age of 18, disre dean that value . Not Available [facility] [address] [place] [address], [address], 12/14/2023 06:18:16 12/13/19 24 12/13/2023 COMP. METAB OLIC PANEL (14) BUN/creatini ne ratio 10 10-24 Not Available [facility] [address] [place] [address], [address], 12/14/2023 06:18:16 12/13/19 24 12/13/2023 COMP. METAB OLIC PANEL (14) sodium 141 mmol/ L 134-14 4 Not Available [facility] [address] [place] [address], [address], 12/14/2023 06:18:16 12/13/19 24 12/13/2023 COMP. METAB OLIC PANEL (14) potassium 4.8 mmol/ L 3.5-5. 2 Not Available [facility] [address] [place] [address], [address], 12/14/2023 06:18:16 12/13/19 24 12/13/2023 COMP. METAB OLIC PANEL (14) chloride 101 mmol/ L 96-106 Not Available [facility] [address] [place] [address], [address], 12/14/2023 06:18:16 12/13/19 24 12/13/2023 COMP. METAB OLIC PANEL (14) carbon dioxide, total 28 mmol/ L 20-29 Not Available [facility] [address] [place], [address], 12/14/2023 06:18:16 12/13/19 24 12/13/2023 COMP. METAB OLIC PANEL (14) calcium 9.9 mg/dL 8.6-10 .2 Not Available [facility] [address] [place], [address], 12/14/2023 06:18:16 12/13/19 24 12/13/2023 COMP. METAB OLIC PANEL (14) protein, total 7.0 g/dL 6.0-8. 5 Not Available [facility] [address] [place], [address], 12/14/2023 06:18:16 12/13/19 24 12/13/2023 COMP. METAB OLIC PANEL (14) albumin 4.4 g/dL 3.9-4. 9 Not Available [facility] [address] [place], [address], 12/14/2023 06:18:16 12/13/19 24 12/13/2023 COMP. METAB OLIC PANEL (14) globulin, total 2.6 g/dL 1.5-4. 5 Not Available [facility] [address] [place], [address], 12/14/2023 06:18:16 12/13/19 24 12/13/2023 COMP. METAB OLIC PANEL (14) A/G ratio 1.7 1.2-2. 2 Not Available [facility] [address] [place], [address], 12/14/2023 06:18:16 12/13/19 24 12/13/2023 COMP. METAB OLIC PANEL (14) bilirubin, total 0.4 mg/dL 0.0-1. 2 Not Available [facility] [address] [place], [address], 12/14/2023 06:18:16 12/13/19 24 12/13/2023 COMP. METAB OLIC PANEL (14) alkaline phosphatase 80 IU/L 44-121 Not Available [facility] [address] [place], [address], 12/14/2023 06:18:16 12/13/19 24 12/13/2023 COMP. METAB OLIC PANEL (14) AST (SGOT) 28 IU/L 0-40 Not Available [facility] [address] [place], [address], 12/14/2023 06:18:16 12/13/19 24 12/13/2023 COMP. METAB OLIC PANEL (14) ALT (SGPT) 30 IU/L 0-44 Not Available [facility] [address] [place], [address], 12/14/2023 06:18:16 12/13/19 24 12/13/2023 CBC WITH DIFFE RENTI AL/PL ATELE T WBC 9.1 x10e3 /uL 3.4-10 .8 Not Available [facility] [address] [place], [address], 12/14/2023 06:18:17 12/13/19 24 12/13/2023 CBC WITH DIFFE RENTI AL/PL ATELE T RBC 5.07 x10e6 /uL 4.14-5 .80 Not Available [facility] [address] [place], [address], 12/14/2023 06:18:17 12/13/19 24 12/13/2023 CBC WITH DIFFE RENTI AL/PL ATELE T hemoglobin 15.6 g/dL 13.0-1 7.7 Not Available [facility] [address] [place], [address], 12/14/2023 06:18:17 12/13/19 24 12/13/2023 CBC WITH DIFFE RENTI AL/PL ATELE T hematocrit 45.3 % 37.5-5 1.0 Not Available [facility] [address] [place], [address], 12/14/2023 06:18:17 12/13/19 24 12/13/2023 CBC WITH DIFFE RENTI AL/PL ATELE T MCV 89 fL 79-97 Not Available [facility] [address] [place], [address], 12/14/2023 06:18:17 12/13/19 24 12/13/2023 CBC WITH DIFFE RENTI AL/PL ATELE T MCH 30.8 pg 26.6-3 3.0 Not Available [facility] [address] [place], [address], 12/14/2023 06:18:17 12/13/19 24 12/13/2023 CBC WITH DIFFE RENTI AL/PL ATELE T MCHC 34.4 g/dL 31.5-3 5.7 Not Available [facility] [address] [place], [address], 12/14/2023 06:18:17 12/13/19 24 12/13/2023 CBC WITH DIFFE RENTI AL/PL ATELE T RDW 13.2 % 11.5-1 4.5 Not Available [facility] [address] [place], [address], 12/14/2023 06:18:17 12/13/19 24 12/13/2023 CBC WITH DIFFE RENTI AL/PL ATELE T platelets 238 x10e3 /uL 150-45 0 Not Available [facility] [address] [place], [address], 12/14/2023 06:18:17 12/13/19 24 12/13/2023 CBC WITH DIFFE RENTI AL/PL ATELE T neutrophils 64 % notest b. Not Available [facility] [address] [place], [address], 12/14/2023 06:18:17 12/13/19 24 12/13/2023 CBC WITH DIFFE RENTI AL/PL ATELE T lymphs 20 % notest b. Not Available [facility] [address] [place], [address], 12/14/2023 06:18:17 12/13/19 24 12/13/2023 CBC WITH DIFFE RENTI AL/PL ATELE T monocytes 12 % notest b. Not Available [facility] [address] [place], [address], 12/14/2023 06:18:17 12/13/19 24 12/13/2023 CBC WITH DIFFE RENTI AL/PL ATELE T eos 3 % notest b. Not Available [facility] [address] [place], [address], 12/14/2023 06:18:17 12/13/19 24 12/13/2023 CBC WITH DIFFE RENTI AL/PL ATELE T basos 1 % notest b. Not Available [facility] [address] [place], [address], 12/14/2023 06:18:17 12/13/19 24 12/13/2023 CBC WITH DIFFE RENTI AL/PL ATELE T neutrophils (absolute) 5.8 x10e3 /uL 1.4-7. 0 Not Available [facility] [address] [place], [address], 12/14/2023 06:18:17 12/13/1912/13/2023 CBC WITH DIFFE RENTI AL/PL ATELE T lymphs (absolute) 1.8 x10e3 /uL 0.7-3. 1 Not Available [facility] [address] [place], [address], 12/14/2023 06:18:17 12/13/19 24 12/13/2023 CBC WITH DIFFE RENTI AL/PL ATELE T monocytes(ab solute) 1.1 x10e3 /uL 0.1-0. 9 above high normal Not Available [facility] [address] [place], [address], 12/14/2023 06:18:17 12/13/19 24 12/13/2023 CBC WITH DIFFE RENTI AL/PL ATELE T eos (absolute) 0.3 x10e3 /uL 0.0-0. 4 Not Available [facility] [address] [place], [address], 12/14/2023 06:18:17 12/13/19 24 12/13/2023 CBC WITH DIFFE RENTI AL/PL ATELE T baso (absolute) 0.1 x10e3 /uL 0.0-0. 2 Not Available [facility] [address] [place], [address], 12/14/2023 06:18:17 12/13/19 24 12/13/2023 CBC WITH DIFFE RENTI AL/PL ATELE T immature granulocytes 0.5 % notest b. Not Available [facility] [address] [place], [address], 12/14/2023 06:18:17 12/13/19 24 12/13/2023 CBC WITH DIFFE RENTI AL/PL ATELE T immature grans (abs) 0.1 x10e3 /uL 0.0-0. 1 Not Available [facility] [address] [place], [address], 12/14/2023 06:18:17 12/13/19 24 12/13/2023 CBC WITH DIFFE RENTI AL/PL ATELE T NRBC 0 % 0-0 Not Available [facility] [address] [place], [address], 12/14/2023 06:18:17 12/13/19 24 12/14/2023 T4, FREE T4,free(dire ct) 1.30 NG/dL 0.82-1 .77 Not Available [facility] ([facility]) [address] [place], [address], 12/14/2023 06:18:21 12/13/19 24 12/14/2023 TSH TSH 0.527 uIU/m L 0.450- 4.500 Not Available [facility] ([facility]) [address] [place], [address], 12/14/2023 06:18:21 12/13/19 24 12/14/2023 TRIIO DOTHY HAKAN E (T3), FREE triiodothyro nine (T3), free 3.2 pg/mL 2.0-4. 4 Not Available [facility] ([facility]) [address] [place], [address], 12/14/2023 06:18:22 12/13/1912/14/2023 HIV AB/P2 4 AG WITH REFLE X HIV Ab/P24 Ag screen NON REACTI VE nonrea ctive HIV-1 /HIV- 2 antib odies and HIV-1 p24 antig en were NOT detec aisha. There is no labor atory evide nce of HIV infec tion. HIV Negat jimmie Not Available [facility] ([facility]) [address] [place], [address], 12/14/2023 06:18:22 06/02/1906/03/2024 LIPID PANEL cholesterol, total 258 mg/dL 100-19 9 above high normal Not Available [facility] ([facility]) [address] [place], [address], 06/03/2024 08:27:08 06/02/19 25 06/03/2024 LIPID PANEL triglyceride s 261 mg/dL 0-149 above high normal Not Available [facility] ([facility]) [address] [place], [address], 06/03/2024 08:27:08 06/02/19 25 06/03/2024 LIPID PANEL HDL cholesterol 58 mg/dL >39 Not Available [facility] ([facility]) [address] [place], [address], 06/03/2024 08:27:08 06/02/19 25 06/03/2024 LIPID PANEL VLDL cholesterol tiana 48 mg/dL 5-40 above high normal Not Available [facility] ([facility]) [address] [place], [address], 06/03/2024 08:27:08 06/02/19 25 06/03/2024 LIPID PANEL LDL chol calc ([facility]) 152 mg/dL 0-99 above high normal Not Available [facility] ([facility]) [address] [place], [address], 06/03/2024 08:27:08 06/02/19 25 06/03/2024 COMP. METAB OLIC PANEL (14) glucose 92 mg/dL 70-99 Not Available [facility] ([facility]) [address] [place], [address], 06/03/2024 08:27:09 06/02/19 25 06/03/2024 COMP. METAB OLIC PANEL (14) BUN 12 mg/dL 8-27 Not Available [facility] ([facility]) [address] [place], [address], 06/03/2024 08:27:09 06/02/19 25 06/03/2024 COMP. METAB OLIC PANEL (14) creatinine 1.05 mg/dL 0.76-1 .27 Not Available [facility] ([facility]) [address] [place], [address], 06/03/2024 08:27:09 06/02/19 25 06/03/2024 COMP. METAB OLIC PANEL (14) eGFR 79 mL/mi n/1.7 3 >59 Not Available [facility] ([facility]) [address] [facility], [place], [address], 06/03/2024 08:27:09 06/02/19 25 06/03/2024 COMP. METAB OLIC PANEL (14) BUN/creatini ne ratio 11 10-24 Not Available [facility] ([facility]) [address] [facility], [place], [address], 06/03/2024 08:27:09 06/02/19 25 06/03/2024 COMP. METAB OLIC PANEL (14) sodium 140 mmol/ L 134-14 4 Not Available [facility] ([facility]) [address] [facility], [place], [address], 06/03/2024 08:27:09 06/02/19 25 06/03/2024 COMP. METAB OLIC PANEL (14) potassium 4.7 mmol/ L 3.5-5. 2 Not Available [facility] ([facility]) [address] [facility], [place], [address], 06/03/2024 08:27:09 06/02/19 25 06/03/2024 COMP. METAB OLIC PANEL (14) chloride 101 mmol/ L 96-106 Not Available [facility] ([facility]) [address] [facility] [place], [address], 06/03/2024 08:27:09 06/02/19 25 06/03/2024 COMP. METAB OLIC PANEL (14) carbon dioxide, total 27 mmol/ L 20-29 Not Available [facility] ([facility]) [address] [facility] [place], [address], 06/03/2024 08:27:09 06/02/19 25 06/03/2024 COMP. METAB OLIC PANEL (14) calcium 9.9 mg/dL 8.6-10 .2 Not Available [facility] ([facility]) [address] [place], [address], 06/03/2024 08:27:09 06/02/19 25 06/03/2024 COMP. METAB OLIC PANEL (14) protein, total 7.1 g/dL 6.0-8. 5 Not Available [facility] ([facility]) [address] [facility], [place], [address], 06/03/2024 08:27:09 06/02/19 25 06/03/2024 COMP. METAB OLIC PANEL (14) albumin 4.6 g/dL 3.9-4. 9 Not Available [facility] ([facility]) [address] [place] [place], [address], 06/03/2024 08:27:09 06/02/19 25 06/03/2024 COMP. METAB OLIC PANEL (14) globulin, total 2.5 g/dL 1.5-4. 5 Not Available [facility] ([facility]) [address] [facility] [place], [address], 06/03/2024 08:27:09 06/02/19 25 06/03/2024 COMP. METAB OLIC PANEL (14) bilirubin, total 0.4 mg/dL 0.0-1. 2 Not Available [facility] ([facility]) [address] [facility], [place], [address], 06/03/2024 08:27:09 06/02/19 25 06/03/2024 COMP. METAB OLIC PANEL (14) alkaline phosphatase 68 IU/L 44-121 Not Available [facility] ([facility]) [address] [facility], [place], [address], 06/03/2024 08:27:09 06/02/19 25 06/03/2024 COMP. METAB OLIC PANEL (14) AST (SGOT) 21 IU/L 0-40 Not Available [facility] ([facility]) [address] [facility] [place], [address], 06/03/2024 08:27:09 06/02/1906/03/2024 COMP. METAB OLIC PANEL (14) ALT (SGPT) 20 IU/L 0-44 Not Available [facility] ([facility]) [address] [facility], [place], [address], 06/03/2024 08:27:09 06/02/1906/03/2024 CBC WITH DIFFE RENTI AL/PL ATELE T WBC 5.2 x10e3 /uL 3.4-10 .8 Not Available [facility] ([facility]) [address] [facility], [place], [address], 06/03/2024 08:27:11 06/02/1906/03/2024 CBC WITH DIFFE RENTI AL/PL ATELE T RBC 5.26 x10e6 /uL 4.14-5 .80 Not Available [facility] ([facility]) [address] [facility], [place], [address], 06/03/2024 08:27:11 06/02/1906/03/2024 CBC WITH DIFFE RENTI AL/PL ATELE T hemoglobin 16.1 g/dL 13.0-1 7.7 Not Available [facility] ([facility]) [address] [facility], [place], [address], 06/03/2024 08:27:11 06/02/1906/03/2024 CBC WITH DIFFE RENTI AL/PL ATELE T hematocrit 47.3 % 37.5-5 1.0 Not Available [facility] ([facility]) [address] [facility], [place], [address], 06/03/2024 08:27:11 06/02/1906/03/2024 CBC WITH DIFFE RENTI AL/PL ATELE T MCV 90 fL 79-97 Not Available [facility] ([facility]) [address] [place], [address], 06/03/2024 08:27:11 06/02/19 25 06/03/2024 CBC WITH DIFFE RENTI AL/PL ATELE T MCH 30.6 pg 26.6-3 3.0 Not Available [facility] ([facility]) [address] [place], [address], 06/03/2024 08:27:11 06/02/19 25 06/03/2024 CBC WITH DIFFE RENTI AL/PL ATELE T MCHC 34.0 g/dL 31.5-3 5.7 Not Available [facility] ([facility]) [address] [place], [address], 06/03/2024 08:27:11 06/02/1906/03/2024 CBC WITH DIFFE RENTI AL/PL ATELE T RDW 13.0 % 11.6-1 5.4 Not Available [facility] ([facility]) [address] [place], [address], 06/03/2024 08:27:11 06/02/19 25 06/03/2024 CBC WITH DIFFE RENTI AL/PL ATELE T platelets 240 x10e3 /uL 150-45 0 Not Available [facility] ([facility]) [address] [place], [address], 06/03/2024 08:27:11 06/02/1906/03/2024 CBC WITH DIFFE RENTI AL/PL ATELE T neutrophils 43 % notest ab. Not Available [facility] ([facility]) [address] [place], [address], 06/03/2024 08:27:11 06/02/19 25 06/03/2024 CBC WITH DIFFE RENTI AL/PL ATELE T lymphs 43 % notest ab. Not Available [facility] ([facility]) [address] [place], [address], 06/03/2024 08:27:11 06/02/19 06/03/2024 CBC WITH DIFFE RENTI AL/PL ATELE T monocytes 11 % notest ab. Not Available [facility] ([facility]) [address] [place], [address], 06/03/2024 08:27:11 06/02/1906/03/2024 CBC WITH DIFFE RENTI AL/PL ATELE T eos 2 % notest ab. Not Available [facility] ([facility]) [address] [facility], [place], [address], 06/03/2024 08:27:11 06/02/1906/03/2024 CBC WITH DIFFE RENTI AL/PL ATELE T basos 1 % notest ab. Not Available [facility] ([facility]) [address] [facility], [place], [address], 06/03/2024 08:27:11 06/02/1906/03/2024 CBC WITH DIFFE RENTI AL/PL ATELE T neutrophils (absolute) 2.3 x10e3 /uL 1.4-7. 0 Not Available [facility] ([facility]) [address] [place], [address], 06/03/2024 08:27:11 06/02/1906/03/2024 CBC WITH DIFFE RENTI AL/PL ATELE T lymphs (absolute) 2.3 x10e3 /uL 0.7-3. 1 Not Available [facility] ([facility]) [address] [facility], [place], [address], 06/03/2024 08:27:11 06/02/1906/03/2024 CBC WITH DIFFE RENTI AL/PL ATELE T monocytes(ab solute) 0.6 x10e3 /uL 0.1-0. 9 Not Available [facility] ([facility]) [address] [place], [address], 06/03/2024 08:27:11 06/02/1906/03/2024 CBC WITH DIFFE RENTI AL/PL ATELE T eos (absolute) 0.1 x10e3 /uL 0.0-0. 4 Not Available [facility] ([facility]) [address] [place], [address], 06/03/2024 08:27:11 06/02/19 25 06/03/2024 CBC WITH DIFFE RENTI AL/PL ATELE T baso (absolute) 0.1 x10e3 /uL 0.0-0. 2 Not Available [facility] ([facility]) [address] [place], [address], 06/03/2024 08:27:11 06/02/19 25 06/03/2024 CBC WITH DIFFE RENTI AL/PL ATELE T immature granulocytes 0 % notest ab. Not Available [facility] ([facility]) [address] [place], [address], 06/03/2024 08:27:11 06/02/19 25 06/03/2024 CBC WITH DIFFE RENTI AL/PL ATELE T immature grans (abs) 0.0 x10e3 /uL 0.0-0. 1 Not Available [facility] ([facility]) [address] [place], [address], 06/03/2024 08:27:11 08/26/19 24 08/26/2023 XR, chest No observ ation record ed. [email or web address], [address], 08/26/2023 13:31:08 06/13/19 25 06/11/2024 PFT, compl ete No observ ation record ed. [address], [address], 06/17/2024 17:24:00 06/20/19 25 06/19/2024 XR, chest No observ ation record ed. [address] [place], [address], 06/24/2024 22:09:22 Result Notes None recorded. Problems Name Problem SNOMED Code Status Onset Date Resolution Date Notes Provider Name and Address Organization Details Recorded Time Essential hypertension 33497049 Active 2024 Alesia Benjamin MA null, [place] - [facility] 12:24:56 Chronic obstructive pulmonary disease 93170846 Active 2024 Alesia Benjamin [place] [facility] 12:24:56 Hyperlipidemia 80080798 Active 2024 Alesia Benjamin [place], [place] [facility] 09:57:32 Tetanus vaccination declined by patient 028626511 Active 2024 Zaria Rubio MD Attn: Accountin g,[address] [facility], [place], [address], [place] [facility] 14:37:54 Pneumococcal vaccination declined 427138133 Active 2024 Zaria Rubio MD Attn: Accountin g,[address] [facility], [place], [address], [place] [facility] 5 14:37:55 Influenza vaccination declined 726350117 Active 2024 Zaria Rubio MD Attn: Accountin g,[address] [facility], [place], [address], [place] - [facility] 5 14:37:56 Problem Notes None recorded. Procedures Surgical History Date Name Laterality Status Provider Name and Address Organization Details Recorded Time Back Surgery completed RAVEN Tran - [facility] 06/21/2023 10:32:10 Hernia Repair completed Victoria Basilio MA [place] - [facility] 06/21/2023 10:32:20 Carpal tunnel surgery completed RAVEN Tran - [facility] 06/21/2023 10:32:54 Imaging Results Imaging Date Name Status LastModified by [facility] Details LastModified Time 08/26/2023 XR, chest completed sarah Basilio [address], [place], [address], 08/26/2023 13:31:08 06/11/2024 PFT, complete completed ALPHONSO borjas [address], [place], [address], 06/17/2024 17:24:00 06/19/2024 XR, chest completed jose Ricardoi vanessa [address], [place], [address], 06/24/2024 22:09:22 Procedure Notes None recorded. Medical Equipment None [...] Address Organization Details Last Updated DateTime 4 [address]478.7 4 g 26 kg/m2 182.88 cm 93 /min 97 % 97 % 142 mm[Hg] 80 mm[Hg] Victoria Basilio MA [facility] 4 10:39:46 Date Recorded Body height Body mass index (BMI) Body weight Heart rate Oxygen saturation Oxygen saturation in Arterial blood by Pulse oximetry Systolic blood pressure Diastolic blood pressure Provider Name and Address Organization Details Last Updated DateTime 4 182.88 cm 25.1 kg/m2 51176.5 9 g 94 /min 96 % 96 % 144 mm[Hg] 88 mm[Hg] Rissa Mohan MA [facility] 4 10:44:59 Date Recorded Body height Provider Name an d Address Organization Details Last Updated DateTime 06/02/2024 182.88 cm Liza Carolina MA [facility] 06/02/2024 11:53:53 Date Recorded Body mass index (BMI) Body weight Heart rate Oxygen saturation Oxygen saturation in Arterial blood by Pulse oximetry Systolic blood pressure Diastolic blood pressure Provider Name and Address Organization Details Last Updated DateTime 27.2 kg/m2 86148.5 5 g 86 /min 91 % 91 % 130 mm[Hg] 88 mm[Hg] Victoria Basilio MA [place] - [facility] 12:05:43 Social History Question Answer Notes LastModified by Organizat ion Details LastModified Time Tobacco Smoking Status Current Every Day Smoker Victoria Basilio MA null, [place] - [facility] 06/21/2023 10:33:52 What Is Your Level Of [...] Anxious, Or Unable To Sleep At Night)? [id number] Information not available 06/21/2023 Do You Use [...] Skin Problems Y Anemia N Heart Attack (PA) N Anxiety Disorder N Diabetes N Muscle, Joint, or Bone Problems Y Seizures/Epilepsy N Acid Reflux (GERD) N Cancer N Stroke N Asthma N Allergies N High Cholesterol Y Hepatitis N Liver Disease N Headaches N Heart Failure N Osteoporosis N Past Encounters Encounter ID Performer Location Encounter Start Date Encounter Closed Date Diagnosis/Indication Diagnosis SNOMED-CT Code Diagnosis ICD10 Code Diagnosis Note [id number] MD Shashi Hernandez (Adult Med) [address] [place] [phone] 06/21/2023 10:06:01 06/21/2023 11:22:18 Essential hypertension 42473289 I10 Screening for malignant neoplasm of prostate 308430105 Z12.5 Chronic ob structive pulmonary disease 89146373 J44.9 Hyperlipidemia 31284590 E78.5 [id number] MD Shashi Hernandez (Adult Med) [address] [place] [phone] 12/13/2023 10:21:59 12/13/2023 11:48:01 Generalized rash 877819972 R21 Hyperlipidemia 17559338 E78.5 Fatigue 53116023 R53.83 Essential hypertension 18466429 I10 [id number] MD Shashi Hernandez (Adult Med) [address] [place] [phone] 06/02/2024 11:47:51 06/02/2024 12:31:41 Overweight 741847813 E66.3 Essential hypertension 02481064 I10 Chronic ob structive pulmonary disease 57713490 J44.9 Lipoma 43686415 D17.9 Hyperlipidemia 14815170 E78.5 Influenza vaccination declined 586172286 Z28.21 Pneumococc al vaccination declined 091209448 Z28.21 Tetanus va ccination declined by patient 996185938 Z28.21 Health Concerns Section Related Observation LastModified by Organization Detai ls LastModified Time None Recorded Concern Status LastModified by Organization Details LastModified Time None Recorded Advance Directives Directive None Recorded Payers Encounter Date Sequence Insurance Name Policy Number Policy Barraza Covered Member ID Barraza Member ID Guarantor Name 06/21/2023 1 [facility] (MEDICARE REPLACEMENT/AD VANTAGE - HMO) Reji Freire [id number] Reji Freire 12/13/2023 1 [facility] - DOS ON OR AFTER 20 (MEDICAID REPLACEMENT - HMO) Reji Freire [id number] Reji Freire 06/02/2024 1 [place] Reji Freire [id number] Reji Freire 06/02/2024 2 [place]CON[place] WHEN MEDICARE OR MEDICARE REPLACEMENT PRIMARY) Reji Freire [id number] Reji Freire Notes Date Note Type Note Provider Name and Address Organization Details Recorded Time 06/21/2023 text/html Hypertension no headache or dizziness no palpitations COPD continues to smoke denies any shortness of breath or hemoptysis hyperlipidemia does try to follow a low-fat diet Zaria Rubio MD Attn: Accounting,[address] [facility], [place], [address], [facility] 06/21/2023 22:51:05 12/13/2023 text/html he has had some nonspecific fatigue hypertension no headache or dizziness dyslipidemia needs his lipid panel done but tries to follow a low-fat that was in the ER for some hives was given some Claritin hydrocortisone cream and a Z-Geo and he is better Zaria Rubio MD Attn: Accounting,[address] [facility], [place], [address], [facility] 12/15/2023 23:25:02 06/02/2024 text/html 1. Hypertension no headache no dizziness. 2. COPD denies cough or wheezing or shortness of breath. 3. Dyslipidemia he has been taking the lovastatin and atorvastatin 4. He is going to skin lesion Zaria Rubio MD Attn: Accounting,[address] [facility], [place], [address], [facility] 06/06/2024 14:38:46
--- OUTSIDE RECORDS SUMMARY | 2024-07-08 12:46 | XMS_ITS | Clinical Summary ---
Author Organization [facility] Address [address] [place] [address] Care Team Providers Care Rn Corrections Name Role Phone Phuc Rubio MD Primary Care Provider [phone] Allergies No known active allergies Medications ibuprofen [...] Date Numbness and tingling in left arm Encounters Date Type Department Care Team Description 07/02/2024 4:41 PM CDT - 07/02/2024 11:59 PM CDT Hospital Encounter [facility] [address] [place] [id number] Encounter for disability determination Discharge Disposition: Discharge to home or self care from Last 3 Months Medical History Medical History Date Comments Hypertension [...] on file Legal Sex Male 10:[address] Gender Identity Not on file Sexual Orientation [...] Screening 1976 Pneumococcal vaccine 65+ (1 of 2 - PCV) 1977 Zoster Vaccine (1 of 2) 2008 Influenza Vaccine (#1) 2023 Abdominal Aortic Aneurysm (AAA) Screen 12/11/2023 Well Visit 65+ 12/11/2023 Procedures Procedure Name Priority Date/Time Associated Diagnosis Comments XR SHOULDER LEFT 2 OR MORE VIEWS Schedule Routine, Read Routine (OP Routine) 07/02/2024 5:06 PM CDT Encounter for disability determination XR SPINE LUMBAR 2 OR 3 VIEWS Schedule Routine, Read Routine (OP Routine) 07/02/2024 5:06 PM CDT Encounter for disability determination XR SPINE CERVICAL 6 OR MORE VIEWS Schedule Routine, Read Routine (OP Routine) 07/02/2024 5:06 PM CDT Encounter for disability determination XR SHOULDER RIGHT 2 OR MORE VIEWS Schedule Routine, Read Routine (OP Routine) 07/02/2024 5:06 PM CDT Encounter for disability determination from Last 3 Months Results * XR Spine Cervical 6 or More Views (07/02/2024 5:06 PM CDT) Anatomical Region Laterality Modality Spine N/A Computed Radiogr aphy 07/05/2024 9:47 PM CDT Narrative 07/05/2024 9:51 PM CDT EXAM DESCRIPTION: XR SHOULDER RIGHT 2 OR MORE VIEWS; XR SHOULDER LEFT 2 OR MORE VIEWS; XR SPINE CERVICAL 6 OR MORE VIEWS; XR SPINE LUMBAR 2 OR 3 VIEWS REASON FOR STUDY: Neck, low back and bilateral shoulder pain. Disability determination H/o l-spine surgery FINDINGS: Four views each shoulder, 6 views cervical spine and two views lumbar spine submitted with comparison 12/25/2023. Cervical spine: No acute fracture. No prevertebral soft tissue swelling. The lateral masses of C1 properly articulate on C2. Moderate C3-C4, mild C4-C5 and moderate to severe C5-C7 degenerative disc disease. Multilevel bilateral cervical foraminal impingement is present. Left-sided cervical facet osteoarthritis. Shoulders: No acute fracture. Alignment is normal. Mild bilateral glenohumeral joint osteoarthritis. Mild right and moderate left bilateral acromioclavicular joint osteoarthritis. Lumbar spine: L1-L2 instrumented posterior spinal fusion is present. Prior posterior decompression has been performed. No acute fracture. Mild L2-L4 and moderate to severe L4-S1 degenerative disc disease with inferior lumbar facet osteoarthritis. IMPRESSION: Moderate C3-C4, mild C4-C5 and moderate to severe C5-C7 degenerative disc disease with multilevel bilateral cervical foraminal impingement. Mild bilateral glenohumeral joint osteoarthritis. Mild right and moderate left bilateral acromioclavicular joint osteoarthritis. L1-L2 instrumented posterior spinal fusion with prior posterior decompression. Mild L2-L4 and moderate to severe L4-S1 degenerative disc disease with inferior lumbar facet osteoarthritis. THIS IS AN ELECTRONICALLY VERIFIED FINAL REPORT 07/05/2024 9:51 PM - Electronically signed by Phuc Fortune M.D. MF: [email or web address] Report ID: [id number] Reading Location: [id number] Procedure Note Phuc Fortune MD - 07/05/2024 EXAM DESCRIPTION: XR SHOULDER RIGHT 2 OR MORE VIEWS; XR SHOULDER LEFT 2 OR MORE VIEWS; XR SPINE CERVICAL 6 OR MORE VIEWS; XR SPINE LUMBAR 2 OR 3 VIEWS REASON FOR STUDY: Neck, low back and bilateral shoulder pain. Disability determination H/o l-spine surgery FINDINGS: Four views each shoulder, 6 views cervical spine and two views lumbarspine submitted with comparison 12/25/2023. Cervical spine: No acute fracture. No prevertebral soft tissue swelling. The lateralmasses of C1 properly articulate on C2. Moderate C3-C4, mild C4-C5 and moderateto severe C5-C7 degenerative disc disease. Multilevel bilateral cervical foraminal impingement is present. Left-sided cervical facetosteoarthritis. Shoulders: No acute fracture. Alignment is normal. Mild bilateral glenohumeraljoint osteoarthritis. Mild right and moderate left bilateral acromioclavicular joint osteoarthritis. Lumbar spine: L1-L2 instrumented posterior spinal fusion is present. Prior posterior decompression has been performed. No acute fracture. Mild L2-L4 andmoderate to severe L4-S1 degenerative disc disease with inferior lumbar facet osteoarthritis. IMPRESSION: Moderate C3-C4, mild C4-C5 and moderate to severe C5-C7 degenerative disc disease with multilevel bilateral cervical foraminal impingement. Mild bilateral glenohumeral joint osteoarthritis. Mild right and moderate left bilateral acromioclavicular jointosteoarthritis. L1-L2 instrumented posterior spinal fusion with prior posteriordecompression. Mild L2-L4 and moderate to severe L4-S1 degenerative disc disease with inferior lumbar facet osteoarthritis. THIS IS AN ELECTRONICALLY VERIFIED FINAL REPORT 07/05/2024 9:51 PM - Electronically signed by Phuc Fortune M.D. MF: [email or web address] Report ID: [id number] Reading Location: [id number] Prosper Mackenzie MD IMG XR PROCEDURES Final Result * XR Shoulder Right 2 or More Views (07/02/2024 5:06 PM CDT) Anatomical Region Laterality Modality Upper Extremities, Shoulder Right Comp uted Radiography 07/05/2024 9:47 PM CDT Narrative 07/05/2024 9:51 PM CDT EXAM DESCRIPTION: XR SHOULDER RIGHT 2 OR MORE VIEWS; XR SHOULDER LEFT 2 OR MORE VIEWS; XR SPINE CERVICAL 6 OR MORE VIEWS; XR SPINE LUMBAR 2 OR 3 VIEWS REASON FOR STUDY: Neck, low back and bilateral shoulder pain. Disability determination H/o l-spine surgery FINDINGS: Four views each shoulder, 6 views cervical spine and two views lumbar spine submitted with comparison 12/25/2023. Cervical spine: No acute fracture. No prevertebral soft tissue swelling. The lateral masses of C1 properly articulate on C2. Moderate C3-C4, mild C4-C5 and moderate to severe C5-C7 degenerative disc disease. Multilevel bilateral cervical foraminal impingement is present. Left-sided cervical facet osteoarthritis. Shoulders: No acute fracture. Alignment is normal. Mild bilateral glenohumeral joint osteoarthritis. Mild right and moderate left bilateral acromioclavicular joint osteoarthritis. Lumbar spine: L1-L2 instrumented posterior spinal fusion is present. Prior posterior decompression has been performed. No acute fracture. Mild L2-L4 and moderate to severe L4-S1 degenerative disc disease with inferior lumbar facet osteoarthritis. IMPRESSION: Moderate C3-C4, mild C4-C5 and moderate to severe C5-C7 degenerative disc disease with multilevel bilateral cervical foraminal impingement. Mild bilateral glenohumeral joint osteoarthritis. Mild right and moderate left bilateral acromioclavicular joint osteoarthritis. L1-L2 instrumented posterior spinal fusion with prior posterior decompression. Mild L2-L4 and moderate to severe L4-S1 degenerative disc disease with inferior lumbar facet osteoarthritis. THIS IS AN ELECTRONICALLY VERIFIED FINAL REPORT 07/05/2024 9:51 PM - Electronically signed by Phuc Fortune M.D. MF: [email or web address] Report ID: [id number] Reading Location: [id number] Procedure Note Phuc Fortune MD - 07/05/2024 EXAM DESCRIPTION: XR SHOULDER RIGHT 2 OR MORE VIEWS; XR SHOULDER LEFT 2 OR MORE VIEWS; XR SPINE CERVICAL 6 OR MORE VIEWS; XR SPINE LUMBAR 2 OR 3 VIEWS REASON FOR STUDY: Neck, low back and bilateral shoulder pain. Disability determination H/o l-spine surgery FINDINGS: Four views each shoulder, 6 views cervical spine and two views lumbarspine submitted with comparison 12/25/2023. Cervical spine: No acute fracture. No prevertebral soft tissue swelling. The lateralmasses of C1 properly articulate on C2. Moderate C3-C4, mild C4-C5 and moderateto severe C5-C7 degenerative disc disease. Multilevel bilateral cervical foraminal impingement is present. Left-sided cervical facetosteoarthritis. Shoulders: No acute fracture. Alignment is normal. Mild bilateral glenohumeraljoint osteoarthritis. Mild right and moderate left bilateral acromioclavicular joint osteoarthritis. Lumbar spine: L1-L2 instrumented posterior spinal fusion is present. Prior posterior decompression has been performed. No acute fracture. Mild L2-L4 andmoderate to severe L4-S1 degenerative disc disease with inferior lumbar facet osteoarthritis. IMPRESSION: Moderate C3-C4, mild C4-C5 and moderate to severe C5-C7 degenerative disc disease with multilevel bilateral cervical foraminal impingement. Mild bilateral glenohumeral joint osteoarthritis. Mild right and moderate left bilateral acromioclavicular jointosteoarthritis. L1-L2 instrumented posterior spinal fusion with prior posteriordecompression. Mild L2-L4 and moderate to severe L4-S1 degenerative disc disease with inferior lumbar facet osteoarthritis. THIS IS AN ELECTRONICALLY VERIFIED FINAL REPORT 07/05/2024 9:51 PM - Electronically signed by Phuc Fortune M.D. MF: [email or web address] Report ID: [id number] Reading Location: [place] [id number] Prosper Mackenzie MD IMG XR PROCEDURES Final Result * XR Shoulder Left 2 or More Views (07/02/2024 5:06 PM CDT) Anatomical Region Laterality Modality Upper Extremities, Shoulder Left Comp uted Radiography 07/05/2024 9:47 PM CDT Narrative 07/05/2024 9:51 PM CDT EXAM DESCRIPTION: XR SHOULDER RIGHT 2 OR MORE VIEWS; XR SHOULDER LEFT 2 OR MORE VIEWS; XR SPINE CERVICAL 6 OR MORE VIEWS; XR SPINE LUMBAR 2 OR 3 VIEWS REASON FOR STUDY: Neck, low back and bilateral shoulder pain. Disability determination H/o l-spine surgery FINDINGS: Four views each shoulder, 6 views cervical spine and two views lumbar spine submitted with comparison 12/25/2023. Cervical spine: No acute fracture. No prevertebral soft tissue swelling. The lateral masses of C1 properly articulate on C2. Moderate C3-C4, mild C4-C5 and moderate to severe C5-C7 degenerative disc disease. Multilevel bilateral cervical foraminal impingement is present. Left-sided cervical facet osteoarthritis. Shoulders: No acute fracture. Alignment is normal. Mild bilateral glenohumeral joint osteoarthritis. Mild right and moderate left bilateral acromioclavicular joint osteoarthritis. Lumbar spine: L1-L2 instrumented posterior spinal fusion is present. Prior posterior decompression has been performed. No acute fracture. Mild L2-L4 and moderate to severe L4-S1 degenerative disc disease with inferior lumbar facet osteoarthritis. IMPRESSION: Moderate C3-C4, mild C4-C5 and moderate to severe C5-C7 degenerative disc disease with multilevel bilateral cervical foraminal impingement. Mild bilateral glenohumeral joint osteoarthritis. Mild right and moderate left bilateral acromioclavicular joint osteoarthritis. L1-L2 instrumented posterior spinal fusion with prior posterior decompression. Mild L2-L4 and moderate to severe L4-S1 degenerative disc disease with inferior lumbar facet osteoarthritis. THIS IS AN ELECTRONICALLY VERIFIED FINAL REPORT 07/05/2024 9:51 PM - Electronically signed by Phuc Fortune M.D. MF: [email or web address] Report ID: [id number] Reading Location: [id number] Procedure Note Phuc Fortune MD - 07/05/2024 EXAM DESCRIPTION: XR SHOULDER RIGHT 2 OR MORE VIEWS; XR SHOULDER LEFT 2 OR MORE VIEWS; XR SPINE CERVICAL 6 OR MORE VIEWS; XR SPINE LUMBAR 2 OR 3 VIEWS REASON FOR STUDY: Neck, low back and bilateral shoulder pain. Disability determination H/o l-spine surgery FINDINGS: Four views each shoulder, 6 views cervical spine and two views lumbarspine submitted with comparison 12/25/2023. Cervical spine: No acute fracture. No prevertebral soft tissue swelling. The lateralmasses of C1 properly articulate on C2. Moderate C3-C4, mild C4-C5 and moderateto severe C5-C7 degenerative disc disease. Multilevel bilateral cervical foraminal impingement is present. Left-sided cervical facetosteoarthritis. Shoulders: No acute fracture. Alignment is normal. Mild bilateral glenohumeraljoint osteoarthritis. Mild right and moderate left bilateral acromioclavicular joint osteoarthritis. Lumbar spine: L1-L2 instrumented posterior spinal fusion is present. Prior posterior decompression has been performed. No acute fracture. Mild L2-L4 andmoderate to severe L4-S1 degenerative disc disease with inferior lumbar facet osteoarthritis. IMPRESSION: Moderate C3-C4, mild C4-C5 and moderate to severe C5-C7 degenerative disc disease with multilevel bilateral cervical foraminal impingement. Mild bilateral glenohumeral joint osteoarthritis. Mild right and moderate left bilateral acromioclavicular jointosteoarthritis. L1-L2 instrumented posterior spinal fusion with prior posteriordecompression. Mild L2-L4 and moderate to severe L4-S1 degenerative disc disease with inferior lumbar facet osteoarthritis. THIS IS AN ELECTRONICALLY VERIFIED FINAL REPORT 07/05/2024 9:51 PM - Electronically signed by Phuc Fortune M.D. MF: DANIEL Report ID: [id number] Reading Location: [place] [id number] Prosper Mackenzie MD IMG XR PROCEDURES Final Result * XR Spine Lumbar 2 or 3 Views (07/02/2024 5:06 PM CDT) Anatomical Region Laterality Modality Spine N/A Computed Radiogr aphy 07/05/2024 9:47 PM CDT Narrative 07/05/2024 9:51 PM CDT EXAM DESCRIPTION: XR SHOULDER RIGHT 2 OR MORE VIEWS; XR SHOULDER LEFT 2 OR MORE VIEWS; XR SPINE CERVICAL 6 OR MORE VIEWS; XR SPINE LUMBAR 2 OR 3 VIEWS REASON FOR STUDY: Neck, low back and bilateral shoulder pain. Disability determination H/o l-spine surgery FINDINGS: Four views each shoulder, 6 views cervical spine and two views lumbar spine submitted with comparison 12/25/2023. Cervical spine: No acute fracture. No prevertebral soft tissue swelling. The lateral masses of C1 properly articulate on C2. Moderate C3-C4, mild C4-C5 and moderate to severe C5-C7 degenerative disc disease. Multilevel bilateral cervical foraminal impingement is present. Left-sided cervical facet osteoarthritis. Shoulders: No acute fracture. Alignment is normal. Mild bilateral glenohumeral joint osteoarthritis. Mild right and moderate left bilateral acromioclavicular joint osteoarthritis. Lumbar spine: L1-L2 instrumented posterior spinal fusion is present. Prior posterior decompression has been performed. No acute fracture. Mild L2-L4 and moderate to severe L4-S1 degenerative disc disease with inferior lumbar facet osteoarthritis. IMPRESSION: Moderate C3-C4, mild C4-C5 and moderate to severe C5-C7 degenerative disc disease with multilevel bilateral cervical foraminal impingement. Mild bilateral glenohumeral joint osteoarthritis. Mild right and moderate left bilateral acromioclavicular joint osteoarthritis. L1-L2 instrumented posterior spinal fusion with prior posterior decompression. Mild L2-L4 and moderate to severe L4-S1 degenerative disc disease with inferior lumbar facet osteoarthritis. THIS IS AN ELECTRONICALLY VERIFIED FINAL REPORT 07/05/2024 9:51 PM - Electronically signed by Phuc Fortune M.D. MF: [email or web address] Report ID: [id number] Reading Location: [id number] Procedure Note Phuc Fortune MD - 07/05/2024 EXAM DESCRIPTION: XR SHOULDER RIGHT 2 OR MORE VIEWS; XR SHOULDER LEFT 2 OR MORE VIEWS; XR SPINE CERVICAL 6 OR MORE VIEWS; XR SPINE LUMBAR 2 OR 3 VIEWS REASON FOR STUDY: Neck, low back and bilateral shoulder pain. Disability determination H/o l-spine surgery FINDINGS: Four views each shoulder, 6 views cervical spine and two views lumbarspine submitted with comparison 12/25/2023. Cervical spine: No acute fracture. No prevertebral soft tissue swelling. The lateralmasses of C1 properly articulate on C2. Moderate C3-C4, mild C4-C5 and moderateto severe C5-C7 degenerative disc disease. Multilevel bilateral cervical foraminal impingement is present. Left-sided cervical facetosteoarthritis. Shoulders: No acute fracture. Alignment is normal. Mild bilateral glenohumeraljoint osteoarthritis. Mild right and moderate left bilateral acromioclavicular joint osteoarthritis. Lumbar spine: L1-L2 instrumented posterior spinal fusion is present. Prior posterior decompression has been performed. No acute fracture. Mild L2-L4 andmoderate to severe L4-S1 degenerative disc disease with inferior lumbar facet osteoarthritis. IMPRESSION: Moderate C3-C4, mild C4-C5 and moderate to severe C5-C7 degenerative disc disease with multilevel bilateral cervical foraminal impingement. Mild bilateral glenohumeral joint osteoarthritis. Mild right and moderate left bilateral acromioclavicular jointosteoarthritis. L1-L2 instrumented posterior spinal fusion with prior posteriordecompression. Mild L2-L4 and moderate to severe L4-S1 degenerative disc disease with inferior lumbar facet osteoarthritis. THIS IS AN ELECTRONICALLY VERIFIED FINAL REPORT 07/05/2024 9:51 PM - Electronically signed by Phuc Fortune M.D. MF: DANIEL Report ID: [id number] Reading Location: [place] [id number] Prosper Mackenzie MD IMG XR PROCEDURES Final Result from Last 3 Months Insurance Care Teams Rn Corrections Relationship Specialty Start Date End Date Phuc Rubio MD PCP - General Internal Medicine 12/23/21
--- OUTSIDE RECORDS SUMMARY | 2024-07-08 12:46 | XMS_ITS | Data Portability ---
Author Organization [place] - [facility], Main Office Address [address] [place] [address] Care Team Providers Care Microsoft Application Developer Name Role Phone ZARIA RUBIO Primary Care [...] more than half the time spent in xtqr-st-ocgk care. Not available 09/07/2022 11:42:55 11/02/2022 11/02/2022 Low-fat diet regular walking blood work will be ordered avoidance of tobacco follow-up 4 months Not available 11/03/2022 12:54:27 11/16/2022 11/16/2022 Impression: [...] more than half the time spent in jmjh-ap-acim care. Not available 11/18/2022 17:31:49 12/14/2022 12/14/2022 [...] went numb when he bent over to hot die picker a screw including all 5 fingertips felt [...] demonstrated how he simply bent over to hot die picker a screw reaching to the floor with [...] over forward and reaching to the ground hot die picker screw. Today he notes tingling in all 5 digits of his left hand when he bends over to simulate picking a screw up off the floor. Blevins tingling in all 5 fingers of his [...] more than half the time spent in zaal-zm-xhda care. Not available 12/15/2022 21:48:29 02/21/2023 02/21/2023 Will continue current therapy will follow-up in 4 [id number] Not available 02/25/2023 22:15:26 Plan of Treatment Reminders Order Date Submit Date Provider Last Modified By Organization Details Last Modified Time Details Appointments None recorded. Lab CBC w/ auto diff 2022 023 [facility] (Lab), [address] [place], [address], 15:06:11 CMP, serum or plasma 2022 023 [facility] (Lab), [address] [place], [address], 3 15:29:20 lipid panel, serum 2022 023 [facility] (Lab), [address] [place], [address], 3 15:29:23 Referral None recorded. Procedures None recorded. Surgeries None recorded. Imaging XR, cervical spine, 2 or 3 view 2022 023 [email or web address] [facility] [place], [address], [place], [address], 3 11:17:31 MRI, cervical spine, w/o contrast 2022 023 [email or web address] Not available 3 15:08:20 XR, shoulder 2022 023 [facility] [place], [address], [place], [address], 3 13:58:11 Medication Orders Naprosyn 500 mg tablet 2022 023 [id number], [address], [place], [id number], 3 08:21:45 Medrol (Geo) 4 mg tablets in a dose pack 2022 023 [email or web address] 45 [facility] #[id number], [address], [place], [phone], 3 12:18:19 Patient TargetsNo targets recorded. Patient InstructionsNo instructions recorded. Reason for Referral None Reported. Results Created Date Observation Date Name Description Value Unit Range Abnormal Flag Note LastModifiedBy Organization Detail LastModifiedTime 11/03/19 23 11/02/2022 CBC/C OMPLE TE BLD COUNT W/DIF F white blood cells 5.4 x10'3 /uL 4.2-10 .8 Not Available [facility] (Lab) [address] [place], [address], 11/02/2022 15:06:11 11/03/19 23 11/02/2022 CBC/C OMPLE TE BLD COUNT W/DIF F red blood cells 5.10 x10'6 /uL 4.10-5 .80 Not Available [facility] (Lab) [address] [place], [address], 11/02/2022 15:06:11 11/03/19 23 11/02/2022 CBC/C OMPLE TE BLD COUNT W/DIF F hemoglobin 15.3 g/dL 13.2-1 7.0 Not Available [facility] (Lab) [address] [place], [address], 11/02/2022 15:06:11 11/03/19 23 11/02/2022 CBC/C OMPLE TE BLD COUNT W/DIF F hematocrit 43.7 % 39.3-5 0.0 Not Available [facility] (Lab) [address] [place], [address], 11/02/2022 15:06:11 11/03/19 23 11/02/2022 CBC/C OMPLE TE BLD COUNT W/DIF F mean red cell volume 85.7 fL 80.0-9 7.0 Not Available [facility] (Lab) [address] [place], [address], 11/02/2022 15:06:11 11/03/19 23 11/02/2022 CBC/C OMPLE TE BLD COUNT W/DIF F mean red cell hemoglobin 30.0 pg 27.0-3 3.0 Not Available [facility] (Lab) [address] [place], [address], 11/02/2022 15:06:11 11/03/19 23 11/02/2022 CBC/C OMPLE TE BLD COUNT W/DIF F mean RBC HGB concentratio n 35.0 g/dL 31.0-3 6.0 Not Available [facility] (Lab) [address] [place], [address], 11/02/2022 15:06:11 11/03/19 23 11/02/2022 CBC/C OMPLE TE BLD COUNT W/DIF F red cell distribution width 13.9 % 11.8-1 5.5 Not Available [facility] (Lab) [address] [place], [address], 11/02/2022 15:06:11 11/03/19 23 11/02/2022 CBC/C OMPLE TE BLD COUNT W/DIF F platelets 248 x10'3 /uL 150-40 0 Not Available [facility] (Lab) [address] [place], [address], 11/02/2022 15:06:11 11/03/19 23 11/02/2022 CBC/C OMPLE TE BLD COUNT W/DIF F mean platelet volume 10.9 fL 9.0-12 .4 Not Available [facility] (Lab) [address] [place], [address], 11/02/2022 15:06:11 11/03/19 23 11/02/2022 CBC/C OMPLE TE BLD COUNT W/DIF F neutrophils 46.2 % 39.0-7 2.0 Not Available [facility] (Lab) [address] [place], [address], 11/02/2022 15:06:11 11/03/19 23 11/02/2022 CBC/C OMPLE TE BLD COUNT W/DIF F lymphocytes 39.4 % 16.0-4 7.0 Not Available [facility] (Lab) [address] [place], [address], 11/02/2022 15:06:11 11/03/19 23 11/02/2022 CBC/C OMPLE TE BLD COUNT W/DIF F monocytes 12.0 % 5.0-12 .0 Not Available [facility] (Lab) [address] [place], [address], 11/02/2022 15:06:11 11/03/19 23 11/02/2022 CBC/C OMPLE TE BLD COUNT W/DIF F eosinophils 1.3 % 1.0-7. 0 Not Available [facility] (Lab) [address] [place], [address], 11/02/2022 15:06:11 11/03/19 23 11/02/2022 CBC/C OMPLE TE BLD COUNT W/DIF F basophils 0.7 % 0.0-2. 0 Not Available [facility] (Lab) [address] [place], [address], 11/02/2022 15:06:11 11/03/19 23 11/02/2022 CBC/C OMPLE TE BLD COUNT W/DIF F immature granulocytes 0.4 % 0.00-0 .50 Not Available [facility] (Lab) [address] [place], [address], 11/02/2022 15:06:11 11/03/19 23 11/02/2022 CBC/C OMPLE TE BLD COUNT W/DIF F neutrophils, absolute count 2.50 x10'3 /uL 1.5-8. 0 Not Available [facility] (Lab) [address] [place], [address], 11/02/2022 15:06:11 11/03/19 23 11/02/2022 CBC/C OMPLE TE BLD COUNT W/DIF F lymphocytes, absolute count 2.13 x10'3 /uL 1.07-3 .43 Not Available [facility] (Lab) [address] [place], [address], 11/02/2022 15:06:11 11/03/19 23 11/02/2022 CBC/C OMPLE TE BLD COUNT W/DIF F monocytes, absolute count 0.65 x10'3 /uL 0.29-0 .99 Not Available [facility] (Lab) [address] [place], [address], 11/02/2022 15:06:11 11/03/19 23 11/02/2022 CBC/C OMPLE TE BLD COUNT W/DIF F eosinophils, absolute count 0.07 x10'3 /uL 0.02-0 .53 Not Available [facility] (Lab) [address] [place], [address], 11/02/2022 15:06:11 11/03/19 23 11/02/2022 CBC/C OMPLE TE BLD COUNT W/DIF F basophils, absolute count 0.04 x10'3 /uL 0.01-0 .08 Not Available [facility] (Lab) [address] [place], [address], 11/02/2022 15:06:11 11/03/19 23 11/02/2022 CBC/C OMPLE TE BLD COUNT W/DIF F immature granulocytes ,absolute 0.02 x10'3 /uL 0.00-0 .05 Not Available [facility] (Lab) [address] [place], [address], 11/02/2022 15:06:11 11/03/19 23 11/02/2022 CBC/C OMPLE TE BLD COUNT W/DIF F nucleated red blood cells 0.0 % -0 Not Available [facility] (Lab) [address] [place], [address], 11/02/2022 15:06:11 11/03/19 23 11/02/2022 CBC/C OMPLE TE BLD COUNT W/DIF F NRBC# 0.00 x10'3 /uL Not Available [facility] (Lab) [address] [place], [address], 11/02/2022 15:06:11 11/03/19 23 11/02/2022 COMPR EHENS BRYAN METAB OLIC PANEL sodium 138 mmol/ L 137-14 5 Not Available [facility] (Lab) [address] [place], [address], 11/02/2022 15:29:20 11/03/19 23 11/02/2022 COMPR EHENS BRYAN METAB OLIC PANEL potassium 4.7 mmol/ L 3.5-5. 1 Not Available [facility] (Lab) [address] [place], [address], 11/02/2022 15:29:20 11/03/19 23 11/02/2022 COMPR EHENS BRYAN METAB OLIC PANEL chloride 101 mmol/ L 98-107 Not Available [facility] (Lab) [address] [place], [address], 11/02/2022 15:29:20 11/03/19 23 11/02/2022 COMPR EHENS BRYAN METAB OLIC PANEL carbon dioxide 26 mmol/ L 22-30 Not Available [facility] (Lab) [address] [place], [address], 11/02/2022 15:29:20 11/03/19 23 11/02/2022 COMPR EHENS BRYAN METAB OLIC PANEL anion gap 15.7 mmol/ L 14-22 Not Available [facility] (Lab) [address] [place], [address], 11/02/2022 15:29:20 11/03/19 23 11/02/2022 COMPR EHENS BRYAN METAB OLIC PANEL glucose 89 mg/dL 70-99 Not Available [facility] (Lab) [address] [place], [address], 11/02/2022 15:29:20 11/03/19 23 11/02/2022 COMPR EHENS BRYAN METAB OLIC PANEL BUN 10 mg/dL 8-19 Not Available [facility] (Lab) [address] [place], [address], 11/02/2022 15:29:20 11/03/19 23 11/02/2022 COMPR EHENS BRYAN METAB OLIC PANEL creatinine 0.84 mg/dL 0.66-1 .25 Not Available [facility] (Lab) [address], [place], [address], 11/02/2022 15:29:20 11/03/19 23 11/02/2022 COMPR EHENS BRYAN METAB OLIC PANEL GFR >60 Refer ence Range : [place] ge GFR Healt hy Adult : >60 [...] or ethni c subgr oups, such as [facility] nics. Outsi de the valid ated brandan [...] s/kdo qi/gf r_cal culat or Not Available [facility] (Lab) [address] [place], [address], 11/02/2022 15:29:20 11/03/19 23 11/02/2022 COMPR EHENS BRYAN METAB OLIC PANEL alkaline phosphatase 60 U/L 38-126 Not Available [facility] (Lab) [address] [facility] [place] [place], [address], 11/02/2022 15:29:20 11/03/19 23 11/02/2022 COMPR EHENS BRYAN METAB OLIC PANEL alanine aminotransfe rase 27 U/L 0-50 Not Available [facility] (Lab) [address] [place], [address], 11/02/2022 15:29:20 11/03/19 23 11/02/2022 COMPR EHENS BRYAN METAB OLIC PANEL aspartate aminotransfe rase 37 U/L 15-46 Not Available [facility] (Lab) [address] [place], [address], 11/02/2022 15:29:20 11/03/19 23 11/02/2022 COMPR EHENS BRYAN METAB OLIC PANEL bilirubin, total 0.70 mg/dL 0.20-1 .30 Not Available [facility] (Lab) [address] [place], [address], 11/02/2022 15:29:20 11/03/19 23 11/02/2022 COMPR EHENS BRYAN METAB OLIC PANEL calcium 9.6 mg/dL 8.4-10 .2 Not Available [facility] (Lab) [address] [place], [address], 11/02/2022 15:29:20 11/03/19 23 11/02/2022 COMPR EHENS BRYAN METAB OLIC PANEL total protein 7.7 g/dL 6.3-8. 2 Not Available [facility] (Lab) [address] [place], [address], 11/02/2022 15:29:20 11/03/19 23 11/02/2022 COMPR EHENS BRYAN METAB OLIC PANEL albumin 4.8 g/dL 3.0-4. 4 high Not Available [facility] (Lab) [address] [place], [address], 11/02/2022 15:29:20 11/03/19 23 11/02/2022 COMPR EHENS BRYAN METAB OLIC PANEL globulin 2.9 g/dL 2.6-4. 2 Not Available [facility] (Lab) [address] [place], [address], 11/02/2022 15:29:20 11/03/19 23 11/02/2022 COMPR EHENS BRYAN METAB OLIC PANEL A/G ratio 1.7 ratio 1.0-2. 0 Not Available [facility] (Lab) [address] [place], [address], 11/02/2022 15:29:20 11/03/19 23 11/02/2022 LIPID PANEL cholesterol 238 mg/dL 140-19 9 high NIH RENETTA NSUS RECOM MENDA TION FOR ADA STERO L: ADULT CHILD LOW RISK: <200 <170 BORDE RLINE : <200- 239 ----- HIGH RISK: >240 >200 Not Available [facility] (Lab) [address] [place], [address], 11/02/2022 15:29:23 11/03/19 23 11/02/2022 LIPID PANEL triglyceride s 269 mg/dL 0-150 high NIH RENETTA NSUS REPOR T RECOM MENDA TION FOR TRIGL YCERI RAMY: ADULT CHILD LOW RISK: <150 ----- BODER LINE: 150-1 99 ----- HIGH RISK: >200 ----- Not Available [facility] (Lab) [address] [place], [address], 11/02/2022 15:29:23 11/03/19 23 11/02/2022 LIPID PANEL HDL cholesterol 70 mg/dL 40- Not Available [facility] (Lab) [address] [place], [address], 11/02/2022 15:29:23 11/03/19 23 11/02/2022 LIPID PANEL [...] WILL NOT BE REPOR TAISHA. Not Available [facility] (Lab) [address] [place], [address], 11/02/2022 15:29:23 09/08/19 23 XR, shoul jorge No observ ation record ed. [facility] [place] [address] [facility] [address], [place], [address], 09/07/2022 11:37:42 10/06/19 23 10/05/2022 MRI, shoul jorge, w/o contr ast No observ ation record ed. [email or web address] [place] [address] [address], [place], [address], 10/08/2022 09:05:18 10/06/19 23 10/05/2022 MRI, shoul jorge, w/o contr ast No observ ation record ed. [email or web address] [address], [place], [address], 11/07/2022 10:23:44 10/06/19 23 10/05/2022 joint aspir ation (PROC ) No observ ation record ed. [email or web address] [place] [address] [address], [place], [address], 10/08/2022 09:01:03 10/06/19 23 10/05/2022 XR, lower extre mity No observ ation record ed. [email or web address], [place], [address], 11/07/2022 10:25:37 12/15/19 XR, cervi tiana spine , 2 or 3 view No observ ation record ed. [email or web address] [facility] [place] [address] [facility] [address], [place], [address], 12/14/2022 10:11:50 01/23/20 23 01/22/2023 XR, chest , 2 view No observ ation record ed. [email or web address], [place], [address], 02/27/2023 13:11:10 03/25/20 23 03/25/2023 CT, abdom en + pelvi s, w/ contr ast No observ ation record ed. [email or web address] [address], [place], [address], 04/12/2023 21:52:12 05/10/19 24 05/10/2023 XR, chest No observ ation record ed. [email or web address] [place] [address] [address], [place], [address], 05/28/2023 12:29:57 Result Notes None recorded. Problems Name Problem SNOMED Code Status Onset Date Resolution Date Notes Provider Name and Address Organization Details Recorded Time Chronic obstructiv e pulmonary disease 58422601 Active 2020 [facility] Available [facility] 08:[facility] of chest abnormal 4226389551548 9102 Active 2021 Not Available [facility] 3 08:37:05 MRI scan abnormal 886270675 Active 2021 Not Available [facility] 3 08:37:05 Spasm of back muscles 451483509 Active 2020 Not Available [facility] 3 08:37:05 Hypertensi ve disorder 73523030 Active 2020 Not Available [facility] 3 08:37:05 Screening for malignant neoplasm of prostate Active 2021 Not Available [facility] 3 08:37:05 Pain of right knee joint 1534896028222 00 Active 2021 Not Available [facility] 3 08:37:05 Pain of left knee joint 9012614988825 07 Active 2021 Not Available [facility] 3 08:37:05 Cough 51176976 Active 2021 Not Available [facility] 3 08:37:05 Hyperlipid emia 14102061 Active 2020 Not Available [facility] 3 08:37:05 Varicose veins of lower extremity 72257184 Active 2021 Not Available [facility] 3 08:37:05 Smoker 07163342 Active 2020 Not Available [facility] 3 08:37:05 Neck pain 13130666 Active 2021 Not Available [facility] 3 08:37:05 Pain of right shoulder joint 6435011175557 9100 Active 2022 Not Available [facility] 3 08:37:05 Pain of left shoulder joint 6833081478522 9109 Active 2022 ESTHER Rodriguez, [facility] 3 10:34:01 Cervical radiculopa thy 50535532 Active 2022 CAROL Bartholomew, [facility] 3 10:59:31 Notes:Some problems listed i n Documents: #[id number], #[id number] could not be added to this patient's chart. Please review these documents and add these problems to the patient's chart manually as needed. Problem Notes None recorded. Procedures Surgical History Date Name Laterality Status Provider Name and Address Organization Details Recorded Time 3 Transitional_ Care_Manageme nt completed ESTHER Funk [facility] 07/03/2022 11:59:56 Back completed ESTHER Funk [place] [facility] 07/03/2022 12:03:45 excision of ganglion cyst completed Not Available [facility] 06/06/2022 02:41:01 tonsilectomy/ adenoids completed Not Available [facility] 06/06/2022 02:41:01 release of trigger finger completed Not Available [facility] 06/06/2022 02:41:01 Hernia Repair completed Not Available [facility] 06/06/2022 02:41:01 Imaging Results Imaging Date Name Status LastModified by Organiz [facility] Details LastModified Time 09/07/2022 XR, shoulder completed [facility] [place] [address], [place], [address], 09/07/2022 11:37:42 10/05/2022 MRI, shoulder, w/o contrast completed [address] [place] [address], [address], 10/08/2022 09:05:18 10/05/2022 MRI, shoulder, w/o contrast completed [address], [address], 11/07/2022 10:23:44 10/05/2022 joint aspiration (PROC) completed [address], [address], 10/08/2022 09:01:03 10/05/2022 XR, lower extremity completed [address], [address], 11/07/2022 10:25:37 12/14/2022 XR, cervical spine, 2 or 3 view completed [email or web address] [facility] [place] [address] [facility] [address], [place], [address], 12/14/2022 10:11:50 01/22/2023 XR, chest, 2 view completed [email or web address] [place] [address], [place], [address], 02/27/2023 13:11:10 03/25/2023 CT, abdomen + pelvis, w/ contrast completed [email or web address] [address], [place], [address], 04/12/2023 21:52:12 05/10/2023 XR, chest completed [email or web address] [place] [address], [place], [address], 05/28/2023 12:29:57 Procedure Notes None recorded. Medical [...] DateTime 09/07/2022 175.26 cm ESTHER Rodriguez - [facility] [email or web address] [facility] 09/07/2022 09:47:27 Date Recorded Body height Body mass index (BMI) Body weight Body temperature Heart rate Systolic blood pressure Diastolic blood pressure Provider Name and Address Organization Details Last Updated DateTime 3 175.26 cm 29.4 kg/m2 52012.8 8 g 97.4 [degF] 102 /min 118 mm[Hg] 80 mm[Hg] ArleneESTHER Lynch [employer] [facility] [email or web address] [facility] 3 12:20:04 Date Recorded Body height Body mass index (BMI) Body weight Provider Name and Address Organization Details Last Updated DateTime 11/16/2022 177.8 cm 28.3 kg/m2 68820.7 g Geovanna Hutson [facility] [employer] [facility] [email or web address] 11/16/2022 11:09:33 Date Recorded Body height Provider Name an d Address Organization Details Last Updated DateTime 12/14/2022 177.8 cm Geovanna Hutson [facility] [employer] [facility] [email or web address] 12/14/2022 09:45:06 Date Recorded Body height Body mass index (BMI) Body weight Body temperature Heart rate Systolic blood pressure Diastolic blood pressure Provider Name and Address Organization Details Last Updated DateTime 3 177.8 cm 28 kg/m2 38037.5 1 g 99.1 [degF] 92 /min 136 mm[Hg] 90 mm[Hg] Arlene Rahman Laura [employer] [facility] [email or web address] [facility] 3 15:46:41 Social History Question Answer Notes LastModified by Organization Details LastModified Time Tobacco Smoking Status Current Every Day Smoker Not Available [facility] 06/06/2022 02:29:51 Do You Have An Advance Directive? No MIGRATION.0301 [id number] Information not available 06/06/2022 What Is Your Level Of Alcohol Consumption? Occasional MIGRATION.0301 [id number] Information not available 06/06/2022 Do You Wear A Helmet When Biking? No MIGRATION.0301 [id number] Information not available 06/06/2022 What Is Your Level Of Caffeine Consumption? Occasional MIGRATION.0301 [id number] Information not available 06/06/2022 How Much Tobacco Do You Chew? None MIGRATION.0301 600145 Information not available 06/06/2022 In The 14 Days Before Symptom Onset, Have You Had Close Contact With A Laboratory-confi rmed COVID-19 While That Case Was Ill? No MIGRATION.0301 [id number] Information not available 06/06/2022 In The 14 Days Before Symptom Onset, Have You Had Close Contact With A Person Who Is Under Investigation For COVID-19 While That Person Was Ill? No MIGRATION.0301 [id number] Information not available 06/06/2022 What Type Of Diet Are You Following? REGULAR MIGRATION.0301 969877 Information not available 06/06/2022 Which Illicit Or Recreational Drugs Have You Used? None MIGRATION.0301 [id number] Information not available 06/06/2022 Do You Or Have You Ever Used E-cigarettes Or Vape? Never Used Electronic Cigarettes MIGRATION.030 [id number] Information not available 06/06/2022 What Is The Highest Grade Or Level Of School You Have Completed Or The Highest Degree You Have Received? [id number] MIGRATION.0301 [id number] Information not available 06/06/2022 What Is Your Occupation? Unemployed MIGRATION.030 016804 Information not available 06/06/2022 Have There Been Any Changes To Your Family Or Social Situation? No MIGRATION.0301 157011 Information not available 06/06/2022 Are There Any Guns Present In Your Home? No MIGRATION.0301 422735 Information not available 06/06/2022 Do You Use Insect Repellent Routinely? No MIGRATION.0301 [id number] Information not available 06/06/2022 Where Do You Live? SingleLevelHouse MIGRATION.0301 332131 Information not available 06/06/2022 Do You Have A Medical Power Of Cuff Setter Lockstitch? No MIGRATION.0301 303757 Information not available 06/06/2022 What Was The Date Of Your Most Recent Tobacco Screening? 02/21/2023 [email or web address] Information not available 02/21/2023 Do You Have Any Pets? No MIGRATION.0301 [id number] Information not available 06/06/2022 What Is Your Relationship Status? MIGRATION.0301 [id number] Information not available 06/06/2022 Do You Use Your Seat Belt Or Car Seat Routinely? Yes MIGRATION.0301 992200 Information not available 06/06/2022 Do You Have Smoke And Carbon Monoxide Detectors In Your Home? Yes MIGRATION.0301 473925 Information not available 06/06/2022 At What Age Did You Start Smoking Tobacco? 12 MIGRATION.0301 160075 Information not available 06/06/2022 Are You Passively Exposed To Smoke? No MIGRATION.0301 200586 Information not available 06/06/2022 Do You Or Have You Ever Used Smokeless Tobacco? Never Used Smokeless Tobacco MIGRATION.0301 632345 Information not available 06/06/2022 Are There Any Smokers In Your House? No MIGRATION.0301 835985 Information not available 06/06/2022 How Much Tobacco Do You Smoke? 1 PPW 1 Every Other Day [email or web address] Information not available 02/21/2023 Do You Feel Stressed (tense, Restless, Nervous, Or Anxious, Or Unable To Sleep At Night)? [id number] MIGRATION.0301 884160 Information not available 06/06/2022 Do You Use Any Illicit Or Recreational Drugs? No MIGRATION.0301 985080 Information not available 06/06/2022 Do You Use Sunscreen Routinely? No MIGRATION.0301 813166 Information not available 06/06/2022 Have You Recently Traveled Abroad? No MIGRATION.0301 [id number] Information not available 06/06/2022 Do You Have Any Dietary Restrictions? No MIGRATION.0301 437419 Information not available 06/06/2022 Do You Or Have You Ever Used Any Other Forms Of Tobacco Or Nicotine? No MIGRATION.0301 272758 Information not available 06/06/2022 Sex: Unknown Functional Status Question Answer Note LastModified by Organizat ion Details LastModified Time What is your exercise level? Occasional [id number] 26 Information not available 06/06/2022 Mental Status None recorded. Family History Relationship Description Onset Age of this Age Resolved Age Notes LastModified by Organization Details LastModified Time Brother Family history of malignant neoplasm MIGRATION.219 [id number] Not available 06/06/2022 02:41:03 Brother Myocardial infarction MIGRATION.429 [id number] Not available 06/06/2022 02:41:03 Brother Cirrhosis of liver 64 MIGRATION.205 [id number] Not available 06/06/2022 02:41:03 Mother Hypertensive disorder MIGRATION.406 [id number] Not available 06/06/2022 02:41:03 Mother Diabetes mellitus MIGRATION.209 [id number] Not available 06/06/2022 02:41:03 Mother Glaucoma MIGRATION.390 [id number] Not available 06/06/2022 02:41:03 Mother Kidney disease on dialys is MIGRATION.092 [id number] Not available 06/06/2022 02:41:03 Medical History Condition Response BLINDNESS N NERVE DISEASE N RHEUMATIC FEVER N BLADDER PROBLEMS N KIDNEY STONES N MRSA N OTHER # 1 N [...] HAVE YOU BEEN HOSPITALIZED OR SEEN IN [facility] ER IN THE PAST YEAR ? N [...] SNOMED-CT Code Diagnosis ICD10 Code Diagnosis Note [id number] [facility] Internal Med [place] [address] [facility], [place] 15 [place] [address] 07/01/2020 00:00:00 07/01/2020 16:19:34 [id number] [facility] Internal Med [facility] [address] [facility] 15 [place] [address] 09/26/2020 00:00:00 09/26/2020 21:24:40 [id number] [facility] Internal Med [facility] [address] [address] 01/23/2021 00:00:00 01/23/2021 23:12:10 [id number] [facility] Internal Med [facility] [address] [place], [place] [address]e., [facility] 15 [place] [address] 05/22/2021 00:00:00 06/04/2021 10:38:44 [id number] [facility] Internal Med [facility] 15 [address] [facility] 15 [place] [address] 09/15/2021 00:00:00 10/17/2021 20:42:40 [id number] [facility] [place] [address] [place] [address] 09/21/2021 00:00:00 09/21/2021 16:07:38 [id number] [facility] Internal Med [facility] [address] [place], [place] [address]., [address] [address] 12/21/2021 00:00:00 01/28/2022 21:04:56 [id number] [facility] Internal Med [place] [address] , [place] [address] 03/22/2022 00:00:00 03/22/2022 23:09:40 [id number] [facility] [place] [address] [place] [address] 04/16/2022 00:00:00 04/16/2022 17:35:28 [id number] [facility] Internal Med [facility] [address] [place], [place] [address]., [address] [address] 05/21/2022 00:00:00 05/27/2022 17:40:27 [id number] Zaria Rubio MD [facility] Internal Med [facility] [address] [facility] [place] [address] 07/03/2022 11:20:47 07/03/2022 12:25:50 Transition of care [id number] 105 Z75.8 Hyperlipidemia 64769709 E78.5 Chronic ob structive pulmonary disease 93592744 J44.9 Hypertensive disorder 38 288728 I10 [id number] Anderson Pickett MD [facility] [place] [address] [place] [address] 09/07/2022 09:36:57 09/07/2022 11:48:40 Pain of right shoulder joint [id number] [id number] M25.511 M25.512 [id number] Zaria Rubio MD [facility] Internal Med [place] [address] [facility] 15 [place] [address] 11/02/2022 11:29:26 11/02/2022 13:02:32 Hypertensive disorder 92765351 I10 Chronic ob structive pulmonary disease 74803098 J44.9 Hyperlipidemia 84447196 E78.5 [id number] Anderson Pickett MD [facility] [place] [address] [place] [address] 11/16/2022 10:17:38 11/19/2022 10:20:11 Pain of left shoulder joint 1703409600 0376896 M25.515 [id number] Anderson Pickett MD [facility] [place] [address] [place] [address] 12/14/2022 09:43:31 12/17/2022 11:17:30 Pain of left shoulder joint [id number] 4894960 M25.512 Cervical radiculopathy 59587572 M54.12 [id number] Zaria Rubio MD [facility] Internal Med [place] [address] [facility] 15 [place] [address] 02/21/2023 15:17:37 02/21/2023 16:43:40 Chronic obstructive pulmonary disease 26722566 J44.9 Hyperlipidemia 01478067 E78.5 Hypertensive disorder 38 370276 I10 Health Concerns Section Related Observation LastModified by Organization Detai ls LastModified Time None Recorded Concern Status LastModified by Organization Details LastModified Time None Recorded Advance Directives Directive N: Payers Encounter Date Sequence Insurance Name Policy Number Policy Barraza Covered Member ID Barraza Member ID Guarantor Name 09/07/2022 1 [facility] ON OR AFTER 10/06/20 (MEDICAID REPLACEMENT - HMO) Reji Freire [id number] Reji Freire 11/02/2022 1 [facility] ON OR AFTER 10/06/20 (MEDICAID REPLACEMENT - HMO) Reji Freire [id number] Reji Freire 11/16/2022 1 [facility] ON OR AFTER 10/06/20 (MEDICAID REPLACEMENT - HMO) Reji Freire [id number] Reji Freire 12/14/2022 1 [facility] ON OR AFTER 10/06/20 (MEDICAID REPLACEMENT - HMO) Reji Freire [id number] Reji Freire 02/21/2023 1 [facility] ON OR AFTER 10/06/20 (MEDICAID REPLACEMENT - HMO) Reji Freire [id number] Reji Freire Notes Date Note Type Note [...] surgery in June by Dr. Saucedo at [facility]. He showed me a photograph of [...] used Ultram for pain. He does take mubj-kwf-yxkacus ibuprofen sometimes several times a day but he takes it on an as-needed basis. Anderson Pickett MD [address], [address], [place], [address], [facility] [employer] 09/07/2022 11:43:10 11/02/2022 text/html Being seen for C OPD hyperlipidemia hypertension hypertension no headache. Hyperlipidemia he could do better with regards to his diet. Breathing has been fine Zaria Rubio MD [address], [address], [place], [address], [employer] 11/03/2022 12:55:34 11/16/2022 text/html patient returns after [...] Pickett MD [address], [place], [address], [employer] 11/18/2022 17:32:26 02/21/2023 text/html COPD doing fine dyslipidemia your atorvastatin try to watch red meat hypertension doing fine Zaria Rubio MD [address], [place], [address], [employer] [facility] 02/25/2023 22:15:46
--- OUTSIDE RECORDS SUMMARY | 2024-07-08 12:46 | XMS_ITS | Clinical Summary ---
Author Organization [facility] Address [address] [place] [address] Care Team Providers Care Needle Loom Tender Name Role Phone Phuc Rubio MD Primary Care Provider [phone] Source Comments [facility],non-owned Affiliates and Associated Physician Practices is amultiple site organization consisting of ambulatory clinics and hospital sitesin [place], [place], [place] and [place]. This disclosure is being madepursuant to the Care Everywhere program and may not contain all information available regarding this patient. Last updated 17.[facility] Allergies No known active allergies Medications * [...] 6 hours as needed Active HYDROcodone-acetamino phen ([place]) 5-325 MG tabletIndications:Lum bar spondylosis,Spinal cord mass [...] 2 times daily 06/01/2022 Active HYDROcodone-acetamino phen ([place]) 5-325 MG tabletIndications:S/P lumbar spinal fusion Take [...] 19 Cigarette smoker 08/05/2018 Lumbar spondylosis 08/05/2018 Encounters Date Type Department Care Team Description 07/07/2024 Telephone [facility] - Orthopedic Surgery [address] [place] [address] Katy Lugo, RN Follow-up (This RN returned VM from patient. Patient stated he is in pain and wanted to talk to doctor that did his surgery. Patient is neurosurgery patient. Instructed patient this RN would relay message to that physician.) from Last 3 Months Social History Tobacco Use Types Packs/Day Years [...] and heating? Not hard at all 06/04/2022 [facility] [place] of Occupat ional Health - Occupational Stress [...] place to sleep or slept in a alf (including now)? No 06/04/2022 Sex and Gender Information Value Date Recorded Sex Assigned at Not on file Gender Identity Not on file Sexual Orientation Not on file Last Filed Vital Signs Vital Sign Reading Time Taken Comments Blood Pressure 128/84 04/10/2023 9:42 AM CORNER BLOCK CUTTER Pulse 109 04/10/2023 9:42 AM CORNER BLOCK CUTTER Temperature 36.8 C (98.3 F) 04/10/2023 9:42 AM CORNER BLOCK CUTTER Respiratory Rate 18 04/10/2023 9:42 AM CORNER BLOCK CUTTER Oxygen Saturation 96% 04/10/2023 9:42 AM CORNER BLOCK CUTTER Inhaled Oxygen Concentration - - Weight 87 kg (191 lb 12.8 oz) 04/10/2023 9:42 AM CORNER BLOCK CUTTER Height 182.9 cm (6') 04/10/2023 9:42 AM CORNER BLOCK CUTTER Body Mass Index 26.01 04/10/2023 9:42 AM CORNER BLOCK CUTTER Plan of Treatment Health Maintenance Due Date [...] 60-74 years 1-dose series) 2018 COVID-19 VACCINE ( season) 2023 AAA SCREENING 12/11/2023 DEPRESSION SCREENING 04/08/2024 INFLUENZA VACCINE (Season Ended) 2024 SCREENING FOR DIABETES 06/13/2025 3, 06/12/2022, 06/11/2022, Additional history exists HEPATITIS B [...] this topic Medical Devices Implanted Type Area Golf Club Head Former Device Identifier Shelf Expiration Date Model / Serial / Lot Screw Set Ti Spnl Brk Off Cd Hzn Nonster Implanted:Qty: 4 on 06/07/2022 by Emmett Lozano MD at [facility] [employer] [id number] / / Screw 5.5mm 45mm Ma Spne Solera Cd Hzn Implanted:Qty: 4 on 06/07/2022 by Emmett Lozano MD at [facility] [employer] [id number] / / Cong Bone Void 10ml Db Grneeln Algrf Ptty - [id number] Implanted:Qty: 1 on 06/07/2022 by Emmett Lozano MD at [facility] [employer] [id number] / [id number] / Donovan Spnl 45mm 5.5mm Cd Hzn Crv [place] Implanted:Qty: 2 on 06/07/2022 by Emmett Lozano MD at [facility] [employer] [id number] / / Procedures Procedure Name Priority Date/Time Associated Diagnosis Comments BASIC METABOLIC PANEL (CALCIUM TOTAL) AM Draw 06/13/2022 12:31 AM CORNER BLOCK CUTTER from Last 3 Months or Most Recently Relevant to Health Maintenance Results * (ABNORMAL) BASIC METABOLIC PANEL (CALCIUM TOTAL) (06/13/2022 12:31 AM CORNER BLOCK CUTTER) BUN 15 7 - 26 mg/dL 06/13/2022 2:47 AM [facility] Creatinine 0.89 0.71 - 1.16 mg/dL 06/13/2022 2:47 AM [facility] Sodium 137 136 - 145 mmol/L 06/13/2022 2:47 AM [facility] Potassium 3.7 3.5 - 4.5 mmol/L 06/13/2022 2:47 AM [facility] Chloride 96(L) 98 - 107 mmol/L 06/13/2022 2:47 AM [facility] CO2 29 22 - 29 mmol/L 06/13/2022 2:47 AM [facility] Glucose 100 70 - 115 mg/dL 06/13/2022 2:47 AM [facility] Calcium 9.5 8.4 - 10.2 mg/dL 06/13/2022 2:47 AM [facility] Anion Gap 16 8 - 18 06/13/2022 2:47 AM [facility] BUN/Creatinine Ratio 17 7 - 23 06/13/2022 2:47 AM [facility] Osmolality Calculated 285 270 - 300 mOsm/kg 06/13/2022 2:47 AM [facility] eGFR by CKD-EPI >90 >=90 mL/min/1.7 3 m2 06/13/2022 2:47 AM CORNER BLOCK CUTTER [facility] Blood BLOOD SPECIMEN / Unknown Lab Venipuncture / Unknown 06/13/2022 12:31 AM CORNER BLOCK CUTTER 06/13/2022 2:18 AM CORNER BLOCK CUTTER Emmett Lozano MD LAB - CHEMISTRY SITA DOOLEY Performing Organization Address City/State/[facility] Co de Phone Number [facility] [address] [place] [address], [facility] [[email or web address]] [phone] from Last 3 Months or Most Recently Relevant to Health Maintenance Advance Directives * Full Code (Latest Code Status on File) Date Activated Date Inactivated Comments 06/04/2022 8:50 AM 06/18/2022 3:14 PM Care Teams Needle Loom Tender Relationship Specialty Start Date End Date Phuc Rubio MD PCP - General Internal Medicine 04/10/23
--- OUTSIDE RECORDS SUMMARY | 2024-07-08 12:46 | XMS_ITS | Clinical Summary ---
Author Organization [facility] Address [facility] [place] [address] Care Team Providers Care Data Systems Manager Name Role Phone Phuc Rubio MD Primary Care Provider [phone] Medications traMADol (ULTRAM) 50 MG tablet 03/22/2022 Active Social History Tobacco Use Types Packs/Day Years Used Date Smoking Tobacco: Never Assessed Sex and Gender Information Value Date Recorded Sex Assigned at Not on file Legal Sex Male 7:08 PM LADLE PATCHER Gender Identity Not on file Sexual Orientation Not on file Last Filed Vital Signs Vital Sign Reading Time Taken Comments Blood Pressure 168/97 06/03/2022 11:20 PM LADLE PATCHER Pulse 82 06/03/2022 11:20 PM LADLE PATCHER Temperature 37 C (98.6 F) 06/03/2022 7:23 PM LADLE PATCHER Respiratory Rate 16 06/03/2022 11:20 PM LADLE PATCHER Oxygen Saturation 93% 06/03/2022 11:20 PM LADLE PATCHER Inhaled Oxygen Concentration - - Weight 97.1 kg (214 lb) 06/03/2022 7:34 PM LADLE PATCHER Height 182.9 cm (6') 06/03/2022 7:34 PM LADLE PATCHER Body Mass Index 29.02 06/03/2022 7:34 PM LADLE PATCHER Plan of Treatment Health Maintenance Due Date Last Done Comments Colorectal Cancer Screening Colonoscopy (10 Years) 1958 Hepatitis C 1976 DTaP, Tdap and Td Vaccines ( 1 - Tdap) 1977 Zoster Vaccines (1 of 2) 2008 COVID-19 Vaccine (2023-2 5 season) 2023 Pneumococcal Vaccine: 65+ Ye ars (1 of 1 - PCV) 12/11/2023 RSV Immunization or 60+ Years (1 - [...] to complete this topic Insurance Care Teams Data Systems Manager Relationship Specialty Start Date End Date Phuc Rubio MD [address] [address] PCP - General INTERNAL MEDICINE 06/03/22
--- OUTSIDE RECORDS SUMMARY | 2024-07-08 12:46 | XMS_ITS | Referral Summary ---
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 MF: DANIEL Report ID: [id number] Reading Location: [id number] Procedure Note Phuc Fortune MD - 07/05/2024 [...] Phuc Fortune M.D. MF: DANIEL Report ID: [id number] Reading Location: [place] [address] Prosper Mackenzie MD IMG XR PROCEDURES Final [...] Phuc Fortune M.D. MF: DANIEL Report ID: [id number] Reading Location: [place] [address] Procedure Note Phuc Fortune MD - 07/05/2024 [...] Phuc Fortune M.D. MF: DANIEL Report ID: [id number] Reading Location: [place] [address] Prosper Mackenzie MD IMG XR PROCEDURES Final [...] Phuc Fortune M.D. MF: DANIEL Report ID: [id number] Reading Location: [id number] Procedure Note Phuc Fortune MD - 07/05/2024 [...] Phuc Fortune M.D. MF: DANIEL Report ID: [id number] Reading Location: [place] [address] Prosper Mackenzie MD IMG XR PROCEDURES Final [...] 9:51 PM - Electronically signed by Phuc SANCHEZ: DANIEL Report ID: [id number] Reading Location: [place] [address] Procedure Note Phuc Fortune MD - 07/05/2024 [...] 9:51 PM - Electronically signed by Phuc SANCHEZ: DANIEL Report ID: [id number] Reading Location: [place] [address] Prosper Mackenzie MD IMG XR PROCEDURES Final Result from Last 3 Months Insurance [place] [id number] Care Teams Crystal Gazer Relationship Specialty Start Date End Date Phuc Rubio MD PCP - General Internal Medicine 12/23/21
--- OUTSIDE RECORDS SUMMARY | 2024-07-08 12:47 | XMS_ITS | Encounter Summary ---
Author Organization [facility] Address [address] [place] [address] Care Team Providers Care Mill Helper Name Role Phone Phuc Rubio MD Primary Care Provider [phone] Reason for Visit * Reason Onset Date Comments Follow-up 07/07/2024 This RN returned VM from patient. Patient stated he is in pain and wanted to talk to doctor that did his surgery. Patient is neurosurgery patient. Instructed patient this RN would relay message to that physician. Encounter Details Date Type Department Care Team (Late st Contact Info) Description 07/07/2024 Telephone [facility] - [facility] [address] [place] [address] Katy Lugo, JOE Follow-up (This RN returned VM from patient. Patient stated he is in pain and wanted to talk to doctor that did his surgery. Patient is neurosurgery patient. Instructed patient this RN would relay message to that physician.) Social History Tobacco Use Types Packs/Day Years Used Date Smoking Tobacco: Every Day Cigarettes Smokeless Tobacco: Never Alcohol Use Standard Drinks/Week Comments Yes 2 [...] and heating? Not hard at all 06/04/2022 [facility] [place] of Occupat ional Health - Occupational Stress [...] place to sleep or slept in a mcc (including now)? No 06/04/2022 Sex and Gender Information Value Date Recorded Sex Assigned at Not on file Gender Identity Not on file Sexual Orientation Not on file documented as of this encounter Functional Status Functional Status Response Date of [...] person have difficulty concentrating/remembering/making decisions? No 06/04/2022 documented as of this encounter Plan of Treatment Not on file documented as of this encounter Visit Diagnoses Not on filedocumented in this encounter Care Teams Mill Helper Relationship Specialty Start Date End Date Phuc Rubio MD PCP - General Internal Medicine 04/10/23 documented as of this encounter
--- OUTSIDE RECORDS SUMMARY | 2024-07-08 12:47 | XMS_ITS | CONTINUITY OF CARE DOCUMENT ---
Author Name chelsiekam chelsiekam Address Unknown Organization [facility] Address [address] [place] [address] Phone [phone] Care Team Providers Care Armed Guard Name Role Phone Oscar MOORE, Stoney Unavailable [phone] ZARIA BEE MD Unavailable ZARIA BEE MD Unavailable PROBLEMS Condition Status Date Provider Notes Hypertension active Stoney Moore MD Venous hypertension - unspecified active Thurman amanda Moore MD Tobacco abuse- hx of active Stoney Moore MD C O P D active Stoney Moore MD ENCOUNTERS Date Type Provider Location Encounter Diag nosis - In-person encounter Office Visit Stoney Moore MD [facility] - In-person encounter Office Visit Stoney Moore MD [facility] C O P DHypertensionV enous hypertension - unspecifiedTobacco abuse- hx of VITAL SIGNS Date Observation Value Provider Body Mass Index (Ratio) 27.94 kg/m2 Monik Moore MD blood pressure, cuff size large Ke rri Thomas blood pressure, diastolic 104 mm[Hg] Ke rri Thomas blood pressure, systolic 151 mm[Hg] Maninder Guzman oxygen saturation, oximetry 92 % Chirssy Guzman respiratory rate E&M 16 /min Chrissy hopkins pulse rate 116 /min Chrissy Kohler er weight E&M 206 [lb_av] Chrissy Kohler lder [...] al pack/day 4-5 cigs a day Chrissy Woodnithyatrayn cigarette use yes Chrissy carlos smoking status Current every day smoker Tanisha Kolbzeeshanakil social history E&M Patient manuel chung smokes every day. A lcohol Use - yes o ccassionally Smoking History: Rodrigo jean baptiste currently smokes every day. Stoney Moore MD number of years as a smoker 40 a Chrissy Thomas smoking history, tot al pack/day 4-5 cigs a day Chrissy Kukeirytaryn cigarette use yes Chrissy carlos smoking status Current every day smoker Tanisha Guzman INSURANCE PROVIDERS Payer name Policy type / Coverage type [employer] [place] [employer] (2) Medicaid [id number] ADVANCE DIRECTIVES Name Date DISCUSSED - NO DECISION MADE TREATMENT PLAN Date Name Performer [id number],C, H is updated medication list for this problem includes: Metoprolol Succinate 50 Mg Tablet Extended Release 24 Hr (Metoprolol succinate) ..... Take 1 tablet by mouth daily BP today: 151/104 P rior BP: 146/90 (01/03/2022) Stoney Moore MD [id number],S, Stoney Moore MD [id number],C,H e has L GSV venous insufficiency w e will recommend compression stockings 20-30mmhg w ill see back after 6 -8 weeks and possibly do venaseal. Marisol Lee MACHINE MAINTENANCE TECHNICIAN [id number],C,P ita comes in for ans initial evaluatin [...] upper part of calf. Stoneyming Moore MD [id number],C, H is updated medication list for this problem includes: Metoprolol Succinate 50 Mg Tablet Extended Release 24 Hr (Metoprolol succinate) ..... Take 1 tablet by mouth daily BP today: 146/90 Stoneyrodrigo Moore MD [id number],C,urged to quit Stoneyrodrigo Moore MD [id number],C,urged to quit Stoney Oscar MOORE Cardiology: H [...] weeks and possibly do venaseal. Marisol Lee MACHINE MAINTENANCE TECHNICIAN Cardiology:Patient c omes in for ans initial evaluatin for varicose veins in [facility] for years - they are sore to touch and has numbness and sharp pains. He has never worn compression stockigns and has nevere had a dvt. No sores, discoloration or ulcers. Venis are large and bulky and located distal medial thigh, medil upper leg and upper part of calf. Stoneyming Moore MD Cardiology: H is updated medication list for this problem includes: Metoprolol Succinate 50 Mg Tablet Extended Release 24 Hr (Metoprolol succinate) ..... Take 1 tablet by mouth daily BP today: 146/90 Stoney Moore MD Cardiology:urged to quit Stoneyming Moore MD Cardiology:urged to quit Stoney Moore MD Date Name Venous Doppler Bilat eral LE - Reflux HISTORY OF PROCEDURES Procedure Date Procedure Name Provider Procedure Notes S tatus EKG Stoneyming Moore MD completed EKG Stoneyming Moore MD completed
--- OUTSIDE RECORDS SUMMARY | 2024-07-08 13:38 | XMS_ITS | Encounter Summary ---
Author Organization [facility] Address [address] [place] [address] Care Team Providers Care Detective Chief Name Role Phone Phuc Rubio MD Primary Care Provider [phone] Reason for Visit * Reason Onset Date [...] [facility] [address] [place] [address] Katy Lugo, JOE Follow-up (This [...] and heating? Not hard at all 06/04/2022 [facility] [place] of Occupat ional Health - Occupational Stress [...] place to sleep or slept in a fdc (including now)? No 06/04/2022 Sex and Gender [...] on filedocumented in this encounter Care Teams Detective Chief Relationship Specialty Start Date End Date Phuc Rubio MD PCP - General Internal Medicine 04/10/23 documented as of this encounter
--- OUTSIDE RECORDS SUMMARY | 2024-07-08 13:38 | XMS_ITS | Referral Summary ---
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 MF: DANIEL Report ID: [id number] Reading Location: [id number] Procedure Note Phuc Fortune MD - 07/05/2024 [...] Phuc Fortune M.D. MF: DANIEL Report ID: [id number] Reading Location: [place] [address] Prosper Mackenzie MD IMG XR PROCEDURES Final [...] Phuc Fortune M.D. MF: DANIEL Report ID: [id number] Reading Location: [place] [address] Procedure Note Phuc Fortune MD - 07/05/2024 [...] Phuc Fortune M.D. MF: DANIEL Report ID: [id number] Reading Location: [place] [address] Prosper Mackenzie MD IMG XR PROCEDURES Final [...] Phuc Fortune M.D. MF: DANIEL Report ID: [id number] Reading Location: [id number] Procedure Note Phuc Fortune MD - 07/05/2024 [...] Phuc Fortune M.D. MF: DANIEL Report ID: [id number] Reading Location: [place] [address] Prosper Mackenzie MD IMG XR PROCEDURES Final [...] signed by Phuc SANCHEZ: DANIEL Report ID: [id number] Reading Location: [place] [address] Procedure Note Phuc Fortune MD - 07/05/2024 [...] signed by Phuc SANCHEZ: DANIEL Report ID: [id number] Reading Location: [place] [address] Prosper Mackenzie MD IMG XR PROCEDURES Final Result from Last 3 Months Insurance [place] [employer] [facility] Care Teams Events Specialist Relationship Specialty Start Date End Date Phuc Rubio MD PCP - General Internal Medicine 12/23/21
--- OUTSIDE RECORDS SUMMARY | 2024-07-08 13:38 | XMS_ITS | Clinical Summary ---
Author Organization [facility] Address [facility] [place] [address] Care Team Providers Care High School Counselor Name Role Phone Phuc Rubio MD Primary Care Provider [phone] Medications traMADol (ULTRAM) 50 MG tablet 03/22/2022 Active Social History Tobacco Use Types Packs/Day Years Used Date Smoking Tobacco: Never Assessed Sex and Gender Information Value Date Recorded Sex Assigned at Not on file Legal Sex Male 7:08 PM CAR FERRIER Gender Identity Not on file Sexual Orientation Not on file Last Filed Vital Signs Vital Sign Reading Time Taken Comments Blood Pressure 168/97 06/03/2022 11:20 PM CAR FERRIER Pulse 82 06/03/2022 11:20 PM CAR FERRIER Temperature 37 C (98.6 F) 06/03/2022 7:23 PM CAR FERRIER Respiratory Rate 16 06/03/2022 11:20 PM CAR FERRIER Oxygen Saturation 93% 06/03/2022 11:20 PM CAR FERRIER Inhaled Oxygen Concentration - - Weight 97.1 kg (214 lb) 06/03/2022 7:34 PM CAR FERRIER Height 182.9 cm (6') 06/03/2022 7:34 PM CAR FERRIER Body Mass Index 29.02 06/03/2022 7:34 PM CAR FERRIER Plan of Treatment Health Maintenance Due Date [...] to complete this topic Insurance Care Teams High School Counselor Relationship Specialty Start Date End Date Phuc Rubio MD [address] [address] PCP - General INTERNAL MEDICINE 06/03/22
--- OUTSIDE RECORDS SUMMARY | 2024-07-08 13:38 | XMS_ITS | Clinical Summary ---
Author Organization [facility] Address [address] [facility] [place] [address] Care Team Providers Care Lead Slot Technician Name Role Phone Phuc Rubio MD Primary Care Provider [phone] Source Comments [facility],non-owned Affiliates and Associated Physician Practices is amultiple site organization consisting of ambulatory clinics and hospital sitesin [place], [place], [place] and [place]. This disclosure is being madepursuant to the Care Everywhere program and may not contain all information available regarding this patient. Last updated 17.[facility] Allergies No known active allergies Medications * [...] 6 hours as needed Active HYDROcodone-acetamino phen ([place]) 5-325 MG tabletIndications:Lum bar spondylosis,Spinal cord mass [...] 2 times daily 06/01/2022 Active HYDROcodone-acetamino phen ([place]) 5-325 MG tabletIndications:S/P lumbar spinal fusion Take [...] [facility] [address] [place] [address] Katy Lugo, RN Follow-up (This [...] and heating? Not hard at all 06/04/2022 [facility] - Occupational Stress [...] place to sleep or slept in a prison (including now)? No 06/04/2022 Sex and Gender Information Value Date Recorded Sex Assigned at Not on file Gender Identity Not on file Sexual Orientation Not on file Last Filed Vital Signs Vital Sign Reading Time Taken Comments Blood Pressure 128/84 04/10/2023 9:42 AM LOG TUMBLER Pulse 109 04/10/2023 9:42 AM LOG TUMBLER Temperature 36.8 C (98.3 F) 04/10/2023 9:42 AM LOG TUMBLER Respiratory Rate 18 04/10/2023 9:42 AM LOG TUMBLER Oxygen Saturation 96% 04/10/2023 9:42 AM LOG TUMBLER Inhaled Oxygen Concentration - - Weight 87 kg (191 lb 12.8 oz) 04/10/2023 9:42 AM LOG TUMBLER Height 182.9 cm (6') 04/10/2023 9:42 AM LOG TUMBLER Body Mass Index 26.01 04/10/2023 9:42 AM LOG TUMBLER Plan of Treatment Health Maintenance Due Date [...] this topic Medical Devices Implanted Type Area General Operations Manager Device Identifier Shelf Expiration Date Model / Serial / Lot Screw Set Ti Spnl Brk Off Cd Hzn Nonster Implanted:Qty: 4 on 06/07/2022 by Emmett Lozano MD at [facility] [employer] [id number] / / Screw 5.5mm 45mm Ma Spne Solera Cd Hzn Implanted:Qty: 4 on 06/07/2022 by Emmett Lozano MD at [facility] [employer] [id number] / / Cong Bone Void 10ml Db Grneeln Algrf Ptty - [id number] Implanted:Qty: 1 on 06/07/2022 by Emmett Lozano MD at [facility] [employer] [id number] / [id number] / Donovan Spnl 45mm 5.5mm Cd Hzn Crv [place] Implanted:Qty: 2 on 06/07/2022 by Emmett Lozano MD at [facility] [employer] [id number] / / Procedures Procedure Name Priority Date/Time Associated Diagnosis Comments BASIC METABOLIC PANEL (CALCIUM TOTAL) AM Draw 06/13/2022 12:31 AM LOG TUMBLER from Last 3 Months or Most Recently Relevant to Health Maintenance Results * (ABNORMAL) BASIC METABOLIC PANEL (CALCIUM TOTAL) (06/13/2022 12:31 AM LOG TUMBLER) BUN 15 7 - 26 mg/dL 06/13/2022 2:47 AM [facility] Creatinine 0.89 0.71 - 1.16 mg/dL 06/13/2022 2:47 AM [facility] Sodium 137 136 - 145 mmol/L 06/13/2022 2:47 AM [facility] Potassium 3.7 3.5 - 4.5 mmol/L 06/13/2022 2:47 AM [facility] Chloride 96(L) 98 - 107 mmol/L 06/13/2022 2:47 AM [facility] CO2 29 22 - 29 mmol/L 06/13/2022 2:47 AM [facility] Glucose 100 70 - 115 mg/dL 06/13/2022 2:47 AM [facility] Calcium 9.5 8.4 - 10.2 mg/dL 06/13/2022 2:47 AM [facility] Anion Gap 16 8 - 18 06/13/2022 2:47 AM [facility] BUN/Creatinine Ratio 17 7 - 23 06/13/2022 2:47 AM [facility] Osmolality Calculated 285 270 - 300 mOsm/kg 06/13/2022 2:47 AM [facility] eGFR by CKD-EPI >90 >=90 mL/min/1.7 3 m2 06/13/2022 2:47 AM LOG TUMBLER [facility] Blood BLOOD SPECIMEN / Unknown Lab Venipuncture / Unknown 06/13/2022 12:31 AM LOG TUMBLER 06/13/2022 2:18 AM LOG TUMBLER Emmett Lozano MD LAB - CHEMISTRY SITA DOOLEY Performing Organization Address City/State/[facility] Co de Phone Number [facility] [address] [place] [address], [facility] [phone] from Last 3 Months or Most Recently Relevant to Health Maintenance Advance Directives * Full Code (Latest Code Status on File) Date Activated Date Inactivated Comments 06/04/2022 8:50 AM 06/18/2022 3:14 PM Care Teams Lead Slot Technician Relationship Specialty Start Date End Date Phuc Rubio MD PCP - General Internal Medicine 04/10/23
--- OUTSIDE RECORDS SUMMARY | 2024-07-08 13:38 | XMS_ITS | Clinical Summary ---
Author Organization [facility] Address [address] [place] [address] Care Team Providers Care Handle Bar Assembler Name Role Phone Phuc Rubio MD Primary Care Provider [phone] Allergies No known active allergies Medications ibuprofen [...] - 07/02/2024 11:59 PM CDT Hospital Encounter [facility] [address] [place] [id number] Encounter for disability determination Discharge Disposition: Discharge [...] on file Legal Sex Male 10:55 AM SYSTEMS NAVIGATOR Gender Identity Not on file Sexual Orientation [...] Phuc Fortune M.D. MF: DANIEL Report ID: [id number] Reading Location: [id number] Procedure Note Phuc Fortune MD - 07/05/2024 [...] Phuc Fortune M.D. MF: DANIEL Report ID: [id number] Reading Location: [id number] Prosper Mackenzie MD IMG XR PROCEDURES Final [...] Phuc Fortune M.D. MF: DANIEL Report ID: [id number] Reading Location: [id number] Procedure Note Phuc Fortune MD - 07/05/2024 [...] Phuc Fortune M.D. MF: DANIEL Report ID: [id number] Reading Location: [place] [address] Prosper Mackenzie MD IMG XR PROCEDURES Final [...] Phuc Fortune M.D. MF: DANIEL Report ID: [id number] Reading Location: [id number] Procedure Note Phuc Fortune MD - 07/05/2024 [...] Phuc Fortune M.D. MF: DANIEL Report ID: [id number] Reading Location: [place] [address] Prosper Mackenzie MD IMG XR PROCEDURES Final [...] Phuc Fortune M.D. MF: DANIEL Report ID: [id number] Reading Location: [id number] Procedure Note Phuc Fortune MD - 07/05/2024 [...] Phuc Fortune M.D. MF: DANIEL Report ID: [id number] Reading Location: [place] [address] Prosper Mackenzie MD IMG XR PROCEDURES Final Result from Last 3 Months Insurance Care Teams Handle Bar Assembler Relationship Specialty Start Date End Date Phuc Rubio MD PCP - General Internal Medicine 12/23/21
--- OUTSIDE RECORDS SUMMARY | 2024-07-08 13:38 | XMS_ITS | CONTINUITY OF CARE DOCUMENT ---
Author Name chelsiekam alena Address Unknown Organization [facility] Address [address] [facility] [address] [facility] [address] [place] [address] Phone [phone] Care Team Providers Care Pathology Lab Technician Name Role Phone Oscar MOORE, Stoney Unavailable [phone] ZARIA BEE MD Unavailable ZARIA BEE MD Unavailable PROBLEMS Condition Status Date Provider Notes C O P D active Stoney Moore MD Hypertension active Stoney Moore MD Venous hypertension - unspecified active Thurman ndeep Oscar MOORE Tobacco abuse- hx of active Stoney Moore MD ENCOUNTERS Date Type Provider Location Encounter Diag nosis - In-person encounter Office Visit Stoney Moore MD Religion Office - In-person encounter Office Visit Stoney Moore MD Religion Office C O P DHypertensionV enous hypertension [...] Kohler er weight E&M 206 [lb_av] Chrissy Kohlre lder height E&M 72 [in_i] Chrissy Kohler [...] al pack/day 4-5 cigs a day Chrissy Woodnithyataryn cigarette use yes Chrissy carlos smoking status [...] Payer name Policy type / Coverage type [place] [employer] party ID [employer]ICA[employer] (2) Medicaid [id number] ADVANCE DIRECTIVES Name Date DISCUSSED - NO DECISION MADE TREATMENT PLAN Date Name Performer [id number],C, H is updated medication list for this problem includes: Metoprolol Succinate 50 Mg Tablet Extended Release 24 Hr (Metoprolol succinate) ..... Take 1 tablet by mouth daily BP today: 151/104 P rior BP: 146/90 (01/03/2022) Stoney Moore MD [id number],S, Stoney Moore MD [id number],C,H e has L GSV venous insufficiency w e will recommend compression stockings 20-30mmhg w ill see back after 6 -8 weeks and possibly do venaseal. Marisol Lee CHARGEBACK SPECIALIST [id number],C,P ita comes in for ans initial evaluatin [...] upper part of calf. Stoneyming Moore MD [id number],C, H is updated medication list for this problem includes: Metoprolol Succinate 50 Mg Tablet Extended Release 24 Hr (Metoprolol succinate) ..... Take 1 tablet by mouth daily BP today: 146/90 Stonyerodrigo Moore MD [id number],C,urged to quit Stoneyrodrigo Moore MD [id number],C,urged to quit Stoney Oscar MOORE Cardiology: H [...] weeks and possibly do venaseal. Marisol Lee CHARGEBACK SPECIALIST Cardiology:Patient c omes in for ans initial evaluatin for varicose veins in [facility] for years - they are sore to [...]
[2024-07-08 14:26] LABS: Add Urine Microscopic? NO; Appearance Urine Clear (Clear); Bilirubin Urine Negative (Negative); Blood Urine Negative (Negative); Color Urine Yellow (Yellow); Glucose Urine UA Negative (Negative); Ketones Urine Negative (Negative); Leukocyte Esterase Ur Negative LEU/UL (Negative); Nitrate Urine Negative (Negative); Protein Urine Negative (Negative); Specific Grav Ur 1.009 (1.001-1.035); Urobilinogen Urine 0.2 mg/dL (<2.0); pH Urine 5.5 (5.0-9.0)
== END 2024-07-08 15:26 | disposition home or self-care (01) ==
PROVIDERS: Emergency Provider Emergency Medicine; PCP Internal Medicine
DX: M54.50 Low back pain, unspecified (principal); M47.816 Spondylosis without myelopathy or radiculopathy, lumbar region; I10 Essential (primary) hypertension
CPT/HCPCS: 71046; 72131; 81003; 99284; A9270

== ENCOUNTER 2024-10-13 09:25 | Outpatient (CLI) | payer MEDICARE, SELFPAY ==
--- NOTE | ~2024-10-13 | CT_ITS ---
Clinical Indication: Right axillary lump CT Scan of the Chest with Contrast: Technique: Contiguous sections were acquired throughout the chest after intravenous administration of 75 cc of Omnipaque 350. Dose reduction technique was used on this scan by utilizing automated exposu re control and iterative reconstruction technique. The dose-length product (DLP) was 233.21 mGy-cm. Findings: There is no evidence of any significant mediastinal, hilar or axillary lymphadenopathy. There is no f illing defect in the pulmonary arterial tree to suggest pulmonary embolus. There is no evidence of ao rtic dissection or aneurysm. There is no evidence of pleural or pericardial effusion. The lungs are clear, aside from linear right basilar scarring. Images through the upper abdomen reveal probable low-density left adrenal adenoma. There is a 3.3 cm ovoid lipoma in the right lateral chest wall musculature (axial image 71). Impression: 3.3 cm ovoid lipoma in the right lateral chest wall musculature, as detailed above. No other significant findings. Reviewed, dictated and finalized at location . Impression: 3.3 cm ovoid lipoma in the right lateral chest wall musculature, as detailed ab ove. No other significant findings.
--- OUTSIDE RECORDS SUMMARY | 2024-10-13 09:33 | XMS_ITS | Data Portability ---
Author Organization [facility] Ken [facility] Address [address] [place] [address] Care Team Providers Care Manager Endoscopy Name Role Phone ZARIA RUBIO Primary Care Provider Unavailabl e Assessment Encounter Date Assessment Date Assessment LastModified by Organization Details LastModified Time 06/21/2023 06/21/2023 Low-fat diet ordered ill effects of tobacco which were included but not limited to increased tumors areo digestive tract increased incidence of heart attack stroke and cancer likely to sudden or chronic medical illness. Refuses immunizations follow-up old records [email or web address] Not available 06/21/2023 22:50:46 12/13/2023 12/13/2023 he can continue to use the Claritin we will check blood work diagnosis have been discussed he will follow up me in 4 states in his COVID test was negative at urgent care [email or web address] Not available 12/15/2023 23:24:47 06/02/2024 06/02/2024 surgical [...] the imaging etc. 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 Healthy lifestyle care instructions blood work. He really needs to get serious about his diet also see the surgeon about the axillary lipoma back seems to be doing okay at this time follow up with me in 4 months. Lena 2 puffs b.i.d. rinse mouth after use use spacer [email or web address] Not available 10/03/2024 22:56:49 Plan of Treatment Reminders Order Date Submit Date Provider Last Modified By Organization Details Last Modified Time Details Appointments ANY 15 2024 10:00A M Zaria Rubio MD Not available Not available Not available Lab PSA, total, serum or plasma 2024 025 [facility], [address], [place], [address], 09/30/2024 11:12:56 lipid panel, serum 2024 025 [facility], [address], [place], [address], 09/30/2024 11:12:51 CBC w/ auto diff 2024 025 [facility], [address], [place], [address], 09/30/2024 11:12:54 CMP, serum or plasma 2024 025 [facility], [address], [place], [address], 09/30/2024 11:12:52 lipid panel, serum 2024 025 [facility], [address], [place], [address], 06/03/2024 08:27:08 CMP, serum or plasma 2024 025 [facility], [address], [place], [address], 06/03/2024 08:27:09 CBC w/ auto diff 2024 025 [email or web address] [facility], [address], [place], [address], 06/24/2024 22:09:42 CBC w/ auto diff 2023 024 [facility], [address], [place], [address], 12/14/2023 06:18:17 CMP, serum or plasma 2023 024 [facility], [address], [place], [address], 12/14/2023 06:18:16 lipid panel, serum 2023 024 [facility], [address], [place], [address], 12/14/2023 06:18:15 TSH, ultra-sen sitive, serum 2023 024 [facility], [address], [place], [address], 12/14/2023 06:18:21 T3, free, serum or plasma 2023 024 [facility], [address], [place], [address], 12/14/2023 06:18:22 unlisted lab - T4, free 2023 024 [facility], [address], [place], [address], 12/14/2023 06:18:21 HIV 1 + 2, meaningfu l use set 2023 024 [facility], [address], [place], [address], 12/14/2023 06:18:22 PSA, total, serum or plasma 2023 024 [facility], [address], [place], [address], 06/22/2023 09:23:11 CMP, serum or plasma 2023 024 [facility], [address], [place], [address], 06/22/2023 09:23:10 lipid panel, serum 2023 024 [facility], [address], [place], [address], 06/22/2023 09:23:09 CBC w/ auto diff 2023 024 [facility], [address], [place], [address], 06/22/2023 09:23:10 Referral general surgeon referral 2024 025 ALPHONSO Mukherjee MD, [address] [address], [place], [address], 10/08/2024 14:27:04 general surgeon referral 2024 025 [facility], [address] [facility], [place] [address], [address], 10/02/2024 04:19:22 Procedures None recorded. Surgeries None recorded. Imaging PFT, complete 2024 025 [facility]), [address], [place], [address], 06/12/2024 16:09:42 Medication Orders Breztri Aerospher e 160 mcg-9mcg- 4.8mcg/ac tuation HFA aerosol inhaler 2024 025 [email or web address] [id number], [address], [place], [id number], 09/29/2024 12:54:40 albuterol sulfate HFA 90 mcg/actua tion aerosol inhaler 2024 025 [email or web address] [id number], [address] [facility], [place], [place], [id number], 06/02/2024 13:43:40 Patient TargetsNo targets recorded. Patient Instructions Encounter Date Encounter Id Patient Instructions Last Modified By Organization Details Last Modified Time 06/02/2024 [id number] A healthy lifestyle: care instructions [email or web address] Not available 06/02/2024 13:43:40 09/29/2024 [id number] A healthy lifestyle: care instructions [email or web address] Not available 09/29/2024 11:48:15 Quitting Tobacco : Care Instructions [email or web address] Not available 09/29/2024 11:48:15 Reason for Referral General Surgeon Referral for Lipoma Referring Physician: Zaria Rubio, Internal Medicine, Encounter Date: 06/02/2024 General Surgeon Referral for Lipoma Referring Physician: Zaria Rubio, Internal Medicine, Encounter Date: 09/29/2024 Results Created Date Observation Date Name Description Value Unit Range Abnormal Flag Note LastModifiedBy Organization Detail LastModifiedTime 06/21/1906/22/2023 LIPID PANEL cholesterol, total 230 mg/dL 100-19 9 above high normal Not Available [facility] ([facility]) [address], [place], [address], 06/22/2023 09:23:09 06/21/1906/22/2023 LIPID PANEL triglyceride s 95 mg/dL 0-149 Not Available [facility] ([facility]) [address] [place], [address], 06/22/2023 09:23:09 06/21/1906/22/2023 LIPID PANEL HDL cholesterol 69 mg/dL >39 Not Available [facility] ([facility]) [address] [place], [address], 06/22/2023 09:23:09 06/21/1906/22/2023 LIPID PANEL VLDL cholesterol tiana 17 mg/dL 5-40 Not Available [facility] ([facility]) [address] [place], [address], 06/22/2023 09:23:09 06/21/19 24 06/22/2023 LIPID PANEL LDL chol calc ([facility]) 144 mg/dL 0-99 above high normal Not Available [facility] ([facility]) [address] [place], [address], 06/22/2023 09:23:09 06/21/19 24 06/22/2023 COMP. METAB OLIC PANEL (14) glucose 90 mg/dL 70-99 Not Available [facility] ([facility]) [address] [place], [address], 06/22/2023 09:23:09 06/21/19 24 06/22/2023 COMP. METAB OLIC PANEL (14) BUN 11 mg/dL 8-27 Not Available [facility] ([facility]) [address] [place], [address], 06/22/2023 09:23:09 06/21/19 24 06/22/2023 COMP. METAB OLIC PANEL (14) creatinine 0.96 mg/dL 0.76-1 .27 Not Available [facility] ([facility]) [address] [place], [address], 06/22/2023 09:23:09 06/21/19 24 06/22/2023 COMP. METAB OLIC PANEL (14) eGFR 88 mL/mi n/1.7 3 >59 Not Available [facility] ([facility]) [address] [place], [address], 06/22/2023 09:23:09 06/21/19 24 06/22/2023 COMP. METAB OLIC PANEL (14) BUN/creatini ne ratio 11 10-24 Not Available [facility] ([facility]) [address] [place], [address], 06/22/2023 09:23:09 06/21/19 24 06/22/2023 COMP. METAB OLIC PANEL (14) sodium 141 mmol/ L 134-14 4 Not Available [facility] ([facility]) [address] [place], [address], 06/22/2023 09:23:09 06/21/19 24 06/22/2023 COMP. METAB OLIC PANEL (14) potassium 5.1 mmol/ L 3.5-5. 2 Not Available [facility] ([facility]) [address] [place], [address], 06/22/2023 09:23:09 06/21/19 24 06/22/2023 COMP. METAB OLIC PANEL (14) chloride 102 mmol/ L 96-106 Not Available [facility] ([facility]) [address] [place], [address], 06/22/2023 09:23:09 06/21/19 24 06/22/2023 COMP. METAB OLIC PANEL (14) carbon dioxide, total 25 mmol/ L 20-29 Not Available [facility] ([facility]) [address] [place], [address], 06/22/2023 09:23:09 06/21/19 24 06/22/2023 COMP. METAB OLIC PANEL (14) calcium 9.8 mg/dL 8.6-10 .2 Not Available [facility] ([facility]) [address] [place], [address], 06/22/2023 09:23:09 06/21/19 24 06/22/2023 COMP. METAB OLIC PANEL (14) protein, total 7.1 g/dL 6.0-8. 5 Not Available [facility] ([facility]) [address] [place], [address], 06/22/2023 09:23:09 06/21/19 24 06/22/2023 COMP. METAB OLIC PANEL (14) albumin 4.6 g/dL 3.9-4. 9 Not Available [facility] ([facility]) [address] [place], [address], 06/22/2023 09:23:09 06/21/19 24 06/22/2023 COMP. METAB OLIC PANEL (14) globulin, total 2.5 g/dL 1.5-4. 5 Not Available [facility] ([facility]) [address], [place], [address], 06/22/2023 09:23:09 06/21/19 24 06/22/2023 COMP. METAB OLIC PANEL (14) A/G ratio 1.8 1.2-2. 2 Not Available [facility] ([facility]) [address] [place], [address], 06/22/2023 09:23:09 06/21/19 24 06/22/2023 COMP. METAB OLIC PANEL (14) bilirubin, total 0.5 mg/dL 0.0-1. 2 Not Available [facility] ([facility]) [address], [place], [address], 06/22/2023 09:23:09 06/21/19 24 06/22/2023 COMP. METAB OLIC PANEL (14) alkaline phosphatase 68 IU/L 44-121 Not Available [facility] ([facility]) [address], [place], [address], 06/22/2023 09:23:09 06/21/19 24 06/22/2023 COMP. METAB OLIC PANEL (14) AST (SGOT) 24 IU/L 0-40 Not Available [facility] ([facility]) [address], [place], [address], 06/22/2023 09:23:09 06/21/19 24 06/22/2023 COMP. METAB OLIC PANEL (14) ALT (SGPT) 21 IU/L 0-44 Not Available [facility] ([facility]) [address], [place], [address], 06/22/2023 09:23:09 06/21/19 24 06/22/2023 CBC WITH DIFFE RENTI AL/PL ATELE T WBC 5.8 x10e3 /uL 3.4-10 .8 Not Available [facility] ([facility]) [address], [place], [address], 06/22/2023 09:23:10 06/21/19 24 06/22/2023 CBC WITH DIFFE RENTI AL/PL ATELE T RBC 5.26 x10e6 /uL 4.14-5 .80 Not Available [facility] ([facility]) [address], [place], [address], 06/22/2023 09:23:10 06/21/19 24 06/22/2023 CBC WITH DIFFE RENTI AL/PL ATELE T hemoglobin 16.2 g/dL 13.0-1 7.7 Not Available [facility] ([facility]) [address], [place], [address], 06/22/2023 09:23:10 06/21/19 24 06/22/2023 CBC WITH DIFFE RENTI AL/PL ATELE T hematocrit 46.9 % 37.5-5 1.0 Not Available [facility] ([facility]) [address], [place], [address], 06/22/2023 09:23:10 06/21/19 24 06/22/2023 CBC WITH DIFFE RENTI AL/PL ATELE T MCV 89 fL 79-97 Not Available [facility] ([facility]) [address], [place], [address], 06/22/2023 09:23:10 06/21/19 24 06/22/2023 CBC WITH DIFFE RENTI AL/PL ATELE T MCH 30.8 pg 26.6-3 3.0 Not Available [facility] ([facility]) [address], [place], [address], 06/22/2023 09:23:10 06/21/19 24 06/22/2023 CBC WITH DIFFE RENTI AL/PL ATELE T MCHC 34.5 g/dL 31.5-3 5.7 Not Available [facility] ([facility]) [address], [place], [address], 06/22/2023 09:23:10 06/21/19 24 06/22/2023 CBC WITH DIFFE RENTI AL/PL ATELE T RDW 13.7 % 11.6-1 5.4 Not Available [facility] ([facility]) [address], [place], [address], 06/22/2023 09:23:10 06/21/19 24 06/22/2023 CBC WITH DIFFE RENTI AL/PL ATELE T platelets 269 x10e3 /uL 150-45 0 Not Available [facility] ([facility]) [address], [place], [address], 06/22/2023 09:23:10 06/21/19 24 06/22/2023 CBC WITH DIFFE RENTI AL/PL ATELE T neutrophils 44 % notest ab. Not Available [facility] ([facility]) [address] [place], [address], 06/22/2023 09:23:10 06/21/19 24 06/22/2023 CBC WITH DIFFE RENTI AL/PL ATELE T lymphs 38 % notest ab. Not Available [facility] ([facility]) [address] [place], [address], 06/22/2023 09:23:10 06/21/19 24 06/22/2023 CBC WITH DIFFE RENTI AL/PL ATELE T monocytes 13 % notest ab. Not Available [facility] ([facility]) [address], [place], [address], 06/22/2023 09:23:10 06/21/19 24 06/22/2023 CBC WITH DIFFE RENTI AL/PL ATELE T eos 3 % notest ab. Not Available [facility] ([facility]) [address], [place], [address], 06/22/2023 09:23:10 06/21/19 24 06/22/2023 CBC WITH DIFFE RENTI AL/PL ATELE T basos 1 % notest ab. Not Available [facility] ([facility]) [address], [place], [address], 06/22/2023 09:23:10 06/21/19 24 06/22/2023 CBC WITH DIFFE RENTI AL/PL ATELE T neutrophils (absolute) 2.6 x10e3 /uL 1.4-7. 0 Not Available [facility] ([facility]) [address], [place], [address], 06/22/2023 09:23:10 06/21/19 24 06/22/2023 CBC WITH DIFFE RENTI AL/PL ATELE T lymphs (absolute) 2.2 x10e3 /uL 0.7-3. 1 Not Available [facility] ([facility]) [address], [place], [address], 06/22/2023 09:23:10 06/21/19 24 06/22/2023 CBC WITH DIFFE RENTI AL/PL ATELE T monocytes(ab solute) 0.8 x10e3 /uL 0.1-0. 9 Not Available [facility] ([facility]) [address], [place], [address], 06/22/2023 09:23:10 06/21/19 24 06/22/2023 CBC WITH DIFFE RENTI AL/PL ATELE T eos (absolute) 0.2 x10e3 /uL 0.0-0. 4 Not Available [facility] ([facility]) [address] [place], [address], 06/22/2023 09:23:10 06/21/19 24 06/22/2023 CBC WITH DIFFE RENTI AL/PL ATELE T baso (absolute) 0.1 x10e3 /uL 0.0-0. 2 Not Available [facility] ([facility]) [address], [place], [address], 06/22/2023 09:23:10 06/21/19 24 06/22/2023 CBC WITH DIFFE RENTI AL/PL ATELE T immature granulocytes 1 % notest ab. Not Available [facility] ([facility]) [address], [place], [address], 06/22/2023 09:23:10 06/21/19 24 06/22/2023 CBC WITH DIFFE RENTI AL/PL ATELE T immature grans (abs) 0.0 x10e3 /uL 0.0-0. 1 Not Available [facility] ([facility]) [address] [place], [address], 06/22/2023 09:23:10 06/21/19 24 06/22/2023 PROST ATE-S [...] t be inter prete d as absol nikolski evide nce of the prese nce or absen ce of lorie saini . Not Available [facility] ([facility]) [address], [place], [address], 06/22/2023 09:23:11 12/13/19 24 12/13/2023 LIPID PANEL cholesterol, total 234 mg/dL 100-19 9 above high normal Not Available [facility] [address] [place] [address], [address], 12/14/2023 06:18:15 12/13/19 24 12/13/2023 LIPID PANEL triglyceride s 331 mg/dL 0-149 above high normal Not Available [facility] [address] [place] [address], [address], 12/14/2023 06:18:15 12/13/19 24 12/13/2023 LIPID PANEL HDL cholesterol 66 mg/dL 40-999 Not Available [facility] [address] [place], [address], 12/14/2023 06:18:15 12/13/19 24 12/13/2023 LIPID PANEL VLDL cholesterol tiana 66 mg/dL 5-40 above high normal Not Available [facility] [address] [place], [address], 12/14/2023 06:18:15 12/13/19 24 12/13/2023 LIPID PANEL LDL chol calc (nih) 150 mg/dL 0-99 above high normal Not Available [facility] [address] [place], [address], 12/14/2023 06:18:15 12/13/19 24 12/13/2023 COMP. METAB OLIC PANEL (14) glucose 63 mg/dL 70-99 below low normal Not Available [facility] [address] [place], [address], 12/14/2023 06:18:16 12/13/19 24 12/13/2023 COMP. METAB OLIC PANEL (14) BUN 10 mg/dL 8-27 Not Available [facility] [address] [place] [address], [address], 12/14/2023 06:18:16 12/13/19 24 12/13/2023 COMP. METAB OLIC PANEL (14) creatinine 0.94 mg/dL 0.76-1 .27 Not Available [facility] [address] [place] [address], [address], 12/14/2023 06:18:16 12/13/19 24 12/13/2023 COMP. METAB OLIC PANEL (14) eGFR 90 >=60 Units for eGFR value s are mL/mi n/1.7 3 The eGFR Calcu latio n has not been valid ated for patie nts under the age of 18. If test resul ts are displ ayed for a patie nt under the age of 18, disre dean that value . Not Available [facility] [address] [place] [address], [address], 12/14/2023 06:18:16 12/13/19 24 12/13/2023 COMP. METAB OLIC PANEL (14) BUN/creatini ne ratio 10 10-24 Not Available [facility] [address] [place] [address], [address], 12/14/2023 06:18:16 12/13/19 24 12/13/2023 COMP. METAB OLIC PANEL (14) sodium 141 mmol/ L 134-14 4 Not Available [facility] [address] [place] [address], [address], 12/14/2023 06:18:16 12/13/19 24 12/13/2023 COMP. METAB OLIC PANEL (14) potassium 4.8 mmol/ L 3.5-5. 2 Not Available [facility] [address] [place] [address], [address], 12/14/2023 06:18:16 12/13/19 24 12/13/2023 COMP. METAB OLIC PANEL (14) chloride 101 mmol/ L 96-106 Not Available [facility] [address] [place], [address], 12/14/2023 06:18:16 12/13/19 24 12/13/2023 COMP. METAB OLIC PANEL (14) carbon dioxide, total 28 mmol/ L 20-29 Not Available [facility] [address] [place] [address], [address], 12/14/2023 06:18:16 12/13/19 24 12/13/2023 COMP. METAB OLIC PANEL (14) calcium 9.9 mg/dL 8.6-10 .2 Not Available [facility] [address] [place] [address], [address], 12/14/2023 06:18:16 12/13/19 24 12/13/2023 COMP. METAB OLIC PANEL (14) protein, total 7.0 g/dL 6.0-8. 5 Not Available [facility] [address] [place], [address], 12/14/2023 06:18:16 12/13/19 24 12/13/2023 COMP. METAB OLIC PANEL (14) albumin 4.4 g/dL 3.9-4. 9 Not Available [facility] [address] [place] [address], [address], 12/14/2023 06:18:16 12/13/19 24 12/13/2023 COMP. METAB OLIC PANEL (14) globulin, total 2.6 g/dL 1.5-4. 5 Not Available [facility] [address] [place] [address], [address], 12/14/2023 06:18:16 12/13/19 24 12/13/2023 COMP. METAB OLIC PANEL (14) A/G ratio 1.7 1.2-2. 2 Not Available [facility] [address] [place], [address], 12/14/2023 06:18:16 12/13/19 24 12/13/2023 COMP. METAB OLIC PANEL (14) bilirubin, total 0.4 mg/dL 0.0-1. 2 Not Available [facility] [address] [place] [address], [address], 12/14/2023 06:18:16 12/13/19 24 12/13/2023 COMP. METAB OLIC PANEL (14) alkaline phosphatase 80 IU/L 44-121 Not Available [facility] [address] [place] [address], [address], 12/14/2023 06:18:16 12/13/19 24 12/13/2023 COMP. METAB OLIC PANEL (14) AST (SGOT) 28 IU/L 0-40 Not Available [facility] [address] [place] [address], [address], 12/14/2023 06:18:16 12/13/19 24 12/13/2023 COMP. METAB OLIC PANEL (14) ALT (SGPT) 30 IU/L 0-44 Not Available [facility] [address] [place] [address], [address], 12/14/2023 06:18:16 12/13/19 24 12/13/2023 CBC WITH DIFFE RENTI AL/PL ATELE T WBC 9.1 x10e3 /uL 3.4-10 .8 Not Available [facility] [address] [place] [address], [address], 12/14/2023 06:18:17 12/13/19 24 12/13/2023 CBC WITH DIFFE RENTI AL/PL ATELE T RBC 5.07 x10e6 /uL 4.14-5 .80 Not Available [facility] [address] [place] [address], [address], 12/14/2023 06:18:17 12/13/19 24 12/13/2023 CBC WITH DIFFE RENTI AL/PL ATELE T hemoglobin 15.6 g/dL 13.0-1 7.7 Not Available [facility] [address] [place], [address], 12/14/2023 06:18:17 12/13/19 24 12/13/2023 CBC WITH DIFFE RENTI AL/PL ATELE T hematocrit 45.3 % 37.5-5 1.0 Not Available [facility] [address] [place], [address], 12/14/2023 06:18:17 12/13/1912/13/2023 CBC WITH DIFFE RENTI AL/PL ATELE T MCV 89 fL 79-97 Not Available [facility] [address] [place], [address], 12/14/2023 06:18:17 12/13/1912/13/2023 CBC WITH DIFFE RENTI AL/PL ATELE T MCH 30.8 pg 26.6-3 3.0 Not Available [facility] [address] [place], [address], 12/14/2023 06:18:17 12/13/1912/13/2023 CBC WITH DIFFE RENTI AL/PL ATELE T MCHC 34.4 g/dL 31.5-3 5.7 Not Available [facility] [address] [place], [address], 12/14/2023 06:18:17 12/13/1912/13/2023 CBC WITH DIFFE RENTI AL/PL ATELE T RDW 13.2 % 11.5-1 4.5 Not Available [facility] [address] [place], [address], 12/14/2023 06:18:17 12/13/1912/13/2023 CBC WITH DIFFE RENTI AL/PL ATELE T platelets 238 x10e3 /uL 150-45 0 Not Available [facility] [address] [place], [address], 12/14/2023 06:18:17 12/13/19 24 12/13/2023 CBC WITH DIFFE RENTI AL/PL ATELE T neutrophils 64 % notest b. Not Available [facility] [address] [place], [address], 12/14/2023 06:18:17 12/13/19 24 12/13/2023 CBC WITH DIFFE RENTI AL/PL ATELE T lymphs 20 % notest b. Not Available [facility] [address] [place], [address], 12/14/2023 06:18:17 12/13/19 24 12/13/2023 CBC WITH DIFFE RENTI AL/PL ATELE T monocytes 12 % notest b. Not Available [facility] [address] [place], [address], 12/14/2023 06:18:17 12/13/19 24 12/13/2023 CBC WITH DIFFE RENTI AL/PL ATELE T eos 3 % notest b. Not Available [facility] [address] [place], [address], 12/14/2023 06:18:17 12/13/1912/13/2023 CBC WITH DIFFE RENTI AL/PL ATELE T basos 1 % notest b. Not Available [facility] [address] [place], [address], 12/14/2023 06:18:17 12/13/1912/13/2023 CBC WITH DIFFE RENTI AL/PL ATELE T neutrophils (absolute) 5.8 x10e3 /uL 1.4-7. 0 Not Available [facility] [address] [place], [address], 12/14/2023 06:18:17 09/06/20 24 12/13/2023 CBC WITH DIFFE RENTI AL/PL ATELE T lymphs (absolute) 1.8 x10e3 /uL 0.7-3. 1 Not Available [facility] [address] [place], [address], 12/14/2023 06:18:17 12/13/19 24 12/13/2023 CBC WITH DIFFE RENTI AL/PL ATELE T monocytes(ab solute) 1.1 x10e3 /uL 0.1-0. 9 above high normal Not Available [facility] [address] [place], [address], 12/14/2023 06:18:17 12/13/1912/13/2023 CBC WITH DIFFE RENTI AL/PL ATELE T eos (absolute) 0.3 x10e3 /uL 0.0-0. 4 Not Available [facility] [address] [place], [id number], 12/14/2023 06:18:17 12/13/19 24 12/13/2023 CBC WITH DIFFE RENTI AL/PL ATELE T baso (absolute) 0.1 x10e3 /uL 0.0-0. 2 Not Available [facility] [address] [place], [address], 12/14/2023 06:18:17 12/13/1912/13/2023 CBC WITH DIFFE RENTI AL/PL ATELE T immature granulocytes 0.5 % notest b. Not Available [facility] [address] [place], [address], 12/14/2023 06:18:17 12/13/1912/13/2023 CBC WITH DIFFE RENTI AL/PL ATELE T immature grans (abs) 0.1 x10e3 /uL 0.0-0. 1 Not Available [facility] [address] [place], [address], 12/14/2023 06:18:17 12/13/19 24 12/13/2023 CBC WITH DIFFE RENTI AL/PL ATELE T NRBC 0 % 0-0 Not Available [facility] [address], [place], [address], 12/14/2023 06:18:17 12/13/19 24 12/14/2023 T4, FREE T4,free(dire ct) 1.30 NG/dL 0.82-1 .77 Not Available [facility] ([facility]) [address] [place], [address], 12/14/2023 06:18:21 12/13/19 24 12/14/2023 TSH TSH 0.527 uIU/m L 0.450- 4.500 Not Available [facility] ([facility]) [address] [place], [address], 12/14/2023 06:18:21 12/13/19 24 12/14/2023 TRIIO DOTHY HAKAN E (T3), FREE triiodothyro nine (T3), free 3.2 pg/mL 2.0-4. 4 Not Available [facility] ([facility]) [address] [place], [address], 12/14/2023 06:18:22 12/13/19 24 12/14/2023 HIV AB/P2 4 AG WITH REFLE X HIV Ab/P24 Ag screen NON REACTI VE nonrea ctive HIV-1 /HIV- 2 antib odies and HIV-1 p24 antig en were NOT detec aisha. There is no labor atory evide nce of HIV infec tion. HIV Negat jimmie Not Available [facility] ([facility]) [address], [place], [address], 12/14/2023 06:18:22 06/02/19 25 06/03/2024 LIPID PANEL cholesterol, total 258 mg/dL 100-19 9 above high normal Not Available [facility] ([facility]) [address] [place], [address], 06/03/2024 08:27:08 06/02/19 25 06/03/2024 LIPID PANEL triglyceride s 261 mg/dL 0-149 above high normal Not Available [facility] ([facility]) [address] [place], [address], 06/03/2024 08:27:08 06/02/19 25 06/03/2024 LIPID PANEL HDL cholesterol 58 mg/dL >39 Not Available [facility] ([facility]) [address] [place], [address], 06/03/2024 08:27:08 06/02/19 25 06/03/2024 LIPID PANEL VLDL cholesterol tiana 48 mg/dL 5-40 above high normal Not Available [facility] ([facility]) [address] [place], [address], 06/03/2024 08:27:08 06/02/19 25 06/03/2024 LIPID PANEL LDL chol calc ([facility]) 152 mg/dL 0-99 above high normal Not Available [facility] ([facility]) [address] [place], [address], 06/03/2024 08:27:08 06/02/19 25 06/03/2024 COMP. METAB OLIC PANEL (14) glucose 92 mg/dL 70-99 Not Available [facility] ([facility]) [address] [place], [address], 06/03/2024 08:27:09 06/02/19 25 06/03/2024 COMP. METAB OLIC PANEL (14) BUN 12 mg/dL 8-27 Not Available [facility] ([facility]) [address] [place], [address], 06/03/2024 08:27:09 06/02/19 25 06/03/2024 COMP. METAB OLIC PANEL (14) creatinine 1.05 mg/dL 0.76-1 .27 Not Available [facility] ([facility]) [address] [place], [address], 06/03/2024 08:27:09 06/02/19 25 06/03/2024 COMP. METAB OLIC PANEL (14) eGFR 79 mL/mi n/1.7 3 >59 Not Available [facility] ([facility]) [address] [place], [address], 06/03/2024 08:27:09 06/02/19 25 06/03/2024 COMP. METAB OLIC PANEL (14) BUN/creatini ne ratio 11 10-24 Not Available [facility] ([facility]) [address] [place], [address], 06/03/2024 08:27:09 06/02/19 25 06/03/2024 COMP. METAB OLIC PANEL (14) sodium 140 mmol/ L 134-14 4 Not Available [facility] ([facility]) [address] [place], [address], 06/03/2024 08:27:09 06/02/19 25 06/03/2024 COMP. METAB OLIC PANEL (14) potassium 4.7 mmol/ L 3.5-5. 2 Not Available [facility] ([facility]) [address] [place], [address], 06/03/2024 08:27:09 06/02/19 25 06/03/2024 COMP. METAB OLIC PANEL (14) chloride 101 mmol/ L 96-106 Not Available [facility] ([facility]) [address] [place], [address], 06/03/2024 08:27:09 06/02/19 25 06/03/2024 COMP. METAB OLIC PANEL (14) carbon dioxide, total 27 mmol/ L 20-29 Not Available [facility] ([facility]) [address] [place], [address], 06/03/2024 08:27:09 06/02/19 25 06/03/2024 COMP. METAB OLIC PANEL (14) calcium 9.9 mg/dL 8.6-10 .2 Not Available [facility] ([facility]) [address] [place], [address], 06/03/2024 08:27:09 06/02/19 25 06/03/2024 COMP. METAB OLIC PANEL (14) protein, total 7.1 g/dL 6.0-8. 5 Not Available [facility] ([facility]) [address] [place], [address], 06/03/2024 08:27:09 06/02/19 25 06/03/2024 COMP. METAB OLIC PANEL (14) albumin 4.6 g/dL 3.9-4. 9 Not Available [facility] ([facility]) [address] [place], [address], 06/03/2024 08:27:09 06/02/19 25 06/03/2024 COMP. METAB OLIC PANEL (14) globulin, total 2.5 g/dL 1.5-4. 5 Not Available [facility] ([facility]) [address] [place], [address], 06/03/2024 08:27:09 06/02/19 25 06/03/2024 COMP. METAB OLIC PANEL (14) bilirubin, total 0.4 mg/dL 0.0-1. 2 Not Available [facility] ([facility]) [address] [place], [address], 06/03/2024 08:27:09 06/02/19 25 06/03/2024 COMP. METAB OLIC PANEL (14) alkaline phosphatase 68 IU/L 44-121 Not Available [facility] ([facility]) [address] [place], [address], 06/03/2024 08:27:09 06/02/19 25 06/03/2024 COMP. METAB OLIC PANEL (14) AST (SGOT) 21 IU/L 0-40 Not Available [facility] ([facility]) [address] [place], [address], 06/03/2024 08:27:09 06/02/19 25 06/03/2024 COMP. METAB OLIC PANEL (14) ALT (SGPT) 20 IU/L 0-44 Not Available [facility] ([facility]) [address] [place], [address], 06/03/2024 08:27:09 06/02/19 25 06/03/2024 CBC WITH DIFFE RENTI AL/PL ATELE T WBC 5.2 x10e3 /uL 3.4-10 .8 Not Available [facility] ([facility]) [address] [place], [address], 06/03/2024 08:27:11 06/02/19 25 06/03/2024 CBC WITH DIFFE RENTI AL/PL ATELE T RBC 5.26 x10e6 /uL 4.14-5 .80 Not Available [facility] ([facility]) [address] [place], [address], 06/03/2024 08:27:11 06/02/1906/03/2024 CBC WITH DIFFE RENTI AL/PL ATELE T hemoglobin 16.1 g/dL 13.0-1 7.7 Not Available [facility] ([facility]) [address] [place], [address], 06/03/2024 08:27:11 06/02/19 25 06/03/2024 CBC WITH DIFFE RENTI AL/PL ATELE T hematocrit 47.3 % 37.5-5 1.0 Not Available [facility] ([facility]) [address] [place], [address], 06/03/2024 08:27:11 06/02/19 25 06/03/2024 CBC WITH DIFFE RENTI AL/PL ATELE T MCV 90 fL 79-97 Not Available [facility] ([facility]) [address], [place], [address], 06/03/2024 08:27:11 06/02/1906/03/2024 CBC WITH DIFFE RENTI AL/PL ATELE T MCH 30.6 pg 26.6-3 3.0 Not Available [facility] ([facility]) [address], [place], [address], 06/03/2024 08:27:11 06/02/1906/03/2024 CBC WITH DIFFE RENTI AL/PL ATELE T MCHC 34.0 g/dL 31.5-3 5.7 Not Available [facility] ([facility]) [address], [place], [address], 06/03/2024 08:27:11 06/02/1906/03/2024 CBC WITH DIFFE RENTI AL/PL ATELE T RDW 13.0 % 11.6-1 5.4 Not Available [facility] ([facility]) [address], [place], [address], 06/03/2024 08:27:11 06/02/1906/03/2024 CBC WITH DIFFE RENTI AL/PL ATELE T platelets 240 x10e3 /uL 150-45 0 Not Available [facility] ([facility]) [address], [place], [address], 06/03/2024 08:27:11 06/02/1906/03/2024 CBC WITH DIFFE RENTI AL/PL ATELE T neutrophils 43 % notest ab. Not Available [facility] ([facility]) [address] [place], [address], 06/03/2024 08:27:11 06/02/1906/03/2024 CBC WITH DIFFE RENTI AL/PL ATELE T lymphs 43 % notest ab. Not Available [facility] ([facility]) [address], [place], [address], 06/03/2024 08:27:11 06/02/19 25 06/03/2024 CBC WITH DIFFE RENTI AL/PL ATELE T monocytes 11 % notest ab. Not Available [facility] ([facility]) [address], [place], [address], 06/03/2024 08:27:11 06/02/1906/03/2024 CBC WITH DIFFE RENTI AL/PL ATELE T eos 2 % notest ab. Not Available [facility] ([facility]) [address], [place], [address], 06/03/2024 08:27:11 06/02/19 25 06/03/2024 CBC WITH DIFFE RENTI AL/PL ATELE T basos 1 % notest ab. Not Available [facility] ([facility]) [address], [place], [address], 06/03/2024 08:27:11 06/02/1906/03/2024 CBC WITH DIFFE RENTI AL/PL ATELE T neutrophils (absolute) 2.3 x10e3 /uL 1.4-7. 0 Not Available [facility] ([facility]) [address], [place], [address], 06/03/2024 08:27:11 06/02/1906/03/2024 CBC WITH DIFFE RENTI AL/PL ATELE T lymphs (absolute) 2.3 x10e3 /uL 0.7-3. 1 Not Available [facility] ([facility]) [address] [place], [address], 06/03/2024 08:27:11 06/02/19 25 06/03/2024 CBC WITH DIFFE RENTI AL/PL ATELE T monocytes(ab solute) 0.6 x10e3 /uL 0.1-0. 9 Not Available [facility] ([facility]) [address], [place], [address], 06/03/2024 08:27:11 06/02/19 25 06/03/2024 CBC WITH DIFFE RENTI AL/PL ATELE T eos (absolute) 0.1 x10e3 /uL 0.0-0. 4 Not Available [facility] ([facility]) [address], [place], [address], 06/03/2024 08:27:11 06/02/1906/03/2024 CBC WITH DIFFE RENTI AL/PL ATELE T baso (absolute) 0.1 x10e3 /uL 0.0-0. 2 Not Available [facility] ([facility]) [address], [place], [address], 06/03/2024 08:27:11 06/02/19 25 06/03/2024 CBC WITH DIFFE RENTI AL/PL ATELE T immature granulocytes 0 % notest ab. Not Available [facility] ([facility]) [address], [place], [address], 06/03/2024 08:27:11 06/02/19 25 06/03/2024 CBC WITH DIFFE RENTI AL/PL ATELE T immature grans (abs) 0.0 x10e3 /uL 0.0-0. 1 Not Available [facility] ([facility]) [address] [place], [address], 06/03/2024 08:27:11 09/30/19 25 09/30/2024 LIPID PANEL cholesterol, total 297 mg/dL 100-19 9 above high normal Not Available [facility] ([facility]) [address] [place], [address], 09/30/2024 11:12:51 09/30/19 25 09/30/2024 LIPID PANEL triglyceride s 183 mg/dL 0-149 above high normal Not Available [facility] ([facility]) [address] [place], [address], 09/30/2024 11:12:51 09/30/19 25 09/30/2024 LIPID PANEL HDL cholesterol 68 mg/dL >39 Not Available [facility] ([facility]) [address] [place], [address], 09/30/2024 11:12:51 09/30/19 25 09/30/2024 LIPID PANEL VLDL cholesterol tiana 34 mg/dL 5-40 Not Available [facility] ([facility]) [address] [place], [address], 09/30/2024 11:12:51 09/30/19 25 09/30/2024 LIPID PANEL LDL chol calc ([facility]) 195 mg/dL 0-99 above high normal Not Available [facility] ([facility]) [address] [place], [address], 09/30/2024 11:12:51 09/30/19 25 09/30/2024 LIPID PANEL LDL calc comment: COMMEN T Consi jorge evalu ating for Famil ial Hyper wade stero lemia (FH), if clini nigel indic ated. Not Available [facility] ([facility]) [address] [place], [address], 09/30/2024 11:12:51 09/30/19 25 09/30/2024 COMP. METAB OLIC PANEL (14) glucose 88 mg/dL 70-99 Not Available [facility] ([facility]) [address] [place], [address], 09/30/2024 11:12:52 09/30/19 25 09/30/2024 COMP. METAB OLIC PANEL (14) BUN 12 mg/dL 8-27 Not Available [facility] ([facility]) [address] [place], [address], 09/30/2024 11:12:52 09/30/19 25 09/30/2024 COMP. METAB OLIC PANEL (14) creatinine 1.10 mg/dL 0.76-1 .27 Not Available [facility] ([facility]) [address], [place], [address], 09/30/2024 11:12:52 09/30/19 25 09/30/2024 COMP. METAB OLIC PANEL (14) eGFR 74 mL/mi n/1.7 3 >59 Not Available [facility] ([facility]) [address] [place], [address], 09/30/2024 11:12:52 09/30/19 25 09/30/2024 COMP. METAB OLIC PANEL (14) BUN/creatini ne ratio 11 -24 Not Available [facility] ([facility]) [address], [place], [address], 09/30/2024 11:12:52 09/30/19 25 09/30/2024 COMP. METAB OLIC PANEL (14) sodium 140 mmol/ L 134-14 4 Not Available [facility] ([facility]) [address] [place], [address], 09/30/2024 11:12:52 09/30/19 25 09/30/2024 COMP. METAB OLIC PANEL (14) potassium 4.6 mmol/ L 3.5-5. 2 Not Available [facility] ([facility]) [address] [place], [address], 09/30/2024 11:12:52 09/30/19 25 09/30/2024 COMP. METAB OLIC PANEL (14) chloride 100 mmol/ L 96-106 Not Available [facility] ([facility]) [address] [place], [address], 09/30/2024 11:12:52 09/30/19 25 09/30/2024 COMP. METAB OLIC PANEL (14) carbon dioxide, total 21 mmol/ L 20- Not Available [facility] ([facility]) [address] [place], [address], 09/30/2024 11:12:52 09/30/19 25 09/30/2024 COMP. METAB OLIC PANEL (14) calcium 10.2 mg/dL 8.6-10 .2 Not Available [facility] ([facility]) [address] [place], [address], 09/30/2024 11:12:52 09/30/1909/30/2024 COMP. METAB OLIC PANEL (14) protein, total 7.3 g/dL 6.0-8. 5 Not Available [facility] ([facility]) [address] [place], [address], 09/30/2024 11:12:52 09/30/19 25 09/30/2024 COMP. METAB OLIC PANEL (14) albumin 4.7 g/dL 3.9-4. 9 Not Available [facility] ([facility]) [address] [place], [address], 09/30/2024 11:12:52 09/30/19 25 09/30/2024 COMP. METAB OLIC PANEL (14) globulin, total 2.6 g/dL 1.5-4. 5 Not Available [facility] ([facility]) [address] [place], [address], 09/30/2024 11:12:52 09/30/19 25 09/30/2024 COMP. METAB OLIC PANEL (14) bilirubin, total 0.6 mg/dL 0.0-1. 2 Not Available [facility] ([facility]) [address] [place], [address], 09/30/2024 11:12:52 09/30/19 25 09/30/2024 COMP. METAB OLIC PANEL (14) alkaline phosphatase 62 IU/L 44-121 Not Available [facility] ([facility]) [address] [place], [address], 09/30/2024 11:12:52 09/30/19 25 09/30/2024 COMP. METAB OLIC PANEL (14) AST (SGOT) 24 IU/L 0-40 Not Available [facility] ([facility]) [address] [place], [address], 09/30/2024 11:12:52 09/30/19 25 09/30/2024 COMP. METAB OLIC PANEL (14) ALT (SGPT) 28 IU/L 0-44 Not Available [facility] ([facility]) [address] [place], [address], 09/30/2024 11:12:52 09/30/19 25 09/30/2024 CBC WITH DIFFE RENTI AL/PL ATELE T WBC 5.8 x10e3 /uL 3.4-10 .8 Not Available [facility] ([facility]) [address] [place], [address], 09/30/2024 11:12:54 09/30/19 25 09/30/2024 CBC WITH DIFFE RENTI AL/PL ATELE T RBC 5.52 x10e6 /uL 4.14-5 .80 Not Available [facility] ([facility]) [address] [place], [address], 09/30/2024 11:12:54 09/30/19 25 09/30/2024 CBC WITH DIFFE RENTI AL/PL ATELE T hemoglobin 16.5 g/dL 13.0-1 7.7 Not Available [facility] ([facility]) [address] [place], [address], 09/30/2024 11:12:54 09/30/19 25 09/30/2024 CBC WITH DIFFE RENTI AL/PL ATELE T hematocrit 52.6 % 37.5-5 1.0 above high normal Not Available [facility] ([facility]) [address] [place], [address], 09/30/2024 11:12:54 09/30/19 25 09/30/2024 CBC WITH DIFFE RENTI AL/PL ATELE T MCV 95 fL 79-97 Not Available [facility] ([facility]) [address] [place], [address], 09/30/2024 11:12:54 09/30/1909/30/2024 CBC WITH DIFFE RENTI AL/PL ATELE T MCH 29.9 pg 26.6-3 3.0 Not Available [facility] ([facility]) [address] [place], [address], 09/30/2024 11:12:54 09/30/19 25 09/30/2024 CBC WITH DIFFE RENTI AL/PL ATELE T MCHC 31.4 g/dL 31.5-3 5.7 below low normal Not Available [facility] ([facility]) [address] [place], [address], 09/30/2024 11:12:54 09/30/19 25 09/30/2024 CBC WITH DIFFE RENTI AL/PL ATELE T RDW 14.4 % 11.6-1 5.4 Not Available [facility] ([facility]) [address] [place], [address], 09/30/2024 11:12:54 09/30/1909/30/2024 CBC WITH DIFFE RENTI AL/PL ATELE T platelets 211 x10e3 /uL 150-45 0 Not Available [facility] ([facility]) [address] [place], [address], 09/30/2024 11:12:54 09/30/1909/30/2024 CBC WITH DIFFE RENTI AL/PL ATELE T neutrophils 45 % notest ab. Not Available [facility] ([facility]) [address] [place], [address], 09/30/2024 11:12:54 09/30/1909/30/2024 CBC WITH DIFFE RENTI AL/PL ATELE T lymphs 40 % notest ab. Not Available [facility] ([facility]) [address], [place], [address], 09/30/2024 11:12:54 09/30/1909/30/2024 CBC WITH DIFFE RENTI AL/PL ATELE T monocytes 12 % notest ab. Not Available [facility] ([facility]) [address], [place], [address], 09/30/2024 11:12:54 09/30/1909/30/2024 CBC WITH DIFFE RENTI AL/PL ATELE T eos 2 % notest ab. Not Available [facility] ([facility]) [address] [place], [address], 09/30/2024 11:12:54 09/30/1909/30/2024 CBC WITH DIFFE RENTI AL/PL ATELE T basos 1 % notest ab. Not Available [facility] ([facility]) [address] [place], [address], 09/30/2024 11:12:54 09/30/1909/30/2024 CBC WITH DIFFE RENTI AL/PL ATELE T neutrophils (absolute) 2.6 x10e3 /uL 1.4-7. 0 Not Available [facility] ([facility]) [address] [place], [address], 09/30/2024 11:12:54 09/30/19 25 09/30/2024 CBC WITH DIFFE RENTI AL/PL ATELE T lymphs (absolute) 2.3 x10e3 /uL 0.7-3. 1 Not Available [facility] ([facility]) [address], [place], [address], 09/30/2024 11:12:54 09/30/19 25 09/30/2024 CBC WITH DIFFE RENTI AL/PL ATELE T monocytes(ab solute) 0.7 x10e3 /uL 0.1-0. 9 Not Available [facility] ([facility]) [address], [place], [address], 09/30/2024 11:12:54 09/30/19 25 09/30/2024 CBC WITH DIFFE RENTI AL/PL ATELE T eos (absolute) 0.1 x10e3 /uL 0.0-0. 4 Not Available [facility] ([facility]) [address], [place], [address], 09/30/2024 11:12:54 09/30/19 25 09/30/2024 CBC WITH DIFFE RENTI AL/PL ATELE T baso (absolute) 0.1 x10e3 /uL 0.0-0. 2 Not Available [facility] ([facility]) [address], [place], [address], 09/30/2024 11:12:54 09/30/19 25 09/30/2024 CBC WITH DIFFE RENTI AL/PL ATELE T immature granulocytes 0 % notest ab. Not Available [facility] ([facility]) [address], [place], [address], 09/30/2024 11:12:54 09/30/1909/30/2024 CBC WITH DIFFE RENTI AL/PL ATELE T immature grans (abs) 0.0 x10e3 /uL 0.0-0. 1 Not Available [facility] ([facility]) [address], [place], [address], 09/30/2024 11:12:54 09/30/19 25 09/30/2024 PROST ATE-S PECIF IC AG prostate specific Ag 8.3 NG/mL 0.0-4. 0 above high normal Alexa ECLIA metho dolog y. Accor ding [...] t be inter prete d as absol nikolski evide nce of the prese nce or absen ce of lorie medrano se. Not Available [facility] ([facility]) [address], [place], [address], 09/30/2024 11:12:55 08/26/19 24 08/26/2023 XR, chest No observ ation record ed. [address], [address], 08/26/2023 13:31:08 06/13/19 25 06/11/2024 PFT, compl ete No observ ation record ed. [address], [address], 06/17/2024 17:24:00 06/20/19 25 06/19/2024 XR, chest No observ ation record ed. [address], [address], 06/24/2024 22:09:22 07/09/19 25 07/08/2024 CT, lumba r spine , w/o contr ast No observ ation record ed. [address], [address], 07/09/2024 09:24:44 07/09/19 25 07/08/2024 XR, chest , 2 view No observ ation record ed. [facility] [address], [place], [address], 07/09/2024 09:24:16 Result Notes None recorded. Problems Name Problem SNOMED Code Status Onset Date Resolution Date Notes Provider Name and Address Organization Details Recorded Time Essential hypertension 93646163 Active 2024 Alesia Benjamin [place] null, [place] [facility] 12:24:56 Chronic obstructive pulmonary disease 48688216 Active 2024 RAVEN Pérez, [place] - [facility] 11:59:01 Hyperlipidemia 99899469 Active 2024 Alesia Benjamin [place], [place] [facility] 09:57:32 Tetanus vaccination declined by patient 275480119 Active 2024 Zaria Rubio MD Attn: Burt perales,[address] [place], [address], [place] [facility] 5 14:37:54 Pneumococcal vaccination declined 915029909 Active 2024 Zaria Rubio MD Attn: Burt perales,[address] [place], [address], [place] [facility] 5 14:37:55 Influenza vaccination declined 950603198 Active 2024 Zaria Rubio MD Attn: Burt perales,[address] [place], [address], [place] [facility] 5 14:37:56 Lipoma 69665891 Active 2024 Alesia Benjamin [place] [facility] 5 11:58:20 Screening for malignant neoplasm of prostate Active 2024 Alesia Benjamin [place], [place] [facility] 5 11:58:21 Overweight in adulthood with body mass index of 25 or more but less than 30 321032612 Active 2024 Alesia Benjamin MA prince, [facility] 5 11:58:24 Smoker 11585632 Active 2024 Alesia Benjamin MA prince, [facility] 11:58:26 Problem Notes None recorded. Procedures Surgical History Date Name Laterality Status Provider Name and Address Organization Details Recorded Time Back Surgery completed Victoria Basilio MA [facility] 06/21/2023 10:32:10 Hernia Repair completed Victoria Basilio MA [facility] 06/21/2023 10:32:20 Carpal tunnel surgery completed Victoria Basilio MA [facility] 06/21/2023 10:32:54 Imaging Results None recorded. Procedure Notes None recorded. Medical Equipment None Reported. Allergies No known drug allergies Medications Name Sig Start Date Stop Date Status Note LastModified by Organization Details LastModified Time cyclobenz aprine 10 mg tablet TAKE 1 TABLET BY MOUTH THREE TIMES DAILY NEEDED FOR MUSCLE SPASM active Not Available Not Available No t [...] completed Not Available Not Available Not Available diclofena c sodium 75 mg tablet,de layed release TAKE 1 TABLET BY MOUTH TWICE DAILY NEEDED FOR PAIN active Not Available Not Available No t Available ibuprofen 600 mg tablet TAKE 1 [...] Not Available Not Available No t Available Breztri Aerospher e 160 mcg-9mcg- 4.8mcg/ac tuation HFA aerosol inhaler INHALE 2 PUFFS BY MOUTH TWICE DAILY active Not Available Not Available No t Available Vitals Date Recorded Body mass index (BMI) Body weight Heart rate Oxygen saturation Oxygen saturation in Arterial blood by Pulse oximetry Systolic And Diastolic Provider Name and Address Organization Details Last Updated DateTime 27.2 kg/m2 27155.5 5 g 86 /min 91 % 91 % 130/88 mm[Hg] Victoria Basilio MA [facility] 12:05:43 Date Recorded Body height Provider Name an d Address Organization Details Last Updated DateTime 06/02/2024 182.88 cm Liza Carolina MA [facility] 06/02/2024 11:53:53 Date Recorded Body weight Body mass index (BMI) Body height Heart rate Oxygen saturation Oxygen saturation in Arterial blood by Pulse oximetry Systolic And Diastolic Provider Name and Address Organization Details Last Updated DateTime 4 10949.7 4 g 26 kg/m2 182.88 cm 93 /min 97 % 97 % 142/80 mm[Hg] Victoria Basilio MA [facility] SI 4 10:39:46 Date Recorded Body height Body mass index (BMI) Body weight Heart rate Oxygen saturation Oxygen saturation in Arterial blood by Pulse oximetry Systolic And Diastolic Provider Name and Address Organization Details Last Updated DateTime 5 182.88 cm 27.4 kg/m2 56888.3 g 99 /min 96 % 96 % 138/72 mm[Hg] Lianne Duenas MA [facility] 5 11:19:52 Date Recorded Body height Body mass index (BMI) Body weight Heart rate Oxygen saturation Oxygen saturation in Arterial blood by Pulse oximetry Systolic And Diastolic Provider Name and Address Organization Details Last Updated DateTime 4 182.88 cm 25.1 kg/m2 13357.5 9 g 94 /min 96 % 96 % 144/88 mm[Hg] Rissa Mohan MA [facility] 4 10:44:59 Social History Question Answer Notes LastModified by Organizat ion Details LastModified Time Tobacco Smoking Status Current Every Day Smoker Victoria Basilio MA null, [facility] 06/21/2023 10:33:52 Are You Blind Or Do You Have Difficulty Seeing? No Information n ot available 06/21/2023 What Is Your Level Of Caffeine Consumption? Moderate Information not available 06/21/2023 In The 14 Days Before Symptom Onset, Have You Had Close Contact With A Laboratory-confirm ed COVID-19 While That Case Was Ill? No Information n ot available 06/02/2024 In The 14 Days Before [...] Of Diet Are You Following? REGULAR Information n ot available 06/21/2023 Are There Any Guns Present In Your Home? No Information not available 06/21/2023 What Was The Date Of Your Most Recent Tobacco Screening? 09/29/2024 Information not available 09/29/2024 What Is Your Current Pack Years? 30ormorepacky ears Information not available 06/21/2023 What Is Your Relationship Status? Information not available 06/21/2023 Do You Use Your Seat Belt Or Car Seat Routinely? Yes Information not available 06/21/2023 Do You Have Smoke And Carbon Monoxide Detectors In Your Home? Yes Information not available 06/21/2023 How Much Tobacco Do You Smoke? 3+ PPD Information not available 06/21/2023 Do You Use Sunscreen Routinely? No Information not available 06/21/2023 Has Tobacco Cessation Counseling Been Provided? Yes Information not available 06/21/2023 On What Date Was Tobacco Cessation Counseling Provided? 09/29/2024 Information not available 09/29/2024 How Many Years Have You Smoked Tobacco? 20 Information not available 06/21/2023 Sex: Male Functional Status Question Answer Note LastModified by Organizat ion Details LastModified Time Do you use any illicit or recreational drugs? No Information not available 06/21/2023 Do you or have you ever used any other forms of tobacco or nicotine? No Information not available 06/21/2023 What is your level of alcohol consumption? Occasional weekends Information not available 06/21/2023 Are you able to care for yourself? Yes Information not available 06/21/2023 What is your exercise level? Occasional Information not available 06/21/2023 Mental Status Question Answer Note LastModified by Organization D etails LastModified Time Do you feel stressed (tense, restless, nervous, or anxious, or unable to sleep at night)? [id number] Information not available 06/21/2023 Family History Relationship Description Onset Age of this Age Resolved Age Notes LastModified by Organization Details LastModified Time Father Harmful pattern of use of alcohol bandersonma Not available 06/06 10:34:43 Mother Cerebrovascu [...] Skin Problems Y Anemia N Heart Attack ([place]) N Anxiety Disorder N Diabetes N Muscle, Joint, or Bone Problems Y Seizures/Epilepsy N Acid Reflux (GERD) N Cancer N Stroke N Asthma N Allergies N High Cholesterol Y Hepatitis N Liver Disease N Headaches N Heart Failure N Osteoporosis N Past Encounters Encounter ID Performer Location Encounter Start Date Encounter Closed Date Diagnosis/Indication Diagnosis SNOMED-CT Code Diagnosis ICD10 Code Diagnosis Note [id number] Zaria Rubio MD [facility] (Adult Med) [address] [place] [address] [id number] 06/21/2023 10:06:01 06/21/2023 11:22:18 Essential hypertension 42279144 I10 Screening for malignant neoplasm of prostate 250297805 Z12.5 Chronic ob structive pulmonary disease 93795008 J44.9 Hyperlipidemia 17566113 E78.5 [id number] Zaria Rubio MD [facility] (Adult Med) [address] [place] [address] [id number] 12/13/2023 10:21:59 12/13/2023 11:48:01 Generalized rash 920841529 R21 Hyperlipidemia 22048804 E78.5 Fatigue 02136775 R53.83 Essential hypertension 42991310 I10 [id number] Zaria Rubio MD [facility] (Adult Med) [address] [place] [address] [id number] 06/02/2024 11:47:51 06/02/2024 12:31:41 Overweight 227783788 E66.3 Essential hypertension 06296324 I10 Chronic ob structive pulmonary disease 64468105 J44.9 Lipoma 16527238 D17.9 Hyperlipidemia 15124454 E78.5 Influenza vaccination declined 978793866 Z28.21 Pneumococc al vaccination declined 314350265 Z28.21 Tetanus va ccination declined by patient 688892979 Z28.21 [id number] Zaria Rubio MD [facility] (Adult Med) [address] [place] [address] [id number] 09/29/2024 10:59:11 09/29/2024 11:59:09 Smoker 34291759 F17.200 Overweight in adulthood with body mass index of 25 or more but less than 30 134418186 E66.3 Z68.27 Essential hypertension 96092731 I10 Hyperlipidemia 32720687 E78.5 Screening for malignant neoplasm of prostate 266555892 Z12.5 Lipoma 98704938 D17.79 Chronic ob structive pulmonary disease 10404589 J44.9 Health Concerns Section Related Observation LastModified by Organization Detai ls LastModified Time None Recorded Concern Status LastModified by Organization Details LastModified Time None Recorded Advance Directives Directive None Recorded Payers Insurance Date Sequence Insurance Name Policy Number Policy Barraza Covered Member ID Barraza Member ID Guarantor Name 09/29/2024 2 [place] WHEN MEDICARE OR MEDICARE REPLACEMENT PRIMARY) Reji Freire [id number] Reji Freire 06/11/2024 1 [place] Reji Freire [id number] Reji Freire 06/02/2024 1 [facility] - DOS ON OR AFTER 20 (MEDICAID REPLACEMENT - HMO) Reji Freire [id number] Reji Freire 06/02/2024 1 [facility] (MEDICARE REPLACEMENT/AD VANTAGE - HMO) Reji Freire [id number] Reji Freire 09/29/2024 2 [place] Reji Freire [id number] Reji Freire 10/05/2024 1 [facility] (MEDICARE REPLACEMENT/AD VANTAGE - PPO) [id number] Reji Freire [id number] Reji Freire 09/26/2024 [place] [facility] - [facility] Reji Freire [id number] Reji Freire Notes Date Note Type Note Provider Name and Address Organization Details Recorded Time 06/21/2023 text/html Hypertension no headache or dizziness no palpitations COPD continues to smoke denies any shortness of breath or hemoptysis hyperlipidemia does try to follow a low-fat diet Zaria Rubio MD Attn: Accounting, [address] [facility], [place], [address], [facility] 06/21/2023 22:51:05 12/13/2023 text/html he has had some nonspecific fatigue hypertension no headache or dizziness dyslipidemia needs his lipid panel done but tries to follow a low-fat that was in the ER for some hives was given some Claritin hydrocortisone cream and a Z-Geo and he is better Zaria Rubio MD Attn: Accounting, [address] [facility], [place], [address], [facility] 12/15/2023 23:25:02 06/02/2024 text/html 1. Hypertension no headache no dizziness. 2. COPD denies cough or wheezing or shortness of breath. 3. Dyslipidemia he has been taking the lovastatin and atorvastatin 4. He is going to skin lesion Zaria Rubio MD Attn: Accounting, [address] [facility], [place], [address], [facility] 06/06/2024 14:38:46 09/29/2024 text/html 1. Hypertension blood pressure controlled no headache no dizziness. COPD he is only using the albuterol at this time occasionally he will get a little winded. He did go to the hospital because of some back pain severe lumbar spondylosis was seen on CT scan that is getting a little bit better. Dyslipidemia in May cholesterol was 258 really needs to get in touch with his diet. Has not seen the surgeon yet for his axillary lipoma Zaria Rubio MD Attn: Accounting, [address] [facility], [place], [address], [facility] 10/03/2024 22:57:05
--- OUTSIDE RECORDS SUMMARY | 2024-10-13 09:33 | XMS_ITS | Data Portability ---
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 Section Related Observation LastModified by Organization Detai ls LastModified Time None Recorded Concern Status LastModified by Organization Details LastModified Time None Recorded Advance Directives Directive N: Payers Insurance Date Sequence Insurance Name Policy Number Policy Barraza Covered Member ID Barraza Member ID Guarantor Name 02/26/2023 1 [facility] ON OR AFTER 10/06/20 (MEDICAID REPLACEMENT - HMO) Reji Freire [id number] Reji Freire Notes Date Note Type Note [...] surgery in June by Dr. Saucedo at [facility]. He showed me a photograph of [...] used Ultram for pain. He does take [id number] ibuprofen sometimes several times a day but he takes it on an as-needed basis. Anderson Pickett MD [address] [employer], [place], [place], [address], [employer] 09/07/2022 11:43:10 11/02/2022 text/html Being seen for C OPD hyperlipidemia hypertension hypertension no headache. Hyperlipidemia he could do better with regards to his diet. Breathing has been fine Zaria Rubio MD [address], [place], [address], [employer] 11/03/2022 12:55:34 11/16/2022 text/html patient returns after [...] he states. Anderson Pickett MD [address] [place] [address], [place], [address], [email or web address] 11/18/2022 17:32:26 02/21/2023 text/html COPD doing fine dyslipidemia your atorvastatin try to watch red meat hypertension doing fine Zaria Rubio MD [address], [facility] [address], [place], [address], [employer] 02/25/2023 22:15:46
--- OUTSIDE RECORDS SUMMARY | 2024-10-13 09:33 | XMS_ITS | Clinical Summary ---
Author Organization [facility] Address [facility] [place] [address] Care Team Providers Care Teller Supervisor Name Role Phone Phuc Rubio MD Primary Care Provider [phone] Medications traMADol (ULTRAM) 50 MG tablet 03/22/2022 Active Social History Tobacco Use Types Packs/Day Years Used Date Smoking Tobacco: Never Assessed Sex and Gender Information Value Date Recorded Sex Assigned at Not on file Legal Sex Male 7:08 PM EDUCATION AND DEVELOPMENT MANAGER Gender Identity Not on file Sexual Orientation Not on file Last Filed Vital Signs Vital Sign Reading Time Taken Comments Blood Pressure 168/97 06/03/2022 11:20 PM EDUCATION AND DEVELOPMENT MANAGER Pulse 82 06/03/2022 11:20 PM EDUCATION AND DEVELOPMENT MANAGER Temperature 37 C (98.6 F) 06/03/2022 7:23 PM EDUCATION AND DEVELOPMENT MANAGER Respiratory Rate 16 06/03/2022 11:20 PM EDUCATION AND DEVELOPMENT MANAGER Oxygen Saturation 93% 06/03/2022 11:20 PM EDUCATION AND DEVELOPMENT MANAGER Inhaled Oxygen Concentration - - Weight 97.1 kg (214 lb) 06/03/2022 7:34 PM EDUCATION AND DEVELOPMENT MANAGER Height 182.9 cm (6') 06/03/2022 7:34 PM EDUCATION AND DEVELOPMENT MANAGER Body Mass Index 29.02 06/03/2022 7:34 PM EDUCATION AND DEVELOPMENT MANAGER Plan of Treatment Health Maintenance Due Date Last Done Comments Colorectal Cancer Screening Colonoscopy (10 Years) 1960 Hepatitis C 1976 DTaP, Tdap and Td Vaccines ( 1 - Tdap) 1977 Pneumococcal Vaccine: 50+ Ye ars (1 of 1 - PCV) 2008 Zoster Vaccines (1 of 2) 2008 COVID-19 Vaccine (2023-2 5 season) 2023 RSV Immunization or 60+ Years (1 - 1-dose 75+ series) 2033 Meningococcal B Vaccine Aged Out No l onger eligible based on patient's age to complete this topic Meningococcal Vaccine Aged Out No kate patience eligible based on patient's age to complete this topic RSV Immunizations Under 20 Months Aged Out No longer eligible based on patient's age to complete this topic Insurance MAN[employer] Care Teams Teller Supervisor Relationship Specialty Start Date End Date Phuc Rubio MD PCP - General INTERNAL MEDICINE 06/03/22
[2024-10-13 09:53] LABS: Estimated Glomerular Filt Rate > 60
== END 2024-10-13 09:26 | disposition home or self-care (01) ==
PROVIDERS: PCP Internal Medicine; Visit Provider Surgery
DX: D17.1 Benign lipomatous neoplasm of skin and subcutaneous tissue of trunk (principal)
CPT/HCPCS: 71260; Q9967

== ENCOUNTER 2024-11-03 10:20 | Outpatient (CLI) | payer MEDICARE, SELFPAY ==
--- NOTE | 2024-11-03 10:35 | ECG_ITS ---
Test Date: 2024-11-03 10:45:00 Measurements Intervals Nelson Rate: 83 P: 70 VA: 189 QRS: 19 QRSD: 91 T: 89 QT: 363 QTc: 428 Interpretive Statements SINUS RHYTHM Electronically Signed On 11-03-2024 17:27:33 CDT by Rony Reyes D.O
--- OUTSIDE RECORDS SUMMARY | 2024-11-03 10:36 | XMS_ITS | Clinical Summary ---
Author Organization [facility] Address [facility] [place] [address] Care Team Providers Care Hull And Deck Remover Name Role Phone Phuc Rubio MD Primary Care Provider [phone] Medications traMADol (ULTRAM) 50 MG tablet 03/22/2022 Active Social History Tobacco Use Types Packs/Day Years Used Date Smoking Tobacco: Never Assessed Sex and Gender Information Value Date Recorded Sex Assigned at Not on file Legal Sex Male 7:08 PM PARANORMAL INVESTIGATOR Gender Identity Not on file Sexual Orientation Not on file Last Filed Vital Signs Vital Sign Reading Time Taken Comments Blood Pressure 168/97 06/03/2022 11:20 PM PARANORMAL INVESTIGATOR Pulse 82 06/03/2022 11:20 PM PARANORMAL INVESTIGATOR Temperature 37 C (98.6 F) 06/03/2022 7:23 PM PARANORMAL INVESTIGATOR Respiratory Rate 16 06/03/2022 11:20 PM PARANORMAL INVESTIGATOR Oxygen Saturation 93% 06/03/2022 11:20 PM PARANORMAL INVESTIGATOR Inhaled Oxygen Concentration - - Weight 97.1 kg (214 lb) 06/03/2022 7:34 PM PARANORMAL INVESTIGATOR Height 182.9 cm (6') 06/03/2022 7:34 PM PARANORMAL INVESTIGATOR Body Mass Index 29.02 06/03/2022 7:34 PM PARANORMAL INVESTIGATOR Plan of Treatment Health Maintenance Due Date [...] patient's age to complete this topic Insurance [employer] Care Teams Hull And Deck Remover Relationship Specialty Start Date End Date Phuc Rubio MD PCP - General INTERNAL MEDICINE 06/03/22
== END 2024-11-03 10:21 | disposition home or self-care (01) ==
LOC: ANHSURGERY 10:24
PROVIDERS: PCP Internal Medicine; Visit Provider Surgery
DX: Z01.818 Encounter for other preprocedural examination (principal); I10 Essential (primary) hypertension
CPT/HCPCS: 93005

== ENCOUNTER 2024-11-06 00:16 | Day surgery (SDC) | payer MEDICARE, SELFPAY ==
--- NOTE | 2024-11-02 14:59 | PC.NURSE ---
Report to the Outpatient Waiting Room, entrance under the green pavilion located off [facility], at time _8:30AM on date 11/06/24 . Planned Procedure Time: ___10:30 AM .? Time changes happen often and if your time is changed the preop area will call you the afternoon before. - You and your visitor will be asked to self-screen and do not enter if you have any COVID symptoms. Please call surgeon if you need to reschedule. - A mask is optional within the hospital at this time. Patients may have clear liquids (water, carbonated beverages, clear teas, apple juice) until 3 hours prior to surgery (7:30 ) with a maximum of 20 ounces. - No food from midnight until time of surgery and no smoking, or chewing tobacco (or any form of nicotine). No chewing gum, candy or mints. - Take only the following medications with a SIP of water on the morning of surgery: ___METOPROLOL__, BREZTRI INHALER DO NOT STOP ANY OF YOUR OTHER PRESCRIPTION MEDICATIONS PRIOR TO SURGERY EXCEPT THE FOLLOWING Hold all vitamins and supplements for 3 days per anesthesiologist.LAST DOSE 11/02/24 Medications to discontinue per physician NONE Please no make-up, nail slovak, hairspray, perfume, deodorant, or body powder the day of surgery.? No jewelry (including any body piercings) or valuables the day of surgery, leave them at home.? Please take a shower or bath the night before, or the morning of, surgery with an antibacterial soap.? Wear comfortable, loose fitting clothing.? Children are encouraged to wear pajamas. - Jewelry must be removed prior to entering the operating room.? Rings and piercings that are not removed may be cut off. - The hospital will not accept responsibility for valuables.? - Please leave all valuables, including medications, at home the day of surgery. If you are going home after surgery, a licensed regional company flatbed truck driver must drive you home.? - NO public transportation without another adult if you receive anesthesia. - We recommend that an adult stay with you for 24 hours following discharge. - We also recommend that you do not drive, make important decision, drink alcoholic beverages, or take any drugs that were not prescribed by your health care provider for at least 24 hours after your discharge time. For Pediatric surgeries, we recommend two adults accompany the child home. Follow any additional instructions given to you from your surgeon. Telephone instructions given to __PATIENT and asked if any additional questions and then verbalized understanding. Patient advised to call surgeon office or pre surgery nurse liaison [phone] if any additional questions.
[2024-11-02 15:24] VITALS: BMI 27.2
--- OUTSIDE RECORDS SUMMARY | 2024-11-06 00:26 | XMS_ITS | Clinical Summary ---
Author Organization [facility] Address [facility] [place] [address] Care Team Providers Care Vb Developer Name Role Phone Phuc Rubio MD Primary Care Provider [phone] Medications traMADol (ULTRAM) 50 MG tablet 03/22/2022 Active Social History Tobacco Use Types Packs/Day Years Used Date Smoking Tobacco: Never Assessed Sex and Gender Information Value Date Recorded Sex Assigned at Not on file Legal Sex Male 7:08 PM CLOTHES WRINGER Gender Identity Not on file Sexual Orientation Not on file Last Filed Vital Signs Vital Sign Reading Time Taken Comments Blood Pressure 168/97 06/03/2022 11:20 PM CLOTHES WRINGER Pulse 82 06/03/2022 11:20 PM CLOTHES WRINGER Temperature 37 C (98.6 F) 06/03/2022 7:23 PM CLOTHES WRINGER Respiratory Rate 16 06/03/2022 11:20 PM CLOTHES WRINGER Oxygen Saturation 93% 06/03/2022 11:20 PM CLOTHES WRINGER Inhaled Oxygen Concentration - - Weight 97.1 kg (214 lb) 06/03/2022 7:34 PM CLOTHES WRINGER Height 182.9 cm (6') 06/03/2022 7:34 PM CLOTHES WRINGER Body Mass Index 29.02 06/03/2022 7:34 PM CLOTHES WRINGER Plan of Treatment Health Maintenance Due Date [...] patient's age to complete this topic Insurance [employer] Care Teams Vb Developer Relationship Specialty Start Date End Date Phuc Rubio MD PCP - General INTERNAL MEDICINE 06/03/22
[2024-11-06] MEDS: LACTATED RINGERS 1,000 ML 30 ML IV CONT ×2 (09:00→11:44)
--- NOTE | 2024-11-06 09:59 | P.PNAN_ITS ---
Anes - Initial Pre Proc Eval Procedure: Operation Date: 11/06/24 10:30 Proposed Procedures p Excision Right Chest Wall Mass - Fredy Mukherjee MD Date/Time: 11/06/24 09:59 Surgeon: Fredy Mukherjee MD Pre Op Diagnosis: Rt chest wall mass Patient Data Age: 63 Gender: M Height: 1.83 m Weight: 91.2 kg Allergies Allergy/AdvReac Type Severity Reaction Status Date / Time No Known Allergies Allergy Mild Verified 11/06/24 09:59 Home Medications ?Medication ?Instructions ?Recorded ?Confirmed ?Type atorvastatin 40 mg tablet (Lipitor) 40 mg PO DAILY 10/06/24 11/02/24 History budesonide 160 mcg-glycopyr 9 2 inh inhalation BID 10/06/24 11/02/24 History mcg-formot 4.8 mcg/actuation HFA inhaler (Breztri Aerosphere) ezetimibe 10 mg tablet 10 mg PO DAILY 10/06/24 11/02/24 History metoprolol succinate 50 mg 50 mg PO DAILY 10/06/24 11/02/24 History tablet,extended release 24 hr elderberry fruit 200 mg capsule 200 mg PO DAILY 11/02/24 11/02/24 History multivitamin (Daily Multi-Vitamin 1 tablet PO DAILY 11/02/24 11/02/24 History tablet) turmeric 400 mg capsule 400 mg PO DAILY 11/02/24 11/02/24 History EC11/03/24 SR 83 Other studies: PFT Interpretation Lung volumes were measured with the body plethysmography method. The elevated RV could be due to air trapping. The remaining lung volumes are unremarkable. Spirometry showed diminished expiratory flow rates and a diminished FEV1 to FVC ratio of 40%, indicative of obstructive airway disease. No post bronchodilator study was conducted. The lung diffusion capacity is moderately reduced at 58% predicted. This diminished lung diffusion capacity coupled with a low alveolar volume and a normal DLCO/VA ratio indicates loss of alveolar capillary structure with loss of lung volume as seen in emphysema or interstitial lung disease. The flow-volume loop is consistent with emphysema. Impression: Severe obstructive airway disease with evidence of air trapping. Moderately reduced lung diffusion capacity. Patient hx anesthesia problems: none Family hx anesthesia problems: none Results Review: All pre-operative results and documents have been reviewed as part of the pre- operative evaluation. [facility] Past Medical History Medical History COPD (chronic obstructive pulmonary disease) Hypercholesterolemia Hypertension Surgical History Surgical History No pertinent past surgical history Family History Family History Mother Leukemia Diabetes mellitus Hypertension Cerebrovascular accident Sibling Leukemia Diabetes mellitus Heart disease Hypertension Alcoholism Social History Social History Smoking packs per day: 0.5 Smoking cigarettes per day: 10.0 Smoking status: Current every day smoker Tobacco type: cigarettes Alcohol intake: current Drinks per week: 4 Substance use: former Substance use type: crack/cocaine Last use: JUNE 2024 Do You Feel Safe in your Home?: Yes Lack of Transportation: No Lack of Food: Sometimes True Current Housing: I Have Housing Concerned About Future Housing: No Difficulty Paying Gas/Electric Bills: YES Difficulty Paying for Meds: YES Currently Unemployed: No Education: High School Diploma/GED Difficulty w/ Childcare or Family Care: No Living arrangements: alone Occupation/Education: retired Agree to blood products: No Anes - Eval Final PreProcedure Day of Procedure 11/06/24 09:59 Patient weight: normal Heart: regular rate and rhythm Lungs: decreased breath sounds Airway: Mallampati scale class II Neurological: alert and oriented ASA classification: III Emergent: no Anesthetic plan: proceed Anesthesia type and monitoring: general LMA and standard monitoring Results Review: All pre-operative results and documents have been reviewed as part of the pre- operative evaluation. Informed Consent: The patient's anesthetic plan and its attendant risks and benefits were discussed with the patient/family/POA. Questions were solicited and answers provided to the satisfaction of the patient/family/POA.
[2024-11-06 10:02] VITALS: BP 134/90; PULSE 92; RESP 16; TEMP 36.9; O2SAT 96
--- NOTE | 2024-11-06 10:12 | WPDHPUPDATE1 ---
History and Physical Update Update Date/Time: 11/06/24 10:12 History and Physical has been reviewed, including an updated exam of the patient. There are NO changes in the patient's condition. Risks, benefits, and alternatives have been discussed and questions answered. Patient agrees to proceed with procedure.
[2024-11-06] MEDS: ceFAZolin 2 GM in SODIUM CHLORIDE 0.9% IV 50 ML 100 ML IVPB (10:18)
[2024-11-06] MEDS: LIDO 1%/EPINEPHRINE 1:100,000 20 ML VIAL 30 ML INFILTRATE (10:44)
--- NOTE | 2024-11-06 11:07 | S_PTH ---
PATIENT: Reji Freire . LOC: [facility] U#:[id number] AGE/SX: 63/M ROOM: RE11/06/[address]: Fredy Mukherjee MD : 1960 BED: DIS: 11/06/2024 SPEC #: [id number] RECD: 11/06/24 12:59 STATUS: CHAR REQ #: [id number] WILY: 11/06/24 11:[address]: Fredy Mukherjee DEPT: [facility] Surgical RECD BY: Betzaida Lu ENTERED: 11/06/24 12:59 SP TYPE: Surgical OTHR DR: Phuc RubioMD Tissues: A - Mass Procedures: Hematoxylin and Eosin Stain Gross and Microscopic Level 3
[2024-11-06 11:44] VITALS: BP 148/95; PULSE 90; RESP 22; TEMP 36.5; O2SAT 100
[2024-11-06 12:00] VITALS: BP 137/78; PULSE 85; RESP 15; O2SAT 97
[2024-11-06 12:15] VITALS: BP 134/83; PULSE 84; RESP 14; O2SAT 94
[2024-11-06 12:30] VITALS: BP 168/91; PULSE 77
--- NOTE | 2024-11-06 12:56 | W.PM.PROC2 ---
Procedure Note - Detailed Date of Procedure 11/06/24 Pre-op Diagnosis Rt chest wall mass Post-op Diagnosis Other (Right submuscular chest wall lipoma) Procedure Performed Excision right sub muscular chest wall lipoma. Surgeon Fredy Mukherjee MD Waiter/Waitress Head Curt Desai HEATING AND VENTILATING WORKER Anesthesia General Indications The patient is a 63-year-old gentleman presented with a slowly enlarging deep soft tissue mass in the upper right lateral chest wall area. It was relatively fixed. He did not have any pain associated with the mass. CT scan of the abdomen pelvis showed a well-circumscribed right sub muscular chest wall mass consistent with a well circumscribed lipoma of the right chest wall. He presents now for excision of the mass. Findings The patient had a [id number] well-circumscribed benign appearing adipose mass consistent with a lipoma deep to the muscle of the right upper lateral chest wall. Description of Procedure After informed consent was obtained patient brought to the operating room was placed in the supine position on operating table and then placed under general LMA anesthesia. He was then turned into the left lateral decubitus position on the operating table. All the major pressure points were well padded. Lateral positioners were placed to keep him in lateral position. The right arm was placed on a arm board. I then proceeded to prep and drape the area in the usual sterile fashion. Time-out was then performed correctly identifying the patient as well as procedure to be performed verifying the site marking. He was given perioperative IV antibiotics. I then made a transverse incision over the area of the mass when I palpated it. Dissection was carried deeply down through the dermis of the skin with a scalpel and then electrocautery was used to dissect down through the subcutaneous tissue electrocautery. I then encountered the fascia of the most superficial muscle of the right upper lateral chest wall and I incised the fascia electrocautery to expose the underlying muscle fibers. I then spread between the muscle fibers in the direction of the fibers to keep from dividing any muscle fibers and then placed self-retaining Weitlander retractors. I continued my dissection to spread between the muscle fibers until I reached the capsule of the lipomatous mass. The lipoma was deep to the muscle but superficial to the intercostal muscles and periosteum of the ribs. Once I got into the correct plane I then proceeded to dissect around this lipomatous mass with blunt finger dissection and delivered it mostly up into the incision. I then continued dissection of a few small muscle fibers off of the wall of the lipoma utilized electrocautery. The lipoma was measured and it was [id number]. It was sent to pathology for examination. I then checked the incision and there was no bleeding from the deeper muscle layers. I then irrigated out the incision sterile saline solution hemostasis was good. I then injected a combination 1% lidocaine mixed with 0.5% Marcaine 50 50 mixture with some epinephrine around the incision in the muscle and the subcutaneous tissues. The incision was then closed utilizing interrupted 2-0 Vicryl sutures in the deeper parts of the incision to reapproximate the edges of the muscle. The superficial fascia of the muscle was closed utilizing a running absorbable 2-0 V lock suture. This is then followed by layer of interrupted 3-0 Vicryl sutures in the deep dermal layer and then the skin edges were approximated utilizing a running subcuticular 4 Monocryl suture. The incision was then cleaned and then skin glue and a pressure dressing was applied. The patient tolerated the procedure well no complications. All sponges, needles, and instrument counts were correct at the end procedure. EBL was _10__cc. The patient was awakened and taken to recovery in stable and satisfactory condition. Implants None Estimated Blood Loss 10 Drains No Packing No Pathology Yes (Lipoma to pathology) Complications No immediate complications Condition Stable Disposition PACU [facility] Billing Surgery - Charge Forward: Surgery Billing
[2024-11-06 13:00] VITALS: BP 152/91; PULSE 72
== END 2024-11-06 13:19 | disposition home or self-care (01) ==
PROVIDERS: PCP Internal Medicine; Visit Provider Surgery
PROC: (CPT 21552; principal; 2024-11-06 10:30)
DX: D17.1 Benign lipomatous neoplasm of skin and subcutaneous tissue of trunk (principal); I10 Essential (primary) hypertension; J44.9 Chronic obstructive pulmonary disease, unspecified; E78.00 Pure hypercholesterolemia, unspecified; F17.210 Nicotine dependence, cigarettes, uncomplicated; Z79.51 Long term (current) use of inhaled steroids; Z80.6 Family history of leukemia; Z82.49 Family history of ischemic heart disease and other diseases of the circulatory system
CPT/HCPCS: 21552; 88304; J0690; A9270; J2003; J2004; J2250; J2371; J2405; J2704; J3010; J7120

== ENCOUNTER 2024-11-25 15:37 | Emergency (ER) | payer MEDICARE, SELFPAY ==
[2024-11-25 15:41] VITALS: BP 138/91; PULSE 109; RESP 16; TEMP 36.4; O2SAT 97
--- OUTSIDE RECORDS SUMMARY | 2024-11-25 16:00 | XMS_ITS | Clinical Summary ---
Author Organization [facility] Address [facility] [place] [address] Care Team Providers Care Seat Cover Maker Name Role Phone Phuc Rubio MD Primary Care Provider [phone] Medications traMADol (ULTRAM) 50 MG tablet 03/22/2022 Active Social History Tobacco Use Types Packs/Day Years Used Date Smoking Tobacco: Never Assessed Sex and Gender Information Value Date Recorded Sex Assigned at Not on file Legal Sex Male 7:08 PM PLASTER APPLICATOR Gender Identity Not on file Sexual Orientation Not on file Last Filed Vital Signs Vital Sign Reading Time Taken Comments Blood Pressure 168/97 06/03/2022 11:20 PM PLASTER APPLICATOR Pulse 82 06/03/2022 11:20 PM PLASTER APPLICATOR Temperature 37 C (98.6 F) 06/03/2022 7:23 PM PLASTER APPLICATOR Respiratory Rate 16 06/03/2022 11:20 PM PLASTER APPLICATOR Oxygen Saturation 93% 06/03/2022 11:20 PM PLASTER APPLICATOR Inhaled Oxygen Concentration - - Weight 97.1 kg (214 lb) 06/03/2022 7:34 PM PLASTER APPLICATOR Height 182.9 cm (6') 06/03/2022 7:34 PM PLASTER APPLICATOR Body Mass Index 29.02 06/03/2022 7:34 PM PLASTER APPLICATOR Plan of Treatment Health Maintenance Due Date [...] patient's age to complete this topic Insurance [employer] Care Teams Seat Cover Maker Relationship Specialty Start Date End Date Phuc Rubio MD PCP - General INTERNAL MEDICINE 06/03/22
--- OUTSIDE RECORDS SUMMARY | 2024-11-25 16:00 | XMS_ITS | Clinical Summary ---
Author Organization [facility] Address [address] [place] [address] Care Team Providers Care Counter Cutter Name Role Phone Phuc Rubio MD Primary Care Provider [phone] Allergies No known active allergies Medications ibuprofen [...] on file Legal Sex Male 10:55 AM OLIVE GRADER Gender Identity Not on file Sexual Orientation [...] 1977 Zoster Vaccine (1 of 2) 2008 Abdominal Aortic Aneurysm (AAA) Screen 12/11/2023 Well Visit 65+ 12/11/2023 Influenza Vaccine (#1) 2024 Insurance Care Teams Counter Cutter Relationship Specialty Start Date End Date Phuc Rubio MD PCP - General Internal Medicine 12/23/21
--- NOTE | 2024-11-25 17:23 | ED.GENADULT ---
HPI - General Adult General Chief complaint: Skin/Abscess/Foreign Body Stated complaint: Hands itching x 4 days Time Seen by Provider: 11/25/24 16:11 Source: patient Mode of arrival: ambulatory Limitations: no limitations History of Present Illness HPI narrative: And was 63-year-old with a history of COPD head with a complains palms and soles itching for past 2 days. He states that he recently started taking [id number] vitamin.. Denies any chest pain or shortness of breath. Onset (ago): day(s) (2) Location: upper extremity and lower extremity Severity: mild Pain Consistency: constant Relieving factors: none Exacerbating factors: none Associated symptoms: denies other symptoms Related Data Home Medications ?Medication ?Instructions ?Recorded ?Confirmed ?Last Taken ?Type atorvastatin 40 mg tablet (Lipitor) 40 mg PO DAILY 10/06/24 11/02/24 Unknown History metoprolol succinate 50 mg 50 mg PO DAILY 10/06/24 11/02/24 Unknown History tablet,extended release 24 hr multivitamin (Daily Multi-Vitamin 1 tablet PO DAILY 11/02/24 11/02/24 Unknown History tablet) turmeric 400 mg capsule 400 mg PO DAILY 11/02/24 11/02/24 Unknown History Allergies Allergy/AdvReac Type Severity Reaction Status Date / Time No Known Allergies Allergy Mild Verified 11/24/24 09:49 Review of Systems Review of Systems: All systems reviewed & are unremarkable except as noted in HPI and below Constitutional: Constitutional: Reports no additional constitutional complaints Eyes: Eyes: Reports no additional eye complaints ENT: Reports system reviewed and no additional complaints, except as documented Cardiovascular: Cardiovascular: Reports no additional cardiovascular complaints Respiratory: Respiratory: Reports no additional respiratory complaints Musculoskeletal: Musculoskeletal: Reports no additional musculoskeletal complaints Integumentary/Breasts: Skin/Breast: Reports as per HPI [facility] Past Medical History Medical History COPD (chronic obstructive pulmonary disease) Hypercholesterolemia Hypertension Surgical History Surgical History Hx of excision of epidermal inclusion cyst 11/06/2024 Excision right sub muscular chest wall lipoma. No pertinent past surgical history Family History Family History Mother Leukemia Diabetes mellitus Hypertension Cerebrovascular accident Sibling Leukemia Diabetes mellitus Heart disease Hypertension Alcoholism Social History Social History Smoking packs per day: 0.5 Smoking cigarettes per day: 10.0 Years smoked: 10 Smoking pack-years: 5.00 Smoking status: Current every day smoker Tobacco type: cigarettes Alcohol intake: current Drinks per week: 4 Alcohol use details: [employer] WEEKLY Substance use: former Substance use type: crack/cocaine Last use: JUNE 2024 Do You Feel Safe in your Home?: Yes Lack of Transportation: No Lack of Food: Sometimes True Current Housing: I Have Housing Concerned About Future Housing: No Difficulty Paying Gas/Electric Bills: YES Difficulty Paying for Meds: YES Currently Unemployed: No Education: High School Diploma/GED Difficulty w/ Childcare or Family Care: No Living arrangements: alone Occupation/Education: retired Spiritual care concerns: No Agree to blood products: No Exam Narrative: GENERAL: Well-appearing, well-nourished, and in no acute distress. HEAD: Normocephalic, atraumatic. EYES: PERRLA and EOMI. ENT: Nares clear, no rhinorrhea or epistaxis. Mucous membranes moist. NECK: Supple. CHEST: Clear to auscultation. No respiratory distress. HEART: Regular rate and rhythm. No murmur heard. Normal peripheral pulses.. EXTREMITIES: Normal range of motion. No edema. SKIN: Warm, dry, no rash. NEURO: No focal deficits. Alert and oriented x3. PSYCH: Normal mood and affect. Course Vital Signs Vital signs: Vital Signs Temperature 36.4 C 11/25/24 15:41 Pulse Rate 109 H 11/25/24 15:41 Respiratory Rate 16 11/25/24 15:41 Blood Pressure 138/91 H 11/25/24 15:41 Pulse Oximetry 97 11/25/24 15:41 Temperature 36.4 C 11/25/24 15:41 Pulse Rate 109 H 11/25/24 15:41 Respiratory Rate 16 11/25/24 15:41 Blood Pressure 138/91 H 11/25/24 15:41 Pulse Oximetry 97 11/25/24 15:41 Medical Decision Making Vital Signs Vital Signs: Vital Signs Temperature 36.4 C 11/25/24 15:41 Pulse Rate 109 H 11/25/24 15:41 Respiratory Rate 16 11/25/24 15:41 Blood Pressure 138/91 H 11/25/24 15:41 Pulse Oximetry 97 11/25/24 15:41 Temperature 36.4 C 11/25/24 15:41 Pulse Rate 109 H 11/25/24 15:41 Respiratory Rate 16 11/25/24 15:41 Blood Pressure 138/91 H 11/25/24 15:41 Pulse Oximetry 97 11/25/24 15:41 Discharge Plan Discharge Clinical Impression: Allergic reaction Qualifiers: Encounter type: initial encounter Qualified Code(s): T78.40XA - Allergy, unspecified, initial encounter Patient Disposition: Home Condition: Stable Instructions: Allergies (ED) Additional Instructions: Take Benadryl every 6 hours as needed for itching.take steroids as prescribed. Patient Language: Danish Prescriptions: New prednisone 20 mg tablet 20 mg PO BID Qty: 10 0RF No Action atorvastatin [Lipitor] 40 mg tablet 40 mg PO DAILY metoprolol succinate 50 mg tablet extended release 24 hr 50 mg PO DAILY multivitamin [Daily Multi-Vitamin] Tablet 1 tablet PO DAILY turmeric 400 mg capsule 400 mg PO DAILY Follow-up/Referrals: Ramiro,MD Phuc [Primary Care Provider] Time of Disposition: 17:37
--- OUTSIDE RECORDS SUMMARY | 2024-11-25 18:13 | XMS_ITS | Clinical Summary ---
Author Organization 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 Gender Identity Not on file Sexual Orientation Not on file Last Filed Vital Signs Vital Sign Reading Time Taken Comments Blood Pressure 168/97 06/03/2022 11:20 PM SLITTER CREASER SLOTTER OPERATOR Pulse 82 06/03/2022 11:20 PM SLITTER CREASER SLOTTER OPERATOR Temperature 37 C (98.6 F) 06/03/2022 7:23 PM SLITTER CREASER SLOTTER OPERATOR Respiratory Rate 16 06/03/2022 11:20 PM SLITTER CREASER SLOTTER OPERATOR Oxygen Saturation 93% 06/03/2022 11:20 PM SLITTER CREASER SLOTTER OPERATOR Inhaled Oxygen Concentration - - Weight 97.1 kg (214 lb) 06/03/2022 7:34 PM SLITTER CREASER SLOTTER OPERATOR Height 182.9 cm (6') 06/03/2022 7:34 PM SLITTER CREASER SLOTTER OPERATOR Body Mass Index 29.02 06/03/2022 7:34 PM SLITTER CREASER SLOTTER OPERATOR Plan of Treatment Health Maintenance Due Date [...] patient's age to complete this topic Insurance [employer] Care Teams Felt Coverer Relationship Specialty Start Date End Date Phuc Rubio MD PCP - General INTERNAL MEDICINE 06/03/22
== END 2024-11-25 18:19 | disposition home or self-care (01) ==
LOC: ANHED 18:12
PROVIDERS: Emergency Provider Family Medicine; PCP Internal Medicine
DX: T78.40XA Allergy, unspecified, initial encounter (principal); X58.XXXA Exposure to other specified factors, initial encounter; J44.9 Chronic obstructive pulmonary disease, unspecified; I10 Essential (primary) hypertension; E78.00 Pure hypercholesterolemia, unspecified; F17.210 Nicotine dependence, cigarettes, uncomplicated; Z79.899 Other long term (current) drug therapy
CPT/HCPCS: 99283; J7512

== ENCOUNTER 2025-03-10 13:38 | Outpatient (CLI) | payer MEDICARE, SELFPAY ==
--- NOTE | ~2025-03-10 | PE_ITS ---
EXAMINATION: PET_PETPSMAST_PT DATE: 03/10/2025 15:47 INDICATION: Prostate cancer TECHNIQUE: 5.092 mCi of Illucix Ga-68([id number]) was administered i.v. Low dose computed tomography (CT) images were acquired from the base of the brain to the base of the brain to the proximal thighs for attenuation correction and anatomic localization. Positron emission tomography (PET) images were acquired in the same distribution beginning 72 minutes after injection. Images including fused PET/CT images were reconstructed in axial, coronal, and sagittal planes. Automated exposure control technique was employed. The dose-length product was 1191.07mGy-cm. COMPARISON: None FINDINGS: Head/neck: Typical pattern of symmetric physiologic increased activity in the lacrimal, parotid and submandibular glands as well as along the mucosa of the nasal and oral cavities, pharynx and hypopharynx. No pathologically enlarged cervical lymphadenopathy or suspicious foci of increased uptake in the visualized head or neck. Chest: Linear discoid atelectasis/scarring in the right lower lobe. No suspicious pulmonary nodules, pneumonia, pulmonary edema or pleural effusion. Heart size is normal. Atherosclerotic coronary artery calcification. No pericardial effusion. Thoracic aorta is normal in caliber. No pathologically enlarged or PSMA avid thoracic lymphadenopathy. Abdomen/pelvis/proximal thighs: Physiologic renal accumulation and excretion of activity in the kidneys, bladder and along portions of ureters. Approximately 1 cm focus of prominent increased uptake with maximal SUV of 19.3 and without radiologic correlate in the left peripheral zone of the enlarged prostate which measures 4.6 x 5.0 cm. Normal degree and slightly heterogenous pattern of increased uptake throughout the liver and spleen without radiologic correlate or dominant PSMA avid lesion. The gallbladder, pancreas and right adrenal gland are normal. 1.7 cm low-attenuation left adrenal adenoma. Moderate uptake scattered throughout the bowels with typical duodenal and proximal jejunal predominance and without radiologic correlate, also likely physiologic. No other abnormal foci of increased uptake or pathologically enlarged lymphadenopathy in the abdomen, pelvis or proximal thighs. Musculoskeletal: Small region of soft tissue activity at the right elbow likely extravasation at the site of injection. Severe lower lumbar spondylosis. L1 laminectomy with L1- L2 posterior spinal fusion with bilateral vertical susan and pedicle screw fixation. No suspicious lytic, blastic or abnormally PSMA avid bone lesions. IMPRESSION: 1. Small focus of prominent uptake in the left peripheral zone of the enlarged prostate consistent with primary prostate cancer. No lesion suspicious for metastatic disease. Reviewed, dictated and finalized at location A. [facility] [employer] IMPRESSION: 1. Small focus of prominent uptake in the left peripheral zone of the enlarged prostate consistent with primary prostate cancer. No lesion suspicious for meta static disease.
--- OUTSIDE RECORDS SUMMARY | 2025-03-10 14:56 | XMS_ITS | Clinical Summary ---
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 AGRICULTURAL EXTENSION AGENT Gender Identity Not on file Sexual Orientation Not on file Last Filed Vital Signs Vital Sign Reading Time Taken Comments Blood Pressure 168/97 06/03/2022 11:20 PM AGRICULTURAL EXTENSION AGENT Pulse 82 06/03/2022 11:20 PM AGRICULTURAL EXTENSION AGENT Temperature 37 C (98.6 F) 06/03/2022 7:23 PM AGRICULTURAL EXTENSION AGENT Respiratory Rate 16 06/03/2022 11:20 PM AGRICULTURAL EXTENSION AGENT Oxygen Saturation 93% 06/03/2022 11:20 PM AGRICULTURAL EXTENSION AGENT Inhaled Oxygen Concentration - - Weight 97.1 kg (214 lb) 06/03/2022 7:34 PM AGRICULTURAL EXTENSION AGENT Height 182.9 cm (6') 06/03/2022 7:34 PM AGRICULTURAL EXTENSION AGENT Body Mass Index 29.02 06/03/2022 7:34 PM AGRICULTURAL EXTENSION AGENT Plan of Treatment Health Maintenance Due Date Last Done Comments Colorectal Cancer Screening Colonoscopy (10 Years) 1958 Hepatitis C 1976 DTaP, Tdap and Td Vaccines ( 1 - Tdap) 1977 Pneumococcal Vaccine: 50+ Ye ars (1 of 1 - PCV) 2008 Zoster Vaccines (1 of 2) 2008 COVID-19 Vaccine ( - 2024-2 6 season) 2024 Influenza Adult (#1) 2025 RSV Immunization or 60+ Years (1 - 1-dose 75+ series) 2033 Hepatitis A Vaccines Aged Out No long er eligible based on patient's age to complete this topic Meningococcal B Vaccine Aged Out No l onger eligible based on patient's age to complete this topic Meningococcal Vaccine Aged Out No kate patience eligible based on patient's age to complete this topic RSV Immunizations Under 20 Months Aged Out No longer eligible based on patient's age to complete this topic Insurance Care Teams Laboratory Mechanic Helper Relationship Specialty Start Date End Date Phuc Rubio MD PCP - General INTERNAL MEDICINE 06/03/22
--- OUTSIDE RECORDS SUMMARY | 2025-03-10 14:56 | XMS_ITS | Data Portability ---
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 Not available 09/07/2022 11:42:55 11/02/2022 11/02/2022 Low-fat diet regular walking blood work will be ordered avoidance of tobacco follow-up 4 months [email or web address] Not available 11/03/2022 12:54:27 11/16/2022 11/16/2022 Impression: [...] more than half the time spent in melm-ll-xwwb care. Not available 11/18/2022 17:31:49 12/14/2022 12/14/2022 [...] went numb when he bent over to belt picker a screw including all 5 fingertips [...] demonstrated how he simply bent over to belt picker a screw reaching to the floor [...] over forward and reaching to the ground belt picker screw. Today he notes tingling in all 5 digits of his left hand when he bends over to simulate picking a screw up off the floor. Gowen tingling in all 5 fingers of his [...] more than half the time spent in bqat-xk-jplt care. Not available 12/15/2022 21:48:29 02/21/2023 02/21/2023 Will continue current therapy will follow-up in 4 [email or web address] Not available 02/25/2023 22:15:26 Plan of Treatment Reminders Order Date Submit Date Provider Last Modified By Organization Details Last Modified Time Details Appointments None recorded. Lab CBC w/ auto diff 2022 023 [facility] (Lab), [address] [place], [address], 15:06:11 CMP, serum or plasma 2022 023 [facility] (Lab), [address] [place], [address], 3 15:29:20 lipid panel, serum 2022 023 [facility] (Lab), [address] [place], [address], 3 15:29:23 Referral None recorded. Procedures None recorded. Surgeries None recorded. Imaging XR, cervical spine, 2 or 3 view 2022 023 [email or web address] [facility] [place], [address], [place], [address], 3 11:17:31 MRI, cervical spine, w/o contrast 2022 023 [email or web address] Not available 3 15:08:20 XR, shoulder 2022 023 [facility] [place], [address], [place], [address], 3 13:58:11 Medication Orders Naprosyn 500 mg tablet 2022 023 [id number], [address], [place], [id number], 3 08:21:45 Medrol (Geo) 4 mg tablets in a dose pack 2022 023 [email or web address] 45 [id number], [address], [place], [id number], 3 12:18:19 Patient TargetsNo targets recorded. Patient InstructionsNo instructions recorded. Reason for Referral None Reported. Results Created Date Observation Date Name Description Value Unit Range Abnormal Flag Note LastModifiedBy Organization Detail LastModifiedTime 11/03/19 23 11/02/2022 CBC/C OMPLE TE BLD COUNT W/DIF F white blood cells 5.4 x10'3 /uL 4.2-10 .8 Not Available [facility] (Lab) [address] [place], [address], 11/02/2022 15:06:11 11/03/19 23 11/02/2022 CBC/C OMPLE TE BLD COUNT W/DIF F red blood cells 5.10 x10'6 /uL 4.10-5 .80 Not Available [facility] (Lab) [address] [place], [address], 11/02/2022 15:06:11 11/03/19 23 11/02/2022 CBC/C OMPLE TE BLD COUNT W/DIF F hemoglobin 15.3 g/dL 13.2-1 7.0 Not Available [facility] (Lab) [address] [place], [address], 11/02/2022 15:06:11 11/03/19 23 11/02/2022 CBC/C OMPLE TE BLD COUNT W/DIF F hematocrit 43.7 % 39.3-5 0.0 Not Available [facility] (Lab) [address] [place], [address], 11/02/2022 15:06:11 11/03/19 23 11/02/2022 CBC/C OMPLE TE BLD COUNT W/DIF F mean red cell volume 85.7 fL 80.0-9 7.0 Not Available [facility] (Lab) [address] [facility] [place], [address], 11/02/2022 15:06:11 11/03/19 23 11/02/2022 CBC/C OMPLE TE BLD COUNT W/DIF F mean red cell hemoglobin 30.0 pg 27.0-3 3.0 Not Available [facility] (Lab) [address] [place], [address], 11/02/2022 15:06:11 11/03/19 23 11/02/2022 CBC/C OMPLE TE BLD COUNT W/DIF F mean RBC HGB concentratio n 35.0 g/dL 31.0-3 6.0 Not Available [facility] (Lab) [address] [place], [address], 11/02/2022 15:06:11 11/03/19 23 11/02/2022 CBC/C OMPLE TE BLD COUNT W/DIF F red cell distribution width 13.9 % 11.8-1 5.5 Not Available [facility] (Lab) [address] [place], [address], 11/02/2022 15:06:11 11/03/19 23 11/02/2022 CBC/C OMPLE TE BLD COUNT W/DIF F platelets 248 x10'3 /uL 150-40 0 Not Available [facility] (Lab) [address] [place], [address], 11/02/2022 15:06:11 11/03/19 23 11/02/2022 CBC/C OMPLE TE BLD COUNT W/DIF F mean platelet volume 10.9 fL 9.0-12 .4 Not Available [facility] (Lab) [address] [place], [address], 11/02/2022 15:06:11 11/03/19 23 11/02/2022 CBC/C OMPLE TE BLD COUNT W/DIF F neutrophils 46.2 % 39.0-7 2.0 Not Available [facility] (Lab) [address] [place], [address], 11/02/2022 15:06:11 11/03/19 23 11/02/2022 CBC/C OMPLE TE BLD COUNT W/DIF F lymphocytes 39.4 % 16.0-4 7.0 Not Available [facility] (Lab) [address] [place], [address], 11/02/2022 15:06:11 11/03/19 23 11/02/2022 CBC/C OMPLE TE BLD COUNT W/DIF F monocytes 12.0 % 5.0-12 .0 Not Available [facility] (Lab) [address] [place], [address], 11/02/2022 15:06:11 11/03/19 23 11/02/2022 CBC/C OMPLE TE BLD COUNT W/DIF F eosinophils 1.3 % 1.0-7. 0 Not Available [facility] (Lab) [address] [place], [address], 11/02/2022 15:06:11 11/03/19 23 11/02/2022 CBC/C OMPLE TE BLD COUNT W/DIF F basophils 0.7 % 0.0-2. 0 Not Available [facility] (Lab) [address] [place], [address], 11/02/2022 15:06:11 11/03/19 23 11/02/2022 CBC/C OMPLE TE BLD COUNT W/DIF F immature granulocytes 0.4 % 0.00-0 .50 Not Available [facility] (Lab) [address] [place], [address], 11/02/2022 15:06:11 11/03/19 23 11/02/2022 CBC/C OMPLE TE BLD COUNT W/DIF F neutrophils, absolute count 2.50 x10'3 /uL 1.5-8. 0 Not Available [facility] (Lab) [address] [place], [address], 11/02/2022 15:06:11 11/03/19 23 11/02/2022 CBC/C OMPLE TE BLD COUNT W/DIF F lymphocytes, absolute count 2.13 x10'3 /uL 1.07-3 .43 Not Available [facility] (Lab) [address] [place], [address], 11/02/2022 15:06:11 11/03/19 23 11/02/2022 CBC/C OMPLE TE BLD COUNT W/DIF F monocytes, absolute count 0.65 x10'3 /uL 0.29-0 .99 Not Available [facility] (Lab) [address] [place], [address], 11/02/2022 15:06:11 11/03/19 23 11/02/2022 CBC/C OMPLE TE BLD COUNT W/DIF F eosinophils, absolute count 0.07 x10'3 /uL 0.02-0 .53 Not Available [facility] (Lab) [address] [place], [address], 11/02/2022 15:06:11 11/03/19 23 11/02/2022 CBC/C OMPLE TE BLD COUNT W/DIF F basophils, absolute count 0.04 x10'3 /uL 0.01-0 .08 Not Available [facility] (Lab) [address] [place], [address], 11/02/2022 15:06:11 11/03/19 23 11/02/2022 CBC/C OMPLE TE BLD COUNT W/DIF F immature granulocytes ,absolute 0.02 x10'3 /uL 0.00-0 .05 Not Available [facility] (Lab) [address] [place], [address], 11/02/2022 15:06:11 11/03/19 23 11/02/2022 CBC/C OMPLE TE BLD COUNT W/DIF F nucleated red blood cells 0.0 % -0 Not Available [facility] (Lab) [address] [place], [address], 11/02/2022 15:06:11 11/03/19 23 11/02/2022 CBC/C OMPLE TE BLD COUNT W/DIF F NRBC# 0.00 x10'3 /uL Not Available [facility] (Lab) [address] [place], [address], 11/02/2022 15:06:11 11/03/19 23 11/02/2022 COMPR EHENS BRYAN METAB OLIC PANEL sodium 138 mmol/ L 137-14 5 Not Available [facility] (Lab) [address] [place], [address], 11/02/2022 15:29:20 11/03/19 23 11/02/2022 COMPR EHENS BRYAN METAB OLIC PANEL potassium 4.7 mmol/ L 3.5-5. 1 Not Available [facility] (Lab) [address] [place], [address], 11/02/2022 15:29:20 11/03/19 23 11/02/2022 COMPR EHENS BRYAN METAB OLIC PANEL chloride 101 mmol/ L 98-107 Not Available [facility] (Lab) [address] [place], [address], 11/02/2022 15:29:20 11/03/19 23 11/02/2022 COMPR EHENS BRYAN METAB OLIC PANEL carbon dioxide 26 mmol/ L 22-30 Not Available [facility] (Lab) [address] [place], [address], 11/02/2022 15:29:20 11/03/19 23 11/02/2022 COMPR EHENS BRYAN METAB OLIC PANEL anion gap 15.7 mmol/ L 14-22 Not Available [facility] (Lab) [address] [place], [address], 11/02/2022 15:29:20 11/03/19 23 11/02/2022 COMPR EHENS BRYAN METAB OLIC PANEL glucose 89 mg/dL 70-99 Not Available [facility] (Lab) [address] [place], [address], 11/02/2022 15:29:20 11/03/19 23 11/02/2022 COMPR EHENS BRYAN METAB OLIC PANEL BUN 10 mg/dL 8-19 Not Available [facility] (Lab) [address] [place], [address], 11/02/2022 15:29:20 11/03/19 23 11/02/2022 COMPR EHENS BRYAN METAB OLIC PANEL creatinine 0.84 mg/dL 0.66-1 .25 Not Available [facility] (Lab) [address], [place], [address], 11/02/2022 15:29:20 11/03/19 23 11/02/2022 COMPR EHENS BRYAN METAB OLIC PANEL GFR >60 Refer ence Range : [place] ge GFR Healt hy Adult : >60 [...] or ethni c subgr oups, such as [facility] nics. Outsi de the valid [...] calcu lator is avail able on the [facility] websi te: https ://deonte w.sinai liu.o rg/pr ofess ional s/kdo qi/gf r_cal culat or Not Available [facility] (Lab) [address] [place], [address], 11/02/2022 15:29:20 11/03/19 23 11/02/2022 COMPR EHENS BRYAN METAB OLIC PANEL alkaline phosphatase 60 U/L 38-126 Not Available [facility] (Lab) [address] [facility] [place], [address], 11/02/2022 15:29:20 11/03/19 23 11/02/2022 COMPR EHENS BRYAN METAB OLIC PANEL alanine aminotransfe rase 27 U/L 0-50 Not Available [facility] (Lab) [address] [place], [address], 11/02/2022 15:29:20 11/03/19 23 11/02/2022 COMPR EHENS BRYAN METAB OLIC PANEL aspartate aminotransfe rase 37 U/L 15-46 Not Available [facility] (Lab) [address] [place], [address], 11/02/2022 15:29:20 11/03/19 23 11/02/2022 COMPR EHENS BRYAN METAB OLIC PANEL bilirubin, total 0.70 mg/dL 0.20-1 .30 Not Available [facility] (Lab) [address] [place], [address], 11/02/2022 15:29:20 11/03/19 23 11/02/2022 COMPR EHENS BRYAN METAB OLIC PANEL calcium 9.6 mg/dL 8.4-10 .2 Not Available [facility] (Lab) [address] [place], [address], 11/02/2022 15:29:20 11/03/19 23 11/02/2022 COMPR EHENS BRYAN METAB OLIC PANEL total protein 7.7 g/dL 6.3-8. 2 Not Available [facility] (Lab) [address] [place], [address], 11/02/2022 15:29:20 11/03/19 23 11/02/2022 COMPR EHENS BRYAN METAB OLIC PANEL albumin 4.8 g/dL 3.0-4. 4 high Not Available [facility] (Lab) [address] [place], [address], 11/02/2022 15:29:20 11/03/19 23 11/02/2022 COMPR EHENS BRYAN METAB OLIC PANEL globulin 2.9 g/dL 2.6-4. 2 Not Available [facility] (Lab) [address] [place], [address], 11/02/2022 15:29:20 11/03/19 23 11/02/2022 COMPR EHENS BRYAN METAB OLIC PANEL A/G ratio 1.7 ratio 1.0-2. 0 Not Available [facility] (Lab) [address] [place], [address], 11/02/2022 15:29:20 11/03/19 23 11/02/2022 LIPID PANEL cholesterol 238 mg/dL 140-19 9 high NIH RENETTA NSUS RECOM MENDA TION FOR ADA STERO L: ADULT CHILD LOW RISK: <200 <170 BORDE RLINE : <200- 239 ----- HIGH RISK: >240 >200 Not Available [facility] (Lab) [address] [place], [address], 11/02/2022 15:29:23 11/03/19 23 11/02/2022 LIPID PANEL triglyceride s 269 mg/dL 0-150 high NIH RENETTA NSUS REPOR T RECOM MENDA TION FOR TRIGL YCERI RAMY: ADULT CHILD LOW RISK: <150 ----- BODER LINE: 150-1 99 ----- HIGH RISK: >200 ----- Not Available [facility] (Lab) [address] [place], [address], 11/02/2022 15:29:23 11/03/19 23 11/02/2022 LIPID PANEL HDL cholesterol 70 mg/dL 40- Not Available [facility] (Lab) [address] [place], [address], 11/02/2022 15:29:23 11/03/19 23 11/02/2022 LIPID PANEL [...] WILL NOT BE REPOR TAISHA. Not Available [facility] (Lab) [address] [place], [address], 11/02/2022 15:29:23 09/08/19 23 XR, shoul jorge No observ ation record ed. [facility] [place] [address], [place], [address], 09/07/2022 11:37:42 10/06/19 23 10/05/2022 MRI, shoul jorge, w/o contr ast No observ ation record ed. [email or web address] [place] [address] [address], [place], [address], 10/08/2022 09:05:18 10/06/19 23 10/05/2022 MRI, shoul jorge, w/o contr ast No observ ation record ed. [email or web address] [address], [place], [address], 11/07/2022 10:23:44 10/06/19 23 10/05/2022 joint aspir ation (PROC ) No observ ation record ed. [email or web address] [place] [address] [address], [place], [address], 10/08/2022 09:01:03 10/06/19 23 10/05/2022 XR, lower extre mity No observ ation record ed. [email or web address], [place], [address], 11/07/2022 10:25:37 12/15/19 XR, cervi tiana spine , 2 or 3 view No observ ation record ed. [email or web address] [facility] [place] [address] [facility] [address], [place], [address], 12/14/2022 10:11:50 01/23/20 23 01/22/2023 XR, chest , 2 view No observ ation record ed. [email or web address], [place], [address], 02/27/2023 13:11:10 03/25/20 23 03/25/2023 CT, abdom en + pelvi s, w/ contr ast No observ ation record ed. [email or web address] [address], [place], [address], 04/12/2023 21:52:12 05/10/19 24 05/10/2023 XR, chest No observ ation record ed. [email or web address] [place] [address] [address], [place], [address], 05/28/2023 12:29:57 Result Notes None recorded. Problems Name Problem SNOMED Code Status Onset Date Resolution Date Notes Provider Name and Address Organization Details Recorded Time Chronic obstructiv e pulmonary disease 18769237 Active 2020 Not Available [facility] 3 08:37:05 Spasm of back muscles 117889297 Active 2020 Not Available [facility] 3 08:37:05 Hypertensi ve disorder 74835575 Active 2020 Not Available [facility] 3 08:37:05 Hyperlipid emia 20843831 Active 2020 Not Available [facility] 3 08:37:05 Smoker 15111917 Active 2020 Not Available [facility] 3 08:37:05 Screening for malignant neoplasm of prostate Active 2021 Not Available [facility] 3 08:37:05 Pain of left knee joint 4022297124408 07 Active 2021 Not Available [facility] 3 08:37:05 Pain of right knee joint 8323883316418 00 Active 2021 Not Available [facility] 3 08:37:05 Varicose veins of lower extremity 27195719 Active 2021 Not Available [facility] 3 08:37:05 Neck pain 25702759 Active 2021 Not Available [facility] 3 08:37:05 MRI scan abnormal 357939814 Active 2021 Not Available [facility] 3 08:37:05 Cough 32683399 Active 2021 Not Available [facility] 3 08:37:05 CT of chest abnormal 8872441365307 9102 Active 2021 Not Available [facility] 3 08:37:05 Pain of right shoulder joint 1300495433747 9100 Active 2022 Not Available [facility] 3 08:37:05 Pain of left shoulder joint 0046028735695 9109 Active 2022 ESTHER Rodriguez [facility] [employer] [facility] 3 10:34:01 Cervical radiculopa thy 87404811 Active 2022 CAROL Bartholomew, [facility] [employer] [facility] 3 10:59:31 Notes:Some problems listed i n Documents: #[id number], #[id number] could not be added to this patient's chart. Please review these documents and add these problems to the patient's chart manually as needed. Problem Notes None recorded. Procedures Surgical History Date Name Laterality Status Provider Name and Address Organization Details Recorded Time 3 Transitional_ Care_Manageme nt completed ESTHER Funk [facility] 07/03/2022 11:59:56 Back completed ESTHER Funk [place] - [facility] 07/03/2022 12:03:45 excision of ganglion cyst completed Not Available [facility] 06/06/2022 02:41:01 tonsilectomy/ adenoids completed Not Available [facility] 06/06/2022 02:41:01 release of trigger finger completed Not Available [facility] 06/06/2022 02:41:01 Hernia Repair completed Not Available [facility] 06/06/2022 02:41:01 Imaging Results None [...] 09/07/2022 175.26 cm ESTHER Rodriguez [place] [facility] [facility] 09/07/2022 09:47:27 Date Recorded Body height Body mass index (BMI) Body weight Body temperature Heart rate Systolic And Diastolic Provider Name and Address Organization Details Last Updated DateTime 07/28/202 3 175.26 cm 29.4 kg/m2 51118.8 8 g 97.4 [degF] 102 /min 118/80 mm[Hg] Arlene Rahman [facility] [employer] 3 12:20:04 Date Recorded Body height Body mass index (BMI) Body weight Provider Name and Address Organization Details Last Updated DateTime 11/16/2022 177.8 cm 28.3 kg/m2 13963.7 g Geovanna [place] Pager 11/16/2022 11:09:33 Date Recorded Body height Provider Name an d Address Organization Details Last Updated DateTime 12/14/2022 177.8 cm Geovanna [place] Pager 12/14/2022 09:45:06 Date Recorded Body height Body mass index (BMI) Body weight Body temperature Heart rate Systolic And Diastolic Provider Name and Address Organization Details Last Updated DateTime 3 177.8 cm 28 kg/m2 67321.5 1 g 99.1 [degF] 92 /min 136/90 mm[Hg] Arlene Rahman [facility] [employer] 3 15:46:41 Social History Question Answer Notes LastModified by Organization Details LastModified Time Tobacco Smoking Status Current Every Day Smoker Not Available [facility] 06/06/2022 02:29:51 Do You Have An Advance Directive? No MIGRATION.030 [id number] Information not available 06/06/2022 Do You Wear A Helmet When Biking? No MIGRATION.030 972119 Information not available 06/06/2022 What Is Your Level Of Caffeine Consumption? Occasional MIGRATION.030 911505 Information not available 06/06/2022 How Much Tobacco Do You Chew? None MIGRATION.030 294494 Information not available 06/06/2022 In The 14 Days Before Symptom Onset, Have You Had Close Contact With A Laboratory-confi rmed COVID-19 While That Case Was Ill? No MIGRATION.030 042123 Information not available 06/06/2022 In The 14 Days Before Symptom Onset, Have You Had Close Contact With A Person Who Is Under Investigation For COVID-19 While That Person Was Ill? No MIGRATION.030 129773 Information not available 06/06/2022 What Type Of Diet Are You Following? REGULAR MIGRATION.0301 [id number] Information not available 06/06/2022 Which Illicit Or Recreational Drugs Have You Used? None MIGRATION.0301 [id number] Information not available 06/06/2022 What Is The Highest Grade Or Level Of School You Have Completed Or The Highest Degree You Have Received? [id number] MIGRATION.0301 [id number] Information not available 06/06/2022 Have There Been Any Changes To Your Family Or Social Situation? No MIGRATION.0301 [id number] Information not available 06/06/2022 Are There Any Guns Present In Your Home? No MIGRATION.0301 528796 Information not available 06/06/2022 Do You Use Insect Repellent Routinely? No MIGRATION.0301 088989 Information not available 06/06/2022 Where Do You Live? [place] MIGRATION.0301 769110 Information not available 06/06/2022 Do You Have A Medical Power Of Regional Flatbed Truck Driver? No MIGRATION.0301 [id number] Information not available 06/06/2022 What Was The Date Of Your Most Recent Tobacco Screening? 02/21/2023 [email or web address] Information not available 02/21/2023 Do You Have Any Pets? No MIGRATION.0301 [id number] Information not available 06/06/2022 What Is Your Relationship Status? MIGRATION.0301 [id number] Information not available 06/06/2022 Do You Use Your Seat Belt Or Car Seat Routinely? Yes MIGRATION.0301 976504 Information not available 06/06/2022 Do You Have Smoke And Carbon Monoxide Detectors In Your Home? Yes MIGRATION.0301 605572 Information not available 06/06/2022 At What Age Did You Start Smoking Tobacco? 12 MIGRATION.0301 700838 Information not available 06/06/2022 Are You Passively Exposed To Smoke? No MIGRATION.0301 852544 Information not available 06/06/2022 Are There Any Smokers In Your House? No MIGRATION.0301 379483 Information not available 06/06/2022 How Much Tobacco Do You Smoke? 1 PPW 1 Every Other Day [email or web address] Information not available 02/21/2023 Do You Use Sunscreen Routinely? No MIGRATION.0301 948350 Information not available 06/06/2022 Have You Recently Traveled Abroad? No MIGRATION.0301 079923 Information not available 06/06/2022 Do You Have Any Dietary Restrictions? No MIGRATION.0301 062724 Information not available 06/06/2022 Sex: Unknown Functional Status Question Answer Note LastModified by Organizat ion Details LastModified Time Do you use any illicit or recreational drugs? No MIGRATION.712960 [id number] Information not available 06/06/2022 Do you or have you ever used any other forms of tobacco or nicotine? No MIGRATION.487397 9682 Information not available 06/06/2022 What is your level of alcohol consumption? Occasional MIGRATION.667369 0765 Information not available 06/06/2022 Do you or have you ever used smokeless tobacco? Never used smokeless tobacco MIGRATION.087474 7668 Information not available 06/06/2022 What is your occupation? unemployed MIGRATION.651856 1933 Information not available 06/06/2022 Do you or have you ever used e-cigarettes or vape? Never used electronic cigarettes MIGRATION.697508 8228 Information not available 06/06/2022 What is your exercise level? Occasional MIGRATION.425839 2967 Information not available 06/06/2022 Mental Status Question Answer Note LastModified by Organizat ion Details LastModified Time Do you feel stressed (tense, restless, nervous, or anxious, or unable to sleep at night)? [id number] MIGRATION.[id number] 6 Information not available 06/06/2022 Family History Relationship Description Onset Age of this Age Resolved Age Notes LastModified by Organization Details LastModified Time Brother Family history of malignant neoplasm MIGRATION.887 [id number] Not available 06/06/2022 02:41:03 Brother Myocardial infarction MIGRATION.484 [id number] Not available 06/06/2022 02:41:03 Brother Cirrhosis of liver 64 MIGRATION.616 [id number] Not available 06/06/2022 02:41:03 Mother Hypertensive disorder MIGRATION.131 [id number] Not available 06/06/2022 02:41:03 Mother Diabetes mellitus MIGRATION.627 3559809 Not available 06/06/2022 02:41:03 Mother Glaucoma MIGRATION.632 8818689 Not available 06/06/2022 02:41:03 Mother Kidney disease on dialys is MIGRATION.679 [id number] Not available 06/06/2022 02:41:03 Medical History Condition [...] GERD/NAUSEA N ANEURYSM N URINARY/BLADDER/KIDNEY PROBLEMS N CORONARY ARTERY DISEASE (CAD) N INPATIENT PSYCH CARE N ADDICTION CONCERNS N ENDOMETRIOSIS N Impotence [...] HAVE YOU BEEN HOSPITALIZED OR SEEN IN [facility] IN THE PAST YEAR ? N [...] Diagnosis SNOMED-CT Code Diagnosis ICD10 Code Diagnosis IMO Codes Diagnosis Note [id number] Zaria Rubio MD [facility] Internal Med [place] [address] [facility] [address] [place] [address] 07/01/2020 00:00:00 07/01/2020 16:19:34 [id number] Zaria Rubio MD [facility] Internal Med [facility] [address] [facility] [address] [address] 09/26/2020 00:00:00 09/26/2020 21:24:40 [id number] Zaria Rubio MD [facility] Internal [facility] [address] [facility] [address] [address] 01/23/2021 00:00:00 01/23/2021 23:12:10 [id number] Zaria Rubio MD [facility] Internal Med [facility] 2043 [facility] [address] [address] 05/22/2021 00:00:00 06/04/2021 10:38:44 [id number] Zaria Rubio MD [facility] Internal Med [facility] [address]43 [facility], [address] [address] 09/15/2021 00:00:00 10/17/2021 20:42:40 [id number] Anderson Pickett MD [facility] 09 [place] [address] 09/21/2021 00:00:00 09/21/2021 16:07:38 [id number] Zaria Rubio MD S_GMG Internal Med [facility] 2043 [facility], [address] [address] 12/21/2021 00:00:00 01/28/2022 21:04:56 [id number] Zaria Rubio MD S_GMG Internal Med [facility] 1261 [facility] , [facility] [place] [address] 03/22/2022 00:00:00 03/22/2022 23:09:40 [id number] Anderson Pickett MD [facility] [address] [facility] [address] [place] [address] 04/16/2022 00:00:00 04/16/2022 17:35:28 [id number] MD FAINA HernandezS_GMG Internal Med [facility] 2043 [facility], [address] [address] 05/21/2022 00:00:00 05/27/2022 17:40:27 [id number] Zaria Rubio MD [facility] Internal Med [facility], [place] [address] [facility] [place] [address] 07/03/2022 11:20:47 07/03/2022 12:25:50 Transition of care [id number] 105 Z75.8 Hyperlipidemia 29484032 E78.5 Chronic ob structive pulmonary disease 83892839 J44.9 Hypertensive disorder 38 371322 I10 [id number] Anderson Pickett MD [facility] [address] [place] [address] 09/07/2022 09:36:57 09/07/2022 11:48:40 Pain of right shoulder joint [id number] M25.511 M25.512 [id number] Zaria Rubio MD [facility] Internal Med [facility]43 [facility] [address] [place] [address] 11/02/2022 11:29:26 11/02/2022 13:02:32 Hypertensive disorder [id number] I10 Chronic ob structive pulmonary disease 76318841 J44.9 Hyperlipidemia 24570307 E78.5 [id number] Anderson Pickett MD [facility] [address] [place] [address] 11/16/2022 10:17:38 11/19/2022 10:20:11 Pain of left shoulder joint [id number] 4548050 M25.002 [id number] Anderson Pickett MD [facility] [address] [place] [address] 12/14/2022 09:43:31 12/17/2022 11:17:30 Pain of left shoulder joint [id number] 5686597 M25.512 Cervical radiculopathy 22084635 M54.12 [id number] Zaria Rubio MD [facility] Internal Med [facility] 2043 [facility] [address] [place] [address] 02/21/2023 15:17:37 02/21/2023 16:43:40 Chronic obstructive pulmonary disease 38215068 J44.9 Hyperlipidemia 64465956 E78.5 Hypertensive disorder 38 074072 I10 Health Concerns Section Related Observation LastModified by Organization Detai ls LastModified Time None Recorded Concern Status LastModified by Organization Details LastModified Time None Recorded Advance Directives Directive N: Payers Insurance Date Sequence Insurance Name Policy Number Policy Barraza Covered Member ID Barraza Member ID Guarantor Name 02/26/2023 1 [facility] ON OR AFTER 10/06/20 (MEDICAID REPLACEMENT - HMO) Reji Freire [id number] Reji Freire Notes Date Note Type Note [...] surgery in June by Dr. Saucedo at [facility]. He showed me a photograph of his [...] used Ultram for pain. He does take lxdt-ssg-ilhdspt ibuprofen sometimes several times a day but he takes it on an as-needed basis. Anderson Pickett MD [address], [address] [employer], [place], [address], [employer] 09/07/2022 11:43:10 11/02/2022 text/html Being seen for COPD hyperlipidemia hypertension hypertension no headache. Hyperlipidemia he could do better with regards to his diet. Breathing has been fine Zaria Rubio MD [address], [address], [place], [address], [employer] 11/03/2022 12:55:34 11/16/2022 text/html patient returns after [...] he states. Anderson Pickett MD [address], [place] [address], [place], [address], [employer] 11/18/2022 17:32:26 02/21/2023 text/html COPD doing fine dyslipidemia your atorvastatin try to watch red meat hypertension doing fine Zaria Rubio MD [address], [facility] [address], [place], [address], [employer] 02/25/2023 22:15:46
--- OUTSIDE RECORDS SUMMARY | 2025-03-10 14:56 | XMS_ITS | Clinical Summary ---
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
== END 2025-03-10 13:39 | disposition home or self-care (01) ==
PROVIDERS: PCP Internal Medicine; Visit Provider Urology
DX: C61 Malignant neoplasm of prostate (principal)
CPT/HCPCS: 78815; A9596